=== PATIENT | female | born 1955 | race Caucasian/White ===

== ENCOUNTER → 2025-02-13 | Outpatient (CLI) | payer MEDICARE, SELFPAY ==
--- NOTE | 2025-02-13 11:00 | RAD_ITS ---
PROCEDURE: ABDOMEN SINGLE VIEW 02/13/2025 REASON FOR EXAM: SITZ MARKER DAY 3 TECHNIQUE: Single view abdomen. COMPARISON: None. FINDINGS: There is a nonobstructive bowel gas pattern. There is a Sitz marker in the left mid abdomen, which could be in the transverse colon. There is a Sitz marker in the right lower quadrant, which could be in the cecum. No other Sitz markers are identified. There is multilevel degenerative disc disease of the lumbar spine with dextroscoliosis. RAD/Abdomen Single View IMPRESSION: No evidence of bowel obstruction. Sitz markers locations as described. Reading Location: [place] [id number]
== END | disposition home or self-care (01) ==
LOC: RAD 10:56
PROVIDERS: PCP Family Medicine
DX: R14.0 Abdominal distension (gaseous) (principal); K59.00 Constipation, unspecified
CPT/HCPCS: 74018

== ENCOUNTER → 2025-02-15 | Outpatient (CLI) | payer MEDICARE, SELFPAY ==
--- OUTSIDE RECORDS SUMMARY | 2025-02-15 11:50 | XMS RPT_ITS | CCD ---
Author Organization [facility] ion Partnership [facility] Clini[employer] Care Team Providers Care Cable Television Program Director Name Role Phone Parag Wong Unavailable Unavailable Alena Lo Unavailable Unavailable Franklin, Salvador A Unavailable Unavailable Alena Lo Unavailable Unavailable Glenn, Salvador Unavailable Unavailable El-Nashar, Eddie Unavailable Unavailable El-Nashar, Eddie A Unavailable Unavailable Alena Lo MD Unavailable Unavailable Alena Lo Unavailable Unavailable Glenn, Salvador A Unavailable Unavailable El-Nashar, Eddie A Unavailable Unavailable Alena Lo Unavailable Unavailable Unavailable MD ALENA LO Primary Care UnavailCelestina Adame Attending Unavailable Celestina Chiang Referring Unavailable MD ALENA LO Primary [facility] UnavailCelestina Adame Attending Unavailable MD ALENA LO Primary [facility] UnavailMD ALENA Jones Attending UnavailMD ALENA Jones Referring UnavailMD ALENA Jones Primary [facility] UnavailMD ALENA Jones Attending UnavailMD ALENA Jones Referring UnavailMD ALENA Jones Primary Care UnavailMD ALENA Jones Attending UnavailMD ALENA Jones Referring UnavailMD ALENA Jones Referring UnavailMD ALENA Jones Primary Care UnavailMD ALENA Jones Attending UnavailAlena Jones MD Primary Care Provider Alena Lo MD Unavailable [phone] Alena Lo Primary Care Unavailab sharmila Lo, Dr. Alena Sinha Attending Unavailab sharmila Lo, Dr. Alena Sinha Primary Care Unavailab sharmila Lo, Dr. Alena Sinha Attending Unavailab sharmila Lo, Dr. Alena Sinha Primary Care Unavailab sharmila Lo, Dr. Alena Sinha Attending Unavailab le Garfield, Nitin Loreta Boylen Attending Unavailabl e Irvin, Dr. Alena Sinha Primary Care Unavailab le ALENA LO Primary Care Unavailable ALENA LO Primary Care Unavailable ALENA LO Primary Care Unavailable Stentz PA-C, Milind Primary Care Provider Alena Lo MD Unavailable Stentz PA-C, Milind Primary Care Provider STENTZ, MILIND Primary Care Unavailable ISACC KAM Attending Unavailable STENTZ, MILIND Referring Unavailable STENTZ, MILIND Primary Care Unavailable STENTMartín, MILIND Attending Unavailable ALENA LO Referring Unavailable STENTZ, MILIND Primary Care Unavailable STENTZ, MILIND Attending Unavailable STENTZ, MILIND Primary Care Unavailable Irvin MAR, Dr. Alena Heard Primary Care Provider Irvin MAR, Dr. Alena Heard Referring Provider Alisa Cordova Attending Provider Alena Lo Primary Care Unavailable Alena Lo Referring Unavailable Alisa Desouza Attending Unavailable Friend, Marin Attending Unavailable Alena Lo Primary Care Unavailable Allergies Allergy Classification Reported Allergen(s) Allergy Type Date of Onset Reaction(s) Facility (2 sources) apis mellifera venom Allergy to substance (finding) [facility] [address] Work Phone: (8 sources) Bee Venom Protein (Honey Bee); Translations: [BEE VENOM PROTEIN (HONEY BEE)] Allergy to substance 10-16-2023 [facility] (1 source) bee venom protein (honey bee) Drug allergy (disorder) 02-03-2025 [facility] Repository Medications Current Medications Medication Drug Class(es) Dates Sig (Normalized) Sig (Original) busPIRone hydrochloride 5 mg oral tablet (2 sources) Start: 01-07-2025 End: 03-08-2025 take 1 tablet by mouth twice daily as needed for anxiety busPIRone (Buspar) 5 mg tablet Indications: Anxiety Take 1 tablet (5 mg) by mouth 2 times a day as needed (anxiety). 60 tablet 1 01/07/2025 03/08/2025 Active FLUoxetine 20 mg oral capsule (20 sources) Serotonin Reuptake Inhibitor Start: 02-03-2025 take 1 capsule by mouth once daily Fluoxetine 20 mg capsule Active 20 mg PO daily February 03, 2025 12:00am Start: 09-14-2023 End: 09-14-2023 take 1-2 capsules by mouth once daily FLUoxetine (PROzac) 20 mg capsule Indications: Anxiety TAKE 1-2 CAPSULES BY MOUTH DAILY 180 capsule 3 09/14/2023 Active hydrOXYzine hydrochloride 10 mg oral tablet (3 sources) Antihistamine Start: 09-13-2024 End: 09-23-2024 take 1 tablet by mouth twice daily as needed for sleep hydrOXYzine HCL (Atarax) 10 mg tablet Indications: Primary insomnia Take 1 tablet (10 mg) by mouth 2 times a day as needed (sleep) for up to 10 days. 20 tablet 09/13/2024 Active traZODone hydrochloride 50 mg oral tablet (2 sources) Serotonin Reuptake Inhibitor Start: 01-07-2025 End: 03-08-2025 traZODone (Desyrel) 50 mg tablet Indications: Primary insomnia Take 1 tablet (50 mg) by mouth as needed at bedtime for sleep. 30 tablet 1 01/07/2025 03/08/2025 Active zolpidem tartrate 5 mg oral tablet (3 sources) gamma-Aminobutyric Acid-ergic Agonist Start: 12-07-2023 zolpidem (Ambien) 5 mg tablet Indications: Psychophysiological insomnia Take 1 tablet (5 mg) by mouth as needed at bedtime for sleep. 10 tablet 12/07/2023 Active Completed/Discontinued Medications Medication Drug Class(es) Dates Sig (Normalized) Sig (Original) ciprofloxacin 500 mg oral tablet (5 sources) Quinolone Antimicrobial Start: 07-16-2019 take 1 tablet by mouth twice daily Ciprofloxacin HCl - 500 MG Oral Tablet Take 1 tablet twice daily Quantity: 6 Refills: 0 Parag Wong Start : 16-Jul-2019 Active ergocalciferol, vitamin D2, (VITAMIN D2 ORAL) (1 source) End: 09-14-2023 take 1 tablet by mouth once daily ergocalciferol, vitamin D2, (VITAMIN D2 ORAL) Take 1 tablet by mouth once daily. 0 09/14/2023 Discontinued (Therapy completed) Lidocaine (1 source) Antiarrhythmic, Amide Local Anesthetic Start: 12-15-2024 End: 12-15-2024 10 mL, infiltration, Once, On 12/15/24 at 1340, For 1 dose mometasone furoate 0.001 mg/mg topical ointment (11 sources) Corticosteroid Mometasone Furoa te 0.1 % External Ointment APPLY SPARINGLY TO AFFECTED AREA(S) ONCE DAILY Refills: 0 Active Mometasone Furoa te 0.1 % External Ointment Refills: 0 DO Active Multi-Vitamins Oral Tablet (5 sources) Multi-Vitamins O ral Tablet Refills: 0 DO Active Multi-Vitamins O ral Tablet Refills: 0 Active mv-mn/folic acid/vit [id number] (ALIVE ONCE DAILY WOMEN 50 PLUS ORAL) (1 source) End: 09-14-2023 take 1 tablet by mouth once daily mv-mn/folic acid/vit [id number] (ALIVE ONCE DAILY WOMEN 50 PLUS ORAL) Take 1 tablet by mouth once daily. 0 09/14/2023 Discontinued (Therapy completed) nitrofurantoin, macrocrystals 25 mg / nitrofurantoin, monohydrate 75 mg oral capsule (2 sources) Nitrofuran Antibacterial Start: 09-24-2019 take 1 capsule by mouth twice daily Nitrofurantoin Monohyd Macro 100 MG Oral Capsule TAKE 1 CAPSULE TWICE DAILY UNTIL GONE. Quantity: 14 Refills: 0 Geovanna MAR, PhD, Eddie Start : 24-Sep-2019 Active polyethylene glycol 3350 73462 mg powder for oral solution (7 sources) Osmotic Laxative MiraLax Oral Po wder 17 grams oral PRN only Refills: 0 DO Active MiraLax Oral Pow jericho Refills: 0 DO Active promethazine hydrochloride 25 mg oral tablet (2 sources) Phenothiazine Start: 07-01-2022 take 1 tablet by mouth at bedtime Promethazine HCl - 25 MG Oral Tablet TAKE 1 TABLET Bedtime PRN queasiness Quantity: 10 Refills: 1 Ordered: 08-Jul-2022 Alena Lo MD Start : 01-Jul-2022 Active traMADol hydrochloride 50 mg oral tablet (1 source) Opioid Agonist Start: 12-15-2024 End: 12-15-2024 take 50 mg by mouth once as needed for pain, then take 300 mg by mouth once daily as needed for pain 50 mg, oral, Once, On 12/15/24 at 1340, For 1 dose, Max of 300 mg daily for patients > 75 years of age., If ordered PRN for pain, nurse is permitted to administer this medication for higher pain scores based on patient preference? Yes triamcinolone acetonide 1 mg/ml topical cream (9 sources) Corticosteroid Start: 08-11-2020 Triderm 0.1 % CREA APPLY CREAM EXTERNALLY TO AFFECTED AREA THREE TIMES DAILY Quantity: 30 Refills: 1 Ordered: 11-Aug-2020 Alena Lo MD Start : 11-Aug-2020 Active Problems Active Problems Problem Classification Problem Date Documented Da te Episodic/Chronic Anxiety disorders (20 sources) Anxiety; Translations: [Anxiety state, unspecified] Onset: 05-29-2023 05-29-2023 Chronic Cataract (20 sources) Cataract; Translations: [Unspecified cataract] Onset: 09-14-2023 09-14-2023 Chronic E Codes: Fall (4 sources) Fall; Translations: [Unspecified fall, initial encounter] Onset: 12-15-2024 12-15-2024 Episodic Immunizations and screening for infectious disease (5 sources) Immunization due; Translations: [Need for prophylactic vaccination and inoculation against unspecified single disease] Episodic Miscellaneous mental health disorders (4 sources) Primary insomnia; Translations: [Primary insomnia] Onset: 09-13-2024 09-13-2024 Chronic Open wounds of head; neck; and trunk (6 sources) Facial laceration ; Translations: [Laceration without foreign body of other part of head, initial encounter] Onset: 12-15-2024 12-15-2024 Episodic Osteoarthritis (20 sources) Osteoarthritis; Translations: [Osteoarthrosis, generalized, multiple sites] Onset: 05-29-2023 05-29-2023 Chronic Other endocrine disorders (10 sources) Menarche; Translations: [History of Menarche] Chronic Other eye disorders (20 sources) Vitreomacular traction syndrome; 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] Onset: 05-29-2023 05-29-2023 Chronic Other gastrointestinal disorders (19 sources) H/O: abdominal hernia; Translations: [Personal history of other diseases of digestive system] Episodic Other gastrointestinal disorders (3 sources) Abdominal bloating; Translations: [Abdominal distension (gaseous)] 05-29-2023 Episodic Other gastrointestinal disorders (4 sources) Abdominal distension (gaseous); Translations: [Abdominal distension (gaseous)] Onset: 05-29-2023 Episodic Other gastrointestinal disorders (1 source) Diarrhea of presumed infectious origin; Translations: [Diarrhea, unspecified] 12-01-2023 Episodic Other gastrointestinal disorders (2 sources) Constipation; Translations: [Constipation, unspecified] 02-03-2025 Episodic Other gastrointestinal disorders (1 source) Diarrhea; Translations: [Diarrhea, unspecified] 02-03-2025 Episodic Other gastrointestinal disorders (1 source) Constipation, unspecified; Translations: [Constipation, unspecified] Onset: 02-03-2025 Episodic Other injuries and conditions due to external causes (1 source) Injury of head; Translations: [Unspecified injury of head, initial encounter] 12-15-2024 Episodic Other injuries and conditions due to external causes (1 source) Injury of dental structures; Translations: [Unspecified injury of face, initial encounter] 12-15-2024 Episodic Other injuries and conditions due to external causes (2 sources) Unspecified injury of head, initial encounter; Translations: [Unspecified injury of head, initial encounter] Onset: 12-15-2024 Episodic Other injuries and conditions due to external causes (2 sources) Unspecified injury of face, initial encounter; Translations: [Unspecified injury of face, initial encounter] Onset: 12-15-2024 Episodic Other liver diseases (19 sources) Lesion of liver; Translations: [Other specified disorders of liver] Chronic Other lower respiratory disease (3 sources) Dyspnea; Translations: [Other respiratory abnormalities] Episodic Other nutritional; endocrine; and metabolic disorders (20 sources) High density lipoprotein deficiency ; Translations: [Lipoprotein deficiencies] Onset: 05-29-2023 05-29-2023 Chronic Other nutritional; endocrine; and metabolic disorders (7 sources) Body mass index 30+ - obesity; Translations: [Obesity, unspecified] Chronic Other nutritional; endocrine; and metabolic disorders (8 sources) Obesity; Translations: [Obesity, unspecified] Chronic Other nutritional; endocrine; and metabolic disorders (2 sources) Lipoprotein deficiency; Translations: [Lipoprotein deficiency] Onset: 05-29-2023 Chronic Other nutritional; endocrine; and metabolic disorders (1 source) Obesity caused by energy imbalance; Translations: [Class 1 obesity due to excess calories without serious comorbidity with body mass index (BMI) of 33.0 to 33.9 in adult] 09-13-2024 Chronic Other nutritional; endocrine; and metabolic disorders (2 sources) Other obesity due to excess calories; Translations: [Other obesity due to excess calories] Onset: 09-13-2024 Chronic Other nutritional; endocrine; and metabolic disorders (2 sources) Body mass index (BMI) 33.0-33.9, adult; Translations: [Body mass index (BMI) 33.0-33.9, adult] Onset: 09-13-2024 Chronic Other and delivery including normal (2 sources) Delivery normal; Translations: [Normal delivery] Episodic Comment on above: 10/30/1986_39weeks_F emale_6# 5oz11/30/1989_38weeks_Female_6# 3oz; Other upper respiratory disease (20 sources) Allergic rhinitis; Translations: [Allergic rhinitis, cause unspecified] Onset: 05-29-2023 Resolved: 09-14-2023 05-29-2023 Chronic Phlebitis; thrombophlebitis and thromboembolism (19 sources) History of thrombophlebitis; Translations: [Personal history of other diseases of circulatory system] Episodic Residual codes; unclassified (19 sources) Past history of procedure; Translations: [Other specified personal history presenting hazards to health] Episodic Comment on above: 04/23/2019-NEGATIVE; Residual codes; unclassified (5 sources) History of clinical finding in subject; Translations: [Asymptomatic postmenopausal status (age-related) (natural)] Episodic Comment on above: 2010; Residual codes; unclassified (7 sources) Menopause present; Translations: [Symptomatic menopausal or female climacteric states] 09-14-2023 Episodic Comment on above: 2010; Retinal detachments; defects; vascular occlusion; and retinopathy (20 sources) Macular hole; Translations: [Macular cyst, hole, or pseudohole] Onset: 05-29-2023 Resolved: 09-12-2022 05-29-2023 Chronic Spondylosis; intervertebral disc disorders; other back problems (18 sources) Cervical spondylosis without myelopathy; Translations: [Cervical spondylosis without myelopathy] Onset: 05-29-2023 05-29-2023 Chronic Superficial injury; contusion (3 sources) Contusion of right hand; Translations: [Contusion of right hand, initial encounter] Onset: 12-15-2024 12-15-2024 Episodic Unclassified (13 sources) Patient encounter status; Translations: [History of Vaginal Pap smear] 09-13-2024 Unclassified (1 source) Obesity, class 1; Translations: [Obesity, class 1] Onset: 09-13-2024 Urinary tract infections (3 sources) Sterile pyuria; Translations: [Pyuria, sterile] Episodic Past or Other Problems Problem Classification Problem Date Documented Da te Episodic/Chronic Abdominal pain (7 sources) Epigastric pain; Translations: [Epigastric pain] Onset: 05-29-2023 05-29-2023 Episodic Allergic reactions (20 sources) Atopic dermatitis; Translations: [Other atopic dermatitis and related conditions] Onset: 05-29-2023 Resolved: 09-14-2023 05-29-2023 Chronic Benign neoplasm of uterus (19 sources) Uterine leiomyoma; Translations: [Leiomyoma of uterus, unspecified] Onset: 05-29-2023 05-29-2023 Episodic Cardiac dysrhythmias (13 sources) Palpitations; Translations: [Palpitations] Onset: 07-19-2022 Resolved: 09-14-2023 05-29-2023 Episodic Genitourinary symptoms and ill-defined conditions (20 sources) Increased frequency of urination; Translations: [Dysuria] Resolved: 09-07-2020 Episodic Menopausal disorders (16 sources) Postmenopausal bleeding; Translations: [Postmenopausal bleeding] Onset: 05-29-2023 Resolved: 09-14-2023 05-29-2023 Chronic Nonspecific chest pain (6 sources) Chest discomfort; Translations: [Other chest pain] Onset: 10-19-2022 Episodic Other and unspecified benign neoplasm (17 sources) Lipoma of back; Translations: [Lipoma of other specified sites] Onset: 05-29-2023 05-29-2023 Episodic Other connective tissue disease (9 sources) Recurrent falls ; Translations: [Repeated falls] Onset: 09-14-2023 09-14-2023 Episodic Other gastrointestinal disorders (20 sources) Irritable bowel syndrome; Translations: [Irritable bowel syndrome] Onset: 05-29-2023 Resolved: 09-14-2023 05-29-2023 Chronic Other gastrointestinal disorders (20 sources) Chronic constipation; Translations: [Constipation, unspecified] Onset: 05-29-2023 05-29-2023 Episodic Other lower respiratory disease (2 sources) Dyspnea, unspecified; Translations: [Dyspnea, unspecified] Onset: 10-19-2022 Episodic Other screening for suspected conditions (not mental disorders or infectious disease) (20 sources) Patient encounter status; Translations: [Special screening for malignant neoplasms of vagina] Onset: 03-29-2023 Episodic Comment on above: 03/27/2017-NEG; Other skin disorders (4 sources) H/O: eczema; Translations: [Personal history of diseases of skin and subcutaneous tissue] Resolved: 09-12-2022 Episodic Other upper respiratory infections (20 sources) Viral upper respiratory tract infection; Translations: [Acute upper respiratory infections of unspecified site] Onset: 05-29-2023 Resolved: 09-14-2023 05-29-2023 Episodic Residual codes; unclassified (20 sources) H/O: urinary anomaly; Translations: [Personal history of unspecified urinary disorder] Resolved: 09-07-2020 Episodic Residual codes; unclassified (10 sources) Immunization due; Translations: [Immunization due] Unclassified (10 sources) History of clinical finding in subject; Translations: [History of menopause] Unclassified (2 sources) Finding of menstrual bleeding; Translations: [Menstruation] Comment on above: ONSET AGE 16; Unclassified (8 sources) Onset: 09-14-2023 Resolved: 01-07-2025 09-14-2023 Unclassified (1 source) Obesity, class 1; Translations: [Obesity, class 1] Onset: 09-13-2024 Viral infection (12 sources) Disease caused by 2019-nCoV; Translations: [Other specified viral infection] Onset: 05-29-2023 05-29-2023 Episodic NEGATED: Highlighted row has not occurred!Residual codes; unclassified (20 sources) Disease Episodic Results Test Name Value Interpretation Reference Range Facility Gastroenterology Visit Repor ton 02-03-2025 Gastroenterology Visit Report [facility] [address] [place] [address] OFFICE VISIT Date of Service: 02/03/25 MR#: [id number] Acct: [id number] Name: BERE BHTAT Rep #: [id number] : [id number] Provider: JAGJIT huggins Age/Sex: 70/F Location: [facility] [place] Status: Signed Intake Vital Signs 02/03/25 10:46 Height 5 ft 6 in Weight: 186 lb BMI 29.9 BP 134/83 H Position Sitting Pulse 74 Pulse Source Monitor Intake Visit Reasons: Diarrhea Accompanied by: Self Allergies bee venom protein (honey bee) (bee sting) Allergy (Intermediate, Verified 02/03/25 11:41) Swelling Medications ???Medication ???Instructions ???Recorded ???Confirmed ???Type fluoxetine 20 mg capsule 20 mg PO QDAY 02/03/25 02/03/25 Hi story Have you fallen in the past year?: Yes ([place] [place] [address] [place] ) PFSH Medical History Anxiety Surgical History H/O hernia repair Family History Mother Hypertension HLD (hyperlipidemia) Skin cancer Father HLD (hyperlipidemia) Hypertension Social History Smoking Status: Never smoker alcohol intake: never substance use type: does not use HPI HPI Details: BERE BHATT, is a 70 F who presents to the office today for establishment with [facility] regarding concerns of chronic constipation. She states that she's been dealing with constipation for over 30yrs. She reports intermittent episodes of diarrhea and associated indigestion. States that over the winter her family had the influenza virus with all of the GI symptoms:N/V/D. She notes that her indigestion is related to intake of greasy, fat, or fried foods. Reports her daily bowel regimen includes: FiberOne, bran flakes cereal, 2 caps of Colace, and 1tsp of Metamucil. She states her daily fiber goal is 25gm with 60oz water. She has a history of rather traumatic multiple hemorrhoid removal and difficult recovery. Her last colonoscopy was 10 years ago with no incidental findings and she has been having screening colonoscopies every 10yrs. Her last bowel prep was done with Gavilyte. She denies difficulty chewing and swallowing, cough, throat clearing, sinus drainage, heartburn, reflux, nausea, emesis, excess gas, hematochezia, and melena. Her daughter is a pelvic floor therapist and has told her she would benefit from specific exercises to strengthen her floor. ROS Const Constitutional: Positive for headache(s) and weight change; No chills, fatigue or fever(s) Eyes Eyes: No change in vision ENT ENT: Positive for headache(s); No abnormal hearing or difficulty swallowing Resp Respiratory: No cough Cardio Cardiology: Positive for leg pain with exertion; No chest pain at rest or chest pain with exertion Gastro GI: Positive for constipation and diarrhea; No abdominal pain, belching, bloating, change in bowel habits, change in stool character, coffee ground emesis, cramping, heartburn, difficulty swallowing, feeling full early, excessive flatus, incontinent of stools, Vomiting blood/hematemesis, Blood in stool, loose stools, Black,tarry stools, nausea/dyspepsia, pain with swallowing, vomiting or other Musc Musculoskeletal: Positive for leg pain with exertion; No joint pain Skin Skin: No yellowing of the eye or itchy eyes Neuro Neurology: Positive for headache(s); No abnormal hearing Psych Psychiatric: Positive for anxiety and No depression Endo Endocrine: Positive for weight change; No cold intolerance, fatigue or heat intolerance Aller/Imm Allergy/Immunologic: No food intolerance or itchy eyes Eriberto/Lymp Hematologic/Lymphatic: No easy bleeding or easy bruising Exam Const General: cooperative, healthy appearing, comfortable, no acute distress and well groomed Nutritional Appearance: average body habitus Orientation: alert and oriented x3 [facility]: normal to inspection Ears: hearing grossly normal bilaterally Eyes General: appearance normal, both eyes and all related structures Sclera: sclerae normal Neck Neck: normal visual inspection and full ROM Chest Chest palpation inspection: normal inspection of the chest Resp Effort Inspection: normal respiratory effort, able to speak in complete sentences and symmetric chest movement GI Inspection: normal to inspection Palpation: soft, no guarding and nontender Skin General: no rashes or lesions noted Lesions: no lesions Rashes: no rashes Neuro General: patient alert, patient oriented x3 and moves all extremities Cognition: normal cognition Speech: speech normal Gait: normal gait Extrem General: full ROM Psych Appearance: well kempt (more content not included)... Normal [facility] NURSING PROGon 01-21-2025 NURSING PROG HNO ID: [id number] Author: ANN MAGANA RN Service: ? Author Type: Registered Nurse Type: Nursing Progress Note Filed: 01/21/2025 15:27 Note Text: Attempted to reach the patient at the contact number that they provided [phone] (home) . Unable to speak with patient so without identifying the patient the following information was left on their voice mail: Date of procedure, location and report time Prep instructions A message was left informing the patient/patient outside sales representative insurance they must have a responsible adult accompany them to their procedure; and remain in the endoscopy area until they are discharged. Failure to have a responsible adult accompany the patient to their procedure appointment prevents the use of sedation or anesthesia for their procedure; and can result in cancellation of the procedure NPO instructions were reviewed. Clear liquids the day before the procedure, stop all liquids 4 hours before the procedure Instructions to contact their primary care provider regarding their medications and which medications to stop in preparation for their procedure Instructions to completely read and follow the written instructions that they recieved regarding their procedure. Number to call with questions or concerns [phone] Number to call to cancel their procedure [phone] Ann Magana RN [facility] BI MAMMO BILATERAL SCREENING TOMOSYNTHESISon 01-17-2025 BI MAMMO BILATERAL SCREENING TOMOSYNTHESIS Interpreted By: Ivan Tyler, STUDY: BI MAMMO BILATERAL SCREENING TOMOSYNTHESIS; 01/17/2025 9:48 am ACCESSION NUMBER(S): [id number] ORDERING CLINICIAN: MILIND PEARSON INDICATION: Screening. COMPARISON: Digital mammograms dated 06/12/2023 FINDINGS: CC and MLO 2D digital mammograms and digital breast tomosynthesis images were obtained of the bilateral breasts. 3-D volume images were reconstructed in 4 views at an independent workstation as 1 mm slices through the breasts in both the CC and MLO projections. Density: There are scattered areas of fibroglandular density. No discrete mass or focal asymmetry is identified. No suspicious microcalcifications or foci of architectural distortion are seen. There has been no significant change. This study was interpreted with CAD. IMPRESSION: No mammographic evidence of malignancy. BI-RADS CATEGORY: BI-RADS Category: 1 Negative. Recommendation: Annual Screening. Recommended Date: 1 Year. Laterality: Bilateral. MACRO: None Signed by: Ivan Tyler 01/20/2025 8:11 AM Dictation workstation: [id number] [facility] CBC (H/H, RBC, INDICES, WBC, PLT)on 01-17-2025 Erythrocyte distribution width (RBC) [Ratio] 13.0 % Normal 11.0-15.0 [facility] Comment on above: Performed By: #### 9 404, 1758, , 0 #### [facility] [place] [address] Nurse Receptionist: Dmitry Pham MD Hematocrit (Bld) [Volume fraction] 42.7 % Normal 35.0-45.0 [facility] Comment on above: Performed By: #### 9 375, 1758, , 7600 #### [facility] [place] [address] Nurse Receptionist: Dmitry Pham MD Hemoglobin (Bld) [Mass/Vol] 13.6 g/dL Normal 11.7-15.5 [facility] Comment on above: Performed By: #### 9 569, 1758, , 7600 #### [facility] [place] [address] Nurse Receptionist: Dmitry Pham MD MCH (RBC) [Entitic mass] 29.1 pg Normal 27.0-33.0 [facility] Comment on above: Performed By: #### 9 317, 1758, , 7600 #### [facility] [place] [address] Nurse Receptionist: [facility] [Mass/Vol] 31.9 g/dL Low 32.0-36.0 [facility] Comment on above: Result Comment: For adults, a slight decrease in the calculated MCHC value (in the range of 30 to 32 g/dL) is most likely not clinically significant; however, it should be interpreted with caution in correlation with other red cell parameters and the patient's clinical condition. Performed By: #### 9 2664, 1758, , 0 #### [facility] [place] [address] Nurse Receptionist: Dmitry Pham MD MCV (RBC) [Entitic vol] 91.2 fL Normal 80.0-100.0 [facility] Comment on above: Performed By: #### 9 2664, 1758, , 0 #### [facility] [place] [address] Nurse Receptionist: Dmitry Pham MD Platelet mean volume (Bld) [Entitic vol] 9.9 fL Normal 7.5-12.5 [facility] Comment on above: Performed By: #### 9 2664, 1758, , 0 #### [facility] [place] [address] Nurse Receptionist: Dmitry Pham MD Platelets (Bld) [#/Vol] 339 10*3/uL Normal 140-400 [facility] Comment on above: Performed By: #### 9 2664, 1758, , 0 #### [facility] of [place] [address] Nurse Receptionist: Dmitry Pham MD RBC (Bld) [#/Vol] 4.68 10*6/uL Normal 3.80-5.10 [facility] Comment on above: Performed By: #### 9 2664, 1758, , 7600 #### [facility] of [place] [address] Nurse Receptionist: Dmitry Pham MD WBC (Bld) [#/Vol] 5.4 10*3/uL Normal 3.8-10.8 [facility] Comment on above: Performed By: #### 9 2665, 1758, , 7600 #### [facility] of [place] [address] Nurse Receptionist: Dmitry Pham MD COMPREHENSIVE METABOLIC PANE L W/ANION GAPon 01-17-2025 Albumin [Mass/Vol] 4.4 g/dL Normal 3.6-5.1 [facility] Comment on above: Performed By: #### 9 2665, 1758, , 7600 #### [facility] of [address], [address] [place] [address] Nurse Receptionist: Dmitry Pham MD ALP [Catalytic activity/Vol] 95 U/L Normal 37-153 [facility] Comment on above: Performed By: #### 9 266, 1758, , 7600 #### [facility] of [address], [address] [place] [address] Nurse Receptionist: Dmitry Pham MD ALT [Catalytic activity/Vol] 35 U/L High 6-29 [facility] Comment on above: Performed By: #### 9 266, 1758, , 7600 #### [facility] [place] [address] Nurse Receptionist: Dmitry Pham MD AST [Catalytic activity/Vol] 25 U/L Normal 10-35 [facility] Comment on above: Performed By: #### 9 266, 1758, , 0120 #### [facility] [place] [address] Nurse Receptionist: Dmitry Pham MD Bilirubin [Mass/Vol] 0.7 mg/dL Normal 0.2-1.2 [facility] Comment on above: Performed By: #### 9 266, 175, , 7600 #### [facility] [place] [address] Nurse Receptionist: Dmitry Pham MD Calcium [Mass/Vol] 9.6 mg/dL Normal 8.6-10.4 [facility] Comment on above: Performed By: #### 9 7565, 1758, , 7600 #### [facility] of [place] [address] Nurse Receptionist: Dmitry Pham MD Chloride [Moles/Vol] 102 mmol/L Normal 98-110 [facility] Comment on above: Performed By: #### 9 177, 1758, , 7600 #### [facility] [place] [address] Nurse Receptionist: Dmitry Pham MD CO2 [Moles/Vol] 25 mmol/L Normal 20-32 [facility] Comment on above: Performed By: #### 9 703, 1758, , 7600 #### [facility] [place] [address] Nurse Receptionist: Dmitry Pham MD Creatinine [Mass/Vol] 0.78 mg/dL Normal 0.50-1.05 [facility] Comment on above: Performed By: #### 9 974, 1758, , 7600 #### [facility] [place] [address] Nurse Receptionist: Dmitry Pham MD ELECTROLYTE BALANCE 10 mmol/L (calc) Normal 7-17 [facility] Comment on above: Performed By: #### 9 087, 1758, , 7600 #### [facility] [place] [address] Nurse Receptionist: Dmitry Pham MD GFR/1.73 sq M.predicted among non-blacks MDRD (S/P/Bld) [Vol rate/Area] 83 mL/min/{1.73_m2} Normal > OR = 60 [facility] Comment on above: Performed By: #### 9 036, 175, , 7600 #### [facility] of [place] [address] Nurse Receptionist: Dmitry Pham MD Glucose [Mass/Vol] 87 mg/dL Normal 65-99 [facility] Comment on above: Result Comment: Fasting reference interval Performed By: #### 9 7365, 175, , 7600 #### [facility] [place] [address] Nurse Receptionist: Dmitry Pham MD Potassium [Moles/Vol] 4.0 mmol/L Normal 3.5-5.3 [facility] Comment on above: Performed By: #### 9 1425, 175, , 7600 #### [facility] [place] [address] Nurse Receptionist: Dmitry Pham MD Protein [Mass/Vol] 7.4 g/dL Normal 6.1-8.1 [facility] Comment on above: Performed By: #### 9 235, 175, , 7600 #### [facility] [place] [address] Nurse Receptionist: Dmitry Pham MD Sodium [Moles/Vol] 137 mmol/L Normal 135-146 [facility] Comment on above: Performed By: #### 9 0685, 175, , 7600 #### [facility] [place] [address] Nurse Receptionist: Dmitry Pham MD Urea nitrogen [Mass/Vol] 9 mg/dL Normal 7-25 [facility] Comment on above: Performed By: #### 9 6225, 175, , 7600 #### [facility] [place] [address] Nurse Receptionist: Dmitry Pham MD LIPID PANEL, [facility] 05- Cholesterol [Mass/Vol] 193 mg/dL Normal <200 [facility] Comment on above: Order Comment: FASTI NG:YES FASTING: YES Performed By: #### 9 144, 175, , 7600 #### [facility] [place] [address] Nurse Receptionist: Dmitry Pham MD Cholesterol in HDL [Mass/Vol] 49 mg/dL Low > OR = 50 [facility] Comment on above: Order Comment: FASTI NG:YES FASTING: YES Performed By: #### 9 9145, 175, 51210, 4035 #### [facility] [address], [address] [place] [address] Nurse Receptionist: Dmitry Pham MD Cholesterol in LDL [Mass/Vol] 127 mg/dL High [facility] Comment on above: Order Comment: FASTI NG:YES FASTING: YES Result Comment: Refe rence range: <100 Desirable range <100 mg/dL for primary prevention; <70 mg/dL for patients with CHD or diabetic patients with > or = 2 CHD risk factors. LDL-C is now calculated using the Jarett calculation, which is a validated novel method providing better accuracy than the Friedewald equation in the estimation of LDL-C. Gustavo LEDESMA et al. RENETTA. 2013;310(19): 4038-4558 (http://education.[employer]/faq/XVQ705) Performed By: #### 9 6065, 175, 12196, 2432 #### [facility] [address], [address] [place] [address] Nurse Receptionist: Dmitry Pham MD Cholesterol.total/C holesterol in HDL [Mass ratio] 3.9 {ratio} Normal <5.0 [facility] Comment on above: Order Comment: FASTI NG:YES FASTING: YES Performed By: #### 9 1871, 127, 51397, 5930 #### [facility] [address], [address] [place] [address] Nurse Receptionist: Dmitry Pham MD NON HDL CHOLESTEROL 144 mg/dL (calc) High <130 [facility] Comment on above: Order Comment: FASTI NG:YES FASTING: YES Result Comment: For patients with diabetes plus 1 major ASCVD risk factor, treating to a non-HDL-C goal of <100 mg/dL (LDL-C of <70 mg/dL) is considered a therapeutic option. Performed By: #### 9 1875, 106, 19522, 2010 #### [facility] [address], [address] [place] [address] Nurse Receptionist: Dmitry Pham MD Triglyceride [Mass/Vol] 78 mg/dL Normal <150 [facility] Comment on above: Order Comment: FASTI NG:YES FASTING: YES Performed By: #### 9 4375, 1759, 32836, 8840 #### [facility] [address], [address] [place] [address] Nurse Receptionist: Dmitry Pham MD TSH W/REFLEX TO FT4on 2024 TSH W/REFLEX TO FT4 2.14 mIU/L Normal 0.40-4.50 [facility] Comment on above: Performed By: #### 9 3855, 1756, 78132, 0678 #### [facility] [address], [address] [place] [address] Nurse Receptionist: Dmitry Pham MD CT CERVICAL SPINE WO IV CONT RASTon 12-15-2024 CT CERVICAL SPINE WO IV CONTRAST Interpreted By: Javy Mccarthy, STUDY: CT CERVICAL SPINE WO IV CONTRAST; 12/15/2024 1:57 pm INDICATION: Fall and injury COMPARISON: None. ACCESSION NUMBER(S): [id number] ORDERING CLINICIAN: ISACC KAM TECHNIQUE: Transaxial images with orthogonal reconstructions FINDINGS: VERTEBRAL ALIGNMENT: Within normal limits. CRANIOCERVICAL JUNCTION: Unremarkable BONY STRUCTURES: No fracture or dislocation are evident. THE CERVICAL LEVELS INCLUDING DISC SPACES, APOPHYSEAL AND UNCOVERTEBRAL JOINTS: Mild spondylosis, primarily with marked narrowing of the C6-7 disc interspace with mild endplate irregularity and sclerosis, and moderate marginal osteophyte formation. There is also moderate narrowing of the C5-6 disc interspace with a slight retrolisthesis. There is also a slight retrolisthesis at the C4-5 level. There is multilevel apophyseal hypertrophy, greatest and moderate at the C4-5 level.. ADDITIONAL FINDINGS: None. IMPRESSION: No acute findings. Signed by: Javy Mccarthy 12/15/2024 2:15 PM Dictation workstation: [id number] [facility] CT Cervical spine WO contras ton 12-15-2024 No acute findings. Signed by: Javy Mccarthy 12/15/2024 2:15 PM Dictation workstation: [id number] MMODAL Interpreted By: Javy Turpin, STUDY: CT CERVICAL SPINE WO IV CONTRAST; 12/15/2024 1:57 pm INDICATION: Fall and injury COMPARISON: None. ACCESSION NUMBER(S): [id number] ORDERING CLINICIAN: ISACC KAM TECHNIQUE: Transaxial images with orthogonal reconstructions FINDINGS: VERTEBRAL ALIGNMENT: Within normal limits. CRANIOCERVICAL JUNCTION: Unremarkable BONY STRUCTURES: No fracture or dislocation are evident. THE CERVICAL LEVELS INCLUDING DISC SPACES, APOPHYSEAL AND UNCOVERTEBRAL JOINTS: Mild spondylosis, primarily with marked narrowing of the C6-7 disc interspace with mild endplate irregularity and sclerosis, and moderate marginal osteophyte formation. There is also moderate narrowing of the C5-6 disc interspace with a slight retrolisthesis. There is also a slight retrolisthesis at the C4-5 level. There is multilevel apophyseal hypertrophy, greatest and moderate at the C4-5 level.. ADDITIONAL FINDINGS: None. MMODAL Javy Mccarthy MD - 12/15/2024 Interpreted By: Javy Mccarthy, STUDY: CT CERVICAL SPINE WO IV CONTRAST; 12/15/2024 1:57 pm INDICATION: Fall and injury COMPARISON: None. ACCESSION NUMBER(S): [id number] ORDERING CLINICIAN: ISACC KAM TECHNIQUE: Transaxial images with orthogonal reconstructions FINDINGS: VERTEBRAL ALIGNMENT: Within normal limits. CRANIOCERVICAL JUNCTION: Unremarkable BONY STRUCTURES: No fracture or dislocation are evident. THE CERVICAL LEVELS INCLUDING DISC SPACES, APOPHYSEAL AND UNCOVERTEBRAL JOINTS: Mild spondylosis, primarily with marked narrowing of the C6-7 disc interspace with mild endplate irregularity and sclerosis, and moderate marginal osteophyte formation. There is also moderate narrowing of the C5-6 disc interspace with a slight retrolisthesis. There is also a slight retrolisthesis at the C4-5 level. There is multilevel apophyseal hypertrophy, greatest and moderate at the C4-5 level.. ADDITIONAL FINDINGS: None. IMPRESSION: No acute findings. Signed by: Javy Mccarthy 12/15/2024 2:15 PM Dictation workstation: [id number] [facility] Work Phone: [facility] Work Phone: CT FACIAL BONES WO IV CONTRA STon 12-15-2024 CT FACIAL BONES WO IV CONTRAST Interpreted By: Javy Mccarthy, STUDY: CT FACIAL BONES WO IV CONTRAST 12/15/2024 2:03 pm INDICATION: Signs/Symptoms:fall COMPARISON: None. ACCESSION NUMBER(S): [id number] ORDERING CLINICIAN: ISACC KAM TECHNIQUE: Thin cut axial CT images through the facial bones were obtained with orthogonal reconstructions . 3D volumetric reconstructed images were also generated at an independent workstation and reviewed. FINDINGS: BONES: There is no CT evidence of acute facial bone fracture. SOFT TISSUES: There is 9 mm right medial supraorbital soft tissue fullness and subcutaneous increased attenuation consistent with contusion. No emphysema or radiodense foreign bodies.. The salivary glands appear unremarkable. LYMPH NODES: No significant adenopathy. INTRACRANIAL: No acute findings as visualized. SINUSES AND MASTOIDS: Mild mucosal thickening of the right maxillary air cell indicating mild sinusitis. VASCULATURE: Unremarkable. OTHER FINDINGS: None significant. IMPRESSION: Right supraorbital soft tissue contusion. Signed by: Javy Mccarthy 12/15/2024 2:18 PM Dictation workstation: [id number] [facility] CT HEAD WO IV CONTRASTon CT HEAD WO IV CONTRAST Interpreted By: Javy Mccarthy, STUDY: CT HEAD WO IV CONTRAST; 12/15/2024 1:57 pm INDICATION: Signs/Symptoms:fall. COMPARISON: None. ACCESSION NUMBER(S): [id number] ORDERING CLINICIAN: ISACC KAM TECHNIQUE: Sequential trans axial images were obtained . FINDINGS: INTRACRANIAL: CORTICAL SULCI AND EXTRA-AXIAL SPACES: Unremarkable. VENTRICULAR SYSTEM: Unremarkable without significant dilatation. CEREBRAL PARENCHYMA: Unremarkable without significant degenerative change.There is no evidence of definite subacute infarction, intracranial hemorrhage or mass. EXTRACRANIAL: Visualized paranasal sinuses and mastoids are clear. The calvarium is intact. IMPRESSION: Unremarkable exam. Signed by: Javy Mccarthy 12/15/2024 2:13 PM Dictation workstation: [id number] [facility] CT Head WO contraston 2024 Unremarkable exam. Signed by: Javy Mccarthy 12/15/2024 2:13 PM Dictation workstation: [id number] MMODAL Interpreted By: Javy Turpin, STUDY: CT HEAD WO IV CONTRAST; 12/15/2024 1:57 pm INDICATION: Signs/Symptoms:fall. COMPARISON: None. ACCESSION NUMBER(S): [id number] ORDERING CLINICIAN: ISACC KAM TECHNIQUE: Sequential trans axial images were obtained . FINDINGS: INTRACRANIAL: CORTICAL SULCI AND EXTRA-AXIAL SPACES: Unremarkable. VENTRICULAR SYSTEM: Unremarkable without significant dilatation. CEREBRAL PARENCHYMA: Unremarkable without significant degenerative change.There is no evidence of definite subacute infarction, intracranial hemorrhage or mass. EXTRACRANIAL: Visualized paranasal sinuses and mastoids are clear. The calvarium is intact. [facility] MMODAL Javy Mccarthy MD - 12/15/2024 Interpreted By: Javy Mccarthy, STUDY: CT HEAD WO IV CONTRAST; 12/15/2024 1:57 pm INDICATION: Signs/Symptoms:fall. COMPARISON: None. ACCESSION NUMBER(S): [id number] ORDERING CLINICIAN: ISACC KAM TECHNIQUE: Sequential trans axial images were obtained . FINDINGS: INTRACRANIAL: CORTICAL SULCI AND EXTRA-AXIAL SPACES: Unremarkable. VENTRICULAR SYSTEM: Unremarkable without significant dilatation. CEREBRAL PARENCHYMA: Unremarkable without significant degenerative change.There is no evidence of definite subacute infarction, intracranial hemorrhage or mass. EXTRACRANIAL: Visualized paranasal sinuses and mastoids are clear. The calvarium is intact. IMPRESSION: Unremarkable exam. Signed by: Javy Mccarthy 12/15/2024 2:13 PM Dictation workstation: [id number] [facility] Work Phone: CT Head WO contrastOrdered B y: Javy Mccarthy on 12-15-2024 [facility] Work Phone: CT Maxillofacial region WO c ontraston 12-15-2024 Right supraorbital s oft tissue contusion. Signed by: Javy Mccarthy 12/15/2024 2:18 PM Dictation workstation: [id number] [facility] Interpreted By: Javy Turpin, STUDY: CT FACIAL BONES WO IV CONTRAST 12/15/2024 2:03 pm INDICATION: Signs/Symptoms:fall COMPARISON: None. ACCESSION NUMBER(S): [id number] ORDERING CLINICIAN: ISACC KAM TECHNIQUE: Thin cut axial CT images through the facial bones were obtained with orthogonal reconstructions . 3D volumetric reconstructed images were also generated at an independent workstation and reviewed. FINDINGS: BONES: There is no CT evidence of acute facial bone fracture. SOFT TISSUES: There is 9 mm right medial supraorbital soft tissue fullness and subcutaneous increased attenuation consistent with contusion. No emphysema or radiodense foreign bodies.. The salivary glands appear unremarkable. LYMPH NODES: No significant adenopathy. INTRACRANIAL: No acute findings as visualized. SINUSES AND MASTOIDS: Mild mucosal thickening of the right maxillary air cell indicating mild sinusitis. VASCULATURE: Unremarkable. OTHER FINDINGS: None significant. [facility] MMODAL Javy Mccarthy MD - 12/15/2024 Interpreted By: Javy Mccarthy, STUDY: CT FACIAL BONES WO IV CONTRAST 12/15/2024 2:03 pm INDICATION: Signs/Symptoms:fall COMPARISON: None. ACCESSION NUMBER(S): [id number] ORDERING CLINICIAN: ISACC KAM TECHNIQUE: Thin cut axial CT images through the facial bones were obtained with orthogonal reconstructions . 3D volumetric reconstructed images were also generated at an independent workstation and reviewed. FINDINGS: BONES: There is no CT evidence of acute facial bone fracture. SOFT TISSUES: There is 9 mm right medial supraorbital soft tissue fullness and subcutaneous increased attenuation consistent with contusion. No emphysema or radiodense foreign bodies.. The salivary glands appear unremarkable. LYMPH NODES: No significant adenopathy. INTRACRANIAL: No acute findings as visualized. SINUSES AND MASTOIDS: Mild mucosal thickening of the right maxillary air cell indicating mild sinusitis. VASCULATURE: Unremarkable. OTHER FINDINGS: None significant. IMPRESSION: Right supraorbital soft tissue contusion. Signed by: Javy Mccarthy 12/15/2024 2:18 PM Dictation workstation: [id number] [facility] Work Phone: [facility] Work Phone: Radiology Study observation (narrative) [facility] Work Phone: Laceration Repairon 12-16-19 Clarissa Tomas PA-C 12/15/2024 2:52 PM Laceration Repair Performed by: Clarissa Tomas PA-C Authorized by: Isacc Kam DO Consent: Consent obtained: Verbal Consent given by: Patient Risks, benefits, and alternatives were discussed: yes Conway protocol: Patient identity confirmed: Verbally with patient Anesthesia: Anesthesia method: Local infiltration Local anesthetic: Lidocaine 1% w/o epi Laceration details: Location: Lip Lip location: Upper interior lip Length (cm): 1 Pre-procedure details: Preparation: Patient was prepped and draped in usual sterile fashion Treatment: Area cleansed with: Chlorhexidine Amount of cleaning: Standard Irrigation solution: Sterile saline Skin repair: Repair method: Joe and sutures Suture size: 4-0 Suture material: Chromic gut Number of sutures: 3 Approximation: Approximation: Close Vermilion border well-aligned: yes Repair type: Repair type: Simple Post-procedure details: Procedure completion: Tolerated well, no immediate complications [facility] Work Phone: Clarissa Tmoas PA-C 12/15/2024 2:52 PM Laceration Repair Performed by: Clarissa Tomas PA-C Authorized by: Isacc Kam DO Consent: Consent obtained: Verbal Consent given by: Patient Risks, benefits, and alternatives were discussed: yes Conway protocol: Patient identity confirmed: Verbally with patient Anesthesia: Anesthesia method: None Laceration details: Location: Face Face location: R upper eyelid Extent: Superficial Length (cm): 3 Exploration: Imaging outcome: foreign body not noted Treatment: Area cleansed with: Chlorhexidine Amount of cleaning: Standard Irrigation solution: Sterile saline Skin repair: Repair method: Tissue adhesive Approximation: Approximation: Close Repair type: Repair type: Intermediate Post-procedure details: Procedure completion: Tolerated well, no immediate complications [facility] Work Phone: No Panel Informationon 12-15 [facility] Work Phone: No acute findings. MACRO: None Signed by: Javy Mccarthy 12/15/2024 2:19 PM Dictation workstation: [id number] [facility] Interpreted By: Javy Turpin, STUDY: XR HAND RIGHT 3+ VIEWS; XR WRIST RIGHT 3+ VIEWS; 12/15/2024 2:11 pm INDICATION: Signs/Symptoms:fall. COMPARISON: None. ACCESSION NUMBER(S): [id number]; [id number] ORDERING CLINICIAN: ISACC KAM FINDINGS: Bony structures: Intact Joint spaces: Maintained Soft tissues: Unremarkable without significant edema or radiodense foreign body Other: None significant MMODAL Javy Mccarthy MD - 12/15/2024 Interpreted By: Javy Mccarthy, STUDY: XR HAND RIGHT 3+ VIEWS; XR WRIST RIGHT 3+ VIEWS; 12/15/2024 2:11 pm INDICATION: Signs/Symptoms:fall. COMPARISON: None. ACCESSION NUMBER(S): [id number]; [id number] ORDERING CLINICIAN: ISACC KAM FINDINGS: Bony structures: Intact Joint spaces: Maintained Soft tissues: Unremarkable without significant edema or radiodense foreign body Other: None significant IMPRESSION: No acute findings. MACRO: None Signed by: Javy Mccarthy 12/15/2024 2:19 PM Dictation workstation: [id number] ([facility] Work Phone: [facility] Work Phone: Radiology Study observation (narrative) [facility] Work Phone: Radiology Study observation (narrative) [facility] Work Phone: XR HAND RIGHT 3+ VIEWSon XR HAND RIGHT 3+ VIEWS Interpreted By: Javy Mccarthy, STUDY: XR HAND RIGHT 3+ VIEWS; XR WRIST RIGHT 3+ VIEWS; 12/15/2024 2:11 pm INDICATION: Signs/Symptoms:fall. COMPARISON: None. ACCESSION NUMBER(S): [id number]; [id number] ORDERING CLINICIAN: ISACC KAM FINDINGS: Bony structures: Intact Joint spaces: Maintained Soft tissues: Unremarkable without significant edema or radiodense foreign body Other: None significant IMPRESSION: No acute findings. MACRO: None Signed by: Javy Mccarthy 12/15/2024 2:19 PM Dictation workstation: [id number] [facility] XR WRIST RIGHT 3+ VIEWSon XR WRIST RIGHT 3+ VIEWS Interpreted By: Javy Mccarthy, STUDY: XR HAND RIGHT 3+ VIEWS; XR WRIST RIGHT 3+ VIEWS; 12/15/2024 2:11 pm INDICATION: Signs/Symptoms:fall. COMPARISON: None. ACCESSION NUMBER(S): [id number]; [id number] ORDERING CLINICIAN: ISACC KAM FINDINGS: Bony structures: Intact Joint spaces: Maintained Soft tissues: Unremarkable without significant edema or radiodense foreign body Other: None significant IMPRESSION: No acute findings. MACRO: None Signed by: Javy Mccarthy 12/15/2024 2:19 PM Dictation workstation: [id number] Normal [facility] CBC panel Auto (Bld)on 12-04 Erythrocyte distribution width (RBC) [Ratio] 13.3 % Normal 11.5-14.5 [facility] Comment on above: Performed By: #### 5 8410-2 #### KOMAL SHIPMAN ([id number]) [facility] ([facility]) [address] [place] [id number] Hematocrit (Bld) [Volume fraction] 40.8 % Normal 36.0-46.0 [facility] Comment on above: Performed By: #### 5 8410-2 #### KOMAL SHIPMAN ([id number]) [facility] ([facility]) [address] [place] [id number] Hemoglobin (Bld) [Mass/Vol] 13.2 g/dL Normal 12.0-16.0 [facility] Comment on above: Performed By: #### 5 8410-2 #### KOMAL SHIPMAN ([id number]) [facility] ([facility]) [address] [place] [address] 99135 MCH (RBC) [Entitic mass] 28.6 pg Normal 26.0-34.0 [facility] Comment on above: Performed By: #### 5 8410-2 #### KOMAL SHIPMAN ([id number]) [facility] ([facility]) [address] [place] [address] 32506 MCHC (RBC) [Mass/Vol] 32.4 g/dL Normal 32.0-36.0 [facility] Comment on above: Performed By: #### 5 8410-2 #### KOMAL SHIPMAN ([id number]) [facility] ([facility]) [address] [place] [address] 79159 MCV (RBC) [Entitic vol] 89 fL Normal 80-100 [facility] Comment on above: Performed By: #### 5 8410-2 #### KOMAL SHIPMAN ([id number]) [facility] ([facility]) [address] [place] [address] 05776 Nucleated RBC/100 WBC (Bld) [Ratio] 0.0 /100 WBCs Normal 0.0-0.0 [facility] Comment on above: Performed By: #### 5 8410-2 #### KOMAL SHIPMAN ([id number]) [facility] ([facility]) [address] [place] [address] 98813 Platelets (Bld) [#/Vol] 301 x10*3/uL Normal 150-450 [facility] Comment on above: Performed By: #### 5 8410-2 #### KOMAL SHIPMAN ([id number]) [facility] ([facility]) [address] [place] [address] 69505 RBC (Bld) [#/Vol] 4.61 x10*6/uL Normal 4.00-5.20 [facility] Comment on above: Performed By: #### 5 8410-2 #### KOMAL SHIPMAN ([id number]) [facility] ([facility]) [address] [place] [address] 77606 WBC (Bld) [#/Vol] 6.5 x10*3/uL Normal 4.4-11.3 [facility] Comment on above: Performed By: #### 5 8410-2 #### KOMAL SHIPMAN ([id number]) [facility] ([facility]) [address] [place] [address] 29525 Comprehensive metabolic 2000 panelon 12-05-2023 Albumin BCP dye [Mass/Vol] 4.2 g/dL Normal 3.4-5.0 [facility] Comment on above: Performed By: #### 2 4323-8 #### KOMAL SHIPMAN ([id number]) [facility] ([facility]) [address] [place] [address] 38084 ALP [Catalytic activity/Vol] 82 U/L Normal 33-136 [facility] Comment on above: Performed By: #### 2 4323-8 #### KOMAL SHIPMAN ([id number]) [facility] ([facility]) [address] [place] [address] 65777 ALT With P-5'-P [Catalytic activity/Vol] 28 U/L Normal 7-45 [facility] Comment on above: Result Comment: Marilyn ents treated with Sulfasalazine may generate falsely decreased results for ALT. Performed By: #### 2 4323-8 #### KOMAL SHIPMAN ([id number]) [facility] ([facility]) [address] [place] [address] Anion gap [Moles/Vol] 11 mmol/L Normal 10-20 [facility] Comment on above: Performed By: #### 2 432-8 #### KOMAL SHIPMAN ([id number]) [facility] ([facility]) [address] [place] [address] 01717 AST With P-5'-P [Catalytic activity/Vol] 17 U/L Normal 9-39 [facility] Comment on above: Performed By: #### 2 4322-8 #### KOMAL SHIPMAN ([id number]) [facility] ([facility]) [address] [place] [address] 87519 Bilirubin [Mass/Vol] 0.5 mg/dL Normal 0.0-1.2 [facility] Comment on above: Performed By: #### 2 4323-8 #### KOMAL SHIPMAN ([id number]) [facility] ([facility]) [address] [place] [address] 87099 Calcium [Mass/Vol] 9.2 mg/dL Normal 8.6-10.3 [facility] Comment on above: Performed By: #### 2 4323-8 #### KOMAL SHIPMAN ([id number]) [facility] ([facility]) [address] [place] [address] 41189 Chloride [Moles/Vol] 102 mmol/L Normal 98-107 [facility] Comment on above: Performed By: #### 2 4323-8 #### KOMAL SHIPMAN ([id number]) [facility] ([facility]) [address] [place] [address] CO2 [Moles/Vol] 28 mmol/L Normal 21-32 [facility] Comment on above: Performed By: #### 2 4323-8 #### KOMAL SHIPMAN ([id number]) [facility] ([facility]) [address] [place] [address] 48533 Creatinine [Mass/Vol] 0.86 mg/dL Normal 0.50-1.05 [facility] Comment on above: Performed By: #### 2 432-8 #### KOMAL SHIPMAN ([id number]) [facility] ([facility]) [address] [place] [address] 90127 Glomerular filtration rate/1.73 sq M.predicted 74 mL/min/1.73m*2 Normal >60 [facility] Comment on above: Result Comment: Calc ulations of estimated GFR are performed using the 2020 CKD-EPI Study Refit equation without the race variable for the IDMS-Traceable creatinine methods. https://jasn.asnjournals.org/content/early//ASN.15415691 88 Performed By: #### 2 4323-8 #### KOMAL SHIPMAN ([id number]) [facility] ([facility]) [address] [place] [address] 53682 Glucose [Mass/Vol] 94 mg/dL Normal 74-99 [facility] Comment on above: Performed By: #### 2 4323-8 #### KOMAL SHIPMAN ([id number]) [facility] ([facility]) [address] [place] [address] 86128 Potassium [Moles/Vol] 4.3 mmol/L Normal 3.5-5.3 [facility] Comment on above: Performed By: #### 2 4323-8 #### KOMAL SHIPMAN ([id number]) [facility] ([facility]) [address] [place] [address] 46236 Protein [Mass/Vol] 6.9 g/dL Normal 6.4-8.2 [facility] Comment on above: Performed By: #### 2 4323-8 #### KOMAL SHIPMAN ([id number]) [facility] ([facility]) [facility] [place] [address] Sodium [Moles/Vol] 137 mmol/L Normal 136-145 [facility] Comment on above: Performed By: #### 2 4323-8 #### KOMAL SHIPMAN ([id number]) [facility] ([facility]) [facility] [place] [address] Urea nitrogen [Mass/Vol] 14 mg/dL Normal 6-23 [facility] Comment on above: Performed By: #### 2 4323-8 #### KOMAL SHIPMAN ([id number]) [facility] ([facility]) [address] [place] [address] 16153 Lipid 1996 panelon 4 Cholesterol [Mass/Vol] 234 mg/dL High 0-199 [facility] Comment on above: Result Comment: Age Desirable Borderline High High 0-19 Y 0 - 169 170 - 199 >/= 200 20-24 Y 0 - 189 190 - 224 >/= 225 >24 Y 0 - 199 200 - 239 >/= 240 All ranges are based on fasting samples. Specific therapeutic targets will vary based on patient-specific cardiac risk. Pediatric guidelines reference:Pediatrics 2011, 128(S5).Adult guidelines reference: NCEP ATPIII Guidelines,RENETTA 2001, 258:2486-97 Venipuncture immediately after or during the administration of Metamizole may lead to falsely low results. Testing should be performed immediately prior to Metamizole dosing. Performed By: #### 2 4331-1 #### KOMAL SHIPMAN ([id number]) [facility] ([facility]) [address] [place] [address] 98867 Cholesterol in HDL [Mass/Vol] 43.0 mg/dL Normal [facility] Comment on above: Result Comment: Age Very Low Low Normal High 0-19 Y < 35 < 40 40-45 ---- 20-24 Y ---- < 40 >45 ---- >24 Y ---- < 40 40-60 >60 Performed By: #### 2 4331-1 #### KOMAL SHIPMAN ([id number]) [facility] ([facility]) [address] [place] [address] 86998 Cholesterol in LDL [Mass/Vol] 168 mg/dL High <=99 [facility] Comment on above: Result Comment: Near Borderline AGE Desirable Optimal High High Very High 0-19 Y 0 - 109 --- 110-129 >/= 130 ---- 20-24 Y 0 - 119 --- 120-159 >/= 160 ---- >24 Y 0 - 99 100-129 130-159 160-189 >/=190 Performed By: #### 2 4331-1 #### KOMAL SHIPMAN ([id number]) [facility] ([facility]) [address] [place] [address] 29884 Cholesterol in VLDL [Mass/Vol] 23 mg/dL Normal 0-40 [facility] Comment on above: Performed By: #### 2 4331-1 #### KOMAL SHIPMAN ([id number]) [facility] ([facility]) [address] [place] [address] 40865 CHOLESTEROL/HDL RATIO 5.4 Normal [facility] Comment on above: Result Comment: Ref Values Desirable < 3.4 High Risk > 5.0 Performed By: #### 2 4331-1 #### KOMAL SHIPMAN ([id number]) [facility] ([facility]) [address] [place] [address] 05477 NON HDL CHOLESTEROL 191 mg/dL High 0-149 [facility] Comment on above: Result Comment: Age Desirable Borderline High High Very High 0-19 Y 0 - 119 120 - 144 >/= 145 >/= 160 20-24 Y 0 - 149 150 - 189 >/= 190 ---- >24 Y 30 mg/dL above LDL Cholesterol goal Performed By: #### 2 4331-1 #### KOMAL SHIPMAN ([id number]) [facility] ([facility]) [address] [place] [address] 38087 Triglyceride [Mass/Vol] 115 mg/dL Normal 0-149 [facility] Comment on above: Result Comment: Age Desirable Borderline High High Very High 0 D-90 D 19 - 174 ---- ---- ---- 91 D- 9 Y 0 - 74 75 - 99 >/= 100 ---- 10-19 Y 0 - 89 90 - 129 >/= 130 ---- 20-24 Y 0 - 114 115 - 149 >/= 150 ---- >24 Y 0 - 149 150 - 199 200- 499 >/= 500 Venipuncture immediately after or during the administration of Metamizole may lead to falsely low results. Testing should be performed immediately prior to Metamizole dosing. Performed By: #### 2 4331-1 #### KOMAL SHIPMAN ([id number]) [facility] ([facility]) [address] [place], [place] [id number] TSH WITH REFLEX TO FREE T4 I F ABNORMALon 12-05-2023 TSH Qn 2.35 m[IU]/L Normal 0.44-3.98 [facility] Comment on above: Order Comment: TSH t esting is performed using different testing methodology at [facility] than at other [facility]. Direct result comparisons should only be made within the same method. Performed By: #### T [facility] #### KOMAL SHIPMAN ([id number]) [facility] ([facility]) [address] [place] [address] DXA Skeletal system Views fo r bone densityon 09-26-2023 DEXA: According to World Health Organization criteria, classification is normal. Followup recommended in 2 years or sooner as clinically warranted. VFA: NO VERTEBRAL FRACTURES WERE SEEN. All images and detailed analysis are available on the Radiology PACS. MACRO: None Signed by: Ivan Tyler 09/26/2023 10:45 AM Dictation workstation: [id number] MMODAL Interpreted By: Ivan Tyler, STUDY: DEXA BONE DENSITY09/25/2023 11:22 am INDICATION: Signs/Symptoms:screenin g. The patient is a 68 y/o year old F. COMPARISON: None. ACCESSION NUMBER(S): [id number] ORDERING CLINICIAN: ALENA LO TECHNIQUE: DEXA BONE DENSITY FINDINGS: SPINE L1-L4 Bone Mineral Density: 1.560 T-Score 3.0 Z-Score 4.6 Bone Mineral Density change vs baseline: Not reported Bone Mineral Density change vs previous: Not reported LEFT FEMUR -TOTAL Bone Mineral Density: 1.259 T-Score 2.0 Z-Score 3.3 Bone Mineral Density change vs baseline: Not reported Bone Mineral Density change vs previous: Not reported LEFT FEMUR -NECK Bone Mineral Density: 1.123 T-Score 0.6 Z-Score 2.2 RIGHT FEMUR -TOTAL Bone Mineral Density: 1.193 T-Score 1.5 Z-Score 2.8 Bone Mineral Density change vs baseline: Not reported Bone Mineral Density change vs previous: Not reported RIGHT FEMUR -NECK Bone Mineral Density: 1.035 T-Score 0.0 Z-Score 1.6 World Health Organization (WHO) criteria for post-menopausal, Women: Normal: T-score at or above -1 SD Osteopenia: T-score between -1 and -2.5 SD Osteoporosis: T-score at or below -2.5 SD 10-year Fracture Risk: Major Osteoporotic Fracture 6.5 Hip Fracture 0.3 Note: If no FRAX score is reported, it is because: Some T-score for Spine Total or Hip Total or Femoral Neck at or below -2.5 Vertebral Deformity Assessment: Exam Date - 09/25/2023 11:22 am Vertebral Level Impression T4 None T5 None T6 None T7 None T8 None T9 None T10 None T11 None T12 None L1 None L2 None L3 None L4 None A spine fracture indicates 5X risk for subsequent spine fracture and 2X risk for subsequent hip fracture. This exam was performed at [facility] on a Linq3 Advanced Dexa Unit. MMODAL Ivan Tyler MD - 09/26/2023 Interpreted By: Ivan Tyler, STUDY: DEXA BONE DENSITY09/25/2023 11:22 am INDICATION: Signs/Symptoms:alessioin g. The patient is a 68 y/o year old F. COMPARISON: None. ACCESSION NUMBER(S): [id number] ORDERING CLINICIAN: ALENA LO TECHNIQUE: DEXA BONE DENSITY FINDINGS: SPINE L1-L4 Bone Mineral Density: 1.560 T-Score 3.0 Z-Score 4.6 Bone Mineral Density change vs baseline: Not reported Bone Mineral Density change vs previous: Not reported LEFT FEMUR -TOTAL Bone Mineral Density: 1.259 T-Score 2.0 Z-Score 3.3 Bone Mineral Density change vs baseline: Not reported Bone Mineral Density change vs previous: Not reported LEFT FEMUR -NECK Bone Mineral Density: 1.123 T-Score 0.6 Z-Score 2.2 RIGHT FEMUR -TOTAL Bone Mineral Density: 1.193 T-Score 1.5 Z-Score 2.8 Bone Mineral Density change vs baseline: Not reported Bone Mineral Density change vs previous: Not reported RIGHT FEMUR -NECK Bone Mineral Density: 1.035 T-Score 0.0 Z-Score 1.6 World Health Organization (WHO) criteria for post-menopausal, Women: Normal: T-score at or above -1 SD Osteopenia: T-score between -1 and -2.5 SD Osteoporosis: T-score at or below -2.5 SD 10-year Fracture Risk: Major Osteoporotic Fracture 6.5 Hip Fracture 0.3 Note: If no FRAX score is reported, it is because: Some T-score for Spine Total or Hip Total or Femoral Neck at or below -2.5 Vertebral Deformity Assessment: Exam Date - 09/25/2023 11:22 am Vertebral Level Impression T4 None T5 None T6 None T7 None T8 None T9 None T10 None T11 None T12 None L1 None L2 None L3 None L4 None A spine fracture indicates 5X risk for subsequent spine fracture and 2X risk for subsequent hip fracture. This exam was performed at [facility] on a Linq3 Advanced Dexa Unit. IMPRESSION: DEXA: According to World Health Organization criteria, classification is normal. Followup recommended in 2 years or sooner as clinically warranted. VFA: NO VERTEBRAL FRACTURES WERE SEEN. All images and detailed analysis are available on the Radiology PACS. MACRO: None Signed by: Ivan Tyler 09/26/2023 10:45 AM Dictation workstation: [id number] [facility] Work Phone: DXA Skeletal system Views fo r bone densityOrdered By: Ivan Tyler on 09-26-2023 [facility] Work Phone: DXA Skeletal system Views fo r bone densityon 09-25-2023 Radiology Study observation (narrative) [facility] Work Phone: ABDOMEN AP VIEWon 05-29-2023 ABDOMEN AP VIEW Patient Name: BERE BHATT STUDY: ABDOMEN AP VIEW; 05/29/2023 3:03 pm INDICATION: abd epigastric pain. COMPARISON: 07/10/2013 ACCESSION NUMBER(S): [id number] ORDERING CLINICIAN: LORETA BERMUDEZ FINDINGS: The bowel gas pattern is unremarkable. No evidence of bowel obstruction or perforation is seen. No abnormal calcification is noted in the kidneys or ureters. Visualized lungs are clear. Dextroscoliosis of the lumbar spine is present with marked degenerative changes. IMPRESSION: No acute disease. No change from 07/10/2013. MACRO: None Electronically signed by: JAY BENTON MD Normal [facility] AMYLASEon 05-29-2023 Amylase [Catalytic activity/Vol] 40 U/L Normal 29 - 103 [facility] Comment on above: Performed By: #### A MY #### [place] [address] Lab Specimen Source Normal [facility] Comment on above: Performed By: #### A MY #### [place] [address] Performed By: #### L IPAS #### [place] [address] Performed By: #### C BC #### [place] [address] CBCon 05-29-2023 Erythrocyte distribution width (RBC) [Ratio] 13.2 % Normal 11.5 - 14.5 [facility] Comment on above: Performed By: #### C BC #### [place] [address] Hematocrit (Bld) [Volume fraction] 43.7 % Normal 36.0 - 46.0 [facility] Comment on above: Performed By: #### C BC #### [place] [address] Hemoglobin (Bld) [Mass/Vol] 14.1 g/dL Normal 12.0 - 16.0 [facility] Comment on above: Performed By: #### C BC #### [place] [address] MCHC (RBC) [Mass/Vol] 32.3 g/dL Normal 32.0 - 36.0 [facility] Comment on above: Performed By: #### C BC #### [place] [address] MCV (RBC) [Entitic vol] 88 fL Normal 80 - 100 [facility] Comment on above: Performed By: #### C BC #### [place] [id number] Platelets (Bld) [#/Vol] 324 10*3/uL Normal 150 - 450 [facility] Comment on above: Performed By: #### C BC #### [address] [address] RBC 4.96 x10E12/L Normal 4.00 - 5.20 [facility] Comment on above: Performed By: #### C BC #### [address] [address] WBC (Bld) [#/Vol] 13.8 10*3/uL High 4.4 - 11.3 [facility] Comment on above: Performed By: #### C BC #### [address] [address] LIPASEon 05-29-2023 Lipase [Catalytic activity/Vol] 8 U/L Low 9 - 82 [facility] Comment on above: Result Comment: [place] puncture immediately after or during the administration of Metamizole may lead to falsely low results. Testing should be performed immediately prior to Metamizole dosing. Performed By: #### L IPAS #### [address] [address] Laboratory - Cytologyon 03-05 Cytology report Cyto stain.thin prep Doc (Cvx/Vag) [employer] [facility] [employer] Work Phone: Tobacco Screening.on 023 Adult depression screening assessment No [employer] Work Phone: Adult depression screening assessment Yes [employer] [facility] [employer] Work Phone: Fall risk assessment b) One or more falls in the last year [employer] [facility] [employer] Work Phone: Last menstrual period start date Menopause [employer] [facility] [employer] Work Phone: Tobacco use status CPHS b) No 27 [employer] Work Phone: Cardiac Stress Teston 2022 Cardiac Stress Test [address] [address] [phone], Exercise Stress Test Patient Name: BERE BHATT Ordering Physician: Lo Study Date: 10/19/2022 Reading Physician: [id number] Darci Rush MD MRN/PID: [id number] Supervising [id number] Darci Rush Physician: Accession/Order#: [id number] Referring Physician: [id number] Lo MD Date of : 1955 PCP: [id number] Lo MD Gender: F Fellow: Admit Date: 10/19/2022 Fellow: Admission Status: Outpatient Plant Operations Manager: Keren Nicole RRT Height: 168.00 cm Nurse: N/A Weight: 93.00 kg Websphere Developer: N/A BSA: 2.02 m2 Technologist: BMI: 32.95 kg/m2 Additional Staff: Age: 67 years cc report to: Patient Location: [facility] Stress Lab cc report to: Lo Study Type: Cardiac Stress Test Diagnosis/ICD: R07.89-Other chest pain Indication: Chest Pain Procedure/CPT: Stress Test Interpretation-43036; Stress Test Supervision-[id number] Falls Risk: Low: Patient has low risk for sustaining a fall; environmental safety interventions in place. Study Details: Correct procedure and correct patient verified verbally and with ID Band checked. Patient History: Chest pain. Allergies: None. Smoker: Never. Diabetes: No. BMI: Obese >30. Medications: FLUOXETINE, TRIDERM. The patient did not take medications as prescribed. Patient Performance: The patient exercised to stage III on a Ulises protocol for 7 minutes and 45 seconds, achieving 8.9 METS. The peak heart rate achieved was 155 bpm, which was 101 % of the age predicted target heart rate of 153 bpm. The resting blood pressure was 141/91 mmHg with a heart rate of 91 bpm. The standing blood pressure was 132/93 mmHg with a heart rate of 88 bpm. The patient developed shortness of breath and atypical chest pain during the stress exam. The symptoms resolved with rest 4 minutes into recovery. The blood pressure response was hypertensive. The test was terminated due to: dyspnea and chest pain - non-cardiac. Baseline ECG: Resting ECG showed normal sinus rhythm with normal tracing. Stress Stage Data: + +---+ ------+-------+ HR Sys BP Lua BP + +---+ ------+-------+ Baseline Resting 91 141 91 + +---+ ------+-------+ Baseline Standing 88 132 93 + +---+ ------+-------+ Stage I 122 152 68 + +---+ ------+-------+ Stage II 142 + +---+ ------+-------+ Stage III 155 172 65 + +---+ ------+-------+ Recovery ECG: Recovery ECG showed normal sinus rhythm. The heart rate recovery was normal. + +---+----- -+-------+ HR Sys BP Lua BP + +---+----- -+-------+ Recovery I 131 + +---+----- -+-------+ Recovery II 111 138 76 + +---+----- -+-------+ Recovery III 108 + +---+----- -+-------+ Recovery IV 100 126 78 + +---+----- -+-------+ Summary: 1. Baseline EKG shows normal sinus rhythm with nonspecific ST-T segment changes. 2. Patient exercised for 7 minutes 45 seconds, achieving 8.9 METS. 3. Exercise capacity is average for age. 4. Heart rate response to exercise is normal. Blood pressure response to exercise is normal. 5. With exercise no ST-T segment changes suggestive of ischemia or sustained ventricular arrhythmias are seen. 6. No electrocardiographic changes consistent with ischemia; nonlimiting chest discomfort reported during the test. 7. Charles treadmill score is 4 (low risk). 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) Chronic allergic rhinitis (477.9) (J30.9) IBS (irritable bowel syndrome) (564.1) (K58.9) Class 1 obesity with body mass index (BMI) of 33.0 to 33.9 in adult (278.00,V85.33) (E66.9,Z68.33) Chronic constipation (564.00) (K59.09) History of atopic dermatitis (V13.3) (Z87.2) Cervical spondylosis without myelopathy (721.0) (M47.812) Primary generalized (osteo)arthritis (715.09) (M15.0) Uterine fibroid (218.9) (D25.9) History of Macular hole (362.54) (H35.349) Cataract (366.9) (H26.9) Pseudophakia of left eye (V43.1) (Z96.1) Lipoma of back (214.8) (D17.1) Orders Anxiety TSH WITH REFLEX TO FREE T4 IF ABNORMAL; Status:Active; Requested for:12Sep2022; Vitamin B12, Serum; Status:Active; Requested for:12Sep2022; Chronic allergic rhinitis Complete Blood Count; Status:Active; Requested for:12Sep2022; HDL deficiency Lipid Panel; Status:Active; Requested for:12Sep2022; IBS (irritable bowel syndrome) Comprehensive Metabolic Panel; Status:Active; Requested for:12Sep2022; Menopause present Xray Bone Density, Dexa 1 or More Sites; Status:Hold For - Scheduling; Requested for:12Sep2022; Radiologist to Determine Optimal Study : Y What are the patient's signs and symptoms? : screenin g PMH: History of palpitations Holter Monitor 24-48 Hours; Status:Canceled; APPT SCHEDULED FOR 07/19/22 @ 9:30, [facility] Screening mammogram, encounter for Mamm - Screening Mammogram w/ Tomosynthesis; Status:Hold For - Scheduling; Requested for:12Sep2022; Radiologist to Determine Optimal Study : Y What are the patient's signs and symptoms ? : Annual Screening Mammogram Chief Complaint An interactive audio and video telecommunication system which permits real time communications between the patient (at the originating site) and provider (at the distant site) was utilized to provide this telehealth service. Verbal consent was requested and obtained from BERE BHATT on this date, 09/12/2022 04:30 PM , for a telehealth visit. frankck History of Present IllnessNeck pain comes and goes. Sees Dr Faulkner every 3 weeks.. Headaches to top of the head. Gets a lot of relief when she has an adjustment. Keeps manageable No focal numbness or weakness. But legs feel heavy. Anxiety - Was sleepless during COVID-19. Feels less out of control finally. She was sleepless and doing better. But will try magnesium Oxide to help relax. 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 Would like to be more social. Food choices not great. Has gained weight and not using exercise bike. So recommended YOGA for both. Also eat more fruits and vegetables. Did well on plant based diet in past and lost weight. Meds work well without side effects. Covid 19 - dyspnea and palpitations and sleep better finally IBS and Constipation is under control. No blood. Miralax as needed. Stool softener. Did well when on plant based diet. Obesity - Feels she has noted COVID-19 BMI 33. Allergic rhinitis - . Rarely needs meds. Recurrent UTI - none since October 2019 Dr Nicole felt it was due to vaginal drainage. Found to have uterine fibroids giving her a tugging feeling. No more bleeding. Eczema - resolved for now but has cream to use as needed. Seems related to chocolate and peanut butter. OA in left hip. Helped by chiropractor. Macular hole and had surgery. And had cataract on left removed. Still on right Lipoma noted at massage on back.. No pain Scope 05/18/15 Mammogram and DEXA ordered but needs to see Neuroscience Director Na, Dr Garcia. 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 Normal [employer] Tobacco Screening.on 023 Fall risk assessment a) No falls within the last year -[facility] Work Phone: Tobacco use status CPHS b) No -[facility] Work Phone: CBCon 07-18-2022 Erythrocyte distribution width (RBC) [Ratio] 13.7 % Normal 11.5 - 14.5 [facility] Comment on above: Performed By: #### C BC #### [address] [address] Hematocrit (Bld) [Volume fraction] 41.5 % Normal 36.0 - 46.0 [facility] Comment on above: Performed By: #### C BC #### [address] [address] Hemoglobin (Bld) [Mass/Vol] 13.2 g/dL Normal 12.0 - 16.0 [facility] Comment on above: Performed By: #### C BC #### [address] [address] MCHC (RBC) [Mass/Vol] 31.8 g/dL Low 32.0 - 36.0 [facility] Comment on above: Performed By: #### C BC #### [address] [address] MCV (RBC) [Entitic vol] 90 fL Normal 80 - 100 [facility] Comment on above: Performed By: #### C BC #### [address] [address] Platelets (Bld) [#/Vol] 332 10*3/uL Normal 150 - 450 [facility] Comment on above: Performed By: #### C BC #### [address] [address] RBC 4.62 x10E12/L Normal 4.00 - 5.20 [facility] Comment on above: Performed By: #### C BC #### [address] [address] WBC (Bld) [#/Vol] 6.7 10*3/uL Normal 4.4 - 11.3 [facility] Comment on above: Performed By: #### C BC #### [address] [address] COMPREHENSIVE PANELon 2021 Albumin [Mass/Vol] 4.3 g/dL Normal 3.4 - 5.0 [facility] Comment on above: Performed By: #### C MP #### [address] [address] ALP [Catalytic activity/Vol] 85 U/L Normal 33 - 136 [facility] Comment on above: Performed By: #### C MP #### [address] [address] ALT [Catalytic activity/Vol] 35 U/L Normal 7 - 45 [facility] Comment on above: Result Comment: Marilyn ents treated with Sulfasalazine may generate falsely decreased results for ALT. Performed By: #### C MP #### [address] [address] Anion gap [Moles/Vol] 11 mmol/L Normal 10 - 20 [facility] Comment on above: Performed By: #### C MP #### [address] [address] AST [Catalytic activity/Vol] 25 U/L Normal 9 - 39 [facility] Comment on above: Performed By: #### C MP #### [address] [address] Bilirubin [Mass/Vol] 0.4 mg/dL Normal 0.0 - 1.2 [facility] Comment on above: Performed By: #### C MP #### [address] [address] Calcium [Mass/Vol] 9.9 mg/dL Normal 8.6 - 10.3 [facility] Comment on above: Performed By: #### C MP #### [address] [address] Chloride [Moles/Vol] 101 mmol/L Normal 98 - 107 [facility] Comment on above: Performed By: #### C MP #### [address] [address] Creatinine [Mass/Vol] 0.76 mg/dL Normal 0.50 - 1.05 [facility] Comment on above: Performed By: #### C MP #### [address] [address] GFR/1.73 sq M.predicted among non-blacks MDRD (S/P/Bld) [Vol rate/Area] 86 mL/min/{1.73_m2} Normal >90 [facility] Comment on above: Result Comment: CALC ULATIONS OF ESTIMATED GFR ARE PERFORMED USING THE 2020 CKD-EPI STUDY REFIT EQUATION WITHOUT THE RACE VARIABLE FOR THE IDMS-TRACEABLE CREATININE METHODS. https://jasn.asnjournals.org/content/early//ASN.25172886 88 Performed By: #### C MP #### [address] [address] Glucose [Mass/Vol] 80 mg/dL Normal 74 - 99 [facility] Comment on above: Performed By: #### C MP #### [address] [address] HCO3 (Bld) [Moles/Vol] 29 mmol/L Normal 21 - 32 [facility] Comment on above: Performed By: #### C MP #### [address] [address] Potassium [Moles/Vol] 4.5 mmol/L Normal 3.5 - 5.3 [facility] Comment on above: Performed By: #### C MP #### [address] [address] Protein [Mass/Vol] 8.0 g/dL Normal 6.4 - 8.2 [facility] Comment on above: Performed By: #### C MP #### [address] [place] [address] Sodium [Moles/Vol] 136 mmol/L Normal 136 - 145 [facility] Comment on above: Performed By: #### C MP #### [address] [place] [address] Urea nitrogen [Mass/Vol] 16 mg/dL Normal 6 - 23 [facility] Comment on above: Performed By: #### C MP #### [address] [place] [address] Laboratory - Chemistry and C hemistry - challengeon 07-18-2022 Albumin BCP dye [Mass/Vol] 4.3 g/dL 3.4 - 5.0 [facility] Work Phone: ALP [Catalytic activity/Vol] 85 U/L 33 - 136 [facility] Work Phone: ALT With P-5'-P [Catalytic activity/Vol] 35 U/L 7 - 45 [facility] Work Phone: Comment on above: Patients treated wit h Sulfasalazine may generate falsely decreased results for ALT. Anion gap [Moles/Vol] 11 mmol/L 10 - 20 [facility] Work Phone: AST With P-5'-P [Catalytic activity/Vol] 25 U/L 9 - 39 [facility] Work Phone: Bilirubin [Mass/Vol] 0.4 mg/dL 0.0 - 1.2 [facility] Work Phone: Calcium [Mass/Vol] 9.9 mg/dL 8.6 - 10.3 [facility] Work Phone: Chloride [Moles/Vol] 101 mmol/L 98 - 107 [facility] Work Phone: CO2 [Moles/Vol] 29 mmol/L 21 - 32 [facility] Work Phone: Creatinine [Mass/Vol] 0.76 mg/dL See Below [facility] Work Phone: Comment on above: Reference Range: 0.5 0 - 1.05 Glucose [Mass/Vol] 80 mg/dL 74 - 99 [facility] Work Phone: Potassium [Moles/Vol] 4.5 mmol/L 3.5 - 5.3 [facility] Work Phone: Protein [Mass/Vol] 8.0 g/dL 6.4 - 8.2 [facility] Work Phone: Sodium [Moles/Vol] 136 mmol/L 136 - 145 [facility] Work Phone: TSH Qn 2.06 m[IU]/L See Below [facility] Work Phone: Comment on above: Reference Range: 0.4 4 - 3.98 TSH testing is performed using different testing methodology at [facility] than at other [facility]. Direct result comparisons should only be made within the same method. Urea nitrogen [Mass/Vol] 16 mg/dL 6 - 23 [facility] Work Phone: Laboratory - Hematology and Cell countson 07-18-2022 Erythrocyte distribution width (RBC) [Ratio] 13.7 % See Below [facility] Work Phone: Comment on above: Reference Range: 11. 5 - 14.5 Hematocrit (Bld) [Volume fraction] 41.5 % See Below [facility] Work Phone: Comment on above: Reference Range: 36. 0 - 46.0 Hemoglobin (Bld) [Mass/Vol] 13.2 g/dL See Below [facility] Work Phone: Comment on above: Reference Range: 12. 0 - 16.0 MCHC (RBC) [Mass/Vol] 31.8 g/dL below low threshold See Below [facility] Work Phone: Comment on above: Reference Range: 32. 0 - 36.0 MCV (RBC) [Entitic vol] 90 fL 80 - 100 [facility] Work Phone: Platelets (Bld) [#/Vol] 332 10*3/uL 150 - 450 [facility] Work Phone: RBC (Bld) [#/Vol] 4.62 {x10E12/L} See Below [facility] Work Phone: Comment on above: Reference Range: 4.0 0 - 5.20 WBC (Bld) [#/Vol] 6.7 10*3/uL 4.4 - 11.3 [facility] Work Phone: MAGNESIUMon 07-18-2022 Magnesium [Mass/Vol] 2.11 mg/dL Normal 1.60 - 2.40 [facility] Comment on above: Performed By: #### M G #### [address] [place] [address] Magnesium, Serumon Magnesium [Mass/Vol] 2.11 mg/dL See Below [facility] Work Phone: Comment on above: Reference Range: 1.6 0 - 2.40 No Panel Informationon 07-18 86 {mL/min/1.73m2} >90 [facility] Work Phone: Comment on above: CALCULATIONS OF JONATHAN MATED GFR ARE PERFORMED USING THE 2020 CKD-EPI STUDY REFIT EQUATION WITHOUT THE RACE VARIABLE FOR THE IDMS-TRACEABLE CREATININE METHODS.https://jasn.asnjournals.org/content/early/ASN. 5570148281 Office Visiton 07-18-2022 Follow-up visit Diagnoses/Problems Heart palpitations (785.1) (R00.2) COVID-19 virus infection (079.89) (U07.1) Orders Heart palpitations Complete Blood Count; Status:Active; Requested for:18Jul2022; Comprehensive Metabolic Panel; Status:Active; Requested for:18Jul2022; Holter Monitor 24-48 Hours; Status:Hold For - Scheduling; Requested for:18Jul2022; Magnesium, Serum; Status:Active; Requested for:18Jul2022; TSH WITH REFLEX TO FREE T4 IF ABNORMAL; Status:Active; Requested for:18Jul2022; Chief Complaint Post covid History of Present IllnessSince COVID-19 she has had more episodes of racing heart suddenly and pounding. Will go up to 98 with usual in low 70s. Up to 80s with activity prior to this. Says some prior to COVID-19 on June 26. Anxiety is wore now. Will feel short of breath but sat is 95%. Has had PFT in the past and was told she breaths too shallow. Will try incentive spirometry when she is feeling short of breath. No problem with that. Seems to reduce the sensation. This is almost every say. Worse when on the decongestant. Still has mild cough and congestion. No chest pain but tightness in left shoulder better with chiropractor. She is not sleeping well since. COVID-19. The first 4 days when she was sick she not able to sleep. Promethazine did help increase from 1 to 5 hours per night. She is not drinking enough water and she is having issues with constipation and concerned with the anal issues she has had. So she is more anxious. 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) IBS (irritable bowel syndrome) (564.1) (K58.9) Immunization due (V05.9) (Z23) Lipoma of back (214.8) (D17.1) Macular hole (362.54) (H35.349) Medication management (V58.69) (Z79.899) Postmenopausal bleeding (627.1) (N95.0) Primary generalized (osteo)arthritis (715.09) (M15.0) Uterine fibroid (218.9) (D25.9) Viral URI (465.9) (J06.9) 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) Past Medical History H/O mammogram (V15.89) (Z92.89) 04/23/2019-NEGATIVE History of dysuria (V13.00) (Z87.898) Resolved Date: 07 Sep 2020 History of menopause (V49.81) (Z78.0) 2010 History of superficial phlebitis (V12.59) (Z86.79) History of umbilical hernia (V12.79) (Z87.19) History of urinary frequency (V13.09) (Z87.898) Resolved Date: 07 Sep 2020 History of urinary frequency (V13.09) (Z87.898) Resolved Date: 07 Sep 2020 History of Liver lesion (573.8) (K76.9) History of Menarche (V21.8) ONSET AGE 16 History of Pyuria, sterile (791.9) (R82.81) Resolved Date: 07 Sep 2020 History of Vaginal Pap smear (V76.47) (Z12.72) 03/27/2017-NEG Surgical History History of Anal sphincterotomy History of Cataract surgery left eye History of Colonoscopy History of Debridement History of Eye surgery macular hole repair History of Hemorrhoidectomy History of Hernia repair 2010 History of Surgery 05/21/2019-optical surgery (left eye) macular hole. History of Tonsillectomy History of Ventral hernia repair 07/10/2013 Social History Denies alcohol consumption (V49.89) (Z78.9) Never a smoker No illicit drug use Allergies No Known Drug Allergies Recorded By: Kandis Castañeda; 07/14/2019 9:14:44 AM Current Meds Medication NameInstruction FLUoxetine HCl - 20 MG Oral Capsule1-2 caps daily Promethazine HCl - 25 MG Oral TabletTAKE 1 TABLET Bedtime PRN queasiness Triderm 0.1 % External CreamAPPLY CREAM EXTERNALLY TO AFFECTED AREA THREE TIMES DAILY Vitals Vital Signs Recorded: 18Jul2022 10:11AM Heart Rate72 Vaemdatj220, LUE Dlugjcjin67, LUE Height5 ft 6 in Rditgp377 lb BMI Rrekuevhkb24.09 kg/m2 BSA Calculated2.02 Tobacco Useb) No Falls Screening (Age 18+)a) No falls within the last year Physical Exam Physical Examination General: Alert and oriented, No acute distress. Eye: Pupils are equal, round and reactive to light, Extraocular movements are intact, Normal conjunctiva. HENT: Tympanic membranes are clear, Normal hearing, Oral mucosa is moist. Nose: Both nostrils, Within normal limits. Sinus: Bilateral, Frontal sinus, Maxillary sinus, No tenderness. Throat: Pharynx (Not erythematous, No exudate ). Neck: Supple, Non-tender, No carotid bruit, No jugular venous distention, No lymphadenopathy, No thyromegaly. Carotid pulse: Bilaterally, Strong. Respiratory: Lungs are clear to auscultation, Respirations are non-labored, Breath sounds are equal, Symmetrical chest wall expansion. Cardiovascular: Normal rate, Regular rhythm, No murmur, No gallop, Good pulses equal in all extremities (more content not included)... Normal [employer] TSH WITH REFLEX TO FREE T4 I F ABNORMALon 07-18-2022 TSH Qn 2.06 m[IU]/L Normal 0.44 - 3.98 [facility] Comment on above: Result Comment: TSH testing is performed using different testing methodology at [facility] than at other [facility]. Direct result comparisons should only be made within the same method. Performed By: #### T [facility] #### [id number] [place] [address] Tobacco Screening.on 022 Fall risk assessment a) No falls within the last year -[facility] Work Phone: Tobacco use status CP b) No [facility] Work Phone: Office Visiton 07-01-2022 Follow-up visit Diagnoses/Problems COVID-19 virus infection (079.89) (U07.1) Orders COVID-19 virus infection Start: Promethazine HCl - 25 MG Oral Tablet; TAKE 1 TABLET Bedtime PRN queasiness Patient Discussion/Summary Will treat symptoms Phenergan to help sleep and queasiness Mucinex DM Tylenol or Advil plain for achiness. Chief Complaint A telephone visit (audio only) between the patient (at the originating site) and the provider (at the distant site) was utilized to provide this telehealth service. Verbal consent was requested and obtained from BERE MARTINEZVIRAJ on this date, 07/01/2022 03:00 PM , for a telehealth visit. COVID-19 History of Present IllnessHusband with COVID-19 and now she has been sick for 5 days. 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 Did have some dyspnea with oxygen sat 91% initially. Now good 94-97%. Some racing heart with exertion Temp to 101 4 days ago only. Took Tylenol cold and flu Insomnia so tired. Sleeping only an hour or so Was feeling pounding heart Advil and Mucinex with DM seems to be better but has phenylephrine that may be affecting sleep Taking Fluoxetine and Chamomile and Unisom helped some but still only 3 hours mostly light per [employer] So she is feeling better except for the exhaustion and mild head congestion and headache Appetite is off. 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) IBS (irritable bowel syndrome) (564.1) (K58.9) Immunization due (V05.9) (Z23) Lipoma of back (214.8) (D17.1) Macular hole (362.54) (H35.349) Medication management (V58.69) (Z79.899) Postmenopausal bleeding (627.1) (N95.0) Primary generalized (osteo)arthritis (715.09) (M15.0) Uterine fibroid (218.9) (D25.9) Viral URI (465.9) (J06.9) 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) Past Medical History H/O mammogram (V15.89) (Z92.89) 04/23/2019-NEGATIVE History of dysuria (V13.00) (Z87.898) Resolved Date: 07 Sep 2020 History of menopause (V49.81) (Z78.0) 2010 History of superficial phlebitis (V12.59) (Z86.79) History of umbilical hernia (V12.79) (Z87.19) History of urinary frequency (V13.09) (Z87.898) Resolved Date: 07 Sep 2020 History of urinary frequency (V13.09) (Z87.898) Resolved Date: 07 Sep 2020 History of Liver lesion (573.8) (K76.9) History of Menarche (V21.8) ONSET AGE 16 History of Pyuria, sterile (791.9) (R82.81) Resolved Date: 07 Sep 2020 History of Vaginal Pap smear (V76.47) (Z12.72) 03/27/2017-NEG Surgical History History of Anal sphincterotomy History of Cataract surgery left eye History of Colonoscopy History of Debridement History of Eye surgery macular hole repair History of Hemorrhoidectomy History of Hernia repair 2010 History of Surgery 05/21/2019-optical surgery (left eye) macular hole. History of Tonsillectomy History of Ventral hernia repair 07/10/2013 Social History Denies alcohol consumption (V49.89) (Z78.9) Never a smoker No illicit drug use Allergies No Known Drug Allergies Recorded By: Kandis Castañeda; 07/14/2019 9:14:44 AM Current Meds Medication NameInstruction FLUoxetine HCl - 20 MG Oral Capsule1-2 caps daily Triderm 0.1 % External CreamAPPLY CREAM EXTERNALLY TO AFFECTED AREA THREE TIMES DAILY Physical Exam Telephonic AOX3. NAD Speaking in full sentences and clear Good mood and judgment Time Total time on date of patient encounter: 12 minutes. Signatures Electronically signed by : Alena Lo MD; Jul 01 2022 11:51AM EST (Author) Normal [employer] Office Visiton 04-19-2022 Follow-up visit Diagnoses/Problems Anxiety (300.00) (F41.9) Viral URI (465.9) (J06.9) Lipoma of back (214.8) (D17.1) Orders Anxiety Renew: FLUoxetine HCl - 20 MG Oral Capsule; 1-2 caps daily Patient Discussion/Summary The chest pressure and racing heart seem to be just due to the anxiety. So I would recommend to get back on the fluoxetine between 20 and 40 mg a day that I think you be doing better in a week or so. You do seem to have a viral URI. It could be COVID. 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 If it is negative that may not completely eliminate the possibility of COVID but at least you are not highly contagious. The lipoma on your back is benign and no further evaluation is needed. Chief Complaint Anxiety Adult Risk Screening Depression/Suicide Screening: During the past 2 weeks, the patient felt down, depressed or hopeless. During the past 2 weeks, the patient has not felt little interest or pleasure in doing things. PHQ-9 Depression Scale: 1. Little interest or pleasure in doing things - not at all 2. Feeling down, depressed or hopeless - several days 3. Trouble falling asleep or sleeping too much - nearly every day 4. Feeling tired or having little energy - several days 5. Poor appetite or overeating - more than half the days 6. Feeling bad about self or failure or letting others down - several days 7. Trouble concentrating on things - not at all 8. Moving / speaking slowly or fidgety / restless - not at all 9. Thought would be better off or hurting self - not at all Total Score: 8/27 Severity of depression is mild. How difficult have these problems made it for you to do your work, take care of things at home, or get along with people? Not at all. History of Present Illness She stopped Prozac in the spring. Noted that she was not sleeping. She did not make a decision but just stopped being compelled to take it. About 2 weeks ago started having the racing heart, pressure in the chest. She had back pain that was somewhat different than she usually gets treated by massage and ambulatory care nurse. She had a good PFT. She was told she does not take deep breaths. Sats have been above 95. Pulse has run in 60s-80s. Finds as she relaxes her BP and pulse do drop again. No swelling in ankles. She has been now on Prozac 40 mg for about 10 days. PHQ-9 score is 8. So seems more anxiety. She is staying active at home as is gone for the summer. He is under stress as their children are having marital issues and he is staying with them to care for a grandchild. So he is not home to walk with in the evenings and she is not out also due to the heat. Should be home in a few weeks. She is still wearing a mask and now anxious as she did not wear a mask at an event. She has the home test for COVID-19. She has been having a bit of drainage Massage therapist felt nodule on spine. 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) IBS (irritable bowel syndrome) (564.1) (K58.9) Immunization due (V05.9) (Z23) Macular hole (362.54) (H35.349) Medication management (V58.69) (Z79.899) Postmenopausal bleeding (627.1) (N95.0) Primary generalized (osteo)arthritis (715.09) (M15.0) Uterine fibroid (218.9) (D25.9) 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) Past Medical History H/O mammogram (V15.89) (Z92.89) 04/23/2019-NEGATIVE History of dysuria (V13.00) (Z87.898) Resolved Date: 07 Sep 2020 History of menopause (V49.81) (Z78.0) 2010 History of superficial phlebitis (V12.59) (Z86.79) History of umbilical hernia (V12.79) (Z87.19) History of urinary frequency (V13.09) (Z87.898) Resolved Date: 07 Sep 2020 History of urinary frequency (V13.09) (Z87.898) Resolved Date: 07 Sep 2020 History of Liver lesion (573.8) (K76.9) History of Menarche (V21.8) ONSET AGE 16 History of Pyuria, sterile (791.9) (R82.81) Resolved Date: 07 Sep 2020 History of Vaginal Pap smear (V76.47) (Z12.72) 03/27/2017-NEG Surgical History History of Anal sphincterotomy History of Cataract surgery left eye History of Colonoscopy History of Debridement History of Eye surgery macular hole repair History of Hemorrhoidectomy History of Hernia repair 2010 History of Surgery 05/21/2019-optical surgery (left eye) macular hole. History of Tonsillectomy History of Ventral hernia repair 07/10/2013 Social History Denies alcohol consumption (V49.89) (Z78.9) Never a smoker No illicit drug use Allergies No Known Drug Allergies Recorded By: Kandis Castañeda; 07/14/2019 9:14:44 AM Current Meds Medication NameInstruction FLUoxetine HCl - 20 M (more content not included)... Normal [employer] Tobacco Screening.on 022 Adult depression screening assessment Yes [facility] Work Phone: Adult depression screening assessment No [facility] Work Phone: Fall risk assessment b) One or more falls in the last year [employer] [employer] Work Phone: Tobacco use status CPHS b) No payever Phone: Tobacco Screening.on 022 Fall risk assessment b) One or more falls in the last year [employer] Work Phone: Tobacco use status CPHS b) No [employer] Phone: Cult, Urineon 10-30-2019 Bacteria identified Cx Nom (U) PATIENT: BERE BHATT LOCATION: [facility]#: [id number] : 57 AGE: SEX: F ORDERED BY: CARLY NICOLE: URINE COLLECTED: 10/30/19 15:15ANTIBIOTICS AT ANGELIQUE.: RECEIVED : 10/30/19 23:32SITE: Clean Catch/Voided R E S U L T S URINE CULTURE,BACTERIAL FINAL 10/31/19 23:42 NO SIGNIFICANT GROWTH. [facility] [facility] Work Phone: Urinalysison 09-02-2019 Appearance (U) CLEAR CLEAR [facility] Work Phone: Color (U) Yellow See Below [facility] Work Phone: Comment on above: Reference Range: STR AW,YELLOW Glucose Ql (U) Negative NEGATIVE [facility] Work Phone: Ketones Ql (U) Negative NEGATIVE [facility] Work Phone: Leukocyte esterase Test strip Ql (U) LARGE(3+) Abnormal NEGATIVE [facility] Work Phone: pH (U) 7.0 [pH] 5.0 - 8.0 [facility] Work Phone: Protein (U) [Mass/Vol] Negative NEGATIVE [facility] Work Phone: RBC (U) [#/Vol] Negative NEGATIVE [facility] Work Phone: Specific gravity (U) [Rel density] 1.006 See Below [facility] Work Phone: Comment on above: Reference Range: 1.0 05 - 1.035 Urinalysis <2.0 0.0 - 1.9 [facility] Work Phone: Urinalysis Negative NEGATIVE [facility] Work Phone: Urinalysis, Microscopicon Bacteria LM.HPF (Urine sed) [#/Area] 1+ Abnormal [facility] Work Phone: RBC (Bld) [#/Vol] <1 Abnormal 0-5 [facility] Work Phone: Urinalysis, Microscopic 5 {/HPF} Abnormal 0-5 [facility] Work Phone: Urinalysis, Microscopic <1 [facility] Work Phone: Cult, Urineon 07-26-2019 Bacteria identified Cx Nom (U) PATIENT: BERE BHATT LOCATION: [facility] BILL#: [id number] : 57 AGE: SEX: F ORDERED BY: NERISSA MIRELES: URINE COLLECTED: 07/26/19 11:20ANTIBIOTICS AT ANGELIQUE.: RECEIVED : 07/27/19 00:12SITE: Clean Catch/Voided R E S U L T S URINE CULTURE,BACTERIAL FINAL 07/28/19 08:20 NO SIGNIFICANT GROWTH. [employer] Work Phone: IO UA (automated w/o microsc opy)on 07-26-2019 Protein (U) [Mass/Vol] Negative Negative [facility] [employer] Work Phone: IO UA (automated w/o microscopy) Normal (0.2-1.0 mg/dl) Normal [facility] [employer] Work Phone: IO UA (automated w/o microscopy) (+)small - 15 Negative [employer] [employer] Work Phone: IO UA (automated w/o microscopy) 5.5 5.0-8.0 [employer] [facility] [employer] Work Phone: IO UA (automated w/o microscopy) Clear Clear [employer] [employer] Work Phone: IO UA (automated w/o microscopy) Negative Normal [employer] [facility] [employer] Work Phone: IO UA (automated w/o microscopy) 1.015 1.000-1.030 [facility] [address] Work Phone: IO UA (automated w/o microscopy) Trace Negative [facility] [address] Work Phone: IO UA (automated w/o microscopy) Yellow Colorless-Ye llow [facility] [address] Work Phone: Cult, Urineon 07-16-2019 Bacteria identified Cx Nom (U) MICRSLT [facility] Work Phone: Comment on above: PATIENT: NARENDRA BHATT LOCATION: [facility] BILL#: [id number] : 57 AGE: SEX: F ORDERED BY: ERIC WONG: URINE COLLECTED: 07/16/19 15:58ANTIBIOTICS AT ANGELIQUE.: RECEIVED : 07/16/19 23:44SITE: Clean Catch/Voided R E S U L T S URINE CULTURE,BACTERIAL FINAL 07/18/19 08:15 NO SIGNIFICANT GROWTH. IO UA (automated w/o microsc opy)on 07-16-2019 Protein (U) [Mass/Vol] Negative Negative [facility] Work Phone: IO UA (automated w/o microscopy) Clear Clear [facility] Work Phone: IO UA (automated w/o microscopy) Negative Negative [facility] Work Phone: IO UA (automated w/o microscopy) 1.010 1.000-1.030 [facility] Work Phone: IO UA (automated w/o microscopy) Yellow Colorless-Ye llow [facility] Work Phone: IO UA (automated w/o microscopy) 5.5 5.0-8.0 [facility] Work Phone: IO UA (automated w/o microscopy) Normal (0.2-1.0 mg/dl) Normal [facility] Work Phone: IO UA (automated w/o microscopy) (++)moderate - 40 Negative -[facility] Work Phone: MA Mamm Screen w/CAD if perf and 3D Bilon 04-24-2019 Bilirubin.direct [Mass/Vol] Exam Date/Time: 04/23/2019 10:50 EDT Reason for Exam: SCREENING 3D/RADAMES;Screening Report STUDY: Digital mammography screening with radames; 04/23/2019 10:50 am ACCESSION NUMBER(S): [id number] ORDERING CLINICIAN: Salvador Mireles INDICATION: Screening. COMPARISON: Comparison is made to prior digital mammograms dated04/03/2018 and 03/27/2017 FINDINGS: CC and MLO 2D digital mammograms and digital breast tomosynthesis images were obtained of the bilateral breasts. 3-D volume images were reconstructed in 4 views at an independent workstation as 1 mm slices through the breasts in both the CC and MLO projections. There are areas of scattered fibroglandular tissue. No discrete mass or focal asymmetry is identified. No suspicious microcalcifications or foci of architectural distortion are seen. There has been no significant change. This study was interpreted with CAD. IMPRESSION: No mammographic evidence of malignancy. BI-RADS CATEGORY: Category: 1 - Negative. Recommendation: Normal Interval Follow-up, Over Age 40. Recall Interval: 12 Months. Breast Density: Scattered Fibroglandular Density. FINAL REPORT Dictated: 04/24/2019 8:22 am Ivan Tyler MD Signed (Electronic Signature): 04/24/2019 8:22 am Signed by: Ivan Tyler MD Technologist: LEANDRO Assessment: BI-RADS Category 1-Negative Recommendation: Normal interval follow-up Normal [facility] US Breast Unilateral Rt Kelvini zechariah 12-17-2018 US Breast Unilateral Rt Limited Exam Date/Time: 12/17/2018 08:37 EDT Reason for Exam: RIGHT BREAST ABN MAMMO 3D/RADAMES 6 MONTH FOLLOW UP WITH RIGHT BREAST ULTRASOUND;Other (please specify) Report STUDY: US Breast Unilateral Rt Limited; 12/17/2018 8:37 am ACCESSION NUMBER(S): [id number] ORDERING CLINICIAN: Salvador Mireles INDICATION: Other (please specify). COMPARISON: 04/12/2018 FINDINGS: The right breast was examined in the 2 o'clock position. Comparison is made to the last examination of 04/12/2018. A nodule is seen, at the 2 o'clock position 5 cm from the nipple, with low-grade echoes within it. This measures 3 x 2 x 5 mm in size and is unchanged from the previous examination in size. The margins are slightly lobulated. It is longer transversely than in height. The sonographic features favor a benign process such as a fibroadenoma. The patient is due for screening mammograms on 04/03/2019. Follow-up of this nodule can be made at that time. IMPRESSION: Nodule at 2 o'clock position unchanged from the previous examination, consistent with a benign process such as a fibroadenoma. Follow-up at the regular screening mammogram recommended. BI-RADS CATEGORY: Category: 2 - Benign Finding. Recommendation: Normal Interval Follow-up, Over Age 40. Recall Interval: 12 Months. Breast Density: Scattered Fibroglandular Density. Exam Date/Time: 12/17/2018 08:37 EDT Report For any future breast imaging appointments, please call [phone] ([phone]). FINAL REPORT Dictated: 12/17/2018 9:06 am Jay Benton MD Signed (Electronic Signature): 12/17/2018 9:06 am Signed by: Jay Benton MD Technologist: ISRAEL Assessment: BI-RADS Category 2-Benign finding Recommendation: Normal interval follow-up Normal [facility] Vital Signs Date Time Vital Sign Value Performing Clinician Facility 02-03-2025 10:46-0400 Body height 167.[address] Alena Lo MD Work Phone: [facility] 02-03-2025 10:46-0400 Body mass index (BMI) [Ratio] 29.9 kg/m2 Dr. Alena Lo MD Work Phone: [facility] 02-03-2025 10:46-0400 Body weight 84.[address] Alena Lo MD Work Phone: [facility] 02-03-2025 10:46-0400 Diastolic blood pressure 83 mm[Hg] Dr. Alena Lo MD Work Phone: [facility] 02-03-2025 10:46-0400 Heart rate 74 /min Dr. Alena Lo MD Work Phone: [facility] 02-03-2025 10:46-0400 Systolic blood pressure 134 mm[Hg] Dr. Alena Lo MD Work Phone: [facility] 01-17-2025 09:49-0400 Body height 170.2 cm [facility] 01-17-2025 09:49-0400 Body mass index (BMI) [Ratio] 30.69 kg/m2 [facility] 01-17-2025 09:49-0400 Body weight 88.9 kg [facility] 01-07-2025 10:54-0400 Body height 170.2 cm Milind Stentz PA-C Work Phone: [facility] 01-07-2025 10:54-0400 Body mass index (BMI) [Ratio] 30.7 kg/m2 Milind Stentz PA-C Work Phone: [facility] 01-07-2025 10:54-0400 Body weight 88.91 kg Milind Stentz PA-C Work Phone: [facility] 01-07-2025 10:54-0400 Diastolic blood pressure 84 mm[Hg] Milind Stentz PA-C Work Phone: [facility] 01-07-2025 10:54-0400 Heart rate 86 /min Milidn Stentz PA-C Work Phone: [facility] 01-07-2025 10:54-0400 SaO2% (BldA) [Mass fraction] 95 % Milind Stentz PA-C Work Phone: [facility] 01-07-2025 10:54-0400 Systolic blood pressure 130 mm[Hg] Milind Stentz PA-C Work Phone: [facility] 12-15-2024 14:30-0400 Diastolic blood pressure 65 mm[Hg] Isacc Kam DO Work Phone: [facility] 12-15-2024 14:30-0400 Heart rate 89 /min Isacc Kam DO Work Phone: [facility] 12-15-2024 14:30-0400 Respiratory rate 18 /min Isacc Kam DO Work Phone: [facility] 12-15-2024 14:30-0400 SaO2% (BldA) [Mass fraction] 97 % Isacc Kam DO Work Phone: [facility] 12-15-2024 14:30-0400 Systolic blood pressure 127 mm[Hg] Isacc Kam DO Work Phone: [facility] 12-15-2024 13:25-0400 Body height 167.6 cm Isacc Kam DO Work Phone: [facility] 12-15-2024 13:25-0400 Body mass index (BMI) [Ratio] 30.67 kg/m2 Isacc Kam DO Work Phone: [facility] 12-15-2024 13:25-0400 Body temperature 97.5 [degF] Isacc Kam DO Work Phone: [facility] 12-15-2024 13:25-0400 Body weight 86.18 kg Isacc Kam DO Work Phone: [facility] 09-13-2024 14:07-0500 Body mass index (BMI) [Ratio] 33.48 kg/m2 Milind Stentz PA-C Work Phone: [facility] 09-13-2024 14:07-0500 Body weight 91.26 kg Milind Stentz PA-C Work Phone: [facility] 09-13-2024 14:07-0500 Diastolic blood pressure 82 mm[Hg] Milind Stentz PA-C Work Phone: [facility] 09-13-2024 14:07-0500 Heart rate 78 /min Milind Stentz PA-C Work Phone: [facility] 09-13-2024 14:07-0500 SaO2% (BldA) [Mass fraction] 98 % Milind Stentz PA-C Work Phone: [facility] 09-13-2024 14:07-0500 Systolic blood pressure 126 mm[Hg] Milind Stentz PA-C Work Phone: [facility] 12-01-2023 13:32-0400 Body height 165.1 cm Alena Lo MD Work Phone: [facility] 12-01-2023 13:32-0400 Body mass index (BMI) [Ratio] 35.66 kg/m2 Alena Lo MD Work Phone: [facility] 12-01-2023 13:32-0400 Body weight 97.21 kg Alena Lo MD Work Phone: [facility] 12-01-2023 13:32-0400 Diastolic blood pressure 76 mm[Hg] Alena Lo MD Work Phone: [facility] 12-01-2023 13:32-0400 Heart rate 78 /min Alena Lo MD Work Phone: [facility] 12-01-2023 13:32-0400 SaO2% (BldA) [Mass fraction] 97 % Alena Lo MD Work Phone: [facility] 12-01-2023 13:32-0400 Systolic blood pressure 124 mm[Hg] Alena Lo MD Work Phone: [facility] 09-14-2023 16:34-0500 Body height 165.1 cm Alena Lo MD Work Phone: [facility] 09-14-2023 16:34-0500 Body mass index (BMI) [Ratio] 34.45 kg/m2 Alena Lo MD Work Phone: [facility] 09-14-2023 16:34-0500 Body weight 93.89 kg Alena Lo MD Work Phone: [facility] 09-14-2023 16:34-0500 Diastolic blood pressure 76 mm[Hg] Alena Lo MD Work Phone: [facility] 09-14-2023 16:34-0500 Heart rate 84 /min Alena Lo MD Work Phone: [facility] 09-14-2023 16:34-0500 SaO2% (BldA) [Mass fraction] 96 % Alena Lo MD Work Phone: [facility] 09-14-2023 16:34-0500 Systolic blood pressure 124 mm[Hg] Alena Lo MD Work Phone: [facility] 05-29-2023 14:28-0400 Body height 167.6 cm Loreta Alexd SOFTWARE TEST MANAGER-MUSIC TEACHER Work Phone: [facility] 05-29-2023 14:28-0400 Body mass index (BMI) [Ratio] 34.85 kg/m2 Loreta Berkeley SOFTWARE TEST MANAGER-MUSIC TEACHER Work Phone: [facility] 05-29-2023 14:28-0400 Body weight 97.93 kg Loreta Bermudez SOFTWARE TEST MANAGER-MUSIC TEACHER Work Phone: [facility] 05-29-2023 14:28-0400 Diastolic blood pressure 80 mm[Hg] Loreta Bermudez SOFTWARE TEST MANAGER-MUSIC TEACHER Work Phone: [facility] 05-29-2023 14:28-0400 Heart rate 98 /min Loreta Bermudez SOFTWARE TEST MANAGER-MUSIC TEACHER Work Phone: [facility] 05-29-2023 14:28-0400 Systolic blood pressure 132 mm[Hg] Loreta Bermudez SOFTWARE TEST MANAGER-MUSIC TEACHER Work Phone: [facility] 03-29-2023 11:44-0400 Body height 167.64 cm Alena O Lo Work Phone: [place] [address] Work Phone: 03-29-2023 11:44-0400 Body mass index (BMI) [Ratio] 35.26 kg/m2 Alena O Lo Work Phone: [address] Work Phone: 03-29-2023 11:44-0400 Body surface area Derived from formula 2.08 m2 Alena O Lo Work Phone: [address] Work Phone: 03-29-2023 11:44-0400 Body weight 99.1 kg Alena O Lo Work Phone: [address] Work Phone: 03-29-2023 11:44-0400 Diastolic blood pressure 76 mm[Hg] Alena O Lo Work Phone: [address] Work Phone: 03-29-2023 11:44-0400 Systolic blood pressure 124 mm[Hg] Alena O Lo Work Phone: [address] Work Phone: 07-18-2022 10:11-0500 Body height 167.64 cm Alena O Lo Work Phone: [facility] Work Phone: 07-18-2022 10:11-0500 Body mass index (BMI) [Ratio] 33.09 kg/m2 Alena O Lo Work Phone: [facility] Work Phone: 07-18-2022 10:11-0500 Body surface area Derived from formula 2.02 m2 Alena O Lo Work Phone: [facility] Work Phone: 07-18-2022 10:11-0500 Body weight 92.99 kg Alena O Lo Work Phone: [facility] Work Phone: 07-18-2022 10:11-0500 Diastolic blood pressure 80 mm[Hg] Alena O Lo Work Phone: [facility] Work Phone: 07-18-2022 10:11-0500 Heart rate 72 /min Alena O Lo Work Phone: [facility] Work Phone: 07-18-2022 10:11-0500 Systolic blood pressure 128 mm[Hg] Alena O Lo Work Phone: [facility] Work Phone: 04-19-2022 09:37-0400 Body height 167.64 cm Alena O Lo Work Phone: [facility] Work Phone: 04-19-2022 09:37-0400 Body mass index (BMI) [Ratio] 32.28 kg/m2 Alena O Lo Work Phone: [facility] Work Phone: 04-19-2022 09:37-0400 Body surface area Derived from formula 2 m2 Alena O Lo Work Phone: [facility] Work Phone: 04-19-2022 09:37-0400 Body weight 90.72 kg Alena O Lo Work Phone: [facility] Work Phone: 04-19-2022 09:37-0400 Diastolic blood pressure 68 mm[Hg] Alena O Lo Work Phone: [facility] Work Phone: 04-19-2022 09:37-0400 Heart rate 76 /min Alena Perlaer Work Phone: [facility] Work Phone: 04-19-2022 09:37-0400 Systolic blood pressure 124 mm[Hg] Alena Perlaer Work Phone: [facility] Work Phone: 09-08-2021 12:46-0500 Body mass index (BMI) [Ratio] 33.09 kg/m2 Alena Perlaer Work Phone: [facility] Work Phone: 09-08-2021 12:46-0500 Body surface area Derived from formula 2.02 m2 Alena Lo Work Phone: [facility] Work Phone: 09-08-2021 12:46-0500 Body weight 92.99 kg Alena Lo Work Phone: [facility] Work Phone: 10-30-2019 16:26-0500 BMI (Body Mass Index) 30.53 kg/m2 Eddie Nicole XR-CNCOI-[facility] Work Phone: 10-30-2019 16:26-0500 Body weight 85.79 kg Eddie Rodasar ZJ-PZPTL-Attllv est Work Phone: 10-30-2019 16:26-0500 BP Diastolic 86 mm[Hg] Eddie Godinez-Cristoar GQ-TPOFI-Tulbdg est Work Phone: Comment on above: Location: [place]; Position: Sitting 10-30-2019 16:26-0500 BP Systolic 126 mm[Hg] Eddie Godinez-Cristoar RE-KWKAP-Kroejp est Work Phone: Comment on above: Location: [place]; Position: Sitting 10-30-2019 16:26-0500 BSA (Body Surface Area) 1.95 m2 Eddie WILSON[facility] Work Phone: 10-30-2019 16:26-0500 Height 167.64 cm Eddie JUDGEGYN[facility] Work Phone: 10-30-2019 16:26-0500 Pulse (Heart Rate) 74 /min Eddie LOPEZ[facility] Work Phone: 10-30-2019 16:26-0500 Pulse Oximetry 96 % Eddie [facility] Work Phone: 10-30-2019 16:26-0500 Respiratory Rate 16 /min Eddie ETIENNEOBGYN-[facility] Work Phone: 09-05-2019 17:41-0500 BMI (Body Mass Index) 29.54 kg/m2 Alena Lo [facility] Work Phone: 09-05-2019 17:41-0500 Body Temperature 98.3 [degF] Alena [facility] Work Phone: Comment on above: Method: Oral 09-05-2019 17:41-0500 Body weight 83.01 kg Alena Lo [facility] Work Phone: 09-05-2019 17:41-0500 BP Diastolic 76 mm[Hg] Alena Lo [facility] Work Phone: Comment on above: Location: [place]; 09-05-2019 17:41-0500 BP Systolic 122 mm[Hg] Alena Lo [facility] Work Phone: Comment on above: Location: [place]; 09-05-2019 17:41-0500 BSA (Body Surface Area) 1.93 m2 Alena Lo [facility] Work Phone: 09-05-2019 17:41-0500 Height 167.64 cm Alena Lo [facility] Work Phone: 09-05-2019 17:41-0500 Pulse (Heart Rate) 64 /min Alena [facility] Work Phone: 08-12-2019 13:08-0500 BMI (Body Mass Index) 30.34 kg/m2 Alena [facility] Work Phone: 08-12-2019 13:08-0500 Body weight 85.28 kg Alena Judd [facility] Work Phone: 08-12-2019 13:08-0500 BP Diastolic 66 mm[Hg] [facility]ena [facility] Work Phone: Comment on above: Location: [place]; 08-12-2019 13:08-0500 BP Systolic 110 mm[Hg] Alena [facility] Work Phone: Comment on above: Location: [place]; 08-12-2019 13:08-0500 BSA (Body Surface Area) 1.95 m2 Alena [facility] Work Phone: 08-12-2019 13:08-0500 Height 167.64 cm Alena [facility] Work Phone: 08-12-2019 13:08-0500 Pulse (Heart Rate) 72 /min Alena [facility] Work Phone: 07-26-2019 12:46-0500 BMI (Body Mass Index) 31.26 kg/m2 Parag Mack[facility] [address] Work Phone: 07-26-2019 12:46-0500 Body weight 87.8 kg Parag Wong [facility] [address] Work Phone: 07-26-2019 12:46-0500 BP Diastolic 78 mm[Hg] Parag Wong [facility] [address] Work Phone: Comment on above: Location: [place]; Position: Sitting 07-26-2019 12:46-0500 BP Systolic 122 mm[Hg] Parag Patel [address] Work Phone: Comment on above: Location: [place]; Position: Sitting 07-26-2019 12:46-0500 BSA (Body Surface Area) 1.97 m2 Parag [place] [address] Work Phone: 07-26-2019 12:46-0500 Height 167.6 cm Parag Mack-Marce [facility] [address] Work Phone: 07-16-2019 15:30-0500 BMI (Body Mass Index) 31.69 kg/m2 Parag Wong [facility] Work Phone: 07-16-2019 15:30-0500 Body weight 89.05 kg Parag Wong [facility] Work Phone: 07-16-2019 15:30-0500 BP Diastolic 84 mm[Hg] Parag Header [facility] Work Phone: 07-16-2019 15:30-0500 BP Systolic 110 mm[Hg] Parag Header [facility] Work Phone: 07-16-2019 15:30-0500 BSA (Body Surface Area) 1.98 m2 Parag Wong [facility] Work Phone: 07-16-2019 15:30-0500 Height 167.64 cm Parag Wong [facility] Work Phone: 07-16-2019 15:30-0500 Pulse (Heart Rate) 72 /min Parag Wong [facility] Work Phone: 05-02-2019 14:00-0400 BMI (Body Mass Index) 32.31 kg/m2 Parag Header [facility] Work Phone: 05-02-2019 14:00-0400 Body weight 91.2 kg Parag Wong [facility] Work Phone: 05-02-2019 14:00-0400 BP Diastolic 90 mm[Hg] Parag Wong [facility] Work Phone: 05-02-2019 14:00-0400 BP Systolic 132 mm[Hg] Parag Wong [facility] Work Phone: 05-02-2019 14:00-0400 BSA (Body Surface Area) 2.01 m2 Parag Wong [facility] Work Phone: 05-02-2019 14:00-0400 Height 168 cm Parag Wong [facility] Work Phone: Encounters Encounter Date Encounter Type Care Provider Facility Start: 04-02-2025 ambulatory [facility] Facility :[facility] Start: 02-03-2025 End: 02-03-2025 Patient encounter procedure Alisa DANIELSON -[facility] Work Phone: Start: 02-03-2025 End: 02-03-[address] Alena Lo MD Work Phone: [facility] Work Phone: Start: 01-17-2025 End: 01-17-2025 ambulatory [facility] Start: 01-17-2025 End: 01-17-2025 Subsequent hospital visit by physician Manuel [id number] Mammo [facility] Comment on above: Screening mammogram for breast cancer Start: 01-07-2025 End: 01-07-2025 Office outpatient visit 25 minutes Milind Boubacar CRUM Work Phone: [facility] Comment on above: Anxiety (Primary Dx) ; Primary insomnia; Accident due to mechanical fall without injury, subsequent encounter Start: 01-07-2025 End: 01-07-2025 ambulatory [facility] Start: 12-15-2024 End: 12-15-2024 Emergency department patient visit Isacc Kam DO Work Phone: [facility] Comment on above: Fall, initial encoun ter (Primary Dx); Injury of head, initial encounter; Dental injury, initial encounter; Contusion of right hand, initial encounter; Facial laceration, initial encounter; Lip laceration, initial encounter Start: 09-13-2024 End: 09-13-2024 Assay of hemosiderin, quant Milindgene Pearson PA-C Work Phone: [facility] Work Phone: Start: 09-13-2024 End: 09-13-2024 Patient encounter procedure Milind Pearson PA-C Work Phone: [facility] Comment on above: Routine general medi keaton examination at health care facility (Primary Dx); Class 1 obesity due to excess calories without serious comorbidity with body mass index (BMI) of 33.0 to 33.9 in adult; Screening cholesterol level; Screening for thyroid disorder; Screening mammogram for breast cancer; Colon cancer screening; Primary insomnia Start: 09-13-2024 End: 09-13-2024 ambulatory [facility] Start: 09-13-2024 End: 09-13-2024 Encounter for general adult medical examination without abnormal findings [facility] Start: 12-05-2023 End: 12-06-2023 ambulatory ALENA O [facility] Start: 12-04-2023 End: 12-05-2023 ambulatory [facility] Start: 12-01-2023 End: 12-01-2023 Office outpatient visit 15 minutes Alena Lo MD Work Phone: [facility] Comment on above: Diarrhea of presumed infectious origin (Primary Dx) Start: 09-25-2023 End: 09-25-2023 Subsequent hospital visit by physician Manuel Bello [facility] Comment on above: Menopause Start: 09-14-2023 End: 09-14-2023 Assay of hemosiderin, quant Alena Lo MD Work Phone: [facility] Work Phone: Start: 09-14-2023 End: 09-14-2023 Patient encounter procedure Alena Lo MD Work Phone: [facility] Comment on above: Routine general medi keaton examination at health care facility (Primary Dx); Anxiety; Menopause; Frequent falls; Cervical spondylosis without myelopathy; Chronic constipation; COVID-19 virus infection; HDL deficiency; Macular hole of left eye; Pseudophakia of left eye; Cataract of right eye, unspecified cataract type; Lipoma of back; Uterine leiomyoma, unspecified location; Primary generalized (osteo)arthritis; Acute non-recurrent pansinusitis Start: 05-29-2023 End: 05-30-[address] Loreta Bermudez Facility:[id number] Start: 05-29-2023 End: 05-29-2023 Office outpatient visit 15 minutes Loreta Bermudez SOFTWARE TEST MANAGER-[facility] Work Phone: [facility] Comment on above: Epigastric abdominal pain (Primary Dx); Abdominal bloating Start: 04-07-2023 Chart Update Alena Lo Work Phone: [place] [address] [employer] Work Phone: Start: 03-31-2023 Encounter for gynecological examination (general) (routine) without abnormal findings Celestina Chiang [facility] Start: 03-29-2023 Encounter for gynecological examination (general) (routine) without abnormal findings MD ALENA LO Facility:[facility] Start: 03-29-2023 Patient encounter procedure Alena Lo Work Phone: [place] [address] [employer] Work Phone: Start: 03-29-2023 ambulatory MD ALENA LO Facility:[facility] Start: 10-19-[address] Alena Lo Facility:[id number] Start: 10-08-2022 AUDIT Alena Lo Work Phone: [facility] Work Phone: Start: 09-12-2022 Office outpatient vi sit 25 minutes Alena Lo Work Phone: [facility] Work Phone: Start: 09-12-2022 ambulatory MD ALENA LO Facility:[id number] Start: 08-05-[address] Alena Lo Facility:[id number] Start: 07-19-2022 HOLTER 48, Provider: HU DIAGNOSTIC THERAPIST[facility], Status: Pen, Time: 9:45 AM Alena Lo Work Phone: [facility] Work Phone: Start: 07-19-[address] Alena Lo Facility:[id number] Start: 07-18-2022 Office outpatient vi sit 25 minutes Alena Lo Work Phone: [facility] Work Phone: Start: 07-18-2022 ambulatory MD ALENA LO Facility:[id number] Start: 07-08-2022 AUDIT Alena Lo Work Phone: [facility] Work Phone: Start: 07-01-2022 ambulatory MD ALENA LO Facility:[id number] Start: 04-19-2022 Office outpatient vi sit 25 minutes Alena Lo Work Phone: [facility] Work Phone: Start: 04-19-2022 ambulatory MD ALENA LO Facility:[id number] Start: 09-08-2021 Office outpatient vi sit 25 minutes Alena Lo Work Phone: [facility] Work Phone: Start: 09-07-2020 Patient encounter procedure Alena Lo MD [id number] Work Phone: Start: 08-11-2020 Patient encounter procedure Alena oL MD [id number] Work Phone: Start: 10-30-2019 Patient encounter procedure Eddie Nicole VE-ITYYE-Csqbfuxce Work Phone: Start: 09-24-2019 Patient encounter procedure Eddie Nicole VE-[id number]-Zfuiitosb Work Phone: Start: 09-05-2019 Patient encounter procedure Alena Lo [facility] Work Phone: Start: 08-12-2019 Patient encounter procedure Alena Lo [facility] Work Phone: Start: 07-26-2019 Patient encounter procedure Parag Wong [place] [address] [employer] Work Phone: Start: 07-16-2019 Patient encounter procedure Parag Wong [place] [address] [address] Work Phone: Encounter for gynecological examination (general) (routine) without abnormal findings Alena Lo Work Phone: [place] [address] [employer] Work Phone: Comment on above: 03/27/2017-NEG; Menarche Alena Lo MD [id number]-[id number] lcrest Work Phone: Comment on above: ONSET AGE 16; Procedures Date Procedure Procedure Detail Performing Clinician Start: 01-16-2025 Lipid 1996 panel - S sonia or Plasma Manuel Mammo Start: 12-15-2024 Simple repair f/e/e/ n/l/m 2.5cm/< Clarissa Tomas PA-C Work Phone: Start: 12-15-2024 Radex wrist complete minimum 3 views Isacc Kam DO Work Phone: Start: 12-15-2024 Ct cervical spine w/ o contrast material Isacc Kam DO Work Phone: Start: 12-15-2024 End: 12-15-2024 Ct head/brain w/o contrast material Iascc Kam DO Work Phone: Start: 12-05-2023 CBC panel - Blood by Automated count ALENA LO Start: 12-05-2023 Comprehensive metabo lic 2000 panel - Serum or Plasma ALENA LO Start: 12-05-2023 Lipid panel ALENA CORRAL Start: 12-05-2023 TSH WITH REFLEX TO F REE T4 IF ABNORMAL ALENA LO Start: 12-05-2023 Lipid 1996 panel - S sonia or Plasma Milind Pearson PA-C Work Phone: Start: 09-25-2023 Dxa bone density rubi dy 1/> sites axial skel Alena Lo MD Work Phone: Start: 06-12-2023 Mammography Alena corral MD Work Phone: Start: 05-29-2023 AMYLASE ALENA CORRAL Start: 05-29-2023 CBC panel - Blood by Automated count ALENA LO Start: 05-29-2023 Lipase [Enzymatic activity/volume] in Serum or Plasma ALENA LO Start: 01-31-2020 Cataract surgery Alena Lo Work Phone: Comment on above: left eye; Start: 10-30-2019 Culture bacterial quanttative colony count urine Eddie El-Nashar Start: 09-24-2019 Ultrasound Pelvis Transabdominal With Transvaginal Eddie El-Nashar Start: 07-26-2019 Culture bacterial quanttative colony count urine Parag Marvin Start: 07-16-2019 Culture bacterial quanttative colony count urine Parag Marvin Start: 05-18-2019 Surgical procedure o n eye proper Alena Lo Work Phone: Comment on above: macular hole repair; Start: 10-10-2018 Anal sphincterotomy Juan F Lo Work Phone: Start: 10-10-2018 Debridement Alena tovar Work Phone: Start: 05-18-2015 End: 05-18-2015 Colonoscopy Parag Marvin Start: 05-18-2015 Colonoscopy Alena tovar Work Phone: Start: 07-10-2013 Repair of ventral hernia Alena Lo Work Phone: Comment on above: 07/10/2013; End: 10-10-2018 Anal sphincterotomy Parag Marvin End: 01-31-2020 Cataract surgery Alena Lo MD End: 10-10-2018 Debridement Parag Marvin Hemorrhoidectomy Parag Rab er Hernia repair Parag Wong Comment on above: 2010; End: 07-10-2013 Repair of ventral hernia Parag Wong Surgical procedure Parag Sanchez shayna Comment on above: 05/21/2019-optical s urgery (left eye) macular hole.; End: 05-18-2019 Surgical procedure on eye proper Alena Lo MD Tonsillectomy Parag Wong Plan of Treatment Date Care Activity Detail Author Start: 12-15-2034 DTaP/Tdap/Td Vaccine s (3 - Td or Tdap) DTaP/Tdap/Td Vaccines (3 - Td or Tdap) [facility] Start: 01-24-2031 RSV High Risk: (Elde rly (60+) or Population) (1 - 1-dose 75+ series) RSV High Risk: (Elderly (60+) or Population) (1 - 1-dose 75+ series) [facility] Start: 01-16-2030 Lipid panel Lipid Panel [facility] Start: 12-04-2028 Lipid panel Lipid Panel [facility] Start: 04-28-2027 DTaP/Tdap/Td Vaccine s (2 - Td or Tdap) DTaP/Tdap/Td Vaccines (2 - Td or Tdap) [facility] Start: 09-14-2025 Medicare Annual Wellness Visit Medicare Annual Wellness Visit (AWV) [facility] Start: 09-12-2025 End: 09-12-2025 Patient encounter procedure 09/12/2025 10:00 AM EST Office Visit [facility] [address] [facility] [address] [place] [id number] Milind Pearson PA-C [address] [facility] [address] [place] [address] [facility] Start: 05-18-2025 Screening for malign ant neoplasm of colon [facility] Start: 03-13-2025 End: 03-13-2025 Patient encounter procedure 03/13/2025 10:20 AM EDT Office Visit [facility] [address] [place] [address] Milind Pearson PA-C [address] [facility] [address] [place] [address] [facility] Start: 09-15-2024 Medicare Annual Wellness Visit Medicare Annual Wellness Visit (AWV) [facility] Start: 09-14-2024 Pneumococcal Vaccine : 65+ Years (1 - PCV) Pneumococcal Vaccine: 65+ Years (1 - PCV) [facility] Comment on above: Postponed from 01/24 (Patient Refused) Start: 09-13-2024 End: 09-13-2025 CBC panel - Blood by Automated count CBC Lab Routine Class 1 obesity due to excess calories without serious comorbidity with body mass index (BMI) of 33.0 to 33.9 in adult Expected: 09/13/2024 (Approximate), Expires: 09/13/2025 [facility] Service Area Work Phone: Comment on above: Expected: 09/13/2024 (Approximate), Expires: 09/13/2025 Start: 09-13-2024 End: 09-13-2025 Colonoscopy study Colonoscopy Screening; Average Risk Patient Endoscopy Routine Colon cancer screening Expected: 09/13/2024, Expires: 09/13/2025 [facility] Work Phone: Comment on above: Expected: 09/13/2024 , Expires: 09/13/2025 Start: 09-13-2024 End: 09-13-2025 Comprehensive metabolic 2000 panel - Serum or Plasma Comprehensive Metabolic Panel Lab Routine Class 1 obesity due to excess calories without serious comorbidity with body mass index (BMI) of 33.0 to 33.9 in adult Expected: 09/13/2024 (Approximate), Expires: 09/13/2025 [facility] Work Phone: Comment on above: Expected: 09/13/2024 (Approximate), Expires: 09/13/2025 Start: 09-13-2024 End: 03-10-2026 DBT Breast - bilateral BI mammo bilateral screening tomosynthesis Imaging Routine Screening mammogram for breast cancer Expected: 09/13/2024, Expires: 11/11/2025 [facility] Work Phone: Comment on above: Expected: 09/13/2024 , Expires: 11/11/2025 Start: 09-13-2024 End: 09-13-2025 Lipid 1996 panel - Serum or Plasma Lipid Panel Lab Routine Screening cholesterol level Expected: 09/13/2024 (Approximate), Expires: 09/13/2025 [facility] Work Phone: Comment on above: Expected: 09/13/2024 (Approximate), Expires: 09/13/2025 Start: 09-13-2024 End: 09-13-2025 TSH with reflex to Free T4 if abnormal TSH with reflex to Free T4 if abnormal Lab Routine Screening for thyroid disorder Expected: 09/13/2024 (Approximate), Expires: 09/13/2025 [facility] Work Phone: Comment on above: Expected: 09/13/2024 (Approximate), Expires: 09/13/2025 Start: 09-13-2024 End: 09-13-2024 Patient encounter procedure 09/13/2024 9:00 AM EST Office Visit [facility] [address] [place] [phone] Giovanny Shook MD MPH [address] [facility] [address] [place] [address] [facility] Start: 06-12-2024 Screening for malign ant neoplasm of breast Mammogram [facility] Start: 05-05-2024 COVID-19 Vaccine ( season) COVID-19 Vaccine ( season) [facility] Start: 09-14-2023 KENTRELL, Provider : Alena Lo, Status: Pen, Time: 4:30 PM KENTRELL, Provider: Alena Lo, Status: Pen, Time: 4:30 PM [facility] Work Phone: Start: 09-14-2023 End: 09-14-2023 Telemedicine consultation with patient 09/14/2023 4:30 PM EST Telemedicine [facility] [address] [place] [phone] Alena Lo MD [address] [facility] [address] [place] [address] [facility] Start: 09-14-2023 End: 09-14-2024 CBC panel - Blood by Automated count CBC Lab Routine Anxiety Acute non-recurrent pansinusitis Expected: 09/14/2023 (Approximate), Expires: 09/14/2024 [facility] Work Phone: Comment on above: Expected: 09/14/2023 (Approximate), Expires: 09/14/2024 Start: 09-14-2023 End: 09-14-2024 Comprehensive metabolic 2000 panel - Serum or Plasma Comprehensive Metabolic Panel Lab Routine HDL deficiency Expected: 09/14/2023 (Approximate), Expires: 09/14/2024 [facility] Work Phone: Comment on above: Expected: 09/14/2023 (Approximate), Expires: 09/14/2024 Start: 09-14-2023 End: 09-14-2024 DXA Skeletal system Views for bone density XR DEXA bone density Imaging Routine Menopause Expected: 09/14/2023, Expires: 09/14/2024 [facility] Service Area Work Phone: Comment on above: Expected: 09/14/2023 , Expires: 09/14/2024 Start: 09-14-2023 End: 09-14-2024 Lipid 1996 panel - Serum or Plasma Lipid Panel Lab Routine HDL deficiency Expected: 09/14/2023 (Approximate), Expires: 09/14/2024 [facility] Work Phone: Comment on above: Expected: 09/14/2023 (Approximate), Expires: 09/14/2024 Start: 09-14-2023 End: 09-14-2024 TSH with reflex to Free T4 if abnormal TSH with reflex to Free T4 if abnormal Lab Routine Anxiety Expected: 09/14/2023 (Approximate), Expires: 09/14/2024 [facility] Work Phone: Comment on above: Expected: 09/14/2023 (Approximate), Expires: 09/14/2024 Start: 06-12-2023 End: 06-12-2023 Professional / ancillary services management 06/12/2023 8:50 AM EDT Ancillary Procedure [facility] [address] [place] [address] [facility] Start: 05-29-2023 End: 05-29-2023 ambulatory 05/29/2023 3:00 PM EDT Lab [facility] [address] [place] [address] Epigastric abdominal pain; Abdominal bloating [facility] [address] Comment on above: Epigastric abdominal pain; Abdominal bloating Start: 05-29-2023 End: 05-29-2024 Amylase [Enzymatic activity/volume] in Serum or Plasma [facility] Service Area Work Phone: Comment on above: Expected: 05/29/2023 (Approximate), Expires: 05/29/2024 Start: 05-29-2023 End: 05-29-2024 CBC panel - Blood by Automated count [facility] Work Phone: Comment on above: Expected: 05/29/2023 (Approximate), Expires: 05/29/2024 Start: 05-29-2023 End: 05-29-2024 Lipase [Enzymatic activity/volume] in Serum or Plasma [facility] Work Phone: Comment on above: Expected: 05/29/2023 (Approximate), Expires: 05/29/2024 Start: 05-29-2023 End: 05-29-2024 XR Abdomen 3 Views XR abdomen 3+ views Imaging Routine Epigastric abdominal pain Abdominal bloating Expected: 05/29/2023, Expires: 05/29/2024 [facility] Work Phone: Comment on above: Expected: 05/29/2023 , Expires: 05/29/2024 Start: 05-05-2023 COVID-19 Vaccine ( season) COVID-19 Vaccine ( season) [facility] Start: 05-05-2023 Influenza vaccination Influenza Vacc ine (#1) [facility] Start: 01-24-2023 COVID-19 Vaccine (4 - Moderna series) COVID-19 Vaccine (4 - Moderna series) [facility] Start: 09-12-2022 KENTRELL, Provider : Alena Lo, Status: Pen, Time: 4:30 PM KENTRELL, Provider: Alena Lo, Status: Pen, Time: 4:30 PM [facility] Work Phone: Start: 01-24-2021 Pneumococcal Vaccine : 65+ Years (1 - PCV) Pneumococcal Vaccine: 65+ Years (1 - PCV) [facility] Start: 10-30-2019 Culture bacterial quanttative colony count urine Cult, Urine [id number]-Sofbjyrg 2420 DO Work Phone: Start: 10-08-2019 Ultrasound Pel vis Transabdominal With Transvaginal [id number]-Lribgmoz 2420 DO Work Phone: Start: 2016 Hepatitis B Vaccines (1 of 3 - Risk 3-dose series) Hepatitis B Vaccines (1 of 3 - Risk 3-dose series) [facility] Start: 01-24-2006 Zoster Vaccines (1 o f 2) Zoster Vaccines (1 of 2) [facility] Start: 1996 Screening for malign ant neoplasm of breast Mammogram [facility] Start: 01-24-1975 Hepatitis A Vaccines (1 of 2 - Risk 2-dose series) Hepatitis A Vaccines (1 of 2 - Risk 2-dose series) [facility] Start: 01-24-1974 Diabetes mellitus screening Diabetes Screening [facility] Start: 01-24-1974 Hepatitis C screening Hepatitis C Sc stormy [facility] Start: 1956 Lipid panel Lipid Panel [facility] Start: 1956 Medicare Annual Wellness Visit Medicare Annual Wellness Visit (AWV) [facility] Start: 1956 Screening for malign ant neoplasm of colon [facility] Start: 1956 Screening for osteoporosis Bone Density Scan [facility] Clostridioides difficile toxin A+B tcdA+tcdB genes [Presence] in Stool by RADHA with probe detection C. difficile, PCR Microbiology Routine Diarrhea of presumed infectious origin Ordered: 12/01/2023 [facility] Service Area Work Phone: Comment on above: Ordered: 12/01/2023 End: 01-17-2025 DBT Breast - bilateral [facility] Service Area Work Phone: Comment on above: Once for 1 Occurrenc es starting 01/17/2025 until 01/17/2025 End: 09-25-2023 DXA Skeletal system Views for bone density [facility] Service Area Work Phone: Comment on above: Once for 1 Occurrenc es starting 09/25/2023 until 09/25/2023 Stool Pathogen Panel , PCR Stool Pathogen Panel, PCR Microbiology Routine Diarrhea of presumed infectious origin Ordered: 12/01/2023 [facility] Work Phone: Comment on above: Ordered: 12/01/2023 [id number]-[id number] ke 2420 DO Work Phone: [facility] NEGATED: Highlighted row has been ruled out! Planned Goals not documented [id number] 2420 DO Work Phone: Immunizations Immunization Date Immunization Notes Care Provider Regina kaur 12-15-2024 tetanus toxoid, redu kiki diphtheria toxoid, and acellular pertussis vaccine, adsorbed Isacc Kam DO Work Phone: [facility] 06-24-2024 influenza virus vaccine, unspecified formulation Milind Pearson PA-C Work Phone: [facility] 09-14-2023 Pneumococcal conjuga te vaccine, 20-valent (PREVNAR 20) [facility] Work Phone: 08-13-2023 Influenza, Seasonal, Quadrivalent, Adjuvanted Alena Lo MD Work Phone: [facility] 11-29-2022 Moderna COVID-19 vaccine, bivalent, blue cap/fritz label *Check age/dose* Loreta Bermudez SOFTWARE TEST MANAGER-MUSIC TEACHER Work Phone: [facility] Work Phone: 08-18-2022 Fluzone High-Dose Quadrivalent 0.7 ML Intramuscular Suspension Prefilled Syringe Alena Lo Work Phone: [facility] Work Phone: Comment on above: Series: 08-18-2022 influenza virus vaccine, unspecified formulation Loreta Bermudez SOFTWARE TEST MANAGER-MUSIC TEACHER Work Phone: [facility] Work Phone: 07-21-2021 Moderna COVID-19 Vaccine 100 MCG/0.5ML Intramuscular Suspension Alena Lo Work Phone: [facility] Work Phone: 12-04-2020 Moderna COVID-19 Vaccine 100 MCG/0.5ML Intramuscular Suspension Alena Lo Work Phone: [facility] Work Phone: 11-05-2020 Moderna COVID-19 Vaccine 100 MCG/0.5ML Intramuscular Suspension Alena Lo Work Phone: [facility] Work Phone: 07-03-2020 influenza, injectabl e, quadrivalent, preservative free Loreta Bermudez SOFTWARE TEST MANAGER-MUSIC TEACHER Work Phone: [facility] Work Phone: 07-03-2020 influenza, seasonal, injectable Alena Lo MD [id number]-[id number] Work Phone: Comment on above: Series: 07-03-2020 influenza, seasonal, injectable Alena Lo MD [id number]-[id number] Work Phone: 07-16-2019 influenza, injectabl e, quadrivalent, preservative free; Translations: [Flulaval Quadrivalent 0.5 ML Intramuscular Suspension Prefilled Syringe] Parag Wong [facility] Work Phone: Comment on above: Series: 07-16-2019 influenza, seasonal, injectable Loreta Bermudez SOFTWARE TEST MANAGER-MUSIC TEACHER Work Phone: [facility] Work Phone: 08-19-2018 Influenza, injectabl e, Madin Charo Canine Kidney, preservative free, quadrivalent Alena Lo Work Phone: [facility] Work Phone: 10-08-2017 influenza, injectabl e, quadrivalent, preservative free Alena Lo Work Phone: [facility] Work Phone: 04-28-2017 tetanus toxoid, redu kiki diphtheria toxoid, and acellular pertussis vaccine, adsorbed Alena Lo Work Phone: [facility] Work Phone: 08-19-2016 influenza, injectabl e, quadrivalent, preservative free Alena Lo Work Phone: [facility] Work Phone: 08-24-2015 influenza, injectabl e, quadrivalent, preservative free Alena Lo Work Phone: [facility] Work Phone: 09-20-2013 influenza, seasonal, injectable, preservative free Alena Lo Work Phone: [facility] Work Phone: 08-11-2008 influenza virus vaccine, whole virus Alena Lo Work Phone: [facility] Work Phone: 07-20-2007 influenza virus vaccine, whole virus Alena Perlaer Work Phone: [facility] Work Phone: 03-01-2004 TD(adult) unspecifie d formulation Alena Perlaer Work Phone: [facility] Work Phone: Payers Date Payer Category Payer Medicare [id number] 2025 Self-pay 2021 Medicare [employer] MEDICARE A ETFADI GARSIA MEDICARE [id number] 2021-Present Liz[address] [place] [address] [id number] 2021 Medicare (Managed Care) [employer] [facility] MEDICARE [id number] 2021 Private Health Insurance [id number] 1956 Unknown [id number] [id number]. 356 1956 Unknown [id number] 2..840.1.772762.3.579.2. 356 1956 Unknown [id number] 2.16.840.1.464144.3.579.2. 356 1956 Unknown [id number] 2.16.840.1.575133.3.579.2. 356 1956 Unknown [id number] 2.16.840.1.085024.3.579.2. 356 1956 Unknown [id number] 2.16.840.1.893628.3.579.2. 356 1956 Unknown [id number] 2.16.840.1.562864.3.579.2. 1068 1956 Unknown [id number] 2.16840.1.512340.3.579.2. 1068 1956 Unknown [id number] 2.840.1.286551.3.579.2. 1068 1956 Unknown [id number] 2.840.1.110781.3.579.2. 1068 1956 Unknown [id number] 2.16840.1.017723.3.579.2. 1244 1956 Unknown [id number] 2.840.1.476966.3.579.2. 1244 1956 Unknown [id number] 2.840.1.245142.3.579.2. 1244 1956 Unknown [id number] 2.840.1.914576.3.579.2. 1242 1956 Unknown [id number] 2.16.840.1.877087.3.579.2. 1242 1956 Unknown [id number] 2.16840.1.417202.3.579.2. 1243 1956 Unknown [id number] 2.16840.1.349932.3.579.2. 1244 Unknown Unknown [id number] [id number]. 462 Unknown [id number] [id number]. 462 Social History Date Type Detail Facility Start: 09-14-2023 End: 01-07-2025 Never a smoker Never a smoker [facility] Work Phone: Start: 05-29-2023 Tobacco smoking status NHIS Never smoked tobacco [facility] Work Phone: Start: 05-29-2023 Tobacco use and exposure Smokeless tobacco non-user [facility] Work Phone: Start: 05-29-2023 End: 01-17-2025 Alcohol intake Lifetime non-drinker (finding) [facility] Work Phone: Start: 1955 Sex Assigned At Not on file [facility] Work Phone: Start: 09-14-2023 End: 01-07-2025 Gender identity Not on file [facility] Work Phone: Start: 09-04-2023 End: 01-17-2025 Exposure to SARS-CoV-2 (event) Not sure [facility] Tobacco smoking status NHIS Unknown if ever smoked [facility] Work Phone: Start: 1955 Sex Assigned At Female [facility] NEGATED: Highlighted row - - [facility] Work Phone: Functional Status Date Assessment Result Facility 01-07-2025 Patient Health Questionnaire 2 item (PHQ-2) [Reported] [facility] Work Phone: NEGATED: Highlighted row Functional performance Functional status health issues are not documented Disease [facility] Work Phone: Mental Status Date Assessment Result Facility NEGATED: Highlighted row Cognitive function [Interpretation] Cognitive status health issues are not documented Disease [facility] Work Phone: Clinical Notes 09-08-2021 to 01-07-2025 Milind Pearson PA-C - 01/07/2025 10:40 AM EDTED Procedure Note - Clarissa Tomas PA-C - 12/15/2024 2:49 PM EDTED Procedure Note - Clarissa SKYLA Tomas - 12/15/2024 2:49 PM EDT Note Date & Type Note Facility 01-07-2025 History of Present illness Narrative Subjective Patient ID: Bere Bhatt is a 69 y.o. female who presents for pt here for ER f/u (Pt fell 3 weeks ago, still has right hand swelling and pain, possible concussion , pt had episode while on treadmill, MILLER, chest pressure, SOB, bp elevated 169/132). HPI ER 3 weeks ago Mechanical fall Lac to R eyebrow and r upper lip Imaging all negative Anxiety very high since fall Not sleeping well Review of Systems Constitutional: Negative. Respiratory: Negative. Cardiovascular: Negative. Gastrointestinal: Negative. Objective BP 130/84 Pulse 86 Ht 1.702 m (5' 7) Wt 88.9 kg (196 lb) SpO2 95% BMI 30.70 kg/m Physical Exam Constitutional: General: She is not in acute distress. Appearance: Normal appearance. She is not ill-appearing. HENT: Head: Normocephalic and atraumatic. Eyes: Extraocular Movements: Extraocular movements intact. Conjunctiva/sclera: Conjunctivae normal. Cardiovascular: Rate and Rhythm: Normal rate. Pulmonary: Effort: Pulmonary effort is normal. Abdominal: General: There is no distension. Musculoskeletal: General: Normal range of motion. Cervical back: Normal range of motion. Skin: General: Skin is warm and dry. Neurological: General: No focal deficit present. Mental Status: She is alert and oriented to person, place, and time. Psychiatric: Mood and Affect: Mood normal. Behavior: Behavior normal. Thought Content: Thought content normal. Judgment: Judgment normal. Assessment/Plan Add Buspar Add trazodone prn sleep Follow up 2 months or sooner prn documented in this encounter [facility] Work Phone: 12-15-2024 Procedure note Associated Ord er(s): Laceration Repair; Laceration Repair Procedure Laceration Repair Performed by: Clarissa Tomas PA-C Authorized by: Isacc Kam DO Consent: Consent obtained: Verbal Consent given by: Patient Risks, benefits, and alternatives were discussed: yes Conway protocol: Patient identity confirmed: Verbally with patient Anesthesia: Anesthesia method: Local infiltration Local anesthetic: Lidocaine 1% w/o epi Laceration details: Location: Lip Lip location: Upper interior lip Length (cm): 1 Pre-procedure details: Preparation: Patient was prepped and draped in usual sterile fashion Treatment: Area cleansed with: Chlorhexidine Amount of cleaning: Standard Irrigation solution: Sterile saline Skin repair: Repair method: Zillah and sutures Suture size: 4-0 Suture material: Chromic gut Number of sutures: 3 Approximation: Approximation: Close Vermilion border well-aligned: yes Repair type: Repair type: Simple Post-procedure details: Procedure completion: Tolerated well, no immediate complications Laceration Repair Performed by: Clarissa Tomas PA-C Authorized by: Isacc Kam DO Consent: Consent obtained: Verbal Consent given by: Patient Risks, benefits, and alternatives were discussed: yes Conway protocol: Patient identity confirmed: Verbally with patient Anesthesia: Anesthesia method: None Laceration details: Location: Face Face location: R upper eyelid Extent: Superficial Length (cm): 3 Exploration: Imaging outcome: foreign body not noted Treatment: Area cleansed with: Chlorhexidine Amount of cleaning: Standard Irrigation solution: Sterile saline Skin repair: Repair method: Tissue adhesive Approximation: Approximation: Close Repair type: Repair type: Intermediate Post-procedure details: Procedure completion: Tolerated well, no immediate complications Clarissa Tomas PA-C 12/15/24 1455 [facility] Work Phone: 12-15-2024 Miscellaneous Notes Associated Order(s): Laceration Repair; Laceration Repair Procedure Laceration Repair Performed by: Clarissa Tomas PA-C Authorized by: Isacc Kam DO Consent: Consent obtained: Verbal Consent given by: Patient Risks, benefits, and alternatives were discussed: yes Conway protocol: Patient identity confirmed: Verbally with patient Anesthesia: Anesthesia method: Local infiltration Local anesthetic: Lidocaine 1% w/o epi Laceration details: Location: Lip Lip location: Upper interior lip Length (cm): 1 Pre-procedure details: Preparation: Patient was prepped and draped in usual sterile fashion Treatment: Area cleansed with: Chlorhexidine Amount of cleaning: Standard Irrigation solution: Sterile saline Skin repair: Repair method: Joe and sutures Suture size: 4-0 Suture material: Chromic gut Number of sutures: 3 Approximation: Approximation: Close Vermilion border well-aligned: yes Repair type: Repair type: Simple Post-procedure details: Procedure completion: Tolerated well, no immediate complications Laceration Repair Performed by: Clarissa Tomas PA-C Authorized by: Isacc Kam DO Consent: Consent obtained: Verbal Consent given by: Patient Risks, benefits, and alternatives were discussed: yes Conway protocol: Patient identity confirmed: Verbally with patient Anesthesia: Anesthesia method: None Laceration details: Location: Face Face location: R upper eyelid Extent: Superficial Length (cm): 3 Exploration: Imaging outcome: foreign body not noted Treatment: Area cleansed with: Chlorhexidine Amount of cleaning: Standard Irrigation solution: Sterile saline Skin repair: Repair method: Tissue adhesive Approximation: Approximation: Close Repair type: Repair type: Intermediate Post-procedure details: Procedure completion: Tolerated well, no immediate complications Clarissa Tomas PA-C 12/15/24 1452 documented in this encounter [facility] Work Phone: 12-15-2024 Physician Emergency department Note HPI Chief Complaint Patient presents with 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 Lac noted to her right eye and lip area. Also c/o right wrist pain. Denies LOC or blood thinners Patient presents to the emergency department secondary to injuries stemming from a mechanical fall which occurred just prior to arrival. The patient states that she caught her foot when stepping up on a curb going into the library. She struck her right hand and face. Did not lose consciousness. Recalls the entire incident. Reports no other injuries. Unsure of her last tetanus booster. History provided by: Patient director integrated used: No Patient History Past Medical History: Diagnosis Date Asymptomatic menopausal state History of menopause Encounter for screening for malignant neoplasm of vagina Vaginal Pap smear Liver disease, unspecified Liver lesion Other conditions influencing health status Menarche Personal history of other diseases of the circulatory system History of superficial phlebitis Personal history of other diseases of the digestive system History of umbilical hernia Personal history of other medical treatment H/O mammogram Personal history of other specified conditions 10/30/2019 History of dysuria Personal history of other specified conditions 07/16/2019 History of urinary frequency Personal history of other specified conditions 08/12/2019 History of urinary frequency Pyuria 09/05/2019 Pyuria, sterile Past Surgical History: Procedure Laterality Date OTHER SURGICAL HISTORY 05/18/2015 Colonoscopy OTHER SURGICAL HISTORY 07/14/2019 Ventral hernia repair OTHER SURGICAL HISTORY 07/14/2019 Hernia repair OTHER SURGICAL HISTORY 07/14/2019 Anal sphincterotomy OTHER SURGICAL HISTORY 07/14/2019 Tonsillectomy OTHER SURGICAL HISTORY 07/14/2019 Hemorrhoidectomy OTHER SURGICAL HISTORY 07/14/2019 Debridement OTHER SURGICAL HISTORY 09/07/2020 Eye surgery OTHER SURGICAL HISTORY 09/07/2020 Cataract surgery OTHER SURGICAL HISTORY 07/26/2019 Surgery Family History Problem Relation Name Age of Onset Hypertension Mother Diabetes Mother Dementia Mother Hypertension Father Diabetes Father Social History Tobacco Use Smoking status: Never Smokeless tobacco: Never Vaping Use Vaping status: Never Used Substance Use Topics Alcohol use: Never Drug use: Never Physical Exam ED Triage Vitals [12/15/24 1325] Temperature Heart Rate Respirations BP 36.4 C (97.5 F) 80 18 (!) 165/97 Pulse Ox Temp Source Heart Rate Source Patient Position 95 % Temporal Monitor -- BP Location FiO2 (%) -- -- Physical Exam Vitals and nursing note reviewed. Constitutional: General: She is not in acute distress. Appearance: Normal appearance. She is normal weight. She is not ill-appearing, toxic-appearing or diaphoretic. HENT: Head: Normocephalic. Comments: Patient is lacerations superior to the right eye as well as to the underside of the upper lip. These are better described on the mouth and dermatologic exams. Negative Browning sign. No raccoon eyes. Right Ear: Tympanic membrane, ear canal and external ear normal. There is no impacted cerumen. Left Ear: Tympanic membrane, ear canal and external ear normal. There is no impacted cerumen. Ears: Comments: No hemotympanum Nose: Nose normal. No rhinorrhea. Mouth/Throat: Mouth: Mucous membranes are moist. Pharynx: Oropharynx is clear. No oropharyngeal exudate or posterior oropharyngeal erythema. Comments: Patient is a small avulsion to the distal aspect of tooth #8. Dentition is not loose. Additionally, she has a small laceration over the central aspect of the underside of the inner upper lip. There is no active bleeding but the wound does gape open slightly. Approximately 3 mm in size. Eyes: Extraocular Movements: Extraocular movements intact. Pupils: Pupils are equal, round, and reactive to light. Neck: Comments: Trachea is midline Cardiovascular: Rate and Rhythm: Normal rate and regular rhythm. Heart sounds: No murmur heard. Pulmonary: Effort: Pulmonary effort is normal. Breath sounds: Normal breath sounds. No wheezing. Abdominal: General: Abdomen is flat. Bowel sounds are normal. There is no distension. Palpations: Abdomen is soft. Tenderness: There is no abdominal tenderness. Musculoskeletal: General: Swelling, tenderness and signs of injury present. No deformity. Normal range of motion. Cervical back: Normal range of motion. Comments: Soft tissue edema noted over the dorsal aspect of the central right hand. Patient does have full range of motion of the hand and can credit compliance officer equally. No point tenderness over the anatomical snuffbox Skin: General: Skin is warm and dry. Findings: No rash. Comments: Laceration to the underside of the upper lip as described under the mouth portion of the exam. Additionally, she has a linear 2 cm laceration inferior to the right eyebrow but superior to the right upper eyelid. No active bleeding. Wound edges do separate and this will require closure. Neurological: General: No focal deficit present. Mental Status: She is alert and oriented to person, place, and time. Mental status is at baseline. Cranial Nerves: No cranial nerve deficit. Sensory: No sensory deficit. Psychiatric: Mood and Affect: Mood normal. Behavior: Behavior normal. Thought Content: Thought content normal. Judgment: Judgment normal. ED Course & MDM Diagnoses as of 12/15/24 1442 Fall, initial encounter Injury of head, initial encounter Dental injury, initial encounter Contusion of right hand, initial encounter Facial laceration, initial encounter Lip laceration, initial encounter No data recorded [place] Coma Scale Score: 15 (12/15/24 1326 : Melvina Nelson RN) Medical Decision Making Patient's lacerations were repaired by the midlevel provider under my direct supervision. This was tolerated well by the patient without any apparent complications. Please see the midlevel provider notes for details regarding the procedures. Discharge home. Conservative treatment with ice and Tylenol. Limit activity as tolerated and follow-up with her private physician and her established dentist. 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 Lac noted to her right eye and lip area. Also c/o right wrist pain. Denies LOC or blood thinners Patient presents to the emergency department secondary to injuries stemming from a mechanical fall which occurred just prior to arrival. The patient states that she caught her foot when stepping up on a curb going into the library. She struck her right hand and face. Did not lose consciousness. Recalls the entire incident. Reports no other injuries. Unsure of her last tetanus booster. History provided by: Patient director integrated used: No Patient History Past Medical History: Diagnosis Date Asymptomatic menopausal state History of menopause Encounter for screening for malignant neoplasm of vagina Vaginal Pap smear Liver disease, unspecified Liver lesion Other conditions influencing health status Menarche Personal history of other diseases of the circulatory system History of superficial phlebitis Personal history of other diseases of the digestive system History of umbilical hernia Personal history of other medical treatment H/O mammogram Personal history of other specified conditions 10/30/2019 History of dysuria Personal history of other specified conditions 07/16/2019 History of urinary frequency Personal history of other specified conditions 08/12/2019 History of urinary frequency Pyuria 09/05/2019 Pyuria, sterile Past Surgical History: Procedure Laterality Date OTHER SURGICAL HISTORY 05/18/2015 Colonoscopy OTHER SURGICAL HISTORY 07/14/2019 Ventral hernia repair OTHER SURGICAL HISTORY 07/14/2019 Hernia repair OTHER SURGICAL HISTORY 07/14/2019 Anal sphincterotomy OTHER SURGICAL HISTORY 07/14/2019 Tonsillectomy OTHER SURGICAL HISTORY 07/14/2019 Hemorrhoidectomy OTHER SURGICAL HISTORY 07/14/2019 Debridement OTHER SURGICAL HISTORY 09/07/2020 Eye surgery OTHER SURGICAL HISTORY 09/07/2020 Cataract surgery OTHER SURGICAL HISTORY 07/26/2019 Surgery Family History Problem Relation Name Age of Onset Hypertension Mother Diabetes Mother Dementia Mother Hypertension Father Diabetes Father Social History Tobacco Use Smoking status: Never Smokeless tobacco: Never Vaping Use Vaping status: Never Used Substance Use Topics Alcohol use: Never Drug use: Never Physical Exam ED Triage Vitals [12/15/24 1325] Temperature Heart Rate Respirations BP 36.4 C (97.5 F) 80 18 (!) 165/97 Pulse Ox Temp Source Heart Rate Source Patient Position 95 % Temporal Monitor -- BP Location FiO2 (%) -- -- Physical Exam Vitals and nursing note reviewed. Constitutional: General: She is not in acute distress. Appearance: Normal appearance. She is normal weight. She is not ill-appearing, toxic-appearing or diaphoretic. HENT: Head: Normocephalic. Comments: Patient is lacerations superior to the right eye as well as to the underside of the upper lip. These are better described on the mouth and dermatologic exams. Negative Browning sign. No raccoon eyes. Right Ear: Tympanic membrane, ear canal and external ear normal. There is no impacted cerumen. Left Ear: Tympanic membrane, ear canal and external ear normal. There is no impacted cerumen. Ears: Comments: No hemotympanum Nose: Nose normal. No rhinorrhea. Mouth/Throat: Mouth: Mucous membranes are moist. Pharynx: Oropharynx is clear. No oropharyngeal exudate or posterior oropharyngeal erythema. Comments: Patient is a small avulsion to the distal aspect of tooth #8. Dentition is not loose. Additionally, she has a small laceration over the central aspect of the underside of the inner upper lip. There is no active bleeding but the wound does gape open slightly. Approximately 3 mm in size. Eyes: Extraocular Movements: Extraocular movements intact. Pupils: Pupils are equal, round, and reactive to light. Neck: Comments: Trachea is midline Cardiovascular: Rate and Rhythm: Normal rate and regular rhythm. Heart sounds: No murmur heard. Pulmonary: Effort: Pulmonary effort is normal. Breath sounds: Normal breath sounds. No wheezing. Abdominal: General: Abdomen is flat. Bowel sounds are normal. There is no distension. Palpations: Abdomen is soft. Tenderness: There is no abdominal tenderness. Musculoskeletal: General: Swelling, tenderness and signs of injury present. No deformity. Normal range of motion. Cervical back: Normal range of motion. Comments: Soft tissue edema noted over the dorsal aspect of the central right hand. Patient does have full range of motion of the hand and can credit compliance officer equally. No point tenderness over the anatomical snuffbox Skin: General: Skin is warm and dry. Findings: No rash. Comments: Laceration to the underside of the upper lip as described under the mouth portion of the exam. Additionally, she has a linear 2 cm laceration inferior to the right eyebrow but superior to the right upper eyelid. No active bleeding. Wound edges do separate and this will require closure. Neurological: General: No focal deficit present. Mental Status: She is alert and oriented to person, place, and time. Mental status is at baseline. Cranial Nerves: No cranial nerve deficit. Sensory: No sensory deficit. Psychiatric: Mood and Affect: Mood normal. Behavior: Behavior normal. Thought Content: Thought content normal. Judgment: Judgment normal. ED Course & MDM Diagnoses as of 12/15/24 1442 Fall, initial encounter Injury of head, initial encounter Dental injury, initial encounter Contusion of right hand, initial encounter Facial laceration, initial encounter Lip laceration, initial encounter No data recorded [place] Coma Scale Score: 15 (12/15/24 1326 : Melvina Nelson RN) Medical Decision Making Patient's lacerations were repaired by the midlevel provider under my direct supervision. This was tolerated well by the patient without any apparent complications. Please see the midlevel provider notes for details regarding the procedures. Discharge home. Conservative treatment with ice and Tylenol. Limit activity as tolerated and follow-up with her private physician and her established dentist. Return if worse Procedure Procedures Isacc Kam DO 12/15/24 1445 documented in this encounter [facility] Work Phone: 09-13-2024 History of Present illness Narrative Subjective Reason for Visit: Bere Bhatt is an 69 y.o. female here for a Medicare Wellness visit. Past Medical, Surgical, and Family History reviewed and updated in chart. Reviewed all medications by prescribing practitioner or clinical pharmacist (such as prescriptions, OTCs, herbal therapies and supplements) and documented in the medical record. HPI INSOMNIA: Chronic, got an Rx for Ambien 10 pills last year, still has not used all of it. ANXIETY: Prozac effective, no SE. PRINCE 3/PHQ 3 today. Hx colorectal surgery for hemorrhoids early , needs colonoscopy. Mammo good 2022, due now. DEXA normal 2023. Patient Care Team: Alena Lo MD as PCP - General Alena Lo MD as PCP - [employer]age PCP Review of Systems Constitutional: Negative. Respiratory: Negative. Cardiovascular: Negative. Gastrointestinal: Negative. Objective Vitals: BP 126/82 (BP Location: Right arm, Patient Position: Sitting) Pulse 78 Wt 91.3 kg (201 lb 3.2 oz) SpO2 98% BMI 33.48 kg/m Physical Exam Constitutional: General: She is not in acute distress. Appearance: Normal appearance. She is not ill-appearing. HENT: Head: Normocephalic and atraumatic. Eyes: Extraocular Movements: Extraocular movements intact. Conjunctiva/sclera: Conjunctivae normal. Cardiovascular: Rate and Rhythm: Normal rate. Pulmonary: Effort: Pulmonary effort is normal. Abdominal: General: There is no distension. Musculoskeletal: General: Normal range of motion. Cervical back: Normal range of motion. Skin: General: Skin is warm and dry. Neurological: General: No focal deficit present. Mental Status: She is alert and oriented to person, place, and time. Psychiatric: Mood and Affect: Mood normal. Behavior: Behavior normal. Thought Content: Thought content normal. Judgment: Judgment normal. Assessment & Plan Routine general medical examination at health care facility Orders: 1 Year Follow Up In Primary Care - Wellness Exam Class 1 obesity due to excess calories without serious comorbidity with body mass index (BMI) of 33.0 to 33.9 in adult Orders: CBC; Future Comprehensive Metabolic Panel; Future Screening cholesterol level Orders: Lipid Panel; Future Screening for thyroid disorder Orders: TSH with reflex to Free T4 if abnormal; Future Screening mammogram for breast cancer Orders: BI mammo bilateral screening tomosynthesis; Future Colon cancer screening Orders: Colonoscopy Screening; Average Risk Patient; Future Primary insomnia Orders: hydrOXYzine HCL (Atarax) 10 mg tablet; Take 1 tablet (10 mg) by mouth 2 times a day as needed (sleep) for up to 10 days. Fasting labs soon. Rx hydroxyzine prn sleep. Colonoscopy ordered. Mammo ordered. Follow up 1 year or sooner prn. documented in this encounter [facility] Work Phone: 12-01-2023 History of Present illness Narrative Subjective Patient ID: Bere Bhatt is a 68 y.o. female who presents for Diarrhea (X 5-7 days). Diarrhea Diarrhea for 5-7 days Last night she eliminated a coffee last PM and some better She tends to get this even before the diarrhea Not able to sleep and wonders if the coffee is keeping her awake Was sugar free and made change in September before the insomnia The diarrhea is about 3 in AM and once n afternoon, No large watery Does have clumps Pain in low abdomen after eating She did have some mushrooms just before this started No cramping just an ache No blood or melena. Malodorous No one else but did not eat mushrooms Before this had a feeling of not being able to go to the bathroom Did take stool softeners and Miralax and did seem like she responded to that but then kept going. Review of Systems Gastrointestinal: Positive for diarrhea. Objective BP 124/76 (Patient Position: Sitting) Pulse 78 Ht 1.651 m (5' 5) Wt 97.2 kg (214 lb 4.8 oz) SpO2 97% BMI 35.66 kg/m Physical Exam Constitutional: Appearance: Normal appearance. HENT: Right Ear: Tympanic membrane, ear canal and external ear normal. Left Ear: Tympanic membrane, ear canal and external ear normal. Mouth/Throat: Mouth: Mucous membranes are moist. Pharynx: Oropharynx is clear. Cardiovascular: Rate and Rhythm: Normal rate and regular rhythm. Heart sounds: No murmur heard. Pulmonary: Effort: No respiratory distress. Breath sounds: Normal breath sounds. Abdominal: General: Abdomen is flat. There is no distension. Palpations: Abdomen is soft. There is no mass. Tenderness: There is no abdominal tenderness. There is no guarding. Skin: General: Skin is warm and dry. Neurological: General: No focal deficit present. Mental Status: She is alert and oriented to person, place, and time. Psychiatric: Mood and Affect: Mood normal. Behavior: Behavior normal. Thought Content: Thought content normal. Judgment: Judgment normal. Assessment/Plan Diagnoses and all orders for this visit: Diarrhea of presumed infectious origin - C. difficile, PCR - Stool Pathogen Panel, PCR documented in this encounter [facility] Work Phone: 09-14-2023 History of Present illness Narrative Subjective Reason for Visit: Bere Bhatt is an 68 y.o. female here for a Medicare Wellness visit. Past Medical, Surgical, and Family History reviewed and updated in chart. Reviewed all medications by prescribing practitioner or clinical pharmacist (such as prescriptions, OTCs, herbal therapies and supplements) and documented in the medical record. HPI Neck pain comes and goes. Sees Dr Faulkner every 3 weeks.. Headaches to top of the head. Gets a lot of relief when she has an adjustment. Keeps manageable No focal numbness or weakness. But legs feel heavy. Anxiety - Was sleepless during COVID-19. Feels less out of control finally. She was sleepless and doing better. But can try magnesium Oxide to help relax. 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 Would like to be more social. Food choices not great. Has gained weight and not using exercise bike. So recommended YOGA for both. Also eat more fruits and vegetables. Did well on plant based diet in past and lost weight. Meds work well without side effects. Covid 19 - in August with mild URI but now feels like she has sinus infection. Green mucus and crusting blood. Chest congestion. Went to [facility]. Constipation is under control. No blood. Miralax as needed. Stool softener. Did seem to resolve when on plant based diet. Obesity - Feels she has noted COVID-19 weight gain. BMI 34. She is down 11 since March. She started PT due to frequent falls. Recurrent UTI - none since October 2019 Dr Nicole felt it was white blood cells due to vaginal drainage and not UTI. Found to have uterine fibroids giving her a tugging feeling. No more bleeding. OA in left hip. Helped by chiropractor. HDL low no recent labs Macular hole on left and had surgery. And had cataract on left removed. Still on right Lipoma noted at massage on back.. No pain Scope 05/18/15 Mammogram June 122022 but did not get DEXA.. Will reorder. DPA - yes - and daughters Pneumovax - encouraged. Patient Care Team: Alena Lo MD as PCP - General Alena Lo MD as PCP - [employer]age PCP Review of Systems Objective Vitals: BP 124/76 (BP Location: Left arm, Patient Position: Sitting) Pulse 84 Ht 1.651 m (5' 5) Wt 93.9 kg (207 lb) SpO2 96% BMI 34.45 kg/m Physical Exam Vitals reviewed. Constitutional: General: She is not in acute distress. Appearance: Normal appearance. HENT: Head: Normocephalic. Right Ear: Tympanic membrane, ear canal and external ear normal. Left Ear: Tympanic membrane, ear canal and external ear normal. Nose: Nose normal. Mouth/Throat: Pharynx: Oropharynx is clear. Eyes: Extraocular Movements: Extraocular movements intact. Conjunctiva/sclera: Conjunctivae normal. Pupils: Pupils are equal, round, and reactive to light. Neck: Vascular: No carotid bruit. Cardiovascular: Rate and Rhythm: Normal rate and regular rhythm. Pulses: Normal pulses. Heart sounds: Normal heart sounds. No murmur heard. Pulmonary: Effort: Pulmonary effort is normal. No respiratory distress. Breath sounds: Normal breath sounds. Abdominal: General: Abdomen is flat. Bowel sounds are normal. There is no distension. Palpations: Abdomen is soft. There is no mass. Tenderness: There is no abdominal tenderness. Musculoskeletal: Cervical back: Normal range of motion and neck supple. No tenderness. Lymphadenopathy: Cervical: No cervical adenopathy. Skin: General: Skin is warm and dry. Findings: No rash. Neurological: General: No focal deficit present. Mental Status: She is alert and oriented to person, place, and time. Psychiatric: Mood and Affect: Mood normal. Thought Content: Thought content normal. Judgment: Judgment normal. Assessment/Plan Problem List Items Addressed This Visit Anxiety Relevant Medications FLUoxetine (PROzac) 20 mg capsule Other Relevant Orders CBC TSH with reflex to Free T4 if abnormal Cataract, right eye Cervical spondylosis without myelopathy Chronic constipation COVID-19 virus infection Frequent falls HDL deficiency Relevant Orders Comprehensive Metabolic Panel Lipid Panel Lipoma of back Macular hole Primary generalized (osteo)arthritis Pseudophakia of left eye Uterine fibroid Other Visit Diagnoses Routine general medical examination at health care facility - Primary Relevant Orders 1 Year Follow Up In Primary Care - Wellness Exam Menopause Relevant Orders XR DEXA bone density Acute non-recurrent pansinusitis Relevant Orders CBC She has resolving sinusitis. Will call if persists. Patient was identified as a fall risk. Risk prevention instructions provided. She stumbled over a step and then had bruising on knee and breast last summer. Another time is seemed due to weakness in hip documented in this encounter [facility] Work Phone: 09-14-2023 Instructions Alena Lo MD - 09/14/2023 4:30 PM EST An try Magnesium Oxide 400 mg to relax at night. Ways to Help Prevent Falls at Home Quick Tips ? Ask for help if you need it. Most people want to help! ? Get up slowly after sitting or laying down ? Wear a medical alert device or keep cell phone in your pocket ? Use night lights, especially areas near a bathroom ? Keep the items you use often within reach on a small stool or end table ? Use an assistive device such as walker or cane, as directed by provider/physical therapy ? Use a non-slip mat and grab bars in your bathroom. Look for home health sections for best options Other Areas to Focus On ? Exercise and nutrition: Regular exercise or taking a falls prevention class are great ways improve strength and balance. Don t forget to stay hydrated and bring a snack! ? Medicine side effects: Some medicines can make you sleepy or dizzy, which could cause a fall. Ask your healthcare provider about the side effects your medicines could cause. Be sure to let them know if you take any vitamins or supplements as well. ? Tripping hazards: Remove items you could trip on, such as loose mats, rugs, cords, and clutter. Wear closed toe shoes with rubber soles. ? Health and wellness: Get regular checkups with your healthcare provider, plus routine vision and hearing screenings. Talk with your healthcare provider about: o Your medicines and the possible side effects - bring them in a bag if that is easier! o Problems with balance or feeling dizzy o Ways to promote bone health, such as Vitamin D and calcium supplements o Questions or concerns about falling *Ask your healthcare team if you have questions [facility] 2021 documented in this encounter [facility] Work Phone: 05-29-2023 History of Present illness Narrative Subjective Patient ID: Bere Bhatt is a 68 y.o. female who presents for stomach issues (Started yesterday - Has had this before). Stomach issues Yesterday evening had a stomach ache, within an hour stomach ache was significant Bloating, piercing pain in upper, mid abd through to the back Tried TUMS, that did not help Then drank pepsi, then I vomited, then dry had dry heaves. Prior to feeling sick had eaten [employer] (chicken nuggets) Had this issue in past after eating [employer] as well Pain lasted throughout the evening and today pain has improved rates pain as 7-8/10 however describes pain a discomfort Sitting relaxed throughout visit, pleasant talkative and smiling with relaxed posture Review of Systems Constitutional: Negative for activity change, appetite change, chills and fever. HENT: Negative. Cardiovascular: Negative for chest pain. Gastrointestinal: Positive for abdominal distention, abdominal pain, nausea and vomiting. Genitourinary: Negative for difficulty urinating and pelvic pain. Neurological: Negative for dizziness, light-headedness and headaches. Objective BP 132/80 (Patient Position: Sitting) Pulse 98 Ht 1.676 m (5' 6) Wt 97.9 kg (215 lb 14.4 oz) BMI 34.85 kg/m Physical Exam Vitals reviewed. Constitutional: General: She is not in acute distress. Appearance: Normal appearance. She is obese. Cardiovascular: Rate and Rhythm: Normal rate and regular rhythm. Pulmonary: Effort: Pulmonary effort is normal. Abdominal: General: Bowel sounds are normal. There is no distension. Palpations: Abdomen is soft. There is no mass. Tenderness: There is no abdominal tenderness. There is no guarding. Skin: General: Skin is warm and dry. Neurological: Mental Status: She is alert and oriented to person, place, and time. Assessment/Plan Diagnoses and all orders for this visit: Epigastric abdominal pain - Amylase; Future - Lipase; Future - CBC; Future - XR abdomen 3+ views; Future Abdominal bloating - Amylase; Future - Lipase; Future - CBC; Future - XR abdomen 3+ views; Future Advised to follow bland diet, avoid fast foods and fried foods. Increase walking and water intake. Recommend OTC fiber supplement. Return if symptoms persist or worsen, seek emergency care if uncontrolled vomiting occurs documented in this encounter [facility] Work Phone: 03-29-2023 Note 90 Date of Procedure: 03/29/2023 Pathologist: [facility], Cytology Date Reported: 04/07/2023 Date Received: 03/30/2023 Submitting Physician: CELESTINA CHIANG MD FINAL CYTOLOGICAL INTERPRETATION A. THINPREP PAP CERVICAL: Specimen Adequacy: SATISFACTORY FOR EVALUATION. Quality Indicator: Absence of endocervical/transformation zone component. General Categorization: NEGATIVE FOR INTRAEPITHELIAL LESION OR MALIGNANCY. HIGH RISK HPV TEST RESULT: HPV GENOTYPE 16 NEGATIVE HPV GENOTYPE 18 NEGATIVE HPV GENOTYPE OTHER NEGATIVE Reference Range: Negative Slide(s) initially screened by a Transportation Mechanic at [facility], [address] [place] [address] Testing for high-risk (HR) type of human papilloma virus (HPV) is performed by the Shemar morgan HPV Test. The morgan HPV Test is a qualitative polymerase chain reaction that amplifies DNA of HPV16, HPV18 and 12 other high-risk HPV types (31, 33, 35, 39, 45, 51, 52, 56, 58, 59, 66, and 68) associated with cervical cancer and its precursor lesions. A positive result indicates the presence of HPV DNA due to one or more of the 14 genotypes: 16, 18, 31, 33, 35, 39, 45, 51, 52, 56, 58, 59, 66, and 68. Negative results indicate HPV DNA concentrations are undetectable or below the pre-set threshold for detection. False negative results may be associated with unoptimized sampling. A negative HR HPV result does not exclude the possibility of future cytologic HSIL or underlying CIN2-3 or cancer. This test is approved for cervical specimens by the US Food and Drug Administration. Results of this test should be interpreted in conjunction with the patient?s Pap test results. Please refer to ASCCP current guidelines for the use of HPV DNA testing, result interpretation, and patient management. The performance of this test was verified by the [facility] Laboratory at [facility]. The lab is certified under the Clinical Laboratory Amendments of 1988 (CLIA 88) as qualified to perform high complexity clinical laboratory testing. This specimen has been analyzed by the [employer] Imaging System ([employer], [employer] an automated imaging and review system, which assists the laboratory in evaluating cells on ThinPrep Pap tests. Following automated imaging, selected de los santos from every slide were reviewed by a certified orthotist practice manager and/or pathologist. Electronically Signed Out By [facility], Cytology//JMD By the signature on this report, the individual or group listed as making the Final Interpretation/Diagnosis certifies that they have reviewed this case. Diagnostic interpretation performed at [facility] [address] [place] [address] Educational Note: Cervical cytology is a screening procedure primarily for squamous cancers and precursors and has associated false-negative and false-positive results as evidenced by published data. Your patient?s test should be interpreted in this context, together with patient?s history and clinical findings. Regular sampling and follow-up of unexplained clinical signs and symptoms are recommended to minimize false negative results. Clinical History Date of Last Menstrual Period: Menopause Other Clinical Conditions: COTEST HPV(Genotype) except for ASC-H, HSIL, Carcinoma - Include HPV Genotype testing Clinical Diagnosis History: Encounter for Papanicolaou smear of cervix - (Z12.4); Pap test, as part of routine gynecological examination - (Z01.419) Source of Specimen A: THINPREP PAP CERVICAL [facility] Department of Pathology [id number] Comment on above: Performed By: #### C #### [facility] Cytology [id number] [place] [id number] 03-04-2023 History of Present illness Narrative Presents for annual exam. She voices no complaints and is doing well. Denies any bowel or bladder problems. Denies any breast problems. Denies any postmenopausal bleeding. Patient had fallen in early March and in the process hit her right breast. Denies any bruising of the breast. Denies any breast lumps. [address] Work Phone: 09-12-2022 Chief complaint Narrative - Reported An interactive audio and video telecommunication system which permits real time communications between the patient (at the originating site) and provider (at the distant site) was utilized to provide this telehealth service.Verbal consent was requested and obtained from BERE BHATT on this date, 09/12/2022 04:30 PM , for a telehealth visit.david [facility] Work Phone: 06-26-2022 History of Present illness Narrative Since COVID- she has had more episodes of racing heart suddenly and pounding. Will go up to 98 with usual in low 70s. Up to 80s with activity prior to this. Says some prior to COVID-19 on June 26. Anxiety is wore now. Will feel short of breath but sat is 95%. Has had PFT in the past and was told she breaths too shallow.Will try incentive spirometry when she is feeling short of breath. No problem with that. Seems to reduce the sensation. This is almost every say. Worse when on the decongestant.Still has mild cough and congestion. No chest pain but tightness in left shoulder better with chiropractor.She is not sleeping well since. COVID-19. The first 4 days when she was sick she not able to sleep. Promethazine did help increase from 1 to 5 hours per night. She is not drinking enough water and she is having issues with constipation and concerned with the anal issues she has had. So she is more anxious.Has been really vigilant with the COVID-19 prevention [facility] Work Phone: 04-05-2022 History of Present illness Narrative She stopped Prozac in the spring. Noted that she was not sleeping. She did not make a decision but just stopped being compelled to take it. About 2 weeks ago started having the racing heart, pressure in the chest. She had back pain that was somewhat different than she usually gets treated by massage and ambulatory care nurse. She had a good PFT. She was told she does not take deep breaths. Sats have been above 95. Pulse has run in 60s-80s. Finds as she relaxes her BP and pulse do drop again. No swelling in ankles. She has been now on Prozac 40 mg for about 10 days.PHQ-9 score is 8. So seems more anxiety. She is staying active at home as is gone for the summer. He is under stress as their children are having marital issues and he is staying with them to care for a grandchild. So he is not home to walk with in the evenings and she is not out also due to the heat. Should be home in a few weeks.She is still wearing a mask and now anxious as she did not wear a mask at an event. She has the home test for COVID-19. She has been having a bit of drainageMassage therapist felt nodule on spine. -[facility] Work Phone: 09-08-2021 Chief complaint Narrative - Reported An interactive audio and video telecommunication system which permits real time communications between the patient (at the originating site) and provider (at the distant site) was utilized to provide this telehealth service.Verbal consent was requested and obtained from BERE BHATT on this date, 09/08/2021 11:00 AM , for a telehealth visit.david -[facility] Work Phone: Evaluation note Diagnosis Epigastric abdominal pain- Primary Abdominal pain, epigastric Abdominal bloating Flatulence, eructation, and gas pain Epigastric abdominal pain Abdominal pain, epigastric Abdominal bloating Flatulence, eructation, and gas pain documented in this encounter [facility] Work Phone: Evaluation note* Diagnosis Routine general medical examination at health care facility- Primary Routine general medical examination at a health care facility Anxiety Anxiety state, unspecified Menopause Symptomatic menopausal or female climacteric states Frequent falls Cervical spondylosis without myelopathy Chronic constipation Unspecified constipation COVID-19 virus infection HDL deficiency Macular hole of left eye Macular cyst, hole, or pseudohole of retina Pseudophakia of left eye Lens replaced by other means Cataract of right eye, unspecified cataract type Lipoma of back Uterine leiomyoma, unspecified location Primary generalized (osteo)arthritis Acute non-recurrent pansinusitis documented in this encounter [facility] Work Phone: Evaluation note* Diagnosis Menopause Symptomatic menopausal or female climacteric states documented in this encounter [facility] Work Phone: [phone] note* Diagnosis Menopause Symptomatic menopausal or female climacteric states documented in this encounter [facility] Work Phone: Evaluation note* Diagnosis Diarrhea of presumed infectious origin- Primary documented in this encounter [facility] Work Phone: Evaluation note* Diagnosis Routine general medical examination at health care facility- Primary Routine general medical examination at a health care facility Class 1 obesity due to excess calories without serious comorbidity with body mass index (BMI) of 33.0 to 33.9 in adult Screening cholesterol level Screening for lipoid disorders Screening for thyroid disorder Screening mammogram for breast cancer Colon cancer screening Special screening for malignant neoplasms, colon Primary insomnia Persistent disorder of initiating or maintaining sleep documented in this encounter [facility] Work Phone: Evaluation note* Diagnosis Fall, initial encounter- Primary Injury of head, initial encounter Dental injury, initial encounter Contusion of right hand, initial encounter Facial laceration, initial encounter Lip laceration, initial encounter documented in this encounter [facility] Work Phone: Evaluation note* Diagnosis Anxiety- Primary Anxiety state, unspecified Primary insomnia Persistent disorder of initiating or maintaining sleep Accident due to mechanical fall without injury, subsequent encounter documented in this encounter [facility] Work Phone: [phone] note* Diagnosis Screening mammogram for breast cancer documented in this encounter [facility] Work Phone: Evaluation note* Diagnosis Onset Date Resolution Status Admit Date Abdominal bloating acute February 032024 10:30am Constipation acute February 03 10:30am Diarrhea noneactive February 03, 2025 10:30am [facility] Work Phone: History of Present illness Narrative* Neck pain comes and goes. Sees Dr Faulkner every 3 weeks.. Headaches to top of the head. Gets a lot of relief when she has an adjustment. Feels she is getting better but taking time. No focal numbness or weakness. But legs feel heavy. * Anxiety - Feels COVID-19 has heightened anxiety. Feels out of control. 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 Would like to be more social. Food choices not great. Has gained weight and not using exercise bike. So recommended YOGA for both. Also eat more fruits and vegetables. Did well on p lant based diet in past and lost weight. Meds work well without side effects. * IBS and Constipation is under control. No blood. Miralax as needed. Stool softener. Did well when on plant based diet. * Obesity - Feels she has noted COVID-19 BMI 33. * Allergic rhinitis - notes at times but only enough get her spooked about COVID-19. Rarely needs meds. * Recurrent UTI - none since October 2019 Dr Nicole felt it was due to vaginal drainage. Found tohave uterine fibroids giving her a tugging feeling. No more bleeding. * Eczema - resolved for now but has cream to use as needed. Seems related to chocolate and peanut butter. * Scope 05/18/15 * Mammogram needs to see Neuroscience Director Na, Dr Garcia. -[facility] Work Phone: History of Present illness Narrative* Neck pain comes and goes. Sees Dr Faulkner every 3 weeks.. Headaches to top of the head. Gets a lot of relief when she has an adjustment. Keeps manageable No focal numbness or weakness. But legs feel heavy. * Anxiety - Was sleepless during COVID-19. Feels less out of control finally. She was sleepless and doing better. But will try magnesium Oxide to help relax. 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 Would like to be more social. Food choices not great. Has gained weight and not using exercise bike. So recommended YOGA for both. Also eat more fruits and vegetables. Did well on plant based diet in past and lost weight. Meds work well without side effects. * Covid 19 - dyspnea and palpitations and sleep better finally * IBS and Constipation is under control. No blood. Miralax as needed. Stool softener. Did well when on plant based diet. * Obesity - Feels she has noted COVID-19 BMI 33. * Allergic rhinitis - . Rarely needs meds. * Recurrent UTI - none since October 2019 Dr Nicole felt it was due to vaginal drainage. Found tohave uterine fibroids giving her a tugging feeling. No more bleeding. * Eczema - resolved for now but has cream to use as needed. Seems related to chocolate and peanut butter. * OA in left hip. Helped by chiropractor. * Macular hole and had surgery. And had cataract on left removed. Still on right * Lipoma noted at massage on back.. No pain * Scope 05/18/15 * Mammogram and DEXA ordered but needs to see Neuroscience Director Na, Dr Garcia. [facility] Work Phone: Hospital Discharge instructions* Attachments The following attachments cannot be sent through Care Everywhere. * Mouth and dental injuries in adults (Israeli) * Minor Contusion ED (Israeli) * Taking care of bruises (Israeli) * Minor Head Injury, Adult ED (Israeli) * Laceration Repair With Glue Discharge Instructions (Israeli) * Laceration Repair With Stitches Discharge Instructions (Israeli) [facility] Inst[facility]* Name Dates Details Instructions not documented [id number] Work Phone: Reason for referral (narrative)* Consultation (Routine) - Authorized Specialty Diagnoses / Procedures Referred By Cait t Referred To Contact Primary Care Diagnoses Routine general medical examination at health care facility Procedures 1 Year Follow Up In Primary Care - Wellness Exam Alena Lo MD [address] [facility], [facility] [address] [place] [address] Referral ID Status Reason Start Date Expiration Date V isits Requested Visits Authorized [id number] Authorized 09/14/2023 09/13/2024 1 1 * Imaging (Routine) - Pending Review Specialty Diagnoses / Procedures Referred By Contac t Referred To Contact Radiology Diagnoses Menopause Procedures XR DEXA bone density Alena Lo MD [address] [facility], [place] [address] Referral ID Status Reason Start Date Expiration Date Visits Requested Visits Authorized [id number] Pending Review Perform Procedure 09/14/2023 09/13/2024 1 1 [facility] Work Phone: Reibme for referral (narrative)* Consultation (Routine) - Authorized Specialty Diagnoses / Procedures Referred By Contac t Referred To Contact Primary Care Procedures Follow Up In Primary Care - Established Milind Pearson PA-C [address] [facility], [place] [address] Phone: tel: fax: Referral ID Status Reason Start Date Expiration Date V isits Requested Visits Authorized [id number] Authorized 01/07/2025 01/07/2026 1 1 [facility] Work Phone: Reqgpa for referral (narrative)No reason for referral information [facility] Work Phone: Reason for visit Narrative* Imaging (Routine) - Authorized Specialty Diagnoses / Procedures Referred By Contac t Referred To Contact Radiology Diagnoses Screening mammogram for breast cancer Procedures BI mammo bilateral screening tomosynthesis Milind Pearson PA-C [address] [facility], [place] [id number] Phone: tel: fax: Referral ID Status Reason Start Date Expiration Date Visits Requested Visits Authorized [id number] Authorized Perform Procedure 09/13/2024 09/13/2025 1 1 [facility] Work Phone: Summary Purpose Family History No Family History Records Found Mother Name Dates Details Family history of hypertensi on(V17.49, Z82.49) Status:Active Father Name Dates Details No pertinent family history( V49.89, Z78.9) Status:Active Mother Name Dates Details Family history of hypertensi on(V17.49, Z82.49) Status:Active Father Name Dates Details No pertinent family history( V49.89, Z78.9) Status:Active Mother Name Dates Details Family history of hypertensi on(V17.49, Z82.49) Status:Active Father Name Dates Details No pertinent family history( V49.89, Z78.9) Status:Active Mother Name Dates Details Family history of hypertensi on(V17.49, Z82.49) Status:Active Father Name Dates Details No pertinent family history( V49.89, Z78.9) Status:Active Mother Name Dates Details Family history of hypertensi on(V17.49, Z82.49) Status:Active Father Name Dates Details No pertinent family history( V49.89, Z78.9) Status:Active Mother Name Dates Details Family history of hypertensi on(V17.49, Z82.49) Status:Active Father Name Dates Details No pertinent family history( V49.89, Z78.9) Status:Active Mother Name Dates Details Family history of hypertensi on(V17.49, Z82.49) Status:Active Father Name Dates Details No pertinent family history( V49.89, Z78.9) Status:Active Mother Name Dates Details Family history of hypertensi on(V17.49, Z82.49) Status:Active Father Name Dates Details No pertinent family history( V49.89, Z78.9) Status:Active Mother Name Dates Details Family history of hypertensi on(V17.49, Z82.49) Status:Active Father Name Dates Details No pertinent family history( V49.89, Z78.9) Status:Active Mother Name Dates Details Family history of hypertensi on(V17.49, Z82.49) Status:Active Father Name Dates Details No pertinent family history( V49.89, Z78.9) Status:Active Mother Name Dates Details Family history of hypertensi on(V17.49, Z82.49) Status:Active Father Name Dates Details No pertinent family history( V49.89, Z78.9) Status:Active Unknown Family Member Name Dates Details No pertinent family history: Father(V49.89, Z78.9) Status:Active Family history of hypertensi on: Mother(V17.49, Z82.49) Status:Active Unknown Family Member Name Dates Details No pertinent family history: Father(V49.89, Z78.9) Status:Active Family history of hypertensi on: Mother(V17.49, Z82.49) Status:Active Unknown Family Member Name Dates Details No pertinent family history: Father(V49.89, Z78.9) Status:Active Family history of hypertensi on: Mother(V17.49, Z82.49) Status:Active Unknown Family Member Name Dates Details No pertinent family history: Father(V49.89, Z78.9) Status:Active Family history of hypertensi on: Mother(V17.49, Z82.49) Status:Active Unknown Family Member Name Dates Details No pertinent family history: Father(V49.89, Z78.9) Status:Active Family history of hypertensi on: Mother(V17.49, Z82.49) Status:Active Unknown Family Member Name Dates Details No pertinent family history: Father(V49.89, Z78.9) Status:Active Family history of hypertensi on: Mother(V17.49, Z82.49) Status:Active Unknown Family Member Name Dates Details Family history of hypertensi on: Mother, Father(V17.49, Z82.49) Status:Active Family history of diabetes m ellitus: Mother, Father(V18.0, Z83.3) Status:Active Unknown Family Member Name Dates Details Family history of hypertensi on: Mother, Father(V17.49, Z82.49) Status:Active Family history of diabetes m ellitus: Mother, Father(V18.0, Z83.3) Status:Active Advance Directives No Advanced Directives Records FoundNo Advanced Directives Records FoundNo Advanced Directives Records FoundNo Advanced Directives Records FoundNo Advanced Directives Records FoundNo Advanced Directives Records FoundNo Advanced Directives Records FoundNo Advanced Directives Records FoundNo Advanced Directives Records FoundNo Advanced Directives Records Found Chief Complaint AnxietyPost Alex Patient is here for her yearly exam and pap test. LMP: Menopause. Patient does not do regular self breast exams and has no concerns at this time. Reason for Referral Specialty Diagnoses / Procedures Referred By Cait headley Referred To Contact Radiology Diagnoses Menopause Procedures XR DEXA bone density Alena Lo MD [address] [facility] [address] [facility], [place] [address] Referral ID Status Reason Start Date Expiration Date Visits Requested Visits Authorized Pending Review Perform Procedure 09/14/2023 09/13/2024 1 1 Chief Complaint and Reason for Visit Chief Complaint Admit Date Diarrhea February 03, 2025 10:30 am Reason for Visit Admit Date Abdominal bloating February 03, 2025 10:30 am Constipation February 03, 2025 10:30 am Diarrhea February 03, 2025 10:30 am Additional Source Comments INFORMATION SOURCE (unrecogn ized section and content) DATE CREATED AUTHOR 05/03/2019 [facility] DATE CREATED AUTHOR AUTHOR'S ORGANIZ ATION 09/13/2022 [employer] DATE CREATED AUTHOR AUTHOR'S ORGANIZ ATION 04/08/2023 [facility] DATE CREATED AUTHOR AUTHOR'S ORGANIZ ATION 06/06/2023 [facility] DATE CREATED AUTHOR AUTHOR'S ORGANIZ ATION 12/09/2023 [facility] DATE CREATED AUTHOR AUTHOR'S ORGANIZ ATION 01/18/2025 [facility] DATE CREATED AUTHOR AUTHOR'S ORGANIZ ATION 01/20/2025 [facility] DATE CREATED AUTHOR AUTHOR'S ORGANIZ ATION 01/23/2025 [facility] DATE CREATED AUTHOR AUTHOR'S ORGANIZ ATION 02/01/2025 [facility] DATE CREATED AUTHOR AUTHOR'S ORGANIZ ATION 02/05/2025 [facility] Reason for Visit (unrecogniz ed section and content) Reason Comments stomach issues Started yesterday - Has had this before Reason Comments Medicare Annual Wellness Visit Initial Specialty Diagnoses / Procedures Referred By Cait headley Referred To Contact Radiology Diagnoses Menopause Procedures XR DEXA bone density Lo, Alena O, MD [address] [facility], [address] [place] [address] Referral ID Status Reason Start Date Expiration Date Visits Requested Visits Authorized Pending Review Perform Procedure 09/14/2023 09/13/2024 1 1 Reason Comments Diarrhea X 5-7 days Reason Comments Medicare Annual Wellness Visit Subsequen t Due for Trinity and colonoscopy Specialty Diagnoses / Procedures Referred By Conttc t Referred To Contact Primary Care Diagnoses Routine general medical examination at health care facility Procedures 1 Year Follow Up In Primary Care - Wellness Exam Alena Lo MD [address] [facility], [address] [place] [address] Phone: tel: fax: Referral ID Status Reason Start Date Expiration Date V isits Requested Visits Authorized [id number] Authorized 09/14/2023 09/13/2024 1 1 Reason Comments 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 Lac noted to her right eye and lip area. Also c/o right wrist pain. Denies LOC or blood thinners Reason Comments pt here for ER f/u Pt fell 3 weeks ago, still has right hand swelling and pain, possible concussion , pt had episode while on treadmill, MILLER, chest pressure, SOB, bp elevated 169/132 Care Teams (unrecognized sec tion and content) [employer] Program Director Relationship Specialty Start Date End Date Alena Lo MD [address] [facility], [address] [place] [phone] PCP - General 06/04/19 Alena Lo MD [address] [facility], [address] [place] [phone] PCP - [employer] Medicare Advantage PCP 01/02/22 [employer] Program Director Relationship Specialty Start Date End Date Alena Lo MD [address] [facility], [address] [place] [address] PCP - General 06/04/19 Alena Lo MD [address] [facility], [address] [place] [address] PCP - [employer] Medicare Advantage PCP 01/02/22 [employer] Program Director Relationship Specialty Start Date End Date Alena Lo MD [address] [facility], [address] [place] [address] PCP - General 06/04/19 Alena Lo MD [address] [facility], [address] [place] [address] PCP - [employer] Medicare Advantage PCP 01/02/22 [employer] Program Director Relationship Specialty Start Date End Date Alena Lo MD [address] [facility], [address] [place] [address] PCP - General 06/04/19 Alena Lo MD [address] [facility], [address] [place] [address] PCP - [employer] Medicare Advantage PCP 01/02/22 [employer] Program Director Relationship Specialty Start Date End Date Alena Lo MD [address] [facility], [address] [place] [address] PCP - General 06/04/19 Alena Lo MD [address] [facility], [address] [place] [address] PCP - [employer] Medicare Advantage PCP 01/02/22 [employer] Program Director Relationship Specialty Start Date End Date Alena Lo MD [address] [facility], [address] [place] [address] PCP - [employer] Medicare Advantage PCP 01/02/22 Milind Pearson PA-C [address] [facility], [address] [place] [address] PCP - General Family Medicine 09/13/24 [employer] Program Director Relationship Specialty Start Date End Date Alena Lo MD [address] [facility], [address] [place] [address] PCP - [employer] Medicare Advantage PCP 01/02/22 Milind Pearson PA-C [address] [facility], [address] [place] [address] PCP - General Family Medicine 09/13/24 [employer] Program Director Relationship Specialty Start Date End Date Alena Lo MD [address] [facility], [address] [place] [address] PCP - [employer] Medicare Advantage PCP 01/02/22 Milind Pearson PA-C [address] [facility], [address] [place] [address] PCP - General Family Medicine 09/13/24 [employer] Program Director Relationship Specialty Start Date End Date Alena Lo MD [address] [facility], [address] [place] [address] PCP - [employer] Medicare Advantage PCP 01/02/22 Milind Pearson PA-C [address] [facility], [address] [place] [address] PCP - General Family Medicine 09/13/24 Team Status: Active Member Role Status Dates Dr. Alena Lo MD Primary Care Provider Active Team Status: Inactive Member Role Status Dates Dr. Alena Lo MD Primary Care Provider Active Start: February 03, 2025 End: February 03, 2025 Dr. Alena Lo MD Referring Provider Active Start: February 03, 2025 End: February 03, 2025 JAGJIT Chapman Attending Provider Active S tart: February 03, 2025 End: February 03, 2025 Scheduled Active and Recently Administ ered Medications (unrecognized section and content) Medication Order 12/13/2024 12/14/2024 12/15/2024 lidocaine (Xylocaine) 10 mg/mL (1 %) injection 10 mL (COMPLETED) 10 mL, infiltration, Once, On 12/15/24 at 1340, For 1 dose 1421 (Given - Provid er: Fely Farley RN - Comment: given to Dr Kam) traMADol (Ultram) tablet 50 mg (COMPLETED) 50 mg, oral, Once, On 12/15/24 at 1340, For 1 dose, Max of 300 mg daily for patients > 75 years of age., If ordered PRN for pain, nurse is permitted to administer this medication for higher pain scores based on patient preference? Yes 1418 (Given - Provid er: Fely Farley RN) Goals (unrecognized section and content) Goals may be documented in a n alternate section FOR RECORDS PERTAINING TO PATIENTS WHO ARE OR HAVE BEEN ENROLLED IN A CHEMICAL DEPENDENCY/SUBSTANCEABUSE PROGRAM, SOME INFORMATION MAY BE OMITTED. This clinical summary was aggregated from multiple sources. Caution should be exercised in using it in the provision of clinical care. This summary normalizes information from multiple sources, and as a consequence, information in this document may materially change the coding, format and clinical context of patient data. In addition, data may be omitted in some cases. CLINICAL DECISIONS SHOULD BE BASED ON THE PRIMARY CLINICAL RECORDS. [facility] [employer] [facility]. provides no warranty or guarantee of the accuracy or completeness of information in this document.
--- NOTE | 2025-02-15 12:08 | RAD_ITS ---
PROCEDURE: ABDOMEN SINGLE VIEW 02/15/2025 REASON FOR EXAM: Constipation. Assess Sitz marker TECHNIQUE: ABDOMEN SINGLE VIEW COMPARISON: None. FINDINGS: Bowel gas: Marker is seen left of midline, likely transverse colon. Other cyst i seen in the descending colon. Calcifications: Bones: Other: RAD/Abdomen Single View IMPRESSION: No acute process. 2 Sitz markers remain in the colon. [facility]
== END | disposition home or self-care (01) ==
LOC: RAD 11:47
PROVIDERS: PCP Physician Assistant
DX: K59.00 Constipation, unspecified (principal); R14.0 Abdominal distension (gaseous)
CPT/HCPCS: 74018

== ENCOUNTER 2025-04-02 10:14 | Day surgery (SDC) | payer MEDICARE, SELFPAY ==
--- NOTE | 2025-04-01 08:58 | PAT.ANESEVAL ---
Pre-Assessment Diagnosis/Proposed Procedure Planned Operative Procedure(s): CSCOPE Anesthesia History Anesthesia History - analyst microbiology lab: Anesthesia History - analyst microbiology lab Hx Hospitalization No 03/28/25 15:06 Any Problems With Anesthesia No 03/28/25 15:06 Cholinesterase deficiency No 03/28/25 15:06 You/Your Family Experience No 03/28/25 15:06 fever (hyperthermia) with Relationship Recent Exposure to Contagious Disease Does patient have nerve No 03/28/25 15:06 stimulator Patient instructed to have device shut off --Does patient have Pacemaker or ICD? When Was Last Pacemaker Check QUESTION #4 FULL TEXT: You/Your Family Experience fever (hyperthermia) with Anesthesia Last Oral Intake Last Oral intake: Last Oral Intake NPO since Meds taken in AM with sips of water? 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 - analyst microbiology lab: PONV - analyst microbiology lab Female Yes 03/28/25 15:06 HX of Motion Sickness Yes 03/28/25 15:06 HX of N/V After Surgery No 03/28/25 15:06 Non-Smoker Yes 03/28/25 15:06 Duration of Surgery greater No 03/28/25 15:06 than 60 minutes Number of Risk Factors 3 03/28/25 15:06 PONV Score Moderate Risk 03/28/25 15:06 Height & Weight Height & Weight: Anesthesia: Height & Weight Height 5 ft 6 in 02/03/25 10:46 Respiratory Assessment Respiratory Assessment - analyst microbiology lab: Respiratory Tract Infection Hx - analyst microbiology lab Hx Respiratory Tract Infection No 03/28/25 15:06 STOP Sleep Apnea STOP Sleep Apnea - analyst microbiology lab: STOP Sleep Apnea - analyst microbiology lab Hx Hypertension No 03/28/25 15:06 Hx Sleep Apnea No 03/28/25 15:06 CPAP BIPAP Do you snore loudly (louder No 03/28/25 15:06 than talking or can be heard Do you often feel tired/ No 03/28/25 15:06 fatigued/ sleepy during daytime? Has anyone observed you stop No 03/28/25 15:06 breathing during sleep? STOP Results Negative 03/28/25 15:06 QUESTION #5 FULL TEXT : Do you snore loudly (louder than talking or can be heard through closed doors)? 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 Specify any problems Hx of Preganancy in last 3 No 03/28/25 15:06 Months Nurse Filling Out Transfusion DSCHRIBER 03/28/25 15:06 & Questions: Date: 03/28/25 03/28/25 15:06 Time: 15:07 03/28/25 15:06 Patient unable to answer at this time (ie. confused, unrespo /Reproduction History /Reproductive History - analyst microbiology lab: /Reproductive Hx- analyst microbiology lab Hx Now No 03/28/25 15:06 Gestational Age (in weeks): EDC: Hx Hx Para Hx Section SAB No 03/28/25 15:06 PFS Medical History (Updated 03/28/25 @ 15:18 by Antonietta Mariee) Wears glasses Post-menopausal Rash DVT (deep venous thrombosis) Back pain Injury of head and neck Heartburn Non-smoker Shortness of breath on exertion Leg cramps History of stress test History of anal fissures Anxiety Home Medications ?Medication ?Instructions ?Recorded ?Last Taken ?Type fluoxetine 20 mg capsule 20 mg PO QDAY 02/03/25 Unknown History docusate sodium 100 mg capsule 100 mg PO DAILY PRN constipation 03/28/25 Unknown History (Colace) ibuprofen-diphenhydramine citrate 2 cap PO QHS 03/28/25 Unknown History 200 mg-38 mg tablet (Advil PM) polyethylene glycol 3350 17 17 g PO QHS 03/28/25 Unknown History gram/dose oral powder (Miralax) psyllium husk 3.4 gram/5.4 gram 1 tbsp PO DAILY 03/28/25 Unknown History oral powder (Metamucil) Allergy/AdvReac Type Severity Reaction Status Date / Time bee venom protein (honey Allergy Intermediate Swelling Verified 03/28/25 15:03 bee) (bee sting) Family History Mother Hypertension HLD (hyperlipidemia) Skin cancer Father HLD (hyperlipidemia) Hypertension Surgical History (Updated 03/28/25 @ 15:18 by Antonietta Mariee) Hx of oral surgery Hx of colonoscopy Hx of tonsillectomy Hx of hemorrhoidectomy H/O hernia repair Social History Smoking Status: Never smoker alcohol intake: never substance use type: does not use Audit: Pertinent Findings Pertinent Findings EKG Perinent findings: October 19, 2022. Normal sinus rhythm. Stress test pertinent findings: October 19, 2022. Patient achieved total 8.9 METS. No EKG evidence of ischemia. Recommendation Anesthesia Recommendation Anesthesia recommendation: OPTIMIZED for anesthesia
[2025-04-02] VITALS (7 sets, daily range): BP systolic 97–136; BP diastolic 71–85; PULSE 63–82; RESP 16; TEMP 36.5–36.8; O2SAT 96–97; BMI 29.2
--- NOTE | 2025-04-02 10:37 | PCM.PRE.AN2 ---
ASA Classification* ASA Classification ASA Classification: 2 Assessment & Plan Anesthesia* Anesthesia Assessment Anesthesia Assessment: Discussed sedation and/or anesthesia options, risks, benefits, and alternatives with patient/parents/legal guardian/POA. Questions invited. The patient/parents/legal guardian/POA seems to understand and agrees to proceed with anesthesia plan. Reviewed the physical assessment, medical history, allergy history and patient home medications list prior to surgery/procedure/anesthetic and documented any changes. Performed airway and anesthesia risk assessments. Anesthesia Type Anesthesia Type: MAC History Source History Obtained from:: Patient and Chart Anesthesia Focused Assessment* Oxygen Delivery Method: Room Air Airway Assessment Mouth opens: >3 cm Mallampati Score: I Teeth Condition: Intact Neck Range of motion (ROM): Full ROM Labs Anesthesia Preop lab: CBC CHEMISTRY COAG Pre-Assessment Diagnosis/Proposed Procedure Planned Operative Procedure(s): CSCOPE Anesthesia History Anesthesia History - blueprint duplicator: Anesthesia History - blueprint duplicator Hx Hospitalization No 03/28/25 15:06 Any Problems With Anesthesia No 03/28/25 15:06 Cholinesterase deficiency No 03/28/25 15:06 You/Your Family Experience No 03/28/25 15:06 fever (hyperthermia) with Relationship Recent Exposure to Contagious Disease Does patient have nerve No 03/28/25 15:06 stimulator Patient instructed to have device shut off --Does patient have Pacemaker or ICD? When Was Last Pacemaker Check QUESTION #4 FULL TEXT: You/Your Family Experience fever (hyperthermia) with Anesthesia Last Oral Intake Last Oral intake: Last Oral Intake NPO since Meds taken in AM with sips of water? 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 - blueprint duplicator: PONV - blueprint duplicator Female Yes 03/28/25 15:06 HX of Motion Sickness Yes 03/28/25 15:06 HX of N/V After Surgery No 03/28/25 15:06 Non-Smoker Yes 03/28/25 15:06 Duration of Surgery greater No 03/28/25 15:06 than 60 minutes Number of Risk Factors 3 03/28/25 15:06 PONV Score Moderate Risk 03/28/25 15:06 Height & Weight Height & Weight: Anesthesia: Height & Weight Height 5 ft 6 in 02/03/25 10:46 Respiratory Assessment Respiratory Assessment - blueprint duplicator: Respiratory Tract Infection Hx - blueprint duplicator Hx Respiratory Tract Infection No 03/28/25 15:06 STOP Sleep Apnea STOP Sleep Apnea - blueprint duplicator: STOP Sleep Apnea - blueprint duplicator Hx Hypertension No 03/28/25 15:06 Hx Sleep Apnea No 03/28/25 15:06 CPAP BIPAP Do you snore loudly (louder No 03/28/25 15:06 than talking or can be heard Do you often feel tired/ No 03/28/25 15:06 fatigued/ sleepy during daytime? Has anyone observed you stop No 03/28/25 15:06 breathing during sleep? STOP Results Negative 03/28/25 15:06 QUESTION #5 FULL TEXT : Do you snore loudly (louder than talking or can be heard through closed doors)? 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 Specify any problems Hx of Preganancy in last 3 No 03/28/25 15:06 Months Nurse Filling Out Transfusion DSCHRIBER 03/28/25 15:06 & Questions: Date: 03/28/25 03/28/25 15:06 Time: 15:07 03/28/25 15:06 Patient unable to answer at this time (ie. confused, unrespo /Reproduction History /Reproductive History - blueprint duplicator: /Reproductive Hx- blueprint duplicator Hx Now No 03/28/25 15:06 Gestational Age (in weeks): EDC: Hx Hx Para Hx Section SAB No 03/28/25 15:06 Active Medications Active Medications: Current Medications Generic Name Dose Route Start Last Admin Trade Name Freq PRN Reason Stop Dose Admin Lactated Ringer's 1,000 mls @ 15 mls/hr 04/02/25 10:30 IV .Q48H MABEL PFSH Medical History (Updated 03/28/25 @ 15:18 by Antonietta Mariee) Wears glasses Post-menopausal Rash DVT (deep venous thrombosis) Back pain Injury of head and neck Heartburn Non-smoker Shortness of breath on exertion Leg cramps History of stress test History of anal fissures Anxiety Home Medications ?Medication ?Instructions ?Recorded ?Last Taken ?Type fluoxetine 20 mg capsule 20 mg PO QDAY 02/03/25 Unknown History docusate sodium 100 mg capsule 100 mg PO DAILY PRN constipation 03/28/25 Unknown History (Colace) ibuprofen-diphenhydramine citrate 2 cap PO QHS 03/28/25 04/01/25 History 200 mg-38 mg tablet (Advil PM) polyethylene glycol 3350 17 17 g PO QHS 03/28/25 Unknown History gram/dose oral powder (Miralax) psyllium husk 3.4 gram/5.4 gram 1 tbsp PO DAILY 03/28/25 Unknown History oral powder (Metamucil) Allergy/AdvReac Type Severity Reaction Status Date / Time bee venom protein (honey Allergy Intermediate Swelling Verified 04/02/25 10:34 bee) (bee sting) Family History Mother Hypertension HLD (hyperlipidemia) Skin cancer Father HLD (hyperlipidemia) Hypertension Surgical History (Updated 03/28/25 @ 15:18 by Antonietta Mariee) Hx of oral surgery Hx of colonoscopy Hx of tonsillectomy Hx of hemorrhoidectomy H/O hernia repair Social History Smoking Status: Never smoker alcohol intake: never substance use type: does not use Review of Systems (Anesthesia) ROS Narrative System reviewed and no additional complaints, except as documented.
[2025-04-02] MEDS: Lactated Ringers 1,000 ML 15 ML IV (10:44)
--- NOTE | 2025-04-02 10:50 | PCM.HP.STD ---
[facility] - General General Date of Admission: 04/02/25 Date of Service: 04/02/25 Chief Complaint: Screening colonoscopy HPI Narrative BERE PRESSLEY, is a 70 F who presents today for screening colonoscopy. She states that she's been dealing with constipation for over 30yrs. She reports intermittent episodes of diarrhea and associated indigestion. States that over the winter her family had the influenza virus with all of the GI symptoms:N/V/D. She notes that her indigestion is related to intake of greasy, fat, or fried foods. Reports her daily bowel regimen includes: FiberOne, bran flakes cereal, 2 caps of Colace, and 1tsp of Metamucil. She states her daily fiber goal is 25gm with 60oz water. She has a history of rather traumatic multiple hemorrhoid removal and difficult recovery. Her last colonoscopy was 10 years ago with no incidental findings and she has been having screening colonoscopies every 10yrs. Her last bowel prep was done with Gavilyte. She denies difficulty chewing and swallowing, cough, throat clearing, sinus drainage, heartburn, reflux, nausea, emesis, excess gas, hematochezia, and melena. Her daughter is a pelvic floor therapist and has told her she would benefit from specific exercises to strengthen her floor. [facility] Medical History Wears glasses Post-menopausal Rash DVT (deep venous thrombosis) Back pain Injury of head and neck Heartburn Non-smoker Shortness of breath on exertion Leg cramps History of stress test History of anal fissures Anxiety Home Medications ?Medication ?Instructions ?Recorded ?Last Taken ?Type fluoxetine 20 mg capsule 20 mg PO QDAY 02/03/25 Unknown History docusate sodium 100 mg capsule 100 mg PO DAILY PRN constipation 03/28/25 Unknown History (Colace) ibuprofen-diphenhydramine citrate 2 cap PO QHS 03/28/25 04/01/25 History 200 mg-38 mg tablet (Advil PM) polyethylene glycol 3350 17 17 g PO QHS 03/28/25 Unknown History gram/dose oral powder (Miralax) psyllium husk 3.4 gram/5.4 gram 1 tbsp PO DAILY 03/28/25 Unknown History oral powder (Metamucil) Allergy/AdvReac Type Severity Reaction Status Date / Time bee venom protein (honey Allergy Intermediate Swelling Verified 04/02/25 10:34 bee) (bee sting) Family History Mother Hypertension HLD (hyperlipidemia) Skin cancer Father HLD (hyperlipidemia) Hypertension Surgical History Hx of oral surgery Hx of colonoscopy Hx of tonsillectomy Hx of hemorrhoidectomy H/O hernia repair Social History Smoking Status: Never smoker alcohol intake: never substance use type: does not use ROS Constitutional Constitutional: Denies fatigue, fever(s), poor appetite, weight gain or weight loss Gastrointestinal Gastrointestinal: Denies belching, bloating, change in bowel habits, change in stool character, chewing difficulty, coffee ground emesis, constipation, cramping, diarrhea, dyspepsia, dysphagia, early satiety, excessive flatus, fecal incontinence, heartburn, hematemesis, hematochezia, hemorrhoids, loose stools, melena, nausea, odynophagia, rectal bleeding, tenesmus, vomiting or weight changes Vital Signs Vital Signs Vital Signs: 04/02/25 10:35 04/02/25 10:35 04/02/25 10:38 Temperature 97.7 F L Temperature Source Temporal Pulse Rate 82 Respiratory Rate 16 Respiratory Pattern Normal Blood Pressure 136/85 H Blood Pressure Mean 102 Blood Pressure Source Monitor Blood Pressure Position Semi-Fowlers Blood Pressure Location Left Arm Pulse Ox 97 Oxygen Delivery Method Room Air Room Air Weight Weight: 181 lb Body Mass Index (BMI) 29.2 Physical Exam Const alert, oriented x3, no apparent distress and healthy appearing General Appearance: cooperative GI normal to inspection, nondistended, normoactive bowel sounds, soft to palpation, non-tender and non-distended Percussion: normal to percussion Rectal Exam: deferred Assessment & Plan Assessment/Plan (1) Constipation: QUALIFIERS: Constipation type: unspecified constipation type Qualified Code(s): K59.00 - Constipation, unspecified (2) Abdominal bloating: (3) Screening for colon cancer: PLAN: Assessment and Plan Assessment and Plan (1) Diarrhea: Qualifiers: Diarrhea type: unspecified type Qualified Code(s): R19.7 - Diarrhea, unspecified Plan: High suspicion for overflow diarrhea. (2) Abdominal bloating: Status: Acute (3) Constipation: Status: Acute Qualifiers: Constipation type: unspecified constipation type Qualified Code(s): K59.00 - Constipation, unspecified Orders: Orders Sitzmarkers Today K59.00 - Constipation, unspecified, R14.0 - Abdominal distension (gaseous) Abdomen Single View 02/06/25 K59.00 - Constipation, unspecified, R14.0 - Abdominal distension (gaseous) Abdomen Single View 02/08/25 K59.00 - Constipation, unspecified, R14.0 - Abdominal distension (gaseous) Plan BERE HUAN, is a 70 F who presents to the office today for establishment with [facility] regarding concerns of chronic constipation. She states that she's been dealing with constipation for over 30yrs. She reports intermittent episodes of diarrhea and associated indigestion. sitz markers today, KUB 6.5.25 and 6.7.25 schedule screening colonoscopy office FU 1wk after colonoscopy
--- NOTE | 2025-04-02 11:47 | PCM.POST.ANE ---
Anesthesia: Postop Eval I Current Vital Signs Temperature: 98.3 F Pulse Rate: 70 Blood Pressure: 110/74 Respiratory Rate: 16 Pulse Ox: 97 Oxygen Delivery Method: Room Air Assessment Airway patent: Yes Spontaneous unlabored respirations: Yes Mental status: Awake and Calm nausea: No Vomiting: No Anesthesia Complication: No Fluid Hydration Crystalloid volume administer (ml): 400 Total IV fluid infused: 400 Progress Note Anesthesia document: Postop Eval 1 completed: Yes
--- NOTE | 2025-04-02 12:33 | OP.PROVAT_ITS ---
04/02/2025 Josh Marin Re : Colonoscopy procedure for Yessy Bhatt Dear Boubacar This procedure was performed on Wednesday, April 02, 2025. My impressions and recommendations are as follows: Impressions : - The entire examined colon is normal on direct and retroflexion views. - Diverticulosis in the sigmoid colon. - No specimens collected. Recommendations : - Discharge patient to home. - Resume previous diet. - Continue present medications. - Repeat colonoscopy in 10 years for screening purposes. My findings are described in the full procedure note, which is enclosed. If I can be of further assistance, please feel free to contact me at . Sincerely, Marin Thomas, 04/02/2025 12:33:24 PM This report has been signed electronically.
--- NOTE | 2025-04-02 12:33 | OP.COLON_ITS ---
Patient Name: Yessy Bhatt Procedure Date: 04/02/2025 10:55 AM Date of : 1955 Age: 70 Procedure: Colonoscopy Indications: Screening for colorectal malignant neoplasm Providers: Marin Thomas DO Medicines: Monitored Anesthesia Care Patient Profile: Last Colonoscopy: more than 10 years ago. Complications: No immediate complications. Procedure: Pre-Anesthesia Assessment: - Prior to the procedure, a History and Physical was performed, and patient medications and allergies were reviewed. The patient is competent. The risks and benefits of the procedure and the sedation options and risks were discussed with the patient. All questions were answered and informed consent was obtained. Patient identification and proposed procedure were verified by the physician in the pre-procedure area. Mental Status Examination: alert and oriented. Airway Examination: normal oropharyngeal airway and neck mobility. Respiratory Examination: clear to auscultation. CV Examination: normal. Prophylactic Antibiotics: The patient does not require prophylactic antibiotics. Prior Anticoagulants: The patient has taken no anticoagulant or antiplatelet agents except for NSAID medication. ASA Grade Assessment: II - A patient with mild systemic disease. After reviewing the risks and benefits, the patient was deemed in satisfactory condition to undergo the procedure. The anesthesia plan was to use monitored anesthesia care (MAC). Immediately prior to administration of medications, the patient was re-assessed for adequacy to receive sedatives. The heart rate, respiratory rate, oxygen saturations, blood pressure, adequacy of pulmonary ventilation, and response to care were monitored throughout the procedure. The physical status of the patient was re-assessed after the procedure. After I obtained informed consent, the scope was passed under direct vision. Throughout the procedure, the patient's blood pressure, pulse, and oxygen saturations were monitored continuously. The adult colonoscope was introduced through the anus and advanced to the cecum, identified by appendiceal orifice and ileocecal valve. Scope In: 11:16:02 AM Scope Withdrawal Time 0 hours 10 minutes 36 seconds Scope Out: 11:38:26 AM Total Procedure Duration Time 0 hours 22 minutes 24 seconds Findings: The perianal and digital rectal examinations were normal. The entire examined colon appeared normal on direct and retroflexion views. Multiple small-mouthed diverticula were found in the sigmoid colon. Impression: - The entire examined colon is normal on direct and retroflexion views. - Diverticulosis in the sigmoid colon. - No specimens collected. Recommendation: - Discharge patient to home. - Resume previous diet. - Continue present medications. - Repeat colonoscopy in 10 years for screening purposes. Procedure Code(s): --- Professional --- G0121, Colorectal cancer screening; colonoscopy on individual not meeting criteria for high risk CPT copyright 2021 [employer]. All rights reserved. The codes documented in this report are preliminary and upon part time flexible clerk review may be revised to meet current compliance requirements. Marin Thomas DO 04/02/2025 12:33:24 PM This report has been signed electronically. Number of Addenda: 0 Note Initiated On: 04/02/2025 10:55 AM
--- OUTSIDE RECORDS SUMMARY | 2025-04-02 19:03 | XMS RPT_ITS | CCD ---
Author Organization [facility] ion Partnership [facility] Care Team Providers Care Structured Cabling Technician Name Role Phone Parag Wong Unavailable Unavailable Alena Lo Unavailable Unavailable Hunt, Salvador A Unavailable Unavailable Alena Lo Unavailable Unavailable Hunt, Salvador Unavailable Unavailable El-Nashar, Eddie Unavailable Unavailable El-Nashar, Eddie A Unavailable Unavailable Alena Lo MD Unavailable Unavailable Alena Lo Unavailable Unavailable Glenn, Salvador A Unavailable Unavailable El-Nashar, Eddie A Unavailable Unavailable Alena Lo Unavailable Unavailable Unavailable MD ALENA LO Primary Care UnavailCelestina Adame Attending Unavailable Celestina Chiang Referring Unavailable MD ALENA LO Primary [facility] UnavailCelestina Adame Attending Unavailable MD ALENA LO Primary [facility] UnavailMD ALENA Jones Attending UnavailMD ALENA Jones Referring UnavailMD ALENA Jones Primary [facility] UnavailMD ALENA Jones Attending UnavailMD ALENA Jones Referring UnavailMD ALENA Jones Primary Care UnavailMD ALENA Jones Attending UnavailMD ALENA Jones Referring UnavailMD ALENA Jones Referring UnavailMD ALENA Jones Primary Care UnavailMD ALENA Jones Attending UnavailAlena Jones MD Primary Care Provider Alena Lo MD Unavailable Dr. Alena Lo Primary Care Unavailab Dr. Alena Gutierrez Attending Unavailab le Irvin, Dr. Alena Sinha Primary Care Unavailab le Irvin, Dr. Alena Sinha Attending Unavailab le Irvin, Dr. Alena Sinha Primary Care Unavailab le Irvin, Dr. Alena Sinha Attending Unavailab le Garfield, Nitin Loreta Soto Attending Unavailabl e Irvin, Dr. Alena Sinha Primary Care Unavailab le ALENA LO Primary Care Unavailable LOALENA CORRAL Primary Care Unavailable LOALENA CORRAL Primary Care Unavailable Stentz PA-C, Milind Primary Care Provider Alena Lo MD Unavailable [phone] Stentz PA-C, Milind Primary Care Provider STENTZ, MILIND Primary Care Unavailable ISACC KAM Attending Unavailable STENTZ, MILIND Referring Unavailable STENTZ, MILIND Primary Care Unavailable Irvin MAR, Dr. Alena Heard Primary Care Provider Irvin MAR, Dr. Alena Heard Referring Provider Deo ABSORBER OPERATOR-C, Alisa Attending Provider Deo ABSORBER OPERATOR-C, Alisa Referring Provider Stentz PA, Milind Primary Care Provider STENTZ, MILIND Attending Unavailable ALENA LO Referring Unavailable STENTZ, MILIND Primary Care Unavailable STENTZ, MILIND Attending Unavailable STENTZ, MILIND Primary Care Unavailable STENTZ, MILIND Attending Unavailable STENTZ, MILIND Referring Unavailable STENTZ, MILIND Primary Care Unavailable Dr. Marin Thomas DO Attending Provider Stentz PA, Milind Referring Provider Friend Dr. Marin MORALES Other Provider Stentz, Milind Primary Care Unavailable Stentz, Milind Referring Unavailable Marin Thomas Attending Unavailable Deo, Alisa Attending Unavailable Desouza, Alisa Referring Unavailable Alena Lo Primary Care Unavailable Desouza, Alisa Attending Unavailable Desouza, Alisa Referring Unavailable Stentz, Milind Primary Care Unavailable Desouza, Alisa Attending Unavailable Alena Lo Primary Care Unavailable Alena Lo Referring Unavailable Stentz, Milind Referring Unavailable FriendMarin Consulting Unavailable Friend, Marin Attending Unavailable Milind Pearson Primary Care Unavailable Allergies Allergy Classification Reported Allergen(s) Allergy Type Date of Onset Reaction(s) Facility (2 sources) apis mellifera venom Allergy to substance (finding) [facility] [address] Work Phone: (12 sources) Bee Venom Protein (Honey Bee); Translations: [BEE VENOM PROTEIN (HONEY BEE)] Allergy to substance 10-16-2023 [facility] (1 source) bee venom protein (honey bee) Drug allergy (disorder) 04-02-2025 [facility] Repository Medications Current Medications Medication Drug Class(es) Dates Sig (Normalized) Sig (Original) busPIRone hydrochloride 5 mg oral tablet (4 sources) Start: 01-07-2025 End: 05-12-2025 take 1 tablet by mouth twice daily as needed for anxiety busPIRone (Buspar) 5 mg tablet Indications: Anxiety Take 1 tablet (5 mg) by mouth 2 times a day as needed (anxiety). 60 tablet 1 03/13/2025 05/12/2025 Active diphenhydrAMINE citrate 38 mg / ibuprofen 200 mg oral tablet (1 source) Histamine-1 Receptor Antagonist, Nonsteroidal Anti-inflammatory Drug Start: 03-28-2025 Ibuprofen-Diphenh ydramine Cit (Advil Pm) 200-38 mg tablet Active 2 NMA PO AT BEDTIME March 28, 2025 12:00am docusate sodium 100 mg oral capsule (1 source) Start: 03-28-2025 take 1 capsule by mouth once daily as needed for constipation Docusate Sodium (Colace) 100 mg capsule Active 100 mg PO DAILY as needed for constipation March 28, 2025 12:00am FLUoxetine 20 mg oral capsule (20 sources) Serotonin Reuptake Inhibitor Start: 03-13-2025 take 1-2 capsules by mouth once daily FLUoxetine (PROzac) 20 mg capsule Indications: Anxiety TAKE 1-2 CAPSULES BY MOUTH DAILY 180 capsule 3 03/13/2025 Active Start: 09-14-2023 End: 03-13-2025 take 1 capsule by mouth once daily Fluoxetine 20 mg capsule Active 20 mg PO daily February 03, 2025 12:00am hydrOXYzine hydrochloride 10 mg oral tablet (4 sources) Antihistamine Start: 09-13-2024 End: 09-23-2024 take 1 tablet by mouth twice daily as needed for sleep hydrOXYzine HCL (Atarax) 10 mg tablet Indications: Primary insomnia Take 1 tablet (10 mg) by mouth 2 times a day as needed (sleep) for up to 10 days. 20 tablet 09/13/2024 Active polyethylene glycol 3350 47972 mg powder for oral solution (8 sources) Osmotic Laxative Start: 03-28-2025 Polyethylene Glycol 3350 (Miralax) 17 gram/dose powder Active 17 g PO AT BEDTIME March 28, 2025 12:00am MiraLax Oral Pow jericho 17 grams oral PRN only Refills: 0 DO Active MiraLax Oral Pow jericho Refills: 0 DO Active psyllium 3400 mg powder for oral suspension (1 source) Start: 03-28-2025 Psyllium Husk (Metamucil) 3.4 gram/5.4 gram powder Active 1 tbsp PO DAILY March 28, 2025 12:00am mix into at least 8 oz of water or juice before administering traZODone hydrochloride 50 mg oral tablet (3 sources) Serotonin Reuptake Inhibitor Start: 01-07-2025 End: 03-13-2025 traZODone (Desyrel) 50 mg tablet Indications: Primary insomnia Take 1 tablet (50 mg) by mouth as needed at bedtime for sleep. 30 tablet 1 01/07/2025 03/13/2025 Discontinued (Med List Cleanup) zolpidem tartrate 5 mg oral tablet (4 sources) gamma-Aminobutyri c Acid-ergic Agonist Start: 12-07-2023 End: 03-13-2025 zolpidem (Ambien) 5 mg tablet Indications: Psychophysiological insomnia Take 1 tablet (5 mg) by mouth as needed at bedtime for sleep. 10 tablet 12/07/2023 03/13/2025 Discontinued (Med List Cleanup) Completed/Discontinued Medications Medication Drug Class(es) Dates Sig [...] ral Tablet Refills: 0 Active mv-mn/folic acid/vit [id number]/akte063 (ALIVE ONCE DAILY WOMEN 50 PLUS ORAL) (1 source) End: 09-14-2023 take 1 tablet by mouth once daily mv-mn/folic acid/vit K/[id number] (ALIVE ONCE DAILY WOMEN 50 PLUS ORAL) [...] MAR, PhD, Eddie Start : 24-Sep-2019 Active promethazine hydrochloride 25 mg oral tablet [...] multiple sites] Onset: 05-29-2023 05-29-2023 Chronic Other connective tissue disease (2 sources) Pain in right hand; Translations: [Pain in right hand] 03-13-2025 Episodic Other connective tissue disease (2 sources) Pain in right hand; Translations: [Pain in right hand] Onset: 03-13-2025 Episodic Other endocrine disorders (10 sources) Menarche; Translations: [History of Menarche] Chronic Other eye disorders (20 sources) Vitreomacular traction syndrome; 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] Onset: 05-29-2023 05-29-2023 Chronic Other gastrointestinal disorders (19 sources) H/O: abdominal hernia; Translations: [Personal history of other diseases of digestive system] Episodic Other gastrointestinal disorders (20 sources) Chronic constipation; Translations: [Constipation, unspecified] Onset: 05-29-2023 05-29-2023 Episodic Other gastrointestinal disorders (10 sources) Abdominal bloating; Translations: [Abdominal distension (gaseous)] 05-29-2023 Episodic Other gastrointestinal disorders (5 sources) Abdominal distension (gaseous); Translations: [Abdominal distension (gaseous)] Onset: 05-29-2023 Episodic Other gastrointestinal disorders (1 source) Diarrhea of presumed infectious origin; Translations: [Diarrhea, unspecified] 12-01-2023 Episodic Other gastrointestinal disorders (9 sources) Constipation; Translations: [Constipation, unspecified] 02-03-2025 Episodic Other gastrointestinal disorders (4 sources) Diarrhea; Translations: [Diarrhea, unspecified] 02-03-2025 Episodic Other gastrointestinal disorders (2 sources) Other constipation; Translations: [Other constipation] Onset: 05-29-2023 Episodic Other gastrointestinal disorders (2 sources) Constipation, unspecified; Translations: [Constipation, unspecified] Onset: 04-02-2025 Episodic Other gastrointestinal disorders (1 source) Diarrhea, unspecified; Translations: [Diarrhea, unspecified] Onset: 02-17-2025 Episodic Other injuries and conditions due to [...] delivery] Episodic Comment on above: 10/30/1986_39weeks_F emale_6# 5oz03_38weeks_Female_6# 3oz; Other screening for suspected conditions (not mental disorders or infectious disease) (20 sources) Patient encounter status; Translations: [Special screening for malignant neoplasms of vagina] Onset: 03-29-2023 Episodic Comment on above: 03/27/2017-NEG; Other upper respiratory disease (20 sources) Allergic [...] Spondylosis; intervertebral disc disorders; other back problems (19 sources) Cervical spondylosis without myelopathy; Translations: [Cervical [...] 09-14-2023 05-29-2023 Chronic Benign neoplasm of uterus (20 sources) Uterine leiomyoma; Translations: [Leiomyoma of uterus, unspecified] Onset: 05-29-2023 05-29-2023 Episodic Cardiac dysrhythmias (14 sources) Palpitations; Translations: [Palpitations] Onset: 07-19-2022 Resolved: 09-14-2023 05-29-2023 Episodic Genitourinary symptoms and ill-defined conditions (20 sources) Increased frequency of urination; Translations: [Dysuria] Resolved: 09-07-2020 Episodic Menopausal disorders (17 sources) Postmenopausal bleeding; Translations: [Postmenopausal bleeding] Onset: 05-29-2023 Resolved: 09-14-2023 05-29-2023 Chronic Nonspecific chest pain (6 sources) Chest discomfort; Translations: [Other chest pain] Onset: 10-19-2022 Episodic Other and unspecified benign neoplasm (18 sources) Lipoma of back; Translations: [Lipoma of other specified sites] Onset: 05-29-2023 05-29-2023 Episodic Other connective tissue disease (10 sources) Recurrent falls ; Translations: [Repeated falls] Onset: 09-14-2023 09-14-2023 Episodic Other gastrointestinal disorders (20 sources) Irritable bowel syndrome; Translations: [Irritable bowel syndrome] Onset: 05-29-2023 Resolved: 09-14-2023 05-29-2023 Chronic Other lower respiratory disease (2 sources) Dyspnea, unspecified; Translations: [Dyspnea, unspecified] Onset: 10-19-2022 Episodic Other skin disorders (4 sources) H/O: eczema; [...] Comment on above: ONSET AGE 16; Unclassified (9 sources) Onset: 09-14-2023 Resolved: 01-07-2025 09-14-2023 Unclassified (1 source) Obesity, class 1; Translations: [Obesity, class 1] Onset: 09-13-2024 Viral infection (13 sources) Disease caused by 2019-nCoV; Translations: [Other specified viral infection] Onset: 05-29-2023 05-29-2023 Episodic NEGATED: Highlighted row has not occurred!Residual codes; unclassified (20 sources) Disease Episodic Results Test Name Value Interpretation Reference Range Facility Colonoscopy Reporton 025 Colonoscopy Report [facility] Medical Records Department [address] [place] [address] Colonoscopy Report MR#: [id number] Acct: [id number] Name: BERE BHATT Rep #: [id number] : 1955 70 From: Marin Thomas DO PCP: CHELSEA Marin Status:REG SDC Patient Name: Bere Bhatt Procedure Date: 04/02/2025 10:55 AM Date of : 1955 Age: 70 Procedure: Colonoscopy Indications: Screening for colorectal malignant neoplasm Providers: Marin Thomas DO Medicines: Monitored Anesthesia Care Patient Profile: Last Colonoscopy: more than 10 years ago. Complications: No immediate complications. Procedure: Pre-Anesthesia Assessment: - Prior to the procedure, a History and Physical was performed, and patient medications and allergies were reviewed. The patient is competent. The risks and benefits of the procedure and the sedation options and risks were discussed with the patient. All questions were answered and informed consent was obtained. Patient identification and proposed procedure were verified by the physician in the pre-procedure area. Mental Status Examination: alert and oriented. Airway Examination: normal oropharyngeal airway and neck mobility. Respiratory Examination: clear to auscultation. CV Examination: normal. Prophylactic Antibiotics: The patient does not require prophylactic antibiotics. Prior Anticoagulants: The patient has taken no anticoagulant or antiplatelet agents except for NSAID medication. ASA Grade Assessment: II - A patient with mild systemic disease. After reviewing the risks and benefits, the patient was deemed in satisfactory condition to undergo the procedure. The anesthesia plan was to use monitored anesthesia care (MAC). Immediately prior to administration of medications, the patient was re-assessed for adequacy to receive sedatives. The heart rate, respiratory rate, oxygen saturations, blood pressure, adequacy of pulmonary ventilation, and response to care were monitored throughout the procedure. The physical status of the patient was re-assessed after the procedure. After I obtained informed consent, the scope was passed under direct vision. Throughout the procedure, the patient's blood pressure, pulse, and oxygen saturations were monitored continuously. The adult colonoscope was introduced through the anus and advanced to the cecum, identified by appendiceal orifice and ileocecal valve. Scope In: 11:16:02 AM Scope Withdrawal Time 0 hours 10 minutes 36 seconds Scope Out: 11:38:26 AM Total Procedure Duration Time 0 hours 22 minutes 24 seconds Findings: The perianal and digital rectal examinations were normal. The entire examined colon appeared normal on direct and retroflexion views. Multiple small-mouthed diverticula were found in the sigmoid colon. Impression: - The entire examined colon is normal on direct and retroflexion views. - Diverticulosis in the sigmoid colon. - No specimens collected. Recommendation: - Discharge patient to home. - Resume previous diet. - Continue present medications. - Repeat colonoscopy in 10 years for screening purposes. Procedure Code(s): --- Professional --- G0121, Colorectal cancer screening; colonoscopy on individual not meeting criteria for high risk CPT copyright 2021 [employer]. All rights reserved. The codes documented in this report are preliminary and upon microsoft access developer review may be revised to meet current compliance requirements. Marin Thomas DO 04/02/2025 12:33:24 PM This report has been signed electronically. Number of Addenda: 0 Note Initiated On: 04/02/2025 10:55 AM 04/02/25 1233 Date Marin Thomas DO Cosigner Signature: Date (if indicated) CC: CHELSEA Marin; Marin Thomas DO Date Dictated: 04/02/25 1055 Date Transcribed: Special Deputy Sheriff: BRENDAN Signed Normal [facility] MR/OP.[place]ambo 04-02-2025 MR/OP.[facility] Medical Records Department [address] [place] [address] Provation Physician Letter MR#: [id number] Acct: [id number] Name: BERE BHATT Rep #: [id number] : 1955 70 From: Marin Thomas DO PCP: CHELSEA Marin Status:REG [facility] [place] 04/02/2025 Chelsea Marin Re : Colonoscopy procedure for Bere Bhatt Dear Boubacar This procedure was performed on Wednesday, April 02, 2025. My impressions and recommendations are as follows: Impressions : - The entire examined colon is normal on direct and retroflexion views. - Diverticulosis in the sigmoid colon. - No specimens collected. Recommendations : - Discharge patient to home. - Resume previous diet. - Continue present medications. - Repeat colonoscopy in 10 years for screening purposes. My findings are described in the full procedure note, which is enclosed. If I can be of further assistance, please feel free to contact me at . Sincerely, Marin Thomas DO 04/02/2025 12:33:24 PM This report has been signed electronically. 04/02/25 1233 Date Marin Mcclureigntory Signature: Date (if indicated) CC: CHELSEA Marin; Marin Thomas DO Date Dictated: 04/02/25 1055 Date Transcribed: Special Deputy Sheriff: BRENDAN Signed [facility] MR/POSTOP.JAMAL 04-02-2025 MR/POSTOP.[facility] Medical Records Department [address] [place] [address] Anesthesia Postop Eval I 04/02/25 1147 MR#: [id number] Acct: [id number] Name: BERE BHATT Rep #: [id number] : 1955 70 From: Toney Parker PCP: CHELSEA Marin Status:REG SD Y Race: C Location: [place] [address] Anesthesia: Postop Eval I Current Vital Signs Temperature: 98.3 F Pulse Rate: 70 Blood Pressure: 110/74 Respiratory Rate: 16 Pulse Ox: 97 Oxygen Delivery Method: Room Air Assessment Airway patent: Yes Spontaneous unlabored respirations: Yes Mental status: Awake and Calm nausea: No Vomiting: No Anesthesia Complication: No Fluid Hydration Crystalloid volume administer (ml): 400 Total IV fluid infused: 400 Progress Note Anesthesia document: Postop Eval 1 completed: Yes 04/02/25 1148 Date Toney Sanz Signature: Date CC: Signed [facility] Medical Records Department [address] [place] [address] PAT - Anesthesia 04/01/25 0858 MR#: [id number] Acct: [id number] Name: BERE BHATT Rep #: [id number] : 1955 70 From: Isma Fernandes MD PCP: CHELSEA Marin Status:PRE [facility] [place] Y Race: C Location: Pre-Assessment Diagnosis/Proposed Procedure Planned Operative Procedure(s): CSCOPE Anesthesia History 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 When Was Last Pacemaker Check QUESTION #4 FULL TEXT: You/Your Family Experience fever (hyperthermia) with Anesthesia Last Oral Intake Last Oral intake: Last Oral Intake NPO since Meds taken in AM with sips of water? 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 Female Yes 03/28/25 15:06 HX of Motion Sickness Yes 03/28/25 15:06 HX of N/V After Surgery No 03/28/25 15:06 Non-Smoker Yes 03/28/25 15:06 Duration of Surgery greater No 03/28/25 15:06 than 60 minutes Number of Risk Factors 3 03/28/25 15:06 PONV Score Moderate Risk 03/28/25 15:06 Height Weight Height Weight: Anesthesia: Height Weight Height 5 ft 6 in 02/03/25 10:46 Respiratory Assessment Respiratory Assessment - poultry processing supervisor: Respiratory Tract Infection Hx - poultry processing supervisor Hx Respiratory Tract Infection No 03/28/25 15:06 STOP Sleep Apnea STOP Sleep Apnea - poultry processing supervisor: STOP Sleep Apnea - poultry processing supervisor Hx Hypertension No 03/28/25 15:06 Hx Sleep Apnea No 03/28/25 15:06 CPAP BIPAP Do you snore loudly (louder No 03/28/25 15:06 than talking or can be heard Do you often feel tired/ No 03/28/25 15:06 fatigued/ sleepy during daytime? Has anyone observed you stop No 03/28/25 15:06 breathing during sleep? STOP Results Negative 03/28/25 15:06 QUESTION #5 FULL TEXT : Do you snore loudly (louder than talking or can be heard through closed doors)? 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 Specify any problems Hx of Preganancy in last 3 No 03/28/25 15:06 Months Nurse Filling Out Transfusion DSCHRIBER 03/28/25 15:06 Questions: Date: 03/28/25 03/28/25 15:06 Time: 15:07 03/28/25 15:06 Patient unable to answer at this time (ie. confused, unrespo /Reproduction History /Reproductive History - poultry processing supervisor: /Reproductive Hx- poultry processing supervisor Hx Now No 03/28/25 15:06 Gestational Age (in weeks): EDC: Hx Hx Para Hx Section SAB No 03/28/25 15:06 [facility] Medical History (Updated 03/28/25 @ 15:18 by Antonietta Mariee) Wears glasses Post-menopausal Rash DVT (deep venous thrombosis) Back pain Injury of head and neck Heartburn Non-smoker Shortness of breath on exertion Leg cramps History of stress test History of anal fissures Anxiety Home Medications ???Medication ???Instructions ???Recorded ???Last Taken ???Type fluoxetine 20 mg capsule 20 mg PO QDAY 02/03/25 Unknown His tory docusate sodium 100 mg capsule 100 mg PO DAILY PRN constipation 0 03/28/25 Unknown History (Colace) ibuprofen-diphenhydrami ne citrate 2 cap PO QHS 03/28/25 Unknown His tory 200 mg-38 mg tablet (Advil PM) polyethylene glycol 3350 17 17 g PO QHS 03/28/25 Unknown Histo ry gram/dose oral powder (Miralax) psyllium husk 3.4 gram/5.4 gram 1 tbsp PO DAILY 03/28/25 Unknown H istory oral powder (Metamucil) Allergy/AdvReac Type Severity Reaction Status Date / Time bee venom protein (honey Allergy Intermediate Swelli (more content not included)... Normal [facility] Abdomen Single Viewon 2024 Abdomen Single View [facility] Imaging Services [address] [place] [address] Abdomen Single View MR#: [id number] Acct: [id number] Name: BERE BHATT Rep #: [id number] : 1955 F 70 From: Mayito Hess DO PCP: CHELSEA Marin Status: REG CLI Study: Abdomen Single View Date of Exam: 02/15/25 Exam# [id number] Ordering Dr: Alisa Desouza PROCEDURE: ABDOMEN SINGLE VIEW 02/15/2025 REASON FOR EXAM: Constipation. Assess Sitz marker TECHNIQUE: ABDOMEN SINGLE VIEW COMPARISON: None. FINDINGS: Bowel gas: Marker is seen left of midline, likely transverse colon. Other cyst i seen in the descending colon. Calcifications: Bones: Other: RAD/Abdomen Single View IMPRESSION: No acute process. 2 Sitz markers remain in the colon. Reading Location: [facility] CC: JAGJIT Desouza; CHELSEA Marin Special Deputy Sheriff: Signed [facility] Abdomen Single Viewon 2024 Abdomen Single View [facility] Imaging Services [address] [place] [address] Abdomen Single View MR#: [id number] Acct: [id number] Name: BERE BHATT Rep #: [id number] : 1955 F 70 From: Navin Singh MD PCP: Dr. Alena Lo MD Status: REG CLI Study: Abdomen Single View Date of Exam: 02/13/25 Exam# [id number] Ordering Dr: Alisa Desouza PROCEDURE: ABDOMEN SINGLE VIEW 02/13/2025 REASON FOR EXAM: SITZ MARKER DAY 3 TECHNIQUE: Single view abdomen. COMPARISON: None. FINDINGS: There is a nonobstructive bowel gas pattern. There is a Sitz marker in the left mid abdomen, which could be in the transverse colon. There is a Sitz marker in the right lower quadrant, which could be in the cecum. No other Sitz markers are identified. There is multilevel degenerative disc disease of the lumbar spine with dextroscoliosis. RAD/Abdomen Single View IMPRESSION: No evidence of bowel obstruction. Sitz markers locations as described. Reading Location: [place] [address] CC: JAGJIT Desouza; Dr. Alena Lo MD Special Deputy Sheriff: Signed Normal [facility] Gastroenterology Visit Repor ton 02-03-2025 Gastroenterology Visit Report [facility] Gastroenterology [address] [place] [address] OFFICE VISIT Date of Service: 02/03/25 MR#: [id number] Acct: [id number] Name: BERE BHATT Rep #: [id number] : [id number] Provider: JAGJIT huggins Age/Sex: 70/F Location: [facility] Status: Signed Intake Vital Signs 02/03/25 10:46 [...] to the office today for establishment with [facility] regarding concerns of chronic constipation. She states [...] body habitus Orientation: alert and oriented x3 HENMT Head: normal to inspection Ears: hearing grossly [...] well kempt (more content not included)... Normal [facility] NURSING PROGon 01-21-2025 NURSING PROG HNO ID: [id number] Author: ANN MAGANA RN Service: ? Author Type: Registered Nurse Type: Nursing Progress Note Filed: 01/21/2025 15:27 Note Text: Attempted to reach the patient at the contact number that they provided [phone] (home) . Unable to speak with patient so without identifying the patient the following information was left on their voice mail: Date of procedure, location and report time Prep instructions A message was left informing the patient/patient quality assurance representative they must have a responsible adult accompany [...] Number to call with questions or concerns [phone] Number to call to cancel their procedure [phone] Ann Magana RN [facility] BI MAMMO BILATERAL SCREENING TOMOSYNTHESISon 01-17-2025 BI MAMMO BILATERAL SCREENING TOMOSYNTHESIS Interpreted By: Ivan Tyler, STUDY: BI MAMMO BILATERAL SCREENING TOMOSYNTHESIS; 01/17/2025 9:48 am ACCESSION NUMBER(S): [id number] ORDERING CLINICIAN: MILIND PEARSON INDICATION: Screening. COMPARISON: [...] Ivan Tyler 01/20/2025 8:11 AM Dictation workstation: [id number] [facility] CBC (H/H, RBC, INDICES, WBC, PLT)on 01-17-2025 Erythrocyte distribution width (RBC) [Ratio] 13.0 % Normal 11.0-15.0 [facility] Comment on above: Performed By: #### 9 063, 175, , 7600 #### [facility] [place] [address] [employer] Roofer Helper: Dmitry Pham MD Hematocrit (Bld) [Volume fraction] 42.7 % Normal 35.0-45.0 [facility] Comment on above: Performed By: #### 9 173, 1758, , 7600 #### [facility] [place] [address] [employer] Ro[employer] Helper: Dmitry Pham MD Hemoglobin (Bld) [Mass/Vol] 13.6 g/dL Normal 11.7-15.5 [facility] Comment on above: Performed By: #### 9 861, 175, , 7600 #### [facility] [place] [address] [employer] Roof[employer] Helper: Dmitry Pham MD MCH (RBC) [Entitic mass] 29.1 pg Normal 27.0-33.0 [facility] Comment on above: Performed By: #### 9 798, 175, , 7600 #### [facility] [place] [address] [employer] Ro[employer] Helper: Dmitry Pham MD MCHC (RBC) [Mass/Vol] 31.9 g/dL Low 32.0-36.0 [facility] [...] 1758, , 0 #### [facility] of [place] [address] [employer] Helper: Dmitry Pham MD MCV (RBC) [Entitic vol] 91.2 fL Normal 80.0-100.0 [facility] Comment on above: Performed By: #### 9 2664, 1758, , 7599 #### [facility] of [place] [address] [employer] Helper: Dmitry Pham MD Platelet mean volume (Bld) [Entitic vol] 9.9 fL Normal 7.5-12.5 [facility] Comment on above: Performed By: #### 9 2664, 1758, , 0 #### [facility] of [place] [address] [employer] Helper: Dmitry Pham MD Platelets (Bld) [#/Vol] 339 10*3/uL Normal 140-400 [facility] Comment on above: Performed By: #### 9 2664, 1758, , 0 #### [facility] of [place] [address] [employer] Helper: Dmitry Pham MD RBC (Bld) [#/Vol] 4.68 10*6/uL Normal 3.80-5.10 [facility] Comment on above: Performed By: #### 9 2664, 1758, , 0 #### [facility] of [place] [address] [employer] Ro[employer] Helper: Dmitry Pham MD WBC (Bld) [#/Vol] 5.4 10*3/uL Normal 3.8-10.8 [facility] Comment on above: Performed By: #### 9 620, 1758, , 7600 #### [facility] of [address], [address] [place] [address] Slate Roofer Helper: Dmitry Pham MD COMPREHENSIVE METABOLIC PANE L W/ANION GAPon 01-17-2025 Albumin [Mass/Vol] 4.4 g/dL Normal 3.6-5.1 [facility] Comment on above: Performed By: #### 9 2664, 1758, , 7600 #### [facility] of [place] [address] [employer] Roof[employer] Helper: Dmitry Pham MD ALP [Catalytic activity/Vol] 95 U/L Normal 37-153 [facility] Comment on above: Performed By: #### 9 266, 1758, , 8000 #### [facility] of [address], [address] [place] [address] Slate Roofer Helper: Dmitry Pham MD ALT [Catalytic activity/Vol] 35 U/L High 6-29 [facility] Comment on above: Performed By: #### 9 266, 1758, , 7600 #### [facility] of [place] [address] [employer] Roofer Helper: Dmitry Pham MD AST [Catalytic activity/Vol] 25 U/L Normal 10-35 [facility] Comment on above: Performed By: #### 9 266, 1758, , 7600 #### [facility] of [place] [address] [employer] Ro[employer] Helper: Dmitry Pham MD Bilirubin [Mass/Vol] 0.7 mg/dL Normal 0.2-1.2 [facility] Comment on above: Performed By: #### 9 266, 1758, , 7600 #### [facility] of [place] [address] [employer] Roof[employer] Helper: Dmitry Pham MD Calcium [Mass/Vol] 9.6 mg/dL Normal 8.6-10.4 [facility] Comment on above: Performed By: #### 9 2664, 1758, , 7600 #### [facility] of [place] [address] Sl[employer] Roofer Helper: Dmitry Pham MD Chloride [Moles/Vol] 102 mmol/L Normal 98-110 [facility] Comment on above: Performed By: #### 9 2664, 1758, , 7600 #### [facility] of [place] [address] Sl[employer] Roofer Helper: Dmitry Pham MD CO2 [Moles/Vol] 25 mmol/L Normal 20-32 [facility] Comment on above: Performed By: #### 9 2664, 1758, , 7600 #### [facility] of [place] [address] [employer] Roofer Helper: Dmitry Pham MD Creatinine [Mass/Vol] 0.78 mg/dL Normal 0.50-1.05 [facility] Comment on above: Performed By: #### 9 2664, 1758, , 7600 #### [facility] [place] [address] Sl[employer] Roofer Helper: Dmitry Pham MD ELECTROLYTE BALANCE 10 mmol/L (calc) Normal 7-17 [facility] Comment on above: Performed By: #### 9 2664, 1758, , 7600 #### [facility] of [place] [address] [employer] Roof[employer] Helper: Dmitry Pham MD GFR/1.73 sq M.predicted among non-blacks MDRD (S/P/Bld) [Vol rate/Area] 83 mL/min/{1.73_m2} Normal > OR = 60 [facility] Comment on above: Performed By: #### 9 2664, 1758, , 7600 #### [facility] of [place] [address] [employer] Roof[employer] Helper: Dmitry Pham MD Glucose [Mass/Vol] 87 mg/dL Normal 65-99 [facility] Comment on above: Result Comment: Fasting reference interval Performed By: #### 9 8625, 175, , 7600 #### [facility] of [address], [address] [place] [address] Slate Roofer Helper: Dmitry Pham MD Potassium [Moles/Vol] 4.0 mmol/L Normal 3.5-5.3 [facility] Comment on above: Performed By: #### 9 0775, 1758, , 7600 #### [facility] of [place] [address] [employer] Roof[employer] Helper: Dmitry Pham MD Protein [Mass/Vol] 7.4 g/dL Normal 6.1-8.1 [facility] Comment on above: Performed By: #### 9 710, 1758, , 7600 #### [facility] of [address], [address] [place] [address] Slate Roofer Helper: Dmitry Pham MD Sodium [Moles/Vol] 137 mmol/L Normal 135-146 [facility] Comment on above: Performed By: #### 9 317, 1758, , 7600 #### [facility] of [place] [address] Sl[employer] Roofer Helper: Dmitry Pham MD Urea nitrogen [Mass/Vol] 9 mg/dL Normal 7-25 [facility] Comment on above: Performed By: #### 9 006, 175, , 7600 #### [facility] of [place] [address] Sl[employer] Roofer Helper: Dmitry Pham MD LIPID PANEL, [facility] 01-02 Cholesterol [Mass/Vol] 193 mg/dL Normal <200 [facility] Comment on above: Order Comment: FASTI NG:YES FASTING: YES Performed By: #### 9 265, 175, , 7600 #### [facility] of [address], [address] [place] [address] Slate Roofer Helper: Dmitry Pham MD Cholesterol in HDL [Mass/Vol] 49 mg/dL Low > OR = 50 [facility] Comment on above: Order Comment: FASTI NG:YES FASTING: YES Performed By: #### 9 3585, 175, 82643, 7600 #### [facility] [address], [address] [place] [address] Slate Roofer Helper: Dmitry Pham MD Cholesterol in LDL [Mass/Vol] [...] equation in the estimation of LDL-C. Gustavo SS et al. RENETTA. 2013;310(19): 2242-7112 (http://education.Kihon/faq/RUF424) Performed By: #### 9 5811, 175, 22563, 3630 #### [facility] [address], [address] [place] [address] Slate Roofer Helper: Dmitry Pham MD Cholesterol.total/C holesterol in HDL [Mass ratio] 3.9 {ratio} Normal <5.0 [facility] Comment on above: Order Comment: FASTI NG:YES FASTING: YES Performed By: #### 9 6800, 175, 58401, 7600 #### [facility] [address], [address] [place] [address] Slate Roofer Helper: Dmitry Pham MD NON HDL CHOLESTEROL 144 mg/dL (calc) High <130 [facility] Comment on above: Order Comment: FASTI NG:YES FASTING: YES Result Comment: For patients with diabetes plus 1 major ASCVD risk factor, treating to a non-HDL-C goal of <100 mg/dL (LDL-C of <70 mg/dL) is considered a therapeutic option. Performed By: #### 9 2665, 1759, 10104, 7600 #### [facility] of [address], [address] [place] [address] Slate Roofer Helper: Dmitry Pham MD Triglyceride [Mass/Vol] 78 mg/dL Normal <150 [facility] Comment on above: Order Comment: FASTI NG:YES FASTING: YES Performed By: #### 9 7435, 1759, 76930, 7600 #### [facility] of [address], [address] [place] [address] Slate Roofer Helper: Dmitry Pham MD TSH W/REFLEX TO FT4on 2024 TSH W/REFLEX TO FT4 2.14 mIU/L Normal 0.40-4.50 [facility] Comment on above: Performed By: #### 9 2245, 1759, 19542, 7600 #### [facility] of [address], [address] [place] [address] Slate Roofer Helper: Dmitry Pham MD CT CERVICAL SPINE WO IV CONT RASTon 12-15-2024 CT CERVICAL SPINE WO IV CONTRAST Interpreted By: Javy Mccarthy, STUDY: CT CERVICAL SPINE WO IV CONTRAST; 12/15/2024 1:57 pm INDICATION: Fall and injury COMPARISON: None. ACCESSION NUMBER(S): [id number] ORDERING CLINICIAN: ISACC KAM TECHNIQUE: Transaxial images [...] Javy Mccarthy 12/15/2024 2:15 PM Dictation workstation: [id number] [facility] CT Cervical spine WO contras ton 12-15-2024 No acute findings. Signed by: Javy Mccarthy 12/15/2024 2:15 PM Dictation workstation: [id number] [facility] Interpreted By: Javy Turpin, STUDY: CT CERVICAL SPINE WO IV CONTRAST; 12/15/2024 1:57 pm INDICATION: Fall and injury COMPARISON: None. ACCESSION NUMBER(S): [id number] ORDERING CLINICIAN: ISACC KAM TECHNIQUE: Transaxial images [...] Fall and injury COMPARISON: None. ACCESSION NUMBER(S): [id number] ORDERING CLINICIAN: ISACC KAM TECHNIQUE: Transaxial images [...] Javy Mccarthy 12/15/2024 2:15 PM Dictation workstation: [id number] [facility] Work Phone: [facility] Work Phone: CT FACIAL BONES WO IV CONTRA STon 12-15-2024 CT FACIAL BONES WO IV CONTRAST Interpreted By: Javy Mccarthy, STUDY: CT FACIAL BONES WO IV CONTRAST 12/15/2024 2:03 pm INDICATION: Signs/Symptoms:fall COMPARISON: None. ACCESSION NUMBER(S): [id number] ORDERING CLINICIAN: ISACC KAM TECHNIQUE: Thin cut [...] Javy Mccarthy 12/15/2024 2:18 PM Dictation workstation: [id number] [facility] CT HEAD WO IV CONTRASTon CT HEAD WO IV CONTRAST Interpreted By: Javy Mccarthy, STUDY: CT HEAD WO IV CONTRAST; 12/15/2024 1:57 pm INDICATION: Signs/Symptoms:fall. COMPARISON: None. ACCESSION NUMBER(S): [id number] ORDERING CLINICIAN: ISACC KAM TECHNIQUE: Sequential trans [...] Javy Mccarthy 12/15/2024 2:13 PM Dictation workstation: [id number] [facility] CT Head WO contraston 2024 Unremarkable exam. Signed by: Javy Mccarthy 12/15/2024 2:13 PM Dictation workstation: [id number] [facility] Interpreted By: Javy Turpin, STUDY: CT HEAD WO IV CONTRAST; 12/15/2024 1:57 pm INDICATION: Signs/Symptoms:fall. COMPARISON: None. ACCESSION NUMBER(S): [id number] ORDERING CLINICIAN: ISACC KAM TECHNIQUE: Sequential trans [...] pm INDICATION: Signs/Symptoms:fall. COMPARISON: None. ACCESSION NUMBER(S): [id number] ORDERING CLINICIAN: ISACC KMA TECHNIQUE: Sequential trans axial images were obtained [...] Javy Mccarthy 12/15/2024 2:13 PM Dictation workstation: [id number] [facility] Work Phone: CT Head WO contrastOrdered B y: Javy Mccarthy on 12-15-2024 [facility] Work Phone: CT Maxillofacial region WO c ontraston 12-15-2024 Right supraorbital s oft tissue contusion. Signed by: Javy Mccarthy 12/15/2024 2:18 PM Dictation workstation: [id number] [facility] Interpreted By: Javy Turpin, STUDY: CT FACIAL BONES WO IV CONTRAST 12/15/2024 2:03 pm INDICATION: Signs/Symptoms:fall COMPARISON: None. ACCESSION NUMBER(S): [id number] ORDERING CLINICIAN: ISACC KAM TECHNIQUE: Thin cut [...] pm INDICATION: Signs/Symptoms:fall COMPARISON: None. ACCESSION NUMBER(S): [id number] ORDERING CLINICIAN: ISACC KAM TECHNIQUE: Thin cut [...] Javy Mccarthy 12/15/2024 2:18 PM Dictation workstation: [id number] [facility] Work Phone: [facility] Work Phone: Radiology Study observation (narrative) [facility] Work Phone: Laceration Repairon 12-16-19 Clarissa Tomas PA-C 12/15/2024 2:52 PM [employer] Performed by: Clarissa Tomas PA-C Authorized by: Isacc Kam DO Consent: Consent obtained: Verbal Consent given by: Patient Risks, benefits, and alternatives were discussed: yes [place] protocol: Patient identity confirmed: Verbally with patient [...] Procedure completion: Tolerated well, no immediate complications [facility] Work Phone: Clarissa Tomas PA-C 12/15/2024 2:52 PM [employer] Performed by: Clarissa Tomas PA-C Authorized by: Isacc Kam DO Consent: Consent obtained: Verbal Consent given by: Patient Risks, benefits, and alternatives were discussed: yes [place] protocol: Patient identity confirmed: Verbally with patient [...] Procedure completion: Tolerated well, no immediate complications [facility] Work Phone: No Panel Informationon 12-15 [facility] Work Phone: No acute findings. MACRO: None Signed by: Javy Mccarthy 12/15/2024 2:19 PM Dictation workstation: [id number] [facility] Interpreted By: Javy Tuprin, STUDY: XR HAND RIGHT 3+ VIEWS; XR WRIST RIGHT 3+ VIEWS; 12/15/2024 2:11 pm INDICATION: Signs/Symptoms:fall. COMPARISON: None. ACCESSION NUMBER(S): [id number]; [id number] ORDERING CLINICIAN: ISACC KAM FINDINGS: Bony structures: Intact Joint spaces: Maintained Soft tissues: Unremarkable without significant edema or radiodense foreign body Other: None significant [facility] Javy Mccarthy MD - 12/15/2024 Interpreted By: Javy Mccarthy, STUDY: XR HAND RIGHT 3+ VIEWS; XR WRIST RIGHT 3+ VIEWS; 12/15/2024 2:11 pm INDICATION: Signs/Symptoms:fall. COMPARISON: None. ACCESSION NUMBER(S): [id number]; [id number] ORDERING CLINICIAN: ISACC KAM FINDINGS: Bony structures: Intact Joint spaces: Maintained Soft tissues: Unremarkable without significant edema or radiodense foreign body Other: None significant IMPRESSION: No acute findings. MACRO: None Signed by: Javy Mccarthy 12/15/2024 2:19 PM Dictation workstation: [employer] [facility] Work Phone: [facility] Work Phone: Radiology Study observation (narrative) [facility] Work Phone: Radiology Study observation (narrative) [facility] Work Phone: XR HAND RIGHT 3+ VIEWSon XR HAND RIGHT 3+ VIEWS Interpreted By: Javy Mccarthy, STUDY: XR HAND RIGHT 3+ VIEWS; XR WRIST RIGHT 3+ VIEWS; 12/15/2024 2:11 pm INDICATION: Signs/Symptoms:fall. COMPARISON: None. ACCESSION NUMBER(S): [id number]; [id number] ORDERING CLINICIAN: ISACC KAM FINDINGS: Bony structures: Intact Joint spaces: Maintained Soft tissues: Unremarkable without significant edema or radiodense foreign body Other: None significant IMPRESSION: No acute findings. MACRO: None Signed by: Javy Mccarthy 12/15/2024 2:19 PM Dictation workstation: [id number] [facility] XR WRIST RIGHT 3+ VIEWSon XR WRIST RIGHT 3+ VIEWS Interpreted By: Javy Mccarthy, STUDY: XR HAND RIGHT 3+ VIEWS; XR WRIST RIGHT 3+ VIEWS; 12/15/2024 2:11 pm INDICATION: Signs/Symptoms:fall. COMPARISON: None. ACCESSION NUMBER(S): [id number]; [id number] ORDERING CLINICIAN: ISACC KAM FINDINGS: Bony structures: Intact Joint spaces: Maintained Soft tissues: Unremarkable without significant edema or radiodense foreign body Other: None significant IMPRESSION: No acute findings. MACRO: None Signed by: Javy Mccarthy 12/15/2024 2:19 PM Dictation workstation: [id number] Normal [facility] CBC panel Auto (Bld)on 12-04 Erythrocyte distribution width (RBC) [Ratio] 13.3 % Normal 11.5-14.5 [facility] Comment on above: Performed By: #### 5 8410-2 #### KOMAL SHIPMAN ([id number]) [facility] ([facility]) [address] [place] [address] Hematocrit (Bld) [Volume fraction] 40.8 % Normal 36.0-46.0 [facility] Comment on above: Performed By: #### 5 8410-2 #### KOMAL SHIPMAN ([id number]) [facility] ([facility]) [address] [place] [address] 68336 Hemoglobin (Bld) [Mass/Vol] 13.2 g/dL Normal 12.0-16.0 [facility] Comment on above: Performed By: #### 5 8410-2 #### KOMAL SHIPMAN ([id number]) [facility] ([facility]) [address] [place] [address] 38770 MCH (RBC) [Entitic mass] 28.6 pg Normal 26.0-34.0 [facility] Comment on above: Performed By: #### 5 8410-2 #### KOMAL SHIPMAN ([id number]) [facility] ([facility]) [address] [place] [address] 71453 MCHC (RBC) [Mass/Vol] 32.4 g/dL Normal 32.0-36.0 [facility] Comment on above: Performed By: #### 5 8410-2 #### KOMAL SHIPMAN ([id number]) [facility] ([facility]) [address] [place] [address] 53355 MCV (RBC) [Entitic vol] 89 fL Normal 80-100 [facility] Comment on above: Performed By: #### 5 8410-2 #### KOMAL SHIPMAN ([id number]) [facility] ([facility]) [address] [place] [address] 68735 Nucleated RBC/100 WBC (Bld) [Ratio] 0.0 /100 WBCs Normal 0.0-0.0 [facility] Comment on above: Performed By: #### 5 8410-2 #### KOMAL SHIPMAN ([id number]) [facility] ([facility]) [address] [place] [address] 48593 Platelets (Bld) [#/Vol] 301 x10*3/uL Normal 150-450 [facility] Comment on above: Performed By: #### 5 8410-2 #### KOMAL SHIPMAN ([id number]) [facility] ([facility]) [address] [place] [address] 74982 RBC (Bld) [#/Vol] 4.61 x10*6/uL Normal 4.00-5.20 [facility] Comment on above: Performed By: #### 5 8410-2 #### KOMAL SHIPMAN ([id number]) [facility] ([facility]) [address] [place] [address] 74745 WBC (Bld) [#/Vol] 6.5 x10*3/uL Normal 4.4-11.3 [facility] Comment on above: Performed By: #### 5 8410-2 #### KOMAL SHIPMAN ([id number]) [facility] ([facility]) [address] [place] [address] 67168 Comprehensive metabolic 2000 panelon 12-05-2023 Albumin BCP dye [Mass/Vol] 4.2 g/dL Normal 3.4-5.0 [facility] Comment on above: Performed By: #### 2 4323-8 #### KOMAL SHIPMAN ([id number]) [facility] ([facility]) [address] [place] [address] 37290 ALP [Catalytic activity/Vol] 82 U/L Normal 33-136 [facility] Comment on above: Performed By: #### 2 432-8 #### KOMAL SHIPMAN ([id number]) [facility] ([facility]) [address] [place] [address] 39944 ALT With P-5'-P [Catalytic activity/Vol] 28 U/L Normal 7-45 [facility] Comment on above: Result Comment: Marilyn ents treated with Sulfasalazine may generate falsely decreased results for ALT. Performed By: #### 2 432-8 #### KOMAL SHIPMAN ([id number]) [facility] ([facility]) [address] [place] [address] 82457 Anion gap [Moles/Vol] 11 mmol/L Normal 10-20 [facility] Comment on above: Performed By: #### 2 4322-8 #### KOMAL SHIPMAN ([id number]) [facility] ([facility]) [address] [place] [address] 91154 AST With P-5'-P [Catalytic activity/Vol] 17 U/L Normal 9-39 [facility] Comment on above: Performed By: #### 2 432-8 #### KOMAL SHIPMAN ([id number]) [facility] ([facility]) [address] [place] [address] 00667 Bilirubin [Mass/Vol] 0.5 mg/dL Normal 0.0-1.2 [facility] Comment on above: Performed By: #### 2 4322-8 #### KOMAL SHIPMAN ([id number]) [facility] ([facility]) [address] [place] [address] 57648 Calcium [Mass/Vol] 9.2 mg/dL Normal 8.6-10.3 [facility] Comment on above: Performed By: #### 2 432-8 #### KOMAL SHIPMAN ([id number]) [facility] ([facility]) [address] [place] [address] 87950 Chloride [Moles/Vol] 102 mmol/L Normal 98-107 [facility] Comment on above: Performed By: #### 2 4323-8 #### KOMAL SHIPMAN ([id number]) [facility] ([facility]) [address] [place] [address] 29122 CO2 [Moles/Vol] 28 mmol/L Normal 21-32 [facility] Comment on above: Performed By: #### 2 4323-8 #### KOMAL SHIPMAN ([id number]) [facility] ([facility]) [address] [place] [address] 39571 Creatinine [Mass/Vol] 0.86 mg/dL Normal 0.50-1.05 [facility] Comment on above: Performed By: #### 2 4323-8 #### KOMAL SHIPMAN ([id number]) [facility] ([facility]) [address] [place] [address] 40019 Glomerular filtration rate/1.73 sq M.predicted 74 mL/min/1.73m*2 Normal >60 [facility] Comment on above: Result Comment: Calc ulations of estimated GFR are performed using the 2020 CKD-EPI Study Refit equation without the race variable for the IDMS-Traceable creatinine methods. https://jasn.asnjournals.org/content//ASN.94104775 88 Performed By: #### 2 4323-8 #### KOMAL SHIPMAN ([id number]) [facility] ([facility]) [address] [place] [address] 93655 Glucose [Mass/Vol] 94 mg/dL Normal 74-99 [facility] Comment on above: Performed By: #### 2 4323-8 #### KOMAL SHIPMAN ([id number]) [facility] ([facility]) [address] [place] [address] 52705 Potassium [Moles/Vol] 4.3 mmol/L Normal 3.5-5.3 [facility] Comment on above: Performed By: #### 2 4323-8 #### KOMAL SHIPMAN ([id number]) [facility] ([facility]) [address] [place] [address] 59485 Protein [Mass/Vol] 6.9 g/dL Normal 6.4-8.2 [facility] Comment on above: Performed By: #### 2 4323-8 #### KOMAL SHIPMAN ([id number]) [facility] ([facility]) [address] [place] [address] 38764 Sodium [Moles/Vol] 137 mmol/L Normal 136-145 [facility] Comment on above: Performed By: #### 2 4323-8 #### KOMAL SHIPMAN ([id number]) [facility] ([facility]) [address] [place] [address] 57385 Urea nitrogen [Mass/Vol] 14 mg/dL Normal 6-23 [facility] Comment on above: Performed By: #### 2 4323-8 #### KOMAL SHIPMAN ([id number]) [facility] [facility] ([facility]) [address] [place] [address]45[address] Lipid 1996 panelon 4 Cholesterol [Mass/Vol] 234 mg/dL High 0-199 [facility] Comment on above: Result Comment: Age Desirable [...] By: #### 2 4331-1 #### KOMAL SHIPMAN ([id number]) [facility] ([facility]) [address] [place] [address] 17676 Cholesterol in HDL [Mass/Vol] 43.0 mg/dL Normal [facility] Comment on above: Result Comment: Age Very Low Low Normal High 0-19 Y < 35 < 40 40-45 ---- 20-24 Y ---- < 40 >45 ---- >24 Y ---- < 40 40-60 >60 Performed By: #### 2 4331-1 #### KOMAL SHIPMAN ([id number]) [facility] ([facility]) [facility] [place] [address] Cholesterol in LDL [Mass/Vol] 168 mg/dL High <=99 [facility] Comment on above: Result Comment: Near Borderline AGE Desirable Optimal High High Very High 0-19 Y 0 - 109 --- 110-129 >/= 130 ---- 20-24 Y 0 - 119 --- 120-159 >/= 160 ---- >24 Y 0 - 99 100-129 130-159 160-189 >/=190 Performed By: #### 2 4331-1 #### KOMAL SHIPMAN ([id number]) [facility] ([facility]) [address] [place] [address]508 Cholesterol in VLDL [Mass/Vol] 23 mg/dL Normal 0-40 [facility] Comment on above: Performed By: #### 2 4331-1 #### KOMAL SHIPMAN ([id number]) [facility] ([facility]) [address] [place] [address] 39457 CHOLESTEROL/HDL RATIO 5.4 Normal [facility] Comment on above: Result Comment: Ref Values Desirable < 3.4 High Risk > 5.0 Performed By: #### 2 4331-1 #### KOMAL SHIPMAN ([id number]) [facility] ([facility]) [address] [place] [address] 14575 NON HDL CHOLESTEROL 191 mg/dL High 0-149 [facility] Comment on above: Result Comment: Age Desirable Borderline High High Very High 0-19 Y 0 - 119 120 - 144 >/= 145 >/= 160 20-24 Y 0 - 149 150 - 189 >/= 190 ---- >24 Y 30 mg/dL above LDL Cholesterol goal Performed By: #### 2 4331-1 #### KOMAL SHIPMAN ([id number]) [facility] ([facility]) [address] [place] [address] 42633 Triglyceride [Mass/Vol] 115 mg/dL Normal 0-149 [facility] Comment on above: Result Comment: Age Desirable [...] dosing. Performed By: #### 2 4331-1 #### SAUCEDA RAMONITA ([id number]) [facility] ([facility]) [address] [place] [address] TSH WITH REFLEX TO FREE T4 I F ABNORMALon 12-05-2023 TSH Qn 2.35 m[IU]/L Normal 0.44-3.98 [facility] Comment on above: Order Comment: TSH t esting is performed using different testing methodology at [facility] than at other [facility]. Direct result comparisons should only be made within the same method. Performed By: #### T HYDS #### SAUCEDA RAMONITA ([id number]) [facility] ([facility]) [address] [place] [address] DXA Skeletal system Views fo r bone densityon 09-26-2023 DEXA: According to World Health Organization criteria, classification is normal. Followup recommended in 2 years or sooner as clinically warranted. VFA: NO VERTEBRAL FRACTURES WERE SEEN. All images and detailed analysis are available on the Radiology PACS. MACRO: None Signed by: Ivan Tyler 09/26/2023 10:45 AM Dictation workstation: [id number] MMODAL Interpreted By: Ivan Tyler, STUDY: DEXA BONE DENSITY09/25/2023 11:22 am INDICATION: Signs/Symptoms:screenin g. The patient is a 68 y/o year old F. COMPARISON: None. ACCESSION NUMBER(S): [id number] ORDERING CLINICIAN: ALENA LO TECHNIQUE: DEXA BONE [...] hip fracture. This exam was performed at [facility] on a [employer] Advanced Dexa Unit. MMODAL Ivan Tyler MD - 09/26/2023 Interpreted By: Ivan Tyler, STUDY: DEXA BONE DENSITY09/25/2023 11:22 am INDICATION: Signs/Symptoms:screenin g. The patient is a 68 y/o year old F. COMPARISON: None. ACCESSION NUMBER(S): [id number] ORDERING CLINICIAN: ALENA LO TECHNIQUE: DEXA BONE [...] hip fracture. This exam was performed at [facility] on a [employer] Advanced Dexa Unit. IMPRESSION: DEXA: According to World Health Organization criteria, classification is normal. Followup recommended in 2 years or sooner as clinically warranted. VFA: NO VERTEBRAL FRACTURES WERE SEEN. All images and detailed analysis are available on the Radiology PACS. MACRO: None Signed by: Ivan Tyler 09/26/2023 10:45 AM Dictation workstation: [id number] [facility] Work Phone: DXA Skeletal system Views fo r bone densityOrdered By: Ivan Tyler on 09-26-2023 [facility] Work Phone: DXA Skeletal system Views fo r bone densityon 09-25-2023 Radiology Study observation (narrative) [facility] Work Phone: ABDOMEN AP VIEWon 05-29-2023 ABDOMEN AP VIEW Patient Name: BERE BHATT STUDY: ABDOMEN AP VIEW; 05/29/2023 3:03 pm INDICATION: abd epigastric pain. COMPARISON: 07/10/2013 ACCESSION NUMBER(S): [id number] ORDERING CLINICIAN: LORETA BERMUDEZ FINDINGS: The bowel [...] above: Performed By: #### A MY #### [place] [address] Lab Specimen Source Normal [facility] Comment on above: Performed By: #### A MY #### [place] [address] Performed By: #### L IPAS #### [place] [address] Performed By: #### C BC #### [place] [address] CBCon 05-29-2023 Erythrocyte distribution width (RBC) [Ratio] 13.2 % Normal 11.5 - 14.5 [facility] Comment on above: Performed By: #### C BC #### [place] [address] Hematocrit (Bld) [Volume fraction] 43.7 % Normal 36.0 - 46.0 [facility] Comment on above: Performed By: #### C BC #### [place] [address] Hemoglobin (Bld) [Mass/Vol] 14.1 g/dL Normal 12.0 - 16.0 [facility] Comment on above: Performed By: #### C BC #### [place] [address] MCHC (RBC) [Mass/Vol] 32.3 g/dL Normal 32.0 - 36.0 [facility] Comment on above: Performed By: #### C BC #### [place] [address] MCV (RBC) [Entitic vol] 88 fL Normal 80 - 100 [facility] Comment on above: Performed By: #### C BC #### [place] [address] Platelets (Bld) [#/Vol] 324 10*3/uL Normal 150 - 450 [facility] Comment on above: Performed By: #### C BC #### [address] [address] RBC 4.96 x10E12/L Normal 4.00 - 5.20 [facility] Comment on above: Performed By: #### C BC #### [address] [address] WBC (Bld) [#/Vol] 13.8 10*3/uL High 4.4 - 11.3 [facility] Comment on above: Performed By: #### C BC #### [address] [address] LIPASEon 05-29-2023 Lipase [Catalytic activity/Vol] 8 U/L Low 9 - 82 [facility] Comment on above: Result Comment: [place] puncture immediately after or during the administration of Metamizole may lead to falsely low results. Testing should be performed immediately prior to Metamizole dosing. Performed By: #### L IPAS #### [address] [address] Laboratory - Cytologyon 03-05 Cytology report Cyto stain.thin prep Doc (Cvx/Vag) [employer] Work Phone: Tobacco Screening.on 023 Adult depression screening assessment No [employer] Work Phone: Adult depression screening assessment Yes [employer] [facility] [employer] Work Phone: Fall risk assessment b) One or more falls in the last year [employer] Work Phone: Last menstrual period start date Menopause [employer] [facility] [employer] Work Phone: Tobacco use status CPHS b) No [employer] [facility] [employer] Work Phone: Cardiac Stress Teston 2022 Cardiac Stress Test [address] [address] [phone], Exercise Stress Test Patient Name: BERE BHATT Ordering Physician: Irvin Callahan Date: 10/19/2022 Reading Physician: [id number] Rush MD MRN/PID: [id number] Supervising [id number] Darci Rush Physician: Accession/Order#: [id number] Referring Physician: Cristina Lo MD Date of : 1955 PCP: Cristina Lo MD Gender: F Fellow: Admit Date: 10/19/2022 Fellow: Admission Status: Outpatient Movie Theater Manager: Keren Nicole RRT Height: 168.00 cm Nurse: N/A Weight: 93.00 kg Animal Keeper Head: N/A BSA: 2.02 m2 Technologist: BMI: 32.95 kg/m2 Additional Staff: Age: 67 years cc report to: Patient Location: [facility] Stress Lab cc report to: Irvin Study Type: Cardiac Stress Test Diagnosis/ICD: R07.89-Other chest pain Indication: Chest Pain Procedure/CPT: Stress Test Interpretation-09578; Stress Test Supervision-[id number] Falls Risk: Low: Patient has low risk [...] Charles treadmill score is 4 (low risk). [id number] Darci Rush MD Electronically signed on 10/19/2022 at 12:13:31 PM Final Normal [facility] Office Visiton 09-12-2022 Follow-up visit Diagnoses/Problems Screening mammogram, encounter for (V76.12) (Z12.31) History of COVID-19 virus infection (079.89) [...] Status:Canceled; APPT SCHEDULED FOR 07/19/22 @ 9:30, [facility] Screening mammogram, encounter for Mamm - Screening [...] 04:30 PM , for a telehealth visit. medck History of Present IllnessNeck pain comes and [...] and DEXA ordered but needs to see Retort Condenser Attendant, Dr Garcia. Active Problems Anxiety (300.00) (F41.9) [...] (H35.349) Resolved (more content not included)... Normal [employer] Tobacco Screening.on 023 Fall risk assessment a) No falls within the last year -[employer] Work Phone: Tobacco use status CPHS b) No -[facility] [employer] Work Phone: CBCon 07-18-2022 Erythrocyte distribution width (RBC) [Ratio] 13.7 % Normal 11.5 - 14.5 [facility] Comment on above: Performed By: #### C BC #### [address] [address] Hematocrit (Bld) [Volume fraction] 41.5 % Normal 36.0 - 46.0 [facility] Comment on above: Performed By: #### C BC #### [address] [address] Hemoglobin (Bld) [Mass/Vol] 13.2 g/dL Normal 12.0 - 16.0 [facility] Comment on above: Performed By: #### C BC #### [address] [address] MCHC (RBC) [Mass/Vol] 31.8 g/dL Low 32.0 - 36.0 [facility] Comment on above: Performed By: #### C BC #### [address] [address] MCV (RBC) [Entitic vol] 90 fL Normal 80 - 100 [facility] Comment on above: Performed By: #### C BC #### [address] [address] Platelets (Bld) [#/Vol] 332 10*3/uL Normal 150 - 450 [facility] Comment on above: Performed By: #### C BC #### [address] [address] RBC 4.62 x10E12/L Normal 4.00 - 5.20 [facility] Comment on above: Performed By: #### C BC #### [address] [address] WBC (Bld) [#/Vol] 6.7 10*3/uL Normal 4.4 - 11.3 [facility] Comment on above: Performed By: #### C BC #### [address] [address] COMPREHENSIVE PANELon 2021 Albumin [Mass/Vol] 4.3 g/dL Normal 3.4 - 5.0 [facility] Comment on above: Performed By: #### C MP #### [address] [address] ALP [Catalytic activity/Vol] 85 U/L Normal 33 - 136 [facility] Comment on above: Performed By: #### C MP #### [address] [address] ALT [Catalytic activity/Vol] 35 U/L Normal 7 - 45 [facility] Comment on above: Result Comment: Marilyn ents treated with Sulfasalazine may generate falsely decreased results for ALT. Performed By: #### C MP #### [address] [address] Anion gap [Moles/Vol] 11 mmol/L Normal 10 - 20 [facility] Comment on above: Performed By: #### C MP #### [address] [address] AST [Catalytic activity/Vol] 25 U/L Normal 9 - 39 [facility] Comment on above: Performed By: #### C MP #### [address] [address] Bilirubin [Mass/Vol] 0.4 mg/dL Normal 0.0 - 1.2 [facility] Comment on above: Performed By: #### C MP #### [address] [address] Calcium [Mass/Vol] 9.9 mg/dL Normal 8.6 - 10.3 [facility] Comment on above: Performed By: #### C MP #### [address] [address] Chloride [Moles/Vol] 101 mmol/L Normal 98 - 107 [facility] Comment on above: Performed By: #### C MP #### [address] [address] Creatinine [Mass/Vol] 0.76 mg/dL Normal 0.50 - 1.05 [facility] Comment on above: Performed By: #### C MP #### [address] [address] GFR/1.73 sq M.predicted among non-blacks MDRD (S/P/Bld) [Vol rate/Area] 86 mL/min/{1.73_m2} Normal >90 [facility] Comment on above: Result Comment: CALC ULATIONS OF ESTIMATED GFR ARE PERFORMED USING THE 2020 CKD-EPI STUDY REFIT EQUATION WITHOUT THE RACE VARIABLE FOR THE IDMS-TRACEABLE CREATININE METHODS. https://jasn.asnjournals.org/content//ASN.68367492 88 Performed By: #### C MP #### [address] [address] Glucose [Mass/Vol] 80 mg/dL Normal 74 - 99 [facility] Comment on above: Performed By: #### C MP #### [address] [address] HCO3 (Bld) [Moles/Vol] 29 mmol/L Normal 21 - 32 [facility] Comment on above: Performed By: #### C MP #### [address] [address] Potassium [Moles/Vol] 4.5 mmol/L Normal 3.5 - 5.3 [facility] Comment on above: Performed By: #### C MP #### [address] [address] Protein [Mass/Vol] 8.0 g/dL Normal 6.4 - 8.2 [facility] Comment on above: Performed By: #### C MP #### [address] [address] Sodium [Moles/Vol] 136 mmol/L Normal 136 - 145 [facility] Comment on above: Performed By: #### C MP #### [address] [address] Urea nitrogen [Mass/Vol] 16 mg/dL Normal 6 - 23 [facility] Comment on above: Performed By: #### C MP #### [address] [address] Laboratory - Chemistry and C hemistry - challengeon 07-18-2022 Albumin BCP dye [Mass/Vol] 4.3 g/dL 3.4 - 5.0 [facility] Work Phone: ALP [Catalytic activity/Vol] 85 U/L 33 - 136 [facility] Work Phone: ALT With P-5'-P [Catalytic activity/Vol] 35 U/L 7 - 45 [facility] Work Phone: Comment on above: Patients treated wit h Sulfasalazine may generate falsely decreased results for ALT. Anion gap [Moles/Vol] 11 mmol/L 10 - 20 [facility] Work Phone: AST With P-5'-P [Catalytic activity/Vol] 25 U/L 9 - 39 [facility] Work Phone: Bilirubin [Mass/Vol] 0.4 mg/dL 0.0 - 1.2 [facility] Work Phone: Calcium [Mass/Vol] 9.9 mg/dL 8.6 - 10.3 [facility] Work Phone: Chloride [Moles/Vol] 101 mmol/L 98 - 107 [facility] Work Phone: CO2 [Moles/Vol] 29 mmol/L 21 - 32 [facility] Work Phone: Creatinine [Mass/Vol] 0.76 mg/dL See Below [facility] Work Phone: Comment on above: Reference Range: 0.5 0 - 1.05 Glucose [Mass/Vol] 80 mg/dL 74 - 99 [facility] Work Phone: Potassium [Moles/Vol] 4.5 mmol/L 3.5 - 5.3 [facility] Work Phone: Protein [Mass/Vol] 8.0 g/dL 6.4 - 8.2 [facility] Work Phone: Sodium [Moles/Vol] 136 mmol/L 136 - 145 [facility] Work Phone: TSH Qn 2.06 m[IU]/L See Below [facility] Work Phone: Comment on above: Reference Range: 0.4 4 - 3.98 TSH testing is performed using different testing methodology at [facility] than at other [facility]. Direct result comparisons should only be made within the same method. Urea nitrogen [Mass/Vol] 16 mg/dL 6 - 23 [facility] Work Phone: Laboratory - Hematology and Cell countson 07-18-2022 Erythrocyte distribution width (RBC) [Ratio] 13.7 % See Below [facility] Work Phone: Comment on above: Reference Range: 11. 5 - 14.5 Hematocrit (Bld) [Volume fraction] 41.5 % See Below [facility] Work Phone: Comment on above: Reference Range: 36. 0 - 46.0 Hemoglobin (Bld) [Mass/Vol] 13.2 g/dL See Below [facility] Work Phone: Comment on above: Reference Range: 12. 0 - 16.0 MCHC (RBC) [Mass/Vol] 31.8 g/dL below low threshold See Below [facility] Work Phone: Comment on above: Reference Range: 32. 0 - 36.0 MCV (RBC) [Entitic vol] 90 fL 80 - 100 [facility] Work Phone: Platelets (Bld) [#/Vol] 332 10*3/uL 150 - 450 [facility] Work Phone: RBC (Bld) [#/Vol] 4.62 {x10E12/L} See Below [facility] Work Phone: Comment on above: Reference Range: 4.0 0 - 5.20 WBC (Bld) [#/Vol] 6.7 10*3/uL 4.4 - 11.3 [facility] Work Phone: MAGNESIUMon 07-18-2022 Magnesium [Mass/Vol] 2.11 mg/dL Normal 1.60 - 2.40 [facility] Comment on above: Performed By: #### M G #### [facility] [address] [place] [address] Magnesium, Serumon Magnesium [Mass/Vol] 2.11 mg/dL See Below [facility] Work Phone: Comment on above: Reference Range: 1.6 0 - 2.40 No Panel Informationon 07-18 86 {mL/min/1.73m2} >90 [facility] Work Phone: Comment on above: CALCULATIONS OF JONATHAN MATED GFR ARE PERFORMED USING THE 2020 CKD-EPI STUDY REFIT EQUATION WITHOUT THE RACE VARIABLE FOR THE IDMS-TRACEABLE CREATININE METHODS.https://jasn.asnjournals.org/content/early//ASN. 7990562596 Office Visiton 07-18-2022 Follow-up visit Diagnoses/Problems Heart [...] Vital Signs Recorded: 18Jul2022 10:11AM Heart Rate72 Fylixsvi396, LUE Unsclulwx67, LUE Height5 ft 6 in Fgzvby041 lb BMI Rknxxjnldk20.09 kg/m2 BSA Calculated2.02 Tobacco Useb) No Falls [...] Qn 2.06 m[IU]/L Normal 0.44 - 3.98 [facility] Comment on above: Result Comment: TSH testing is performed using different testing methodology at [facility] than at other [facility]. Direct result comparisons should only be made within the same method. Performed By: #### T [facility] #### [facility] [address] [place] [address] Tobacco Screening.on 022 Fall risk assessment a) No falls within the last year [facility] Work Phone: Tobacco use status CPHS b) No [facility] Work Phone: Office Visiton 07-01-2022 Follow-up visit [...] consent was requested and obtained from BERE MARTINEZFREDJoseline on this date, 07/01/2022 03:00 PM , [...] Allergies No Known Drug Allergies Recorded By: Kandsi Castañeda; 07/14/2019 9:14:44 AM Current Meds Medication [...] tomorrow before you go volunteer [facility]. If it is negative that may not [...] she usually gets treated by massage and day care worker. She had a good PFT. She was [...] 20 M (more content not included)... Normal [facility] Screening.on 022 Adult depression screening assessment Yes [employer] Work Phone: Adult depression screening assessment No [employer] Work Phone: Fall risk assessment b) One or more falls in the last year [employer] Work Phone: Tobacco use status CPHS b) No [employer] Work Phone: Tobacco Screening.on 022 Fall risk assessment b) One or more falls in the last year [employer] Work Phone: Tobacco use status CPHS b) No [employer] Work Phone: Cult, Urineon 10-30-2019 Bacteria identified Cx Nom (U) PATIENT: BERE BHATT LOCATION: [facility]#: [id number] : 57 AGE: SEX: F ORDERED BY: CARLY NICOLE: URINE COLLECTED: 10/30/19 15:15ANTIBIOTICS AT ANGELIQUE.: RECEIVED : 10/30/19 23:32SITE: Clean Catch/Voided R E S U L T S URINE CULTURE,BACTERIAL FINAL 10/31/19 23:42 NO SIGNIFICANT GROWTH. [facility] Work Phone: Urinalysison 09-02-2019 Appearance (U) CLEAR CLEAR [facility] Work Phone: Color (U) Yellow See Below [facility] Work Phone: Comment on above: Reference Range: STR AW,YELLOW Glucose Ql (U) Negative NEGATIVE [facility] Work Phone: Ketones Ql (U) Negative NEGATIVE [facility] Work Phone: Leukocyte esterase Test strip Ql (U) LARGE(3+) Abnormal NEGATIVE [facility] Work Phone: pH (U) 7.0 [pH] 5.0 - 8.0 [facility] Work Phone: Protein (U) [Mass/Vol] Negative NEGATIVE [facility] Work Phone: RBC (U) [#/Vol] Negative NEGATIVE [facility] Work Phone: Specific gravity (U) [Rel density] 1.006 See Below [facility] Work Phone: Comment on above: Reference Range: 1.0 05 - 1.035 Urinalysis <2.0 0.0 - 1.9 [facility] Work Phone: Urinalysis Negative NEGATIVE [facility] Work Phone: Urinalysis, Microscopicon Bacteria LM.HPF (Urine sed) [#/Area] 1+ Abnormal [facility] Work Phone: RBC (Bld) [#/Vol] <1 Abnormal 0-5 -[facility] Work Phone: Urinalysis, Microscopic 5 {/HPF} Abnormal 0-5 -[facility] Work Phone: Urinalysis, Microscopic <1 [facility] Work Phone: Cult, Urineon 07-26-2019 Bacteria identified Cx Nom (U) PATIENT: BERE BHATT LOCATION: [facility] BILL#: [id number] : 57 AGE: SEX: F ORDERED BY: NERISSA MIRELES: URINE COLLECTED: 07/26/19 11:20ANTIBIOTICS AT ANGELIQUE.: RECEIVED : 07/27/19 00:12SITE: Clean Catch/Voided R E S U L T S URINE CULTURE,BACTERIAL FINAL 07/28/19 08:20 NO SIGNIFICANT GROWTH. [employer] Work Phone: IO UA (automated w/o microsc opy)on 07-26-2019 Protein (U) [Mass/Vol] Negative Negative [employer] Work Phone: IO UA (automated w/o microscopy) Normal (0.2-1.0 mg/dl) Normal [employer] Work Phone: IO UA (automated w/o microscopy) (+)small - 15 Negative [employer] Work Phone: IO UA (automated w/o microscopy) 5.5 5.0-8.0 [employer] Work Phone: IO UA (automated w/o microscopy) Clear Clear [employer] Work Phone: IO UA (automated w/o microscopy) Negative Normal [employer] Work Phone: IO UA (automated w/o microscopy) 1.015 1.000-1.030 [facility] [address] Work Phone: IO UA (automated w/o microscopy) Trace Negative [facility] [address] Work Phone: IO UA (automated w/o microscopy) Yellow Colorless-Ye llow [facility] [address] Work Phone: Cult, Urineon 07-16-2019 Bacteria identified Cx Nom (U) [employer] [facility] Work Phone: Comment on above: PATIENT: NARENDRA BHATT LOCATION: [facility]#: [id number] : 57 AGE: SEX: F ORDERED BY: ERIC WONG: URINE COLLECTED: 07/16/19 15:58ANTIBIOTICS AT ANGELIQUE.: RECEIVED : 07/16/19 23:44SITE: Clean Catch/Voided R E S U L T S URINE CULTURE,BACTERIAL FINAL 07/18/19 08:15 NO SIGNIFICANT GROWTH. IO UA (automated w/o microsc opy)on 07-16-2019 Protein (U) [Mass/Vol] Negative Negative [facility] Work Phone: IO UA (automated w/o microscopy) Clear Clear [facility] Work Phone: IO UA (automated w/o microscopy) Negative Negative [facility] Work Phone: IO UA (automated w/o microscopy) 1.010 1.000-1.030 [facility] Work Phone: IO UA (automated w/o microscopy) Yellow Colorless-Ye llow [facility] Work Phone: IO UA (automated w/o microscopy) 5.5 5.0-8.0 [facility] Work Phone: IO UA (automated w/o microscopy) Normal (0.2-1.0 mg/dl) Normal [facility] Work Phone: IO UA (automated w/o microscopy) (++)moderate - 40 Negative -[facility] Work Phone: MA Mamm Screen w/CAD if perf and 3D Bilon 04-24-2019 Bilirubin.direct [Mass/Vol] Exam Date/Time: 04/23/2019 10:50 EDT Reason for Exam: SCREENING 3D/RADAMES;Screening Report STUDY: Digital mammography screening with radames; 04/23/2019 10:50 am ACCESSION NUMBER(S): [id number] ORDERING CLINICIAN: Salvador Mireles INDICATION: Screening. COMPARISON: [...] Category 1-Negative Recommendation: Normal interval follow-up Normal [facility] US Breast Unilateral Rt Kelvini zechariah 12-17-2018 US Breast Unilateral Rt Limited Exam Date/Time: 12/17/2018 08:37 EDT Reason for Exam: RIGHT BREAST ABN MAMMO 3D/RADAMES 6 MONTH FOLLOW UP WITH RIGHT BREAST ULTRASOUND;Other (please specify) Report STUDY: US Breast Unilateral Rt Limited; 12/17/2018 8:37 am ACCESSION NUMBER(S): [id number] ORDERING CLINICIAN: Salvador Mireles INDICATION: Other (please [...] any future breast imaging appointments, please call [phone]). FINAL REPORT Dictated: 12/17/2018 9:06 am Jay Benton MD Signed (Electronic Signature): 12/17/2018 9:06 am Signed by: Jay Benton MD Technologist: [place] Assessment: BI-RADS Category 2-Benign finding Recommendation: Normal interval follow-up Normal [facility] Vital Signs Date Time Vital Sign Value Performing Clinician Facility 04-02-2025 12:12-0400 Body temperature 98.1 [degF] Dr. Alena Lo MD Work Phone: [facility] 04-02-2025 12:12-0400 Diastolic blood pressure 72 mm[Hg] Dr. Alena Lo MD Work Phone: [facility] 04-02-2025 12:12-0400 Heart rate 63 /min Dr. Alena Lo MD Work Phone: [facility] 04-02-2025 12:12-0400 Respiratory rate 16 /min Dr. Alena Lo MD Work Phone: [facility] 04-02-2025 12:12-0400 SaO2% (BldA) [Mass fraction] 96 % Dr. Alena Lo MD Work Phone: [facility] 04-02-2025 12:12-0400 Systolic blood pressure 104 mm[Hg] Dr. Alena Lo MD Work Phone: [facility] 04-02-2025 10:35-0400 Body height 167.[address] Alena Lo MD Work Phone: [facility] 04-02-2025 10:35-0400 Body mass index (BMI) [Ratio] 29.2 kg/m2 Dr. Alena Lo MD Work Phone: [facility] 04-02-2025 10:35-0400 Body weight 82.[address] Alena Lo MD Work Phone: [facility] 03-13-2025 10:28-0400 Body height 170.2 cm Milind Stentz PA-C Work Phone: [facility] 03-13-2025 10:28-0400 Body mass index (BMI) [Ratio] 28.82 kg/m2 Milind Stentz PA-C Work Phone: [facility] 03-13-2025 10:28-0400 Body weight 83.46 kg Milind Stentz PA-C Work Phone: [facility] 03-13-2025 10:28-0400 Diastolic blood pressure 78 mm[Hg] Milind Stentz PA-C Work Phone: [facility] 03-13-2025 10:28-0400 Heart rate 87 /min Milind Stentz PA-C Work Phone: [facility] 03-13-2025 10:28-0400 SaO2% (BldA) [Mass fraction] 97 % Milind Stentz PA-C Work Phone: [facility] 03-13-2025 10:28-0400 Systolic blood pressure 128 mm[Hg] Milind Stentz PA-C Work Phone: [facility] 02-03-2025 10:46-0400 Body height 167.[address] Alena Lo MD Work Phone: [facility] 02-03-2025 10:46-0400 Body mass index (BMI) [Ratio] 29.9 kg/m2 Dr. Alena Lo MD Work Phone: [facility] 02-03-2025 10:46-0400 Body weight 84.[address] Alena Lo MD Work Phone: [facility] 02-03-2025 10:46-0400 Diastolic blood pressure 83 mm[Hg] Dr. Alena Lo MD Work Phone: [facility] 02-03-2025 10:46-0400 Heart rate 74 /min Dr. Alena Lo MD Work Phone: [facility] 02-03-2025 10:46-0400 Systolic blood pressure 134 mm[Hg] Dr. Alena Lo MD Work Phone: [facility] 01-17-2025 09:49-0400 Body height 170.2 cm [facility] 01-17-2025 09:49-0400 Body mass index (BMI) [Ratio] 30.69 kg/m2 [facility] 01-17-2025 09:49-0400 Body weight 88.9 kg [facility] 01-07-2025 10:54-0400 Body height 170.2 cm Milind Stentz PA-C Work Phone: [facility] 01-07-2025 10:54-0400 Body mass index (BMI) [Ratio] 30.7 kg/m2 Milind Stentz PA-C Work Phone: [facility] 01-07-2025 10:54-0400 Body weight 88.91 kg Milind Stentz PA-C Work Phone: [facility] 01-07-2025 10:54-0400 Diastolic blood pressure 84 mm[Hg] Milind Stentz PA-C Work Phone: [facility] 01-07-2025 10:54-0400 Heart rate 86 /min Milind Stentz PA-C Work Phone: [facility] 01-07-2025 10:54-0400 SaO2% (BldA) [Mass fraction] 95 % Milind Stentz PA-C Work Phone: [facility] 01-07-2025 10:54-0400 Systolic blood pressure 130 mm[Hg] Milind Stentz PA-C Work Phone: [facility] 12-15-2024 14:30-0400 Diastolic blood pressure 65 mm[Hg] Isacc Kam DO Work Phone: [facility] 12-15-2024 14:30-0400 Heart rate 89 /min Isacc Kam DO Work Phone: [facility] 12-15-2024 14:30-0400 Respiratory rate 18 /min Isacc Kam DO Work Phone: [facility] 12-15-2024 14:30-0400 SaO2% (BldA) [Mass fraction] 97 % Isacc Kam DO Work Phone: [facility] 12-15-2024 14:30-0400 Systolic blood pressure 127 mm[Hg] Isacc Kam DO Work Phone: [facility] 12-15-2024 13:25-0400 Body height 167.6 cm Isacc Kam DO Work Phone: [facility] 12-15-2024 13:25-0400 Body mass index (BMI) [Ratio] 30.67 kg/m2 Isacc Kam DO Work Phone: [facility] 12-15-2024 13:25-0400 Body temperature 97.5 [degF] Isacc Kam DO Work Phone: [facility] 12-15-2024 13:25-0400 Body weight 86.18 kg Isacc Kam DO Work Phone: [facility] 09-13-2024 14:07-0500 Body mass index (BMI) [Ratio] 33.48 kg/m2 Milind Stentz PA-C Work Phone: [facility] 09-13-2024 14:07-0500 Body weight 91.26 kg Milind Stentz PA-C Work Phone: [facility] 09-13-2024 14:07-0500 Diastolic blood pressure 82 mm[Hg] Milind Stentz PA-C Work Phone: [facility] 09-13-2024 14:07-0500 Heart rate 78 /min Milind Stentz PA-C Work Phone: [facility] 09-13-2024 14:07-0500 SaO2% (BldA) [Mass fraction] 98 % Milind Stentz PA-C Work Phone: [facility] 09-13-2024 14:07-0500 Systolic blood pressure 126 mm[Hg] Milind Stentz PA-C Work Phone: [facility] 12-01-2023 13:32-0400 Body height 165.1 cm Alena Lo MD Work Phone: [facility] 12-01-2023 13:32-0400 Body mass index (BMI) [Ratio] 35.66 kg/m2 Alena Lo MD Work Phone: [facility] 12-01-2023 13:32-0400 Body weight 97.21 kg Alena Lo MD Work Phone: [facility] 12-01-2023 13:32-0400 Diastolic blood pressure 76 mm[Hg] Alena Lo MD Work Phone: [facility] 12-01-2023 13:32-0400 Heart rate 78 /min Alena Lo MD Work Phone: [facility] 12-01-2023 13:32-0400 SaO2% (BldA) [Mass fraction] 97 % Alena Lo MD Work Phone: [facility] 12-01-2023 13:32-0400 Systolic blood pressure 124 mm[Hg] Alena Lo MD Work Phone: [facility] 09-14-2023 16:34-0500 Body height 165.1 cm Alena Lo MD Work Phone: [facility] 09-14-2023 16:34-0500 Body mass index (BMI) [Ratio] 34.45 kg/m2 Alena Lo MD Work Phone: [facility] 09-14-2023 16:34-0500 Body weight 93.89 kg Alena Lo MD Work Phone: [facility] 09-14-2023 16:34-0500 Diastolic blood pressure 76 mm[Hg] Alena Lo MD Work Phone: [facility] 09-14-2023 16:34-0500 Heart rate 84 /min Alena Lo MD Work Phone: [facility] 09-14-2023 16:34-0500 SaO2% (BldA) [Mass fraction] 96 % Alena Lo MD Work Phone: [facility] 09-14-2023 16:34-0500 Systolic blood pressure 124 mm[Hg] Alena Lo MD Work Phone: [facility] 05-29-2023 14:28-0400 Body height 167.6 cm Loreta PETIT Work Phone: [facility] 05-29-2023 14:28-0400 Body mass index (BMI) [Ratio] 34.85 kg/m2 Loreta Bermudez 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 Work Phone: [facility] 05-29-2023 [id number]:28040 Body weight 97.93 kg Loreta Bermudez 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 Work Phone: [facility] 05-29-2023 14:28-0400 Diastolic blood pressure 80 mm[Hg] Loreta Bermudez 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 Work Phone: [facility] 05-29-2023 14:28-0400 Heart rate 98 /min Loreta Bermudez 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 Work Phone: [facility] 05-29-2023 14:28-0400 Systolic blood pressure 132 mm[Hg] Loreta 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 Work Phone: [facility] 03-29-2023 11:44-0400 Body height 167.64 cm Alena Félix Perlaer Work Phone: [employer] Work Phone: 03-29-2023 11:44-0400 Body mass index (BMI) [Ratio] 35.26 kg/m2 Alnea Heard Lo Work Phone: [employer] Work Phone: 03-29-2023 11:44-0400 Body surface area Derived from formula 2.08 m2 Alena Perlaer Work Phone: [employer] Work Phone: 03-29-2023 11:44-0400 Body weight 99.1 kg Alena Perlaer Work Phone: [facility] [employer] Work Phone: 03-29-2023 11:44-0400 Diastolic blood pressure 76 mm[Hg] Alena Perlaer Work Phone: [facility] [employer] Work Phone: 03-29-2023 11:44-0400 Systolic blood pressure 124 mm[Hg] Alena O Lo Work Phone: [address] Work Phone: 07-18-2022 10:11-0500 Body height 167.64 cm Alena O Lo Work Phone: [facility] Work Phone: 07-18-2022 10:11-0500 Body mass index (BMI) [Ratio] 33.09 kg/m2 Alena O Lo Work Phone: [facility] Work Phone: 07-18-2022 10:11-0500 Body surface area Derived from formula 2.02 m2 Alena O Lo Work Phone: [facility] Work Phone: 07-18-2022 10:11-0500 Body weight 92.99 kg Alena O Lo Work Phone: [facility] Work Phone: 07-18-2022 10:11-0500 Diastolic blood pressure 80 mm[Hg] Alena O Lo Work Phone: [facility] Work Phone: 07-18-2022 10:11-0500 Heart rate 72 /min Alena O Lo Work Phone: [facility] Work Phone: 07-18-2022 10:11-0500 Systolic blood pressure 128 mm[Hg] Alena O Lo Work Phone: [facility] Work Phone: 04-19-2022 09:37-0400 Body height 167.64 cm Alena O Lo Work Phone: [facility] Work Phone: 04-19-2022 09:37-0400 Body mass index (BMI) [Ratio] 32.28 kg/m2 Alena O Lo Work Phone: [facility] Work Phone: 04-19-2022 09:37-0400 Body surface area Derived from formula 2 m2 Alena O Lo Work Phone: [facility] Work Phone: 04-19-2022 09:37-0400 Body weight 90.72 kg Alena O Lo Work Phone: [facility] Work Phone: 04-19-2022 09:37-0400 Diastolic blood pressure 68 mm[Hg] Alena O Lo Work Phone: [facility] [employer] Work Phone: 04-19-2022 09:37-0400 Heart rate 76 /min Alena O Lo Work Phone: [facility] [employer] Work Phone: 04-19-2022 09:37-0400 Systolic blood pressure 124 mm[Hg] Alena O Lo Work Phone: [facility] [employer] Work Phone: 09-08-2021 12:46-0500 Body mass index (BMI) [Ratio] 33.09 kg/m2 Alena O Lo Work Phone: [facility] Work Phone: 09-08-2021 12:46-0500 Body surface area Derived from formula 2.02 m2 Alena O Lo Work Phone: [facility] Work Phone: 09-08-2021 12:46-0500 Body weight 92.99 kg Alena O Lo Work Phone: [facility] [employer] Work Phone: 10-30-2019 16:26-0500 BMI (Body Mass Index) 30.53 kg/m2 [facility] Work Phone: 10-30-2019 16:26-0500 Body weight 85.79 kg [facility] Work Phone: 10-30-2019 16:26-0500 BP Diastolic 86 mm[Hg] [facility] Work Phone: Comment on above: Location: LUE; Position: Sitting 10-30-2019 16:26-0500 BP Systolic 126 mm[Hg] [facility] Work Phone: Comment on above: Location: LUE; Position: Sitting 10-30-2019 16:26-0500 BSA (Body Surface Area) 1.95 m2 [facility] Work Phone: 10-30-2019 16:26-0500 Height 167.64 cm [facility] Work Phone: 10-30-2019 16:26-0500 Pulse (Heart Rate) 74 /min [facility] Work Phone: 10-30-2019 16:26-0500 Pulse Oximetry 96 % [facility] Work Phone: 10-30-2019 16:26-0500 Respiratory Rate 16 /min [facility] Work Phone: 09-05-2019 17:41-0500 BMI (Body Mass Index) 29.54 kg/m2 [facility] Work Phone: 09-05-2019 17:41-0500 Body Temperature 98.3 [degF] [facility] Work Phone: Comment on above: Method: Oral 09-05-2019 17:41-0500 Body weight 83.01 kg Alnea Lo [facility] Work Phone: 09-05-2019 17:41-0500 BP Diastolic 76 mm[Hg] Alena Lo [facility] Work Phone: Comment on above: Location: LUE; 09-05-2019 17:41-0500 BP Systolic 122 mm[Hg] Alena Lo [facility] Work Phone: Comment on above: Location: LUE; 09-05-2019 17:41-0500 BSA (Body Surface Area) 1.93 m2 Alena Lo [facility] Work Phone: 09-05-2019 17:41-0500 Height 167.64 cm Alena Lo [facility] Work Phone: 09-05-2019 17:41-0500 Pulse (Heart Rate) 64 /min Alena Lo [facility] Work Phone: 08-12-2019 13:08-0500 BMI (Body Mass Index) 30.34 kg/m2 Alena Lo [facility] Work Phone: 08-12-2019 13:08-0500 Body weight 85.28 kg Alena Lo [facility] Work Phone: 08-12-2019 13:08-0500 BP Diastolic 66 mm[Hg] Alena Lo [facility] Work Phone: Comment on above: Location: LUE; 08-12-2019 13:08-0500 BP Systolic 110 mm[Hg] Alena Lo [facility] Work Phone: Comment on above: Location: LUE; 08-12-2019 13:08-0500 BSA (Body Surface Area) 1.95 m2 Alena Lo [facility] Work Phone: 08-12-2019 13:08-0500 Height 167.64 cm Alena [facility] Work Phone: 08-12-2019 13:08-0500 Pulse (Heart Rate) 72 /min Alena Tap[facility] Work Phone: 07-26-2019 12:46-0500 BMI (Body Mass Index) 31.26 kg/m2 [place] [address] Work Phone: 07-26-2019 12:46-0500 Body weight 87.8 kg Parag Mack-[place] [address] Work Phone: 07-26-2019 12:46-0500 BP Diastolic 78 mm[Hg] Parag Mack[facility] [address] Work Phone: Comment on above: Location: LUE; Position: Sitting 07-26-2019 12:46-0500 BP Systolic 122 mm[Hg] Parag Patel [address] Work Phone: Comment on above: Location: LUE; Position: Sitting 07-26-2019 12:46-0500 BSA (Body Surface Area) 1.97 m2 [place] [address] Work Phone: 07-26-2019 12:46-0500 Height 167.6 cm Par[place] [address] Work Phone: 07-16-2019 15:30-0500 BMI (Body Mass Index) 31.69 kg/m2 [facility] Work Phone: 07-16-2019 15:30-0500 Body weight 89.05 kg [facility]ag [facility] Work Phone: 07-16-2019 15:30-0500 BP Diastolic 84 mm[Hg] [facility] Work Phone: 07-16-2019 15:30-0500 BP Systolic 110 mm[Hg] Parag [facility] Work Phone: 07-16-2019 15:30-0500 BSA (Body Surface Area) 1.98 m2 [facility] Work Phone: 07-16-2019 15:30-0500 Height 167.64 cm [facility]ag [facility] Work Phone: 07-16-2019 15:30-0500 Pulse (Heart Rate) 72 /min [facility]ag [facility] Work Phone: 05-02-2019 14:00-0400 BMI (Body Mass Index) 32.31 kg/m2 [facility] Work Phone: 05-02-2019 14:00-0400 Body weight 91.2 kg [facility] Work Phone: 05-02-2019 14:00-0400 BP Diastolic 90 mm[Hg] Parag Wong [facility] Work Phone: 05-02-2019 14:00-0400 BP Systolic 132 mm[Hg] Parag Wong [facility] Work Phone: 05-02-2019 14:00-0400 BSA (Body Surface Area) 2.01 m2 [facility] Work Phone: 05-02-2019 14:00-0400 Height 168 cm Parag Wong [facility] Work Phone: Encounters Encounter Date Encounter Type Care Provider Facility Start: 04-02-2025 Non-patient / Non-visit Marin Davalos nd, DO -[facility] Start: 04-02-2025 End: 04-02-2025 Admission to same day surgery center Marin Thomas DO -Endoscopy Work Phone: Start: 04-02-2025 End: 04-02-[address] Alena Lo MD Work Phone: -Endoscopy Start: 03-13-2025 End: 03-13-2025 Office outpatient visit 25 minutes [facility] PA-C Work Phone: [facility] Comment on above: Chronic constipation (Primary Dx); Anxiety; Pain of right hand Start: 03-13-2025 End: 03-13-2025 ambulatory [facility] Start: 02-15-2025 End: 02-15-[address] Alena Lo MD Work Phone: [facility] Work Phone: Start: 02-15-2025 End: 02-15-2025 Patient encounter procedure Alisa DANIELSON -Radiology [facility] Work Phone: Start: 02-15-2025 End: 02-15-2025 ambulatory Alisa Desouza Facility:[facility] Start: 02-13-2025 End: 02-13-[address] Alena Lo MD Work Phone: [facility] Work Phone: Start: 02-13-2025 End: 02-13-2025 Patient encounter procedure Alisa DANIELSON -Radiology [facility] Work Phone: Start: 02-13-2025 End: 02-13-2025 ambulatory Alisa Desouza Facility:[facility] Start: 02-03-2025 End: 02-03-2025 Patient encounter procedure Alisa DANIELSON -[facility] Work Phone: Start: 02-03-2025 End: 02-03-[address] Alena Lo MD Work Phone: [facility] Work Phone: Start: 01-17-2025 End: 01-17-2025 ambulatory [facility] Start: 01-17-2025 End: 01-17-2025 Subsequent hospital visit by physician Manuel [id number] Chencho [facility] Comment on above: Screening mammogram for breast cancer Start: 01-07-2025 End: 01-07-2025 Office outpatient visit 25 minutes Milind Boubacar PA-C Work Phone: [facility] Comment on above: Anxiety (Primary Dx) ; Primary insomnia; Accident due to mechanical fall without injury, subsequent encounter Start: 01-07-2025 End: 01-07-2025 ambulatory [facility] Start: 12-15-2024 End: 12-15-2024 Emergency department patient visit Isacc Vernon Bharat DO Work Phone: [facility] Comment on above: Fall, initial encoun ter (Primary Dx); Injury of head, initial encounter; Dental injury, initial encounter; Contusion of right hand, initial encounter; Facial laceration, initial encounter; Lip laceration, initial encounter Start: 09-13-2024 End: 09-13-2024 Assay of hemosiderin, quant Milind Sanchezbethany PA-C Work Phone: [facility] Work Phone: Start: 09-13-2024 End: 09-13-2024 Patient encounter procedure Milind Stentz PA-C Work Phone: [facility] Comment on above: Routine general medi keaton examination at health care facility (Primary Dx); Class 1 obesity due to excess calories without serious comorbidity with body mass index (BMI) of 33.0 to 33.9 in adult; Screening cholesterol level; Screening for thyroid disorder; Screening mammogram for breast cancer; Colon cancer screening; Primary insomnia Start: 09-13-2024 End: 09-13-2024 ambulatory [facility] Start: 09-13-2024 End: 09-13-2024 Encounter for general adult medical examination without abnormal findings [facility] Start: 12-05-2023 End: 12-06-2023 ambulatory ALENA Heard [facility] Start: 12-04-2023 End: 12-05-2023 ambulatory ALENA [facility] Start: 12-01-2023 End: 12-01-2023 Office outpatient visit 15 minutes Alena Lo MD Work Phone: [facility] Comment on above: Diarrhea of presumed infectious origin (Primary Dx) Start: 09-25-2023 End: 09-25-2023 Subsequent hospital visit by physician Manuel Bello [facility] Comment on above: Menopause Start: 09-14-2023 End: 09-14-2023 Assay of hemosiderin, quant Alena Lo MD Work Phone: [facility] Work Phone: Start: 09-14-2023 End: 09-14-2023 Patient encounter procedure Alena Lo MD Work Phone: 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 Comment on above: Epigastric abdominal pain (Primary Dx); Abdominal bloating Start: 04-07-2023 Chart Update Alena Lo Work Phone: [facility] [employer] Work Phone: Start: 03-31-2023 Encounter for gynecological examination (general) (routine) without abnormal findings Celestina Chiang [facility] Start: 03-29-2023 Encounter for gynecological examination (general) (routine) without abnormal findings MD ALENA LO Facility:[facility] Start: 03-29-2023 Patient encounter procedure Alena Lo Work Phone: [facility] [employer] Work Phone: Start: 03-29-2023 ambulatory MD ALENA LO Facility:[facility] Start: 10-19-[address] Alena Lo Facility:[id number] Start: 10-08-2022 AUDIT Alena Lo Work Phone: [facility] Work Phone: Start: 09-12-2022 Office outpatient vi sit 25 minutes Alena Lo Work Phone: [facility] Work Phone: Start: 09-12-2022 ambulatory MD ALENA LO Facility:[id number] Start: 08-05-[address] Alena Lo Facility:[id number] Start: 07-19-2022 [place] [id number], [facility], Status: Pen, Time: 9:45 AM Alena Lo Work Phone: [facility] Work Phone: Start: 07-19-[address] Alena Lo Facility:[id number] Start: 07-18-2022 Office outpatient vi sit 25 minutes Alena Lo Work Phone: [facility] Work Phone: Start: 07-18-2022 ambulatory MD ALENA LO Facility:[id number] Start: 07-08-2022 AUDIT Alena Lo Work Phone: [facility] Work Phone: Start: 07-01-2022 ambulatory MD ALENA LO Facility:[id number] Start: 04-19-2022 Office outpatient vi sit 25 minutes Alena Lo Work Phone: [facility] Work Phone: Start: 04-19-2022 ambulatory MD ALENA LO Facility:[id number] Start: 09-08-2021 Office outpatient vi sit 25 minutes Alena Lo Work Phone: [facility] Work Phone: Start: 09-07-2020 Patient encounter procedure Alena Lo MD AL-UACAT-Ebaetymcp Work Phone: Start: 08-11-2020 Patient encounter procedure Alena Lo MD RM-WSDFO-Kcrlhiela Work Phone: Start: 10-30-2019 Patient encounter procedure Eddie Nicole XC-LCXDF-Qzwncpdqi Work Phone: Start: 09-24-2019 Patient encounter procedure Eddie Nicole OB-WQKPC-Anuxhqfip Work Phone: Start: 09-05-2019 Patient encounter procedure Alena Lo [facility] Work Phone: Start: 08-12-2019 Patient encounter procedure Alena Lo [facility] Work Phone: Start: 07-26-2019 Patient encounter procedure Parag Wong [facility] [address] Work Phone: Start: 07-16-2019 Patient encounter procedure Parag Wong [facility] [address] Work Phone: Encounter for gynecological examination (general) (routine) without abnormal findings Alena Lo Work Phone: [facility] [address] Work Phone: Comment on above: 03/27/2017-NEG; Menarche Alena Lo MD [facility]DXS[facility] Work Phone: Comment on above: ONSET AGE 16; Procedures Date Procedure Procedure Detail Performing Clinician Start: 04-02-[address] Alena Lo MD Work Phone: Start: 02-15-2025 Plain X-ray abdomen Dr. Alena Lo MD Work Phone: Start: 02-13-2025 Plain X-ray abdomen Dr. Alena Lo MD Work Phone: Start: 01-17-2025 Mammography Milind Hood ntz PA-C Work Phone: Start: 01-16-2025 Lipid 1996 panel - S sonia or Plasma Manuel Mammo Start: 12-15-2024 Simple repair f/e/e/ n/l/m 2.5cm/< Clarissa Thom PA-C Work Phone: Start: 12-15-2024 Radex wrist complete minimum 3 views Isacc Vernon Kam DO Work Phone: Start: 12-15-2024 Ct cervical spine w/ o contrast material Isacc Kam DO Work Phone: Start: 12-15-2024 End: 12-15-2024 Ct head/brain w/o contrast material Isacc Kam DO Work Phone: Start: 12-05-2023 CBC panel - Blood by Automated count ALENA LO Start: 12-05-2023 Comprehensive metabo lic 2000 panel - Serum or Plasma ALENA LO Start: 12-05-2023 Lipid panel LAENA CORRAL Start: 12-05-2023 TSH WITH REFLEX TO F REE T4 IF ABNORMAL ALENA LO Start: 12-05-2023 Lipid 1996 panel - S sonia or Plasma Milind Sanchezz PA-C Work Phone: Start: 09-25-2023 Dxa bone [...] Culture bacterial quanttative colony count urine Eddie Nicole Start: 09-24-2019 Ultrasound Pelvis Transabdominal With Transvaginal Eddie Geovanna Start: 07-26-2019 Culture bacterial quanttative colony count urine Paraganne marie Wong Start: 07-16-2019 Culture bacterial quanttative colony count urine Parag Wong Start: 05-18-2019 Surgical procedure o n eye proper Alena Lo Work Phone: Comment on above: macular hole repair; Start: 10-10-2018 Anal sphincterotomy Juan F Perlaer Work Phone: Start: 10-10-2018 Debridement Alena Heard Sn tovar Work Phone: Start: 05-18-2015 End: 05-18-2015 Colonoscopy Parag Marvin Start: 05-18-2015 Colonoscopy Alena Heard Sn tovar Work Phone: Start: 07-10-2013 Repair of ventral hernia Alena Lo Work Phone: Comment on above: 07/10/2013; End: 10-10-2018 Anal sphincterotomy Parag Marvin End: 01-31-2020 Cataract surgery Alena Lo MD End: 10-10-2018 Debridement Parag Wong Hemorrhoidectomy Parag Rab er Hernia repair Parag Wong Comment on above: 2010; End: 07-10-2013 Repair of ventral hernia Parag Wong Surgical procedure Parag R aber Comment on above: 05/21/2019-optical s urgery (left eye) macular hole.; End: 05-18-2019 Surgical procedure on eye proper Alena Lo MD Tonsillectomy Parag Wong Plan of Treatment Date Care Activity Detail Author Start: 12-15-2034 DTaP/Tdap/Td Vaccine s (3 - Td or Tdap) DTaP/Tdap/Td Vaccines (3 - Td or Tdap) [facility] [place] Start: 01-24-2031 RSV High Risk: (Elde rly (60+) or Population) (1 - 1-dose 75+ series) RSV High Risk: (Elderly (60+) or Population) (1 - 1-dose 75+ series) [facility] [place] Start: 01-16-2030 Lipid panel Lipid Panel [facility] [place] Start: 12-04-2028 Lipid panel Lipid Panel [facility] [place] Start: 04-28-2027 DTaP/Tdap/Td Vaccine s (2 - Td or Tdap) DTaP/Tdap/Td Vaccines (2 - Td or Tdap) [facility] [place] Start: 01-17-2026 Screening for malign ant neoplasm of breast Mammogram [facility] [place] Start: 09-14-2025 Medicare Annual Wellness Visit Medicare Annual Wellness Visit (AWV) [facility] [place] Start: 09-12-2025 End: 09-12-2025 Patient encounter procedure 09/12/2025 10:00 AM EST Office Visit [facility] [address] [place] [id number] Milind Pearson PA-C [address] [facility] [place] [address] [place] [address] [facility] Start: 05-18-2025 Screening for malign ant neoplasm of colon [facility] [place] Start: 05-05-2025 Influenza vaccination Influenza Vacc ine (#1) [facility] [place] Start: 04-02-2025 Patient discharge [facility] Start: 03-13-2025 End: 03-13-2025 Patient encounter procedure 03/13/2025 10:20 AM EDT Office Visit [facility] [address] [place] [id number] Milind Pearson PA-C [address] [facility] [place] [address] [place], [place] [id number] [facility] Start: 12-04-2024 Diabetes mellitus screening Diabetes Screening [facility] [place] Start: 09-15-2024 Medicare Annual Wellness Visit Medicare Annual Wellness Visit (AWV) [facility] [place] Start: 09-14-2024 Pneumococcal Vaccine : 65+ Years (1 - PCV) Pneumococcal Vaccine: 65+ Years (1 - PCV) [facility] [place] Comment on above: Postponed from 01/24 (Patient Refused) Start: 09-13-2024 End: 09-13-2025 CBC panel - Blood by Automated count CBC Lab Routine Class 1 obesity due to excess calories without serious comorbidity with body mass index (BMI) of 33.0 to 33.9 in adult Expected: 09/13/2024 (Approximate), Expires: 09/13/2025 [facility] Service Area Work Phone: Comment on above: Expected: 09/13/2024 (Approximate), Expires: 09/13/2025 Start: 09-13-2024 End: 09-13-2025 Colonoscopy study Colonoscopy Screening; Average Risk Patient Endoscopy Routine Colon cancer screening Expected: 09/13/2024, Expires: 09/13/2025 [facility] [place] Work Phone: Comment on above: Expected: 09/13/2024 , Expires: 09/13/2025 Start: 09-13-2024 End: 09-13-2025 Comprehensive metabolic 2000 panel - Serum or Plasma Comprehensive Metabolic Panel Lab Routine Class 1 obesity due to excess calories without serious comorbidity with body mass index (BMI) of 33.0 to 33.9 in adult Expected: 09/13/2024 (Approximate), Expires: 09/13/2025 [facility] [place] Work Phone: Comment on above: Expected: 09/13/2024 (Approximate), Expires: 09/13/2025 Start: 09-13-2024 End: 11-11-2025 DBT Breast - bilateral BI mammo bilateral screening tomosynthesis Imaging Routine Screening mammogram for breast cancer Expected: 09/13/2024, Expires: 11/11/2025 [facility] [place] Work Phone: Comment on above: Expected: 09/13/2024 , Expires: 11/11/2025 Start: 09-13-2024 End: 09-13-2025 Lipid 1996 panel - Serum or Plasma Lipid Panel Lab Routine Screening cholesterol level Expected: 09/13/2024 (Approximate), Expires: 09/13/2025 [facility] [place] Work Phone: Comment on above: Expected: 09/13/2024 (Approximate), Expires: 09/13/2025 Start: 09-13-2024 End: 09-13-2025 TSH with reflex to Free T4 if abnormal TSH with reflex to Free T4 if abnormal Lab Routine Screening for thyroid disorder Expected: 09/13/2024 (Approximate), Expires: 09/13/2025 [facility] [place] Work Phone: Comment on above: Expected: 09/13/2024 (Approximate), Expires: 09/13/2025 Start: 09-13-2024 End: 09-13-2024 Patient encounter procedure 09/13/2024 9:00 AM EST Office Visit [facility] [address] [place] [address] Giovanny Shook MD MPH [address] [facility] [place] [address] [place] [address] [facility] Start: 06-12-2024 Screening for malign ant neoplasm of breast Mammogram [facility] [place] Start: 05-05-2024 COVID-19 Vaccine ( season) COVID-19 Vaccine ( season) [facility] [place] Start: 09-14-2023 KENTRELL, Provider : Alena Lo, Status: Pen, Time: 4:30 PM KENTRELL, Provider: Alena Lo, Status: Pen, Time: 4:30 PM [facility] Work Phone: Start: 09-14-2023 End: 09-14-2023 Telemedicine consultation with patient 09/14/2023 4:30 PM EST Telemedicine [facility] [address] [place] [address] Alena Lo MD [address] [facility] [place] [address] [place] [address] [facility] Start: 09-14-2023 End: 09-14-2024 CBC panel - Blood by Automated count CBC Lab Routine Anxiety Acute non-recurrent pansinusitis Expected: 09/14/2023 (Approximate), Expires: 09/14/2024 [facility] [place] Work Phone: Comment on above: Expected: 09/14/2023 (Approximate), Expires: 09/14/2024 Start: 09-14-2023 End: 09-14-2024 Comprehensive metabolic 2000 panel - Serum or Plasma Comprehensive Metabolic Panel Lab Routine HDL deficiency Expected: 09/14/2023 (Approximate), Expires: 09/14/2024 [facility] [place] Work Phone: Comment on above: Expected: 09/14/2023 (Approximate), Expires: 09/14/2024 Start: 09-14-2023 End: 09-14-2024 DXA Skeletal system Views for bone density XR DEXA bone density Imaging Routine Menopause Expected: 09/14/2023, Expires: 09/14/2024 [facility] Service Area Work Phone: Comment on above: Expected: 09/14/2023 , Expires: 09/14/2024 Start: 09-14-2023 End: 09-14-2024 Lipid 1996 panel - Serum or Plasma Lipid Panel Lab Routine HDL deficiency Expected: 09/14/2023 (Approximate), Expires: 09/14/2024 [facility] [place] Work Phone: Comment on above: Expected: 09/14/2023 (Approximate), Expires: 09/14/2024 Start: 09-14-2023 End: 09-14-2024 TSH with reflex to Free T4 if abnormal TSH with reflex to Free T4 if abnormal Lab Routine Anxiety Expected: 09/14/2023 (Approximate), Expires: 09/14/2024 [facility] [place] Work Phone: Comment on above: Expected: 09/14/2023 (Approximate), Expires: 09/14/2024 Start: 06-12-2023 End: 06-12-2023 Professional / ancillary services management 06/12/2023 8:50 AM EDT Ancillary Procedure [facility] [address] [facility] [address] [place] [address] [facility] Start: 05-29-2023 End: 05-29-2023 ambulatory 05/29/2023 3:00 PM EDT Lab [facility] [address] [place] [phone] Epigastric abdominal pain; Abdominal bloating [facility] [address] Comment on above: Epigastric abdominal pain; Abdominal bloating Start: 05-29-2023 End: 05-29-2024 Amylase [Enzymatic activity/volume] in Serum or Plasma [facility] Service Area Work Phone: Comment on above: Expected: 05/29/2023 (Approximate), Expires: 05/29/2024 Start: 05-29-2023 End: 05-29-2024 CBC panel - Blood by Automated count [facility] [place] Work Phone: Comment on above: Expected: 05/29/2023 (Approximate), Expires: 05/29/2024 Start: 05-29-2023 End: 05-29-2024 Lipase [Enzymatic activity/volume] in Serum or Plasma [facility] [place] Work Phone: Comment on above: Expected: 05/29/2023 (Approximate), Expires: 05/29/2024 Start: 05-29-2023 End: 05-29-2024 XR Abdomen 3 Views XR abdomen 3+ views Imaging Routine Epigastric abdominal pain Abdominal bloating Expected: 05/29/2023, Expires: 05/29/2024 [facility] [place] Work Phone: Comment on above: Expected: 05/29/2023 , Expires: 05/29/2024 Start: 05-05-2023 COVID-19 Vaccine ( season) COVID-19 Vaccine ( season) [facility] [place] Start: 05-05-2023 Influenza vaccination Influenza Vacc ine (#1) [facility] [place] Start: 01-24-2023 COVID-19 Vaccine (4 - Moderna series) COVID-19 Vaccine (4 - Moderna series) [facility] [place] Start: 09-12-2022 VIRFUVHOME, Provider : Alena Lo, Status: Pen, Time: 4:30 PM MARCLatrice, Provider: Alena Lo, Status: Pen, Time: 4:30 PM [facility] Work Phone: Start: 01-24-2021 Pneumococcal Vaccine : 65+ Years (1 - PCV) Pneumococcal Vaccine: 65+ Years (1 - PCV) [facility] [place] Start: 10-30-2019 Culture bacterial quanttative colony count urine Cult, Urine [id number] 2420 DO Work Phone: Start: 10-08-2019 Ultrasound Pel vis Transabdominal With Transvaginal [id number] 2420 DO Work Phone: Start: 2016 Hepatitis B Vaccines (1 of 3 - Risk 3-dose series) Hepatitis B Vaccines (1 of 3 - Risk 3-dose series) [facility] [place] Start: 01-24-2006 Zoster Vaccines (1 o f 2) Zoster Vaccines (1 of 2) [facility] [place] Start: 1996 Screening for malign ant neoplasm of breast Mammogram [facility] [place] Start: 01-24-1975 Hepatitis A Vaccines (1 of 2 - Risk 2-dose series) Hepatitis A Vaccines (1 of 2 - Risk 2-dose series) [facility] [place] Start: 01-24-1974 Diabetes mellitus screening Diabetes Screening [facility] [place] Start: 01-24-1974 Hepatitis C screening Hepatitis C Sc reening [facility] [place] Start: 1956 Lipid panel Lipid Panel [facility] [place] Start: 1956 Medicare Annual Wellness Visit Medicare Annual Wellness Visit (AWV) [facility] [place] Start: 1956 Screening for malign ant neoplasm of colon [facility] [place] Start: 1956 Screening for osteoporosis Bone Density Scan [facility] [place] Clostridioides difficile toxin A+B tcdA+tcdB genes [Presence] in Stool by RADHA with probe detection C. difficile, PCR Microbiology Routine Diarrhea of presumed infectious origin Ordered: 12/01/2023 [facility] Service Area Work Phone: Comment on above: Ordered: 12/01/2023 End: 01-17-2025 DBT Breast - bilateral [facility] Service Area Work Phone: Comment on above: Once for 1 Occurrenc es starting 01/17/2025 until 01/17/2025 End: 09-25-2023 DXA Skeletal system Views for bone density [facility] Area Work Phone: Comment on above: Once for 1 Occurrenc es starting 09/25/2023 until 09/25/2023 Stool Pathogen Panel , PCR Stool Pathogen Panel, PCR Microbiology Routine Diarrhea of presumed infectious origin Ordered: 12/01/2023 [facility] [place] Work Phone: Comment on above: Ordered: 12/01/2023 XR Abdomen Single view [facility] 2420 DO Work Phone: [facility] NEGATED: Highlighted row has been ruled out! Planned Goals not documented [facility] 2420 DO Work Phone: Immunizations Immunization Date Immunization Notes Care Provider Regina kaur 12-15-2024 tetanus toxoid, redu kiki diphtheria toxoid, and acellular pertussis vaccine, adsorbed Isacc Kam DO Work Phone: [facility] [place] 06-24-2024 influenza virus vaccine, unspecified formulation Milind Pearson PA-C Work Phone: [facility] [place] 09-14-2023 Pneumococcal conjuga te vaccine, 20-valent (PREVNAR 20) [facility] Work Phone: 08-13-2023 Influenza, Seasonal, Quadrivalent, Adjuvanted Alena Lo MD Work Phone: [facility] [place] 11-29-2022 Moderna COVID-19 vaccine, bivalent, blue cap/fritz label *Check age/dose* Loreta Bermudez 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 Work Phone: [facility] [place] Work Phone: 08-18-2022 Fluzone High-Dose Quadrivalent 0.7 ML Intramuscular Suspension Prefilled Syringe Alena Lo Work Phone: [facility] Work Phone: Comment on above: Series: 08-18-2022 influenza virus vaccine, unspecified formulation Lroeta Bermudez 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 Work Phone: [facility] [place] Work Phone: 07-21-2021 Moderna COVID-19 Vaccine 100 MCG/0.5ML Intramuscular Suspension Alena O Lo Work Phone: [facility] Work Phone: 12-04-2020 Moderna COVID-19 Vaccine 100 MCG/0.5ML Intramuscular Suspension [facility] Lo Work Phone: [facility] Work Phone: 11-05-2020 Moderna COVID-19 Vaccine 100 MCG/0.5ML Intramuscular Suspension [facility] Lo Work Phone: [facility] Work Phone: 07-03-2020 influenza, injectabl e, quadrivalent, preservative free Loreta Bermudez 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 Work Phone: [facility] [place] Work Phone: 07-03-2020 influenza, seasonal, injectable Alena Lo MD [id number] Work Phone: Comment on above: Series: 07-03-2020 influenza, seasonal, injectable Alena Lo MD [id number] Work Phone: 07-16-2019 influenza, injectabl e, quadrivalent, preservative free; Translations: [Flulaval Quadrivalent 0.5 ML Intramuscular Suspension Prefilled Syringe] Parag Wong [facility] Work Phone: Comment on above: Series: 07-16-2019 influenza, seasonal, injectable Loreta Bermudez 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 Work Phone: [facility] [place] Work Phone: 08-19-2018 Influenza, injectabl e, Madin Charo Canine Kidney, preservative free, quadrivalent Alena O Lo Work Phone: [facility] Work Phone: 10-08-2017 influenza, injectabl e, quadrivalent, preservative free Alena O Lo Work Phone: [facility] Work Phone: 04-28-2017 tetanus toxoid, redu kiki diphtheria toxoid, and acellular pertussis vaccine, adsorbed Alena O Lo Work Phone: [facility] Work Phone: 08-19-2016 influenza, injectabl e, quadrivalent, preservative free Alena O Ol Work Phone: [facility] Work Phone: 08-24-2015 influenza, injectabl e, quadrivalent, preservative free Alena O Lo Work Phone: [facility] Work Phone: 09-20-2013 influenza, seasonal, injectable, preservative free Alena O Lo Work Phone: [facility] Work Phone: 08-11-2008 influenza virus vaccine, whole virus Alena O Lo Work Phone: [facility] Work Phone: 07-20-2007 influenza virus vaccine, whole virus Alena O Lo Work Phone: [facility] Work Phone: 03-01-2004 TD(adult) unspecifie d formulation Alena O Lo Work Phone: [facility] Work Phone: Payers Date Payer Category Payer Self-pay 2021 Medicare [employer] MEDICARE A ETNA GOLDEN MEDICARE [id number] 2021-Present [address] [place] [address] [id number] 2021 Medicare (Managed Care) GUICHO REYES MEDICARE [id number] 2021 Private Health Insurance [facility] [id number] 1956 Unknown [id number] [id number]. 356 1956 Unknown [id number] 2.16.840.1.694372.3.579.2. 356 1956 Unknown [id number] 2.16.840.1.651760.3.579.2. 356 1956 Unknown [id number] 2.16.840.1.347883.3.579.2. 356 1956 Unknown [id number] 2.16.840.1.503590.3.579.2. 356 1956 Unknown [id number] 2.16.840.1.346345.3.579.2. 356 1956 Unknown [id number] 2.16.840.1.994232.3.579.2. 1068 1956 Unknown [id number] 2.16.840.1.758649.3.579.2. 9 1956 Unknown [id number] 2.16.840.1.345604.3.579.2. 1068 1956 Unknown [id number] 2.16.840.1.434587.3.579.2. 1069 1956 Unknown [id number] 2.16.840.1.828938.3.579.2. 1244 1956 Unknown [id number] 2.16.840.1.236242.3.579.2. 1244 1956 Unknown [id number] 2.16.840.1.042906.3.579.2. 1244 1956 Unknown [id number] 2.16.840.1.985068.3.579.2. 1242 1956 Unknown [id number] 2.16.840.1.734319.3.579.2. 1242 1956 Unknown [id number] 2..840.1.720578.3.579.2. 1243 1956 Unknown [id number] 2.16840.1.793994.3.579.2. 1243 1956 Unknown [id number] 2.16840.1.877837.3.579.2. 1244 Medicare MEDICARE PART A B [id number] Unknown Unknown [id number] 2.16840.1.201143.3.579.2. 462 Unknown [id number] 2.16840.1.100993.3.579.2. 462 Unknown [id number] 2.16840.1.311309.3.579.2. 462 Unknown [id number] 2.16840.1.688070.3.579.2. 462 Unknown [id number] 2.16840.1.005239.3.579.2. 462 Social History Date Type Detail Facility Start: 09-14-2023 End: 01-07-2025 Never a smoker Never a smoker [facility] Work Phone: Start: 05-29-2023 End: 03-28-2025 Tobacco smoking status NHIS Never smoked tobacco [facility] [place] Work Phone: Start: 05-29-2023 Tobacco use and exposure Smokeless tobacco non-user [facility] [place] Work Phone: Start: 05-29-2023 End: 03-13-2025 Alcohol intake Lifetime non-drinker (finding) [facility] [place] Work Phone: Start: 1955 Sex Assigned At Not on file [facility] [place] Work Phone: Start: 09-14-2023 End: 01-07-2025 Gender identity Not on file [facility] [place] Work Phone: Start: 09-04-2023 End: 01-17-2025 Exposure to SARS-CoV-2 (event) Not sure [facility] [place] Tobacco smoking status NHIS Unknown if ever smoked [facility] Work Phone: Start: 1955 Sex Assigned At Female [facility] NEGATED: Highlighted row - - [facility] Work Phone: Goals Date Patient Goal Desired Activity /State Functional Status Date Assessment Result Facility 01-07-2025 Patient Health Questionnaire 2 item (PHQ-2) [Reported] [facility] [place] Work Phone: NEGATED: Highlighted row Functional performance Functional status health issues are not documented Disease [facility] Work Phone: Mental Status Date Assessment Result Facility 04-02-2025 Cognitive function Voice/Name [facility] Work Phone: NEGATED: Highlighted row Cognitive function [Interpretation] Cognitive status health issues are not documented Disease [facility] Work Phone: Clinical Notes 09-08-2021 to 04-02-2025 Note Date & Type Note Facility 04-02-2025 Consult note Note Date/Time April 02, 2025 10:38am [facility] Medical Records Department [address] [place] [address] Pre-Anesthesia Evaluation 04/02/25 1037 MR#: [id number] Acct: [id number] Name: BERE BHATT Rep #:[id number] From: Lv Garcia PCP: CHELSEA Marin Status:REG SDC Y Race: C Location: [place] [address] ASA Classification* ASA Classification ASA Classification: 2 Assessment & Plan Anesthesia* Anesthesia Assessment Anesthesia Assessment: Discussed sedation and/or anesthesia options, risks, benefits, and alternatives with patient/parents/legal guardian/POA. Questions invited. The patient/parents/legal guardian/POA seems to understand and agrees to proceedwith anesthesia plan. Reviewed the physical assessment, medical history, allergy history and patient home medications list prior to surgery/procedure/anesthetic and documented any changes. Performed airway and anesthesia risk assessments. 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 When Was Last Pacemaker Check QUESTION #4 FULL TEXT: You/Your Family Experience fever (hyperthermia) with Anesthesia Last Oral Intake Last Oral intake: Last Oral Intake NPO since Meds taken in AM with sips of water? 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 Female Yes 03/28/25 15:06 HX of Motion Sickness Yes 03/28/25 15:06 HX of N/V After Surgery No 03/28/25 15:06 Non-Smoker Yes 03/28/25 15:06 Duration of Surgery greater No 03/28/25 15:06 than 60 minutes Number of Risk Factors 3 03/28/25 15:06 PONV Score Moderate Risk 03/28/25 15:06 Height & Weight Height & Weight: Anesthesia: Height & Weight Height 5 ft 6 in 02/03/25 10:46 Respiratory Assessment Respiratory Assessment - poultry processing supervisor: Respiratory Tract Infection Hx - poultry processing supervisor Hx Respiratory Tract Infection No 03/28/25 15:06 STOP Sleep Apnea STOP Sleep Apnea - poultry processing supervisor: STOP Sleep Apnea - poultry processing supervisor Hx Hypertension No 03/28/25 15:06 Hx Sleep Apnea No 03/28/25 15:06 CPAP BIPAP Do you snore loudly (louder No 03/28/25 15:06 than talking or can be heard Do you often feel tired/ No 03/28/25 15:06 fatigued/ sleepy during daytime? Has anyone observed you stop No 03/28/25 15:06 breathing during sleep? STOP Results Negative 03/28/25 15:06 QUESTION #5 FULL TEXT : Do you snore loudly (louder than talking or can be heard through closed doors)? 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 Specify any problems Hx of Preganancy in last 3 No 03/28/25 15:06 Months Nurse Filling Out Transfusion DSCHRIBER 03/28/25 15:06 & Questions: Date: 03/28/25 03/28/25 15:06 Time: 15:07 03/28/25 15:06 Patient unable to answer at this time (ie. confused, unrespo /Reproduction History /Reproductive History - poultry processing supervisor: /Reproductive Hx- poultry processing supervisor Hx Now No 03/28/25 15:06 Gestational Age (in weeks): EDC: Hx Hx Para Hx Section SAB No 03/28/25 15:06 Active Medications Active Medications: Current Medications Generic Name Dose Route Start Last Admin Trade Name Freq PRN Reason Stop Dose Admin Lactated Ringer's 1,000 mls @ 15 mls/hr 04/02/25 10:30 IV .Q48H MABEL PFSH Medical History (Updated 03/28/25 @ 15:18 by Antonietta Mariee) Wears glasses Post-menopausal Rash DVT (deep venous thrombosis) Back pain Injury of head and neck Heartburn Non-smoker Shortness of breath on exertion Leg cramps History of stress test History of anal fissures Anxiety Home Medications ?Medication ?Instructions ?Recorded ?Last Taken ?Type fluoxetine 20 mg capsule 20 mg PO QDAY 02/03/25 Unkno wn History docusate sodium 100 mg capsule 100 mg PO DAILY PRN con stipation 03/28/25 Unknown History (Colace) ibuprofen-diphenhydramine citrate 2 cap PO QHS 5 04/01/25 History 200 mg-38 mg tablet (Advil PM) polyethylene glycol 3350 17 17 g PO QHS 03/28/25 Unkno wn History gram/dose oral powder (Miralax) psyllium husk 3.4 gram/5.4 gram 1 tbsp PO DAILY Unknown History oral powder (Metamucil) Allergy/AdvReac Type Severity Reaction Status Date / Time bee venom protein (honey Allergy Intermediate Swelling Verified 04/02/25 10:34 bee) (bee sting) Family History Mother Hypertension HLD (hyperlipidemia) Skin cancer Father HLD (hyperlipidemia) Hypertension Surgical History (Updated 03/28/25 @ 15:18 by Antonietta Mariee) Hx of oral surgery Hx of colonoscopy Hx of tonsillectomy Hx of hemorrhoidectomy H/O hernia repair Social History Smoking Status: Never smoker alcohol intake: never substance use type: does not use Review of Systems (Anesthesia) ROS Narrative System reviewed and no additional complaints, except as documented. 04/02/25 1038 <Electronically signed by Lv Cheng MD> Date _ Lv Cheng MD Cosigner Signature: Date CC: ~ Signed [facility] Work Phone: [phone]) 948-819507-30-2025 Procedure note [facility] Medical Records Department [address] [place] [address] Colonoscopy Report MR#: [id number] Acct: [id number] Name: BERE BHATT Rep #:[id number] : 1955 70 From: Marin Thomas DO PCP: CHELSEA Marin Status[place] [facility] [place] [facility] [place] Patient Name: Bere Bhatt Procedure Date: 04/02/2025 10:55 AM Date of : 1955 Age: 70 Procedure: Colonoscopy Indications: Screening for colorectal malignant neoplasm Providers: Marin Thomas DO Medicines: Monitored Anesthesia Care Patient Profile: Last Colonoscopy: more than 10 years ago. Complications: No immediate complications. Procedure: Pre-Anesthesia Assessment: - Prior to the procedure, a History and Physical was performed, and patient medications and allergies were reviewed. The patient is competent. The risks and benefits of the procedure and the sedation options and risks were discussed with the patient. All questions were answered and informed consent was obtained. Patient identification and proposed procedure were verified by the physician in the pre-procedure area. Mental Status Examination: alert and oriented. Airway Examination: normal oropharyngeal airway and neck mobility. Respiratory Examination: clear to auscultation. CV Examination: normal. Prophylactic Antibiotics: The patient does not require prophylactic antibiotics. Prior Anticoagulants: The patient has taken no anticoagulant or antiplatelet agents except for NSAID medication. ASA Grade Assessment: II - A patient with mild systemic disease. After reviewing the risks and benefits, the patient was deemed in satisfactory condition to undergo the procedure. The anesthesia plan was to use monitored anesthesia care (MAC). Immediately prior to administration of medications, the patient was re-assessed for adequacy to receive sedatives. The heart rate, respiratory rate, oxygen saturations, blood pressure, adequacy of pulmonary ventilation, and response to care were monitored throughout the procedure. The physical status of the patient was re-assessed after the procedure. After I obtained informed consent, the scope was passed under direct vision. Throughout the procedure, the patient's blood pressure, pulse, and oxygen saturations were monitored continuously. The adult colonoscope was introduced through the anus and advanced to the cecum, identified by appendiceal orifice and ileocecal valve. Scope In: 11:16:02 AM Scope Withdrawal Time 0 hours 10 minutes 36 seconds Scope Out: 11:38:26 AM Total Procedure Duration Time 0 hours 22 minutes 24 seconds Findings: The perianal and digital rectal examinations were normal. The entire examined colon appeared normal on direct and retroflexion views. Multiple small-mouthed diverticula were found in the sigmoid colon. Impression: - The entire examined colon is normal on direct and retroflexion views. - Diverticulosis in the sigmoid colon. - No specimens collected. Recommendation: - Discharge patient to home. - Resume previous diet. - Continue present medications. - Repeat colonoscopy in 10 years for screening purposes. Procedure Code(s): --- Professional --- G0121, Colorectal cancer screening; colonoscopy on individual not meeting criteria for high risk CPT copyright 2021 [employer]. All rights reserved. The codes documented in this report are preliminary and upon microsoft access developer review may be revised to meet current compliance requirements. Marin Thomas DO 04/02/2025 12:33:24 PM This report has been signed electronically. Number of Addenda: 0 Note Initiated On: 04/02/2025 10:55 AM 04/02/25 1233 Date _ Marin Collins Signature: Date (if indicated) CC: CHELSEA Marin; Marin Thomas DO ~ Date Dictated: 04/02/251054 Date Transcribed: Special Deputy Sheriff: BRENDAN Signed [facility]07-30-2025 Procedure note [facility] Medical Records Department [address] [place] [address] Provation Physician Letter MR#: [id number] Acct: [id number] Name: BERE BHATT Rep #:[id number] : 1955 70 From: Marin Thomas DO PCP: CHELSEA Marin Status:[facility] [place] 04/02/2025 Chelsea Marin Re : Colonoscopy procedure for Bere Bhatt Dear Boubacar This procedure was performed on Monday, April 02, 2025. My impressions and recommendations are as follows: Impressions : - The entire examined colon is normal on direct and retroflexion views. - Diverticulosis in the sigmoid colon. - No specimens collected. Recommendations : - Discharge patient to home. - Resume previous diet. - Continue present medications. - Repeat colonoscopy in 10 years for screening purposes. My findings are described in the full procedure note, which is enclosed. If I can be of further assistance, please feel free to contact me at . Sincerely, Marin Thomas DO 04/02/2025 12:33:24 PM This report has been signed electronically. 04/02/25 1233 Date _ Marin Thomas DO Cosigner Signature: Date (if indicated) CC: CHELSEA Marin; Marin Thomas DO ~ Date Dictated: 04/02/25 105 Date Transcribed: Special Deputy Sheriff: BRENDAN Signed [facility]07-30-2025 Consult note [facility] Medical Records Department [address] [place] [address] Anesthesia Postop Eval I 04/02/25 1147 MR#: [id number] Acct: [id number] Name: BERE BHATT Rep #:[id number] : 1955 70 From: Toney Parker PCP: CHELSEA Marin Status:REG [facility] Y Race: C Location: [place] [address] Anesthesia: Postop Eval I Current Vital Signs Temperature: 98.3 F Pulse Rate: 70 Blood Pressure: 110/74 Respiratory Rate: 16 Pulse Ox: 97 Oxygen Delivery Method: Room Air Assessment Airway patent: Yes Spontaneous unlabored respirations: Yes Mental status: Awake and Calm nausea: No Vomiting: No Anesthesia Complication: No Fluid Hydration Crystalloid volume administer (ml): 400 Total IV fluid infused: 400 Progress Note Anesthesia document: Postop Eval 1 completed: Yes 04/02/25 1148 > Date _ Toney Sanz Signature: Date CC: ~ Signed [facility]07-30-2025 History and physical note [facility] Medical Records Department [address] [facility] [place] [address] History & Physical Exam 04/02/25 1050 MR#: [id number] Acct: [id number] Name: BERE BHATT Rep #:[id number] : 1955 70 From: Marin Thomas DO PCP: CHELSEA Marin Status:REG SDC Location: [place] [address] HPI - General General Date of Admission: 04/02/25 Date of Service: 04/02/25 Chief Complaint: Screening colonoscopy HPI Narrative BERE BHATT, is a 70 F who presents today for screening colonoscopy. She states that she's been dealing with constipation for over 30yrs. She reports intermittent episodes of diarrhea and associated indigestion. States that over the winter her family had the influenzavirus with all of the GI symptoms:N/V/D. She [...] and difficult recovery. Her last colonoscopy was 10years ago with no incidental findings and she has been having screening colonoscopies every 10yrs. Her last bowel prep was done with Gavilyte. She denies difficulty chewing and swallowing, cough, throat clearing, sinus drainage, heartburn, reflux, nausea, emesis, excess gas, hematochezia, and melena. 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 [facility] Medical History Wears glasses Post-menopausal Rash DVT (deep venous thrombosis) Back pain Injury of head and neck Heartburn Non-smoker Shortness of breath on exertion Leg cramps History of stress test History of anal fissures Anxiety Home Medications ?Medication ?Instructions ?Recorded ?Last Taken ?Type fluoxetine 20 mg capsule 20 mg PO QDAY 02/03/25 Unkno wn History docusate sodium 100 mg capsule 100 mg PO DAILY PRN con stipation 03/28/25 Unknown History (Colace) ibuprofen-diphenhydramine citrate 2 cap PO QHS 5 04/01/25 History 200 mg-38 mg tablet (Advil PM) polyethylene glycol 3350 17 17 g PO QHS 03/28/25 Unkno wn History gram/dose oral powder (Miralax) psyllium husk 3.4 gram/5.4 gram 1 tbsp PO DAILY Unknown History oral powder (Metamucil) Allergy/AdvReac Type Severity Reaction Status Date / Time bee venom protein (honey Allergy Intermediate Swelling Verified 04/02/25 10:34 bee) (bee sting) Family History Mother Hypertension HLD (hyperlipidemia) Skin cancer Father HLD (hyperlipidemia) Hypertension Surgical History Hx of oral surgery Hx of colonoscopy Hx of tonsillectomy Hx of hemorrhoidectomy H/O hernia repair Social History Smoking Status: Never smoker alcohol intake: never substance use type: does not use ROS Constitutional Constitutional: Denies fatigue, fever(s), poor appetite, weight gain or weight loss Gastrointestinal Gastrointestinal: Denies belching, bloating, change in bowel habits, change in stool character, chewing difficulty, coffee ground emesis, constipation, cramping, diarrhea, dyspepsia, dysphagia, earlysatiety, excessive flatus, fecalincontinence, heartburn, hematemesis, hematochezia, hemorrhoids, loose stools, melena, nausea, odynophagia, rectal bleeding, tenesmus, vomiting or weight changes Vital Signs Vital Signs Vital Signs: 04/02/25 10:35 04/02/25 10:35 04/02/25 10:38 Temperature 97.7 F L Temperature Source Temporal Pulse Rate 82 Respiratory Rate 16 Respiratory Pattern Normal Blood Pressure 136/85 H Blood Pressure Mean 102 Blood Pressure Source Monitor Blood Pressure Position Semi-Fowlers Blood Pressure Location Left Arm Pulse Ox 97 Oxygen Delivery Method Room Air Room Air Weight Weight: 181 lb Body Mass Index (BMI) 29.2 Physical Exam Const alert, oriented x3, no apparent distress and healthy appearing General Appearance: cooperative GI normal to inspection, nondistended, normoactive bowel sounds, soft to palpation,non-tender and non-distended Percussion: normal to percussion Rectal Exam: deferred Assessment & Plan Assessment/Plan (1) Constipation: QUALIFIERS: Constipation type: unspecified constipation type Qualified Code(s): K59.00 - Constipation, unspecified (2) Abdominal bloating: (3) Screening for colon cancer: PLAN: Assessment and Plan Assessment and Plan (1) Diarrhea: Qualifiers: Diarrhea type: unspecified type Qualified Code(s): R19.7 - Diarrhea, unspecified Plan: High suspicion for overflow diarrhea. (2) Abdominal bloating: Status: Acute (3) Constipation: Status: Acute Qualifiers: Constipation type: unspecified constipation type Qualified Code(s): K59.00 - Constipation, unspecified Orders: Orders Sitzmarkers Today K59.00 - Constipation, unspecified, R14.0 - Abdominal distension (gaseous) Abdomen Single View 02/06/25 K59.00 - Constipation, unspecified, R14.0 - Abdominal distension (gaseous) Abdomen Single View 02/08/25 K59.00 - Constipation, unspecified, R14.0 - Abdominal distension (gaseous) Plan BERE BHATT, is a 70 F who presents to the office today for establishment withI regarding concerns of chronic constipation. She states that she's been dealing with constipation for over 30yrs. She reports intermittent episodes of diarrhea and associated indigestion. * sitz markers today, KUB 6.5.25 and 6.7.25 * schedule screening colonoscopy * office FU 1wk after colonoscopy 04/02/25 1052 Cosigner Signature (if applicable): CC: CHELSEA Marin; Marin Thomas DO~ Signed [facility]07-30-2025 [facility] Medical Records Department [address] [place] [address] History Physical Exam 04/02/25 1050 MR#: [id number] Acct: [id number] Name: BERE BHATT Rep #: [id number] : 1955 70 From: Marin Thomas DO PCP: CHELSEA Marin Status:[facility] Location: [place] [address] HPI - General General Date of Admission: 04/02/25 Date of Service: 04/02/25 Chief Complaint: Screening colonoscopy HPI Narrative BERE BHATT, is a 70 F who presents today for screening colonoscopy. She states that she's been dealing with [...] from specific exercises to strengthen her floor. [facility] Medical History Wears glasses Post-menopausal Rash DVT (deep venous thrombosis) Back pain Injury of head and neck Heartburn Non-smoker Shortness of breath on exertion Leg cramps History of stress test History of anal fissures Anxiety Home Medications ???Medication ???Instructions ???Recorded ???Last Taken ???Type fluoxetine 20 mg capsule 20 mg PO QDAY 02/03/25 Unknown His tory docusate sodium 100 mg capsule 100 mg PO DAILY PRN constipation 0 03/28/25 Unknown History (Colace) ibuprofen-diphenhydramine citrate 2 cap PO QHS 03/28/25 04/01/25 Hi story 200 mg-38 mg tablet (Advil PM) polyethylene glycol 3350 17 17 g PO QHS 03/28/25 Unknown Histo ry gram/dose oral powder (Miralax) psyllium husk 3.4 gram/5.4 gram 1 tbsp PO DAILY 03/28/25 Unknown H istory oral powder (Metamucil) Allergy/AdvReac Type Severity Reaction Status Date / Time bee venom protein (honey Allergy Intermediate Swelling Verified 04/02/25 10:34 bee) (bee sting) Family History Mother Hypertension HLD (hyperlipidemia) Skin cancer Father HLD (hyperlipidemia) Hypertension Surgical History Hx of oral surgery Hx of colonoscopy Hx of tonsillectomy Hx of hemorrhoidectomy H/O hernia repair Social History Smoking Status: Never smoker alcohol intake: never substance use type: does not use ROS Constitutional Constitutional: Denies fatigue, fever(s), poor appetite, weight gain or weight loss Gastrointestinal Gastrointestinal: Denies belching, bloating, change in bowel habits, change in stool character, chewing difficulty, coffee ground emesis, constipation, cramping, diarrhea, dyspepsia, dysphagia, early satiety, excessive flatus, fecal incontinence, heartburn, hematemesis, hematochezia, hemorrhoids, loose stools, melena, nausea, odynophagia, rectal bleeding, tenesmus, vomiting or weight changes Vital Signs Vital Signs Vital Signs: 04/02/25 10:35 04/02/25 10:35 04/02/25 10:38 Temperature 97.7 F L Temperature Source Temporal Pulse Rate 82 Respiratory Rate 16 Respiratory Pattern Normal Blood Pressure 136/85 H Blood Pressure Mean 102 Blood Pressure Source Monitor Blood Pressure Position Semi-Fowlers Blood Pressure Location Left Arm Pulse Ox 97 Oxygen Delivery Method Room Air Room Air Weight Weight: 181 lb Body Mass Index (BMI) 29.2 Physical Exam Const alert, oriented x3, no apparent distress and healthy appearing General Appearance: cooperative GI normal to inspection, nondistended, normoactive bowel sounds, soft to palpation, non-tender and non- distended Percussion: normal to percussion Rectal Exam: deferred Assessment Plan Assessment/Plan (1) Constipation: QUALIFIERS: Constipation type: unspecified constipation type Qualified Code(s): K59.00 - Constipation, unspecified (2) Abdominal bloating: (3) Screening for colon cancer: PLAN: Assessment and Plan Assessment and Plan (1) Diarrhea: Qualifiers: Diarrhea type (more content not included)...[facility]07-30-2025 Consult note [facility] Medical Records Department [address] [place] [address] Pre-Anesthesia Evaluation 04/02/25 1037 MR#: [id number] Acct: [id number] Name: BERE BHATT Rep #:[id number] : 1955 70 From: Lv Garcia PCP: CHELSEA Marin Status:REG SDC Y Race: C Location: [place] [address] ASA Classification* ASA Classification ASA Classification: 2 Assessment & Plan Anesthesia* Anesthesia Assessment Anesthesia Assessment: Discussed sedation and/or anesthesia options, risks, benefits, and alternatives with patient/parents/legal guardian/POA. Questions invited. The patient/parents/legal guardian/POA seems to understand and agrees to proceedwith anesthesia plan. Reviewed the physical assessment, medical history, allergy history and patient home medications list prior to surgery/procedure/anesthetic and documented any changes. Performed airway and anesthesia risk assessments. 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 When Was Last Pacemaker Check QUESTION #4 FULL TEXT: You/Your Family Experience fever (hyperthermia) with Anesthesia Last Oral Intake Last Oral intake: Last Oral Intake NPO since Meds taken in AM with sips of water? 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 Female Yes 03/28/25 15:06 HX of Motion Sickness Yes 03/28/25 15:06 HX of N/V After Surgery No 03/28/25 15:06 Non-Smoker Yes 03/28/25 15:06 Duration of Surgery greater No 03/28/25 15:06 than 60 minutes Number of Risk Factors 3 03/28/25 15:06 PONV Score Moderate Risk 03/28/25 15:06 Height & Weight Height & Weight: Anesthesia: Height & Weight Height 5 ft 6 in 02/03/25 10:46 Respiratory Assessment Respiratory Assessment - poultry processing supervisor: Respiratory Tract Infection Hx - poultry processing supervisor Hx Respiratory Tract Infection No 03/28/25 15:06 STOP Sleep Apnea STOP Sleep Apnea - poultry processing supervisor: STOP Sleep Apnea - poultry processing supervisor Hx Hypertension No 03/28/25 15:06 Hx Sleep Apnea No 03/28/25 15:06 CPAP BIPAP Do you snore loudly (louder No 03/28/25 15:06 than talking or can be heard Do you often feel tired/ No 03/28/25 15:06 fatigued/ sleepy during daytime? Has anyone observed you stop No 03/28/25 15:06 breathing during sleep? STOP Results Negative 03/28/25 15:06 QUESTION #5 FULL TEXT : Do you snore loudly (louder than talking or can be heard through closeddoors)? 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 Specify any problems Hx of Preganancy in last 3 No 03/28/25 15:06 Months Nurse Filling Out Transfusion DSCHRIBER 03/28/25 15:06 & Questions: Date: 03/28/25 03/28/25 15:06 Time: 15:07 03/28/25 15:06 Patient unable to answer at this time (ie. confused, unrespo /Reproduction History /Reproductive History - poultry processing supervisor: /Reproductive Hx- poultry processing supervisor Hx Now No 03/28/25 15:06 Gestational Age (in weeks): EDC: Hx Hx Para Hx Section SAB No 03/28/25 15:06 Active Medications Active Medications: Current Medications Generic Name Dose Route Start Last Admin Trade Name Freq PRN Reason Stop Dose Admin Lactated Ringer's 1,000 mls @ 15 mls/hr 04/02/25 10:30 IV .Q48H MABEL PFSH Medical History (Updated 03/28/25 @ 15:18 by Antonietta Mariee) Wears glasses Post-menopausal Rash DVT (deep venous thrombosis) Back pain Injury of head and neck Heartburn Non-smoker Shortness of breath on exertion Leg cramps History of stress test History of anal fissures Anxiety Home Medications ?Medication ?Instructions ?Recorded ?Last Taken ?Type fluoxetine 20 mg capsule 20 mg PO QDAY 02/03/25 Unkno wn History docusate sodium 100 mg capsule 100 mg PO DAILY PRN con stipation 03/28/25 Unknown History (Colace) ibuprofen-diphenhydramine citrate 2 cap PO QHS 5 04/01/25 History 200 mg-38 mg tablet (Advil PM) polyethylene glycol 3350 17 17 g PO QHS 03/28/25 Unkno wn History gram/dose oral powder (Miralax) psyllium husk 3.4 gram/5.4 gram 1 tbsp PO DAILY Unknown History oral powder (Metamucil) Allergy/AdvReac Type Severity Reaction Status Date / Time bee venom protein (honey Allergy Intermediate Swelling Verified 04/02/25 10:34 bee) (bee sting) Family History Mother Hypertension HLD (hyperlipidemia) Skin cancer Father HLD (hyperlipidemia) Hypertension Surgical History (Updated 03/28/25 @ 15:18 by Antnoietta Mariee) Hx of oral surgery Hx of colonoscopy Hx of tonsillectomy Hx of hemorrhoidectomy H/O hernia repair Social History Smoking Status: Never smoker alcohol intake: never substance use type: does not use Review of Systems (Anesthesia) ROS Narrative System reviewed and no additional complaints, except as documented. 04/02/25 Ki MAR> Date _ Lv Sanz Signature: Date CC: ~ Signed [facility]07-10-2025 History of Present illness Narrative* Milind Pearson PA-C - 03/13/2025 10:20 AM EDT Subjective Patient ID: Bere Bhatt is a 70 y.o. female who presents for pt here for follow up apt (Pt still having sleep issues , would like referral for pelvic floor rehab , pt c/o right hand pain and swelling due to fall in December, area right eye close to nose has a scaly patch ). HPI Residual pain/swelling R hand from fall 3 months ago, Xray negative. Chronic constipation, hx significant hemorrhoid removal procedure years ago, working with GI currently, will have lower soon Review of Systems Gastrointestinal: Positive for constipation. Objective BP 128/78 Pulse 87 Ht 1.702 m (5' 7) Wt 83.5 kg (184 lb) SpO2 97% BMI 28.82 kg/m Physical Exam Constitutional: General: She is not in acute distress. Appearance: Normal appearance. She is not ill-appearing. HENT: Head: Normocephalic and atraumatic. Eyes: Extraocular Movements: Extraocular movements intact. Conjunctiva/sclera: Conjunctivae normal. Cardiovascular: Rate and Rhythm: Normal rate. Pulmonary: Effort: Pulmonary effort is normal. Abdominal: General: There is no distension. Musculoskeletal: General: Swelling and tenderness present. Cervical back: Normal range of motion. Skin: General: Skin is warm and dry. Neurological: General: No focal deficit present. Mental Status: She is alert and oriented to person, place, and time. Psychiatric: Mood and Affect: Mood normal. Behavior: Behavior normal. Thought Content: Thought content normal. Judgment: Judgment normal. Assessment/Plan Referral to pelvic floor and OT and thank you Refilled medications. Follow up at [facility] check documented in this [facility] Work Phone: 1(379) 135-461106-15-2025 Radiology Diagnostic study note [facility] Imaging Services [address] [place] [address] Abdomen Single View MR#: [id number] Acct: [id number] Name: BERE BHATT Rep #: [id number] : 1955 F 70 From: Romero Hess DO PCP: CHELSEA Marin Status: REG CLI Study:Abdomen Single View Date of Exam: 02/15/25 Exam# [id number] Ordering Dr: Patel Desouza ABSORBER OPERATOR-C PROCEDURE: ABDOMEN SINGLE VIEW 02/15/2025 REASON FOR EXAM: Constipation. Assess Sitz marker TECHNIQUE: ABDOMEN SINGLE VIEW COMPARISON: None. FINDINGS: Bowel gas: Marker is seen left of midline, likely transverse colon. Other cyst i seen in the descending colon. Calcifications: Bones: Other: RAD/Abdomen Single View IMPRESSION: No acute process. 2 Sitz markers remain in the colon. Reading Location: [facility] CC: ABSORBER OPERATOR-C Alisa Desouza; CHELSEA Marin ~ Special Deputy Sheriff: Signed [facility]06-12-2025 Radiology Diagnostic study note [facility] Imaging Services [address] [place] [address] Abdomen Single View MR#: [id number] Acct: [id number] Name: BERE BHATT Rep #: [id number] : 1955 F 70 From: Sky Singh MD PCP: Dr. Alena Lo MD Status: REG CLI Study:Abdomen Single View Date of Exam: 02/13/25 Exam# [id number] Ordering Dr: Patel Desouza ABSORBER OPERATOR-C PROCEDURE: ABDOMEN SINGLE VIEW 02/13/2025 REASON FOR EXAM: SITZ MARKER DAY 3 TECHNIQUE: Single view abdomen. COMPARISON: None. FINDINGS: There is a nonobstructive bowel gas pattern. There is a Sitz marker in the leftmid abdomen, which could be in the transverse colon. There is a Sitz marker in the right lower quadrant, which could be in the cecum. No other Sitz markers are identified. There is multilevel degenerative disc disease of the lumbar spine with dextroscoliosis. RAD/Abdomen Single View IMPRESSION: No evidence of bowel obstruction. Sitz markers locations as described. Reading Location: [place] [address] CC: JAGJIT Desouza; Dr. Alena Lo MD ~ Special Deputy Sheriff: Signed [facility] Work Phone: 1(857) 696-223406-02-2025 Evaluation note* Diagnosis Onset Date Resolution Status Admit Date Abdominal bloating acute February 032024 10:30am Constipation acute February 03 10:30am Diarrhea noneactive February 03, 2025 10:30am [facility] Work Phone: 1(155) 874-769206-02-2025 Evaluation note* Diagnosis Onset Date Resolution Status Admit Date Abdominal bloating acute February 032024 10:30am Constipation acute February 03 10:30am Diarrhea noneactive February 03, 2025 10:30am Abdominal bloating acute March 062024 10:14am Constipation acute April 02, 2 025 10:14am Screening for colon cancer acute April 02, 2025 10:14am [facility] Work Phone: 1([phone]) 616-527705-06-2025 History of Present illness Narrative* Milind Pearson PA-C - 01/07/2025 10:40 AM EDT Subjective Patient ID: Bere Bhatt is a [...] months or sooner prn documented in this [facility] Work Phone: 1([phone]) 356-181904-13-2025 Procedure note* ED Procedure Note - Clarissa Tomas PA-C - 12/15/2024 2:49 PM EDTAssociated Order(s): Laceration Repair; Laceration Repair Procedure Laceration Repair Performed by: Clarissa Tomas PA-C Authorized by: Isacc Kam DO Consent: Consent obtained: Verbal Consent given by: Patient Risks, benefits, and alternatives were discussed: yes [place] protocol: Patient identity confirmed: Verbally with patient [...] Risks, benefits, and alternatives were discussed: yes [place] protocol: Patient identity confirmed: Verbally with patient [...] immediate complications Clarissa Tomas PA-C 12/15/24 1452 [facility] Work Phone: 1([phone]) 987-589504-13-2025 Miscellaneous Notes* ED Procedure Note - Clarissa Tomas PA-C - 12/15/2024 2:49 PM EDTAssociated Order(s): Laceration Repair; Laceration Repair Procedure Laceration Repair Performed by: Clarissa Tomas PA-C Authorized by: Isacc Kam DO Consent: Consent obtained: Verbal Consent given by: Patient Risks, benefits, and alternatives were discussed: yes [place] protocol: Patient identity confirmed: Verbally with patient [...] Risks, benefits, and alternatives were discussed: yes [place] protocol: Patient identity confirmed: Verbally with patient [...] Tomas PA-C 12/15/24 1452 [facility] Work Phone: [phone]) [phone] Physician Emergency department Note* Isacc Vernon Bharat, DO - 12/15/2024 2:07 PM EDT HPI Chief Complaint Patient presents with Fall 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 History provided by: Patient feeder driver used: No Patient History Past Medical History: [...] well as to the underside of the upperlip. These are better described on the mouth [...] of motion of the hand and can assistant professor of communication equally. 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 History provided by: Patient feeder driver used: No Patient History Past Medical History: [...] well as to the underside of the upperlip. These are better described on the mouth [...] of motion of the hand and can assistant professor of communication equally. No point tenderness over the anatomical [...] Lip laceration, initial encounter No data recorded [place] Coma Scale Score: 15 (12/15/24 1326 : [...] if worse Procedure Procedures Isacc Kam DO 12/15/241444 [facility] Work Phone: 1([phone]) 314-183901-10-2025 History of Present illness Narrative* Milind Pearson PA-C - 09/13/2024 2:15 PM EST Subjective Reason for Visit: Bere Bhatt is an 69 y.o. female here for a Medicare Wellness visit. Past Medical, Surgical, and Family History reviewed and updated in chart. Reviewed all medications by prescribing practitioner or clinical pharmacist (such as prescriptions,OTCs, herbal therapies and supplements) and documented in [...] year or sooner prn. documented in this [facility] Work Phone: 1([phone]) 498-676203-29-2024 History of Present illness Narrative* Alena Lo MD - 12/01/2023 1:30 PM EDT Subjective Patient ID: Bere Bhatt is a [...] Stool Pathogen Panel, PCR documented in this [facility] Work Phone: [phone]) 864-722001-11-2024 History of Present illness Narrative* Alena Lo MD - 09/14/2023 4:30 PM EST Subjective Reason for Visit: Bere Bhatt is an 68 y.o. female here for a Medicare Wellness visit. Past Medical, Surgical, and Family History reviewed and updated in chart. Reviewed all medications by prescribing practitioner or clinical pharmacist (such as prescriptions,OTCs, herbal therapies and supplements) and documented in [...] to weakness in hip [facility] Work Phone: 1([phone]) 109-125201-11-2024 Instructions* Patient Instructions* Alena Lo MD - 09/14/2023 4:30 PM [...] or dizzy, which could cause a fall. Askyour healthcare provider about the side effects your [...] your healthcare team if you have questions [facility], 2021 documented in this [facility] Work Phone: [phone]) [phone] History of Present illness Narrative* Loreta Bermudez, 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 - 05/29/2023 2:30 PM EDT Subjective Patient ID: Bere Bhatt is a [...] today pain has improved rates pain as 7- 8/10 however describes pain a discomfort Sitting relaxed [...] if uncontrolled vomiting occurs [facility] Work Phone: [phone]) 502-283007-26-2023 NoteAccession #: [id number] Date of Procedure: 03/29/2023 Pathologist: [facility], Cytology Date Reported: 04/07/2023 Date Received: 03/30/2023 [...] Range: Negative Slide(s) initially screened by a [place] at [facility], [address] [place] [address] Testing for high-risk (HR) type of human papilloma virus (HPV) is performed by the Sehmar morgan HPV Test. The morgan HPV Test [...] verified by the Molecular Diagnostic Laboratory at [facility]. The lab is certified under the Clinical Laboratory Amendments of 1988 (CLIA 88) as qualified to perform high complexity clinical laboratory testing. This specimen has been analyzed by the FinalCADPrep Imaging System ([employer], [employer].), an automated imaging and review system, which assists the laboratory in evaluating cells on ThinPrep Pap tests. Following automated imaging, selected de los santos from every slide were reviewed by a virtual classroom manager and/or pathologist. Electronically Signed Out By [facility], Cytology//JMD By the signature on this report, the individual or group listed as making the Final Interpretation/Diagnosis certifies that they have reviewed this case. Diagnostic interpretation performed at [facility] [address] [place] [address] Educational Note: Cervical cytology is a screening [...] Source of Specimen A: THINPREP PAP CERVICAL [facility] Department of Pathology [address] [place] [id number] Medical CenterComment on above:Performed By: #### C #### [facility] Cytology [address] [facility] [id number] History of Present illness NarrativePresents for annual exam. She voices no complaints and is doing well. Denies any bowel or bladder problems. Denies any breast problems. Denies any postmenopausal bleeding. Patient had fallen in earlyJuly and in the process hit her right breast. Denies any bruising of the breast. Denies any breast lumps.[address] Work Phone: [phone]) [phone] Chief complaint Narrative - Reported* An interactive audio and video telecommunication system which permits real time communications between the patient (at the originating site) and provider (at the distant site) was utilized to providethis telehealth service. * Verbal consent was requested and obtained from BERE BHATT on this date, 09/12/2022 04:30 PM , for a telehealth visit. * david [facility] Work Phone: [phone]) [phone] History of Present illness Narrative* Since COVID- she has had more episodes [...] and was told she breaths too shallow. * Will try incentive spirometry when she is feeling short of breath. No problem with that. Seems to reduce the sensation. This is almost every say. Worse when on the decongestant. * Still has mild cough and congestion. No chest pain but tightness in left shoulder better with chiropractor. * She is not sleeping well since. COVID-19. The first 4 days when she was sick she not able to sleep.Promethazine did help increase from 1 to 5 hours per night. She is not drinking enough water and she is having issues with constipation and concerned with the anal issues she has had. So she is more a nxious. * Has been really vigilant with the COVID-19 prevention [facility] Work Phone: 1([phone]) [phone] History of Present illness Narrative* She stopped Prozac in the spring. Noted that she was not sleeping. She did not make a decision but just stopped being compelled to take it. About 2 weeks ago started having the racing heart, pressurein the chest. She had back pain that was somewhat different than she usually gets treated by massage and day care worker. She had a good PFT. She was told she does not take deep breaths. Sats have been above 95. Pulse has run in 60s-80s. Finds as she relaxes her BP and pulse do drop again. No swelling in ankles. She has been now on Prozac 40 mg for about 10 days. * PHQ-9 score is 8. So seems more anxiety. She is staying active at home as is gone for the summer. He is under stress as their children are having marital issues and he is staying with them tocare for a grandchild. So he is not home to walk with in the evenings and she is not out also due to the heat. Should be home in a few weeks. * She is still wearing a mask and now anxious as she did not wear a mask at an event. She has the home test for COVID-19. She has been having a bit of drainage * Massage therapist felt nodule on spine. [facility] Work Phone: [phone] Chief complaint Narrative - Reported* An interactive audio and video telecommunication system which permits real time communications between the patient (at the originating site) and provider (at the distant site) was utilized to providethis telehealth service. * Verbal consent was requested and obtained from BERE HUAN on this date, 09/08/2021 11:00 AM , for a telehealth visit. * david [facility] Work Phone: consult note Author Toney Parker [facility] Note Date/Time April 02, 2025 11:4 8am [facility] Medical Records Department [address] [place] [address] Anesthesia Postop Eval I 04/02/25 1147 MR#: [id number] Acct: [id number] Name: BERE BHATT Rep #:[id number] : 1955 70 From: Toney Parker PCP: CHELSEA Marin Status:REG SDC Y Race: C Location: [place] [address] Anesthesia: Postop Eval I Current Vital Signs Temperature: 98.3 F Pulse Rate: 70 Blood Pressure: 110/74 Respiratory Rate: 16 Pulse Ox: 97 Oxygen Delivery Method: Room Air Assessment Airway patent: Yes Spontaneous unlabored respirations: Yes Mental status: Awake and Calm nausea: No Vomiting: No Anesthesia Complication: No Fluid Hydration Crystalloid volume administer (ml): 400 Total IV fluid infused: 400 Progress Note Anesthesia document: Postop Eval 1 completed: Yes 04/02/25 1148 <Electronically signed by Toney Parker > Date _ Toney Parker Cosigntory Signature: Date CC: ~ Signed [facility] Work Phone: Evaluation note* Diagnosis Epigastric abdominal pain- Primary Abdominal pain, epigastric Abdominal bloating Flatulence, eructation, and gas pain Epigastric abdominal pain Abdominal pain, epigastric Abdominal bloating Flatulence, eructation, and gas pain documented in this encounter [facility] Work Phone: Evaluation note* Diagnosis Routine general [...] Acute non-recurrent pansinusitis documented in this encounter [facility] Work Phone: Evaluation note* Diagnosis Menopause Symptomatic menopausal or female climacteric states documented in this encounter [facility] Work Phone: Evaluation note* Diagnosis Menopause Symptomatic menopausal or female climacteric states documented in this encounter [facility] Work Phone: Evaluation note* Diagnosis Diarrhea of presumed infectious origin- Primary documented in this encounter [facility] Work Phone: Evaluation note* Diagnosis Routine general [...] or maintaining sleep documented in this encounter [facility] Work Phone: Evaluation note* Diagnosis Fall, initial encounter- Primary Injury of head, initial encounter Dental injury, initial encounter Contusion of right hand, initial encounter Facial laceration, initial encounter Lip laceration, initial encounter documented in this encounter [facility] Work Phone: Evaluation note* Diagnosis Anxiety- Primary Anxiety state, unspecified Primary insomnia Persistent disorder of initiating or maintaining sleep Accident due to mechanical fall without injury, subsequent encounter documented in this encounter [facility] Work Phone: Evaluation note* Diagnosis Screening mammogram for breast cancer documented in this encounter [facility] Work Phone: Evaluation note* Diagnosis Onset Date Resolution Status Admit Date Abdominal bloating acute February 032024 10:30am Constipation acute February 03 10:30am Diarrhea noneactive February 03, 2025 10:30am [facility] Work Phone: Evaluation note* Diagnosis Chronic constipation- Primary Unspecified constipation Anxiety Anxiety state, unspecified Pain of right hand documented in this encounter [facility] Work Phone: History and physical note Author Marin Thomas [facility] Note Date/Time April 02, 2025 10:5 2am [facility] Medical Records Department [address] [place] [address] History & Physical Exam 04/02/25 1050 MR#: [id number] Acct: [id number] Name: FREDJoselineBERE WADE Rep #:[id number] : 1955 70 From: Marin Thomas DO PCP: CHELSEA Marin Status:REG [facility] [place] Location: [place] [address] HPI - General General Date of Admission: 04/02/25 Date of Service: 04/02/25 Chief Complaint: Screening colonoscopy HPI Narrative BERE BHATT, is a 70 F who presents today for screening colonoscopy. She states that she's been dealing with [...] and difficult recovery. Her last colonoscopy was 10years ago with no incidental findings and she has been having screening colonoscopies every 10yrs. Her last bowel prep was done with Gavilyte. She denies difficulty chewing and swallowing, cough, throat clearing, sinus drainage, heartburn, reflux, nausea, emesis, excess gas, hematochezia, and melena. 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 [facility] Medical History Wears glasses Post-menopausal Rash DVT (deep venous thrombosis) Back pain Injury of head and neck Heartburn Non-smoker Shortness of breath on exertion Leg cramps History of stress test History of anal fissures Anxiety Home Medications ?Medication ?Instructions ?Recorded ?Last Taken ?Type fluoxetine 20 mg capsule 20 mg PO QDAY 02/03/25 Unkno wn History docusate sodium 100 mg capsule 100 mg PO DAILY PRN con stipation 03/28/25 Unknown History (Colace) ibuprofen-diphenhydramine citrate 2 cap PO QHS 5 04/01/25 History 200 mg-38 mg tablet (Advil PM) polyethylene glycol 3350 17 17 g PO QHS 03/28/25 Unkno wn History gram/dose oral powder (Miralax) psyllium husk 3.4 gram/5.4 gram 1 tbsp PO DAILY Unknown History oral powder (Metamucil) Allergy/AdvReac Type Severity Reaction Status Date / Time bee venom protein (honey Allergy Intermediate Swelling Verified 04/02/25 10:34 bee) (bee sting) Family History Mother Hypertension HLD (hyperlipidemia) Skin cancer Father HLD (hyperlipidemia) Hypertension Surgical History Hx of oral surgery Hx of colonoscopy Hx of tonsillectomy Hx of hemorrhoidectomy H/O hernia repair Social History Smoking Status: Never smoker alcohol intake: never substance use type: does not use ROS Constitutional Constitutional: Denies fatigue, fever(s), poor appetite, weight gain or weight loss Gastrointestinal Gastrointestinal: Denies belching, bloating, change in bowel habits, change in stool character, chewing difficulty, coffee ground emesis, constipation, cramping, diarrhea, dyspepsia, dysphagia, early satiety, excessive flatus, fecalincontinence, heartburn, hematemesis, hematochezia, hemorrhoids, loose stools, melena, nausea, odynophagia, rectal bleeding, tenesmus, vomiting or weight changes Vital Signs Vital Signs Vital Signs: 04/02/25 10:35 04/02/25 10:35 04/02/25 10:38 Temperature 97.7 F L Temperature Source Temporal Pulse Rate 82 Respiratory Rate 16 Respiratory Pattern Normal Blood Pressure 136/85 H Blood Pressure Mean 102 Blood Pressure Source Monitor Blood Pressure Position Semi-Fowlers Blood Pressure Location Left Arm Pulse Ox 97 Oxygen Delivery Method Room Air Room Air Weight Weight: 181 lb Body Mass Index (BMI) 29.2 Physical Exam Const alert, oriented x3, no apparent distress and healthy appearing General Appearance: cooperative GI normal to inspection, nondistended, normoactive bowel sounds, soft to palpation,non-tender and non-distended Percussion: normal to percussion Rectal Exam: deferred Assessment & Plan Assessment/Plan (1) Constipation: QUALIFIERS: Constipation type: unspecified constipation type Qualified Code(s): K59.00 - Constipation, unspecified (2) Abdominal bloating: (3) Screening for colon cancer: PLAN: Assessment and Plan Assessment and Plan (1) Diarrhea: Qualifiers: Diarrhea type: unspecified type Qualified Code(s): R19.7 - Diarrhea, unspecified Plan: High suspicion for overflow diarrhea. (2) Abdominal bloating: Status: Acute (3) Constipation: Status: Acute Qualifiers: Constipation type: unspecified constipation type Qualified Code(s): K59.00 - Constipation, unspecified Orders: Orders Sitzmarkers Today K59.00 - Constipation, unspecified, R14.0 - Abdominal distension (gaseous) Abdomen Single View 02/06/25 K59.00 - Constipation, unspecified, R14.0 - Abdominal distension (gaseous) Abdomen Single View 02/08/25 K59.00 - Constipation, unspecified, R14.0 - Abdominal distension (gaseous) Plan BERE BHATT, is a 70 F who presents to the office today for establishment withI regarding concerns of chronic constipation. She states that she's been dealing with constipation for over 30yrs. She reports intermittent episodes of diarrhea and associated indigestion. * sitz markers today, KUB 6.5.25 and 6.7.25 * schedule screening colonoscopy * office FU 1wk after colonoscopy 04/02/25 1052 <Electronically signed by Marin Thomas DO> Cosigner Signature (if applicable): CC: CHELSEA Marin; Marin Thomas, ~ Signed [facility] Work Phone: History of Present illness Narrative* [...] Scope 05/18/15 * Mammogram needs to see Retort Condenser Attendant, Dr Garcia. -[facility] Work Phone: [...] and DEXA ordered but needs to see Retort Condenser Attendant, Dr Garcia. [facility] Work Phone: Hospital Discharge instructions* Attachments The following attachments cannot be sent through Care Everywhere. * Mouth and dental injuries in adults ([place]) * Minor Contusion ED ([place]) * Taking care of bruises ([place]) * Minor Head Injury, Adult ED ([place]) * Laceration Repair With Glue Discharge Instructions ([place]) * Laceration Repair With Stitches Discharge Instructions ([place]) documented [facility] [place] Work Phone: Instructions* Name Dates Details Instructions not documented [id number] Work Phone: Reason for referral (narrative)* Consultation (Routine) - Authorized Specialty Diagnoses / Procedures Referred By Contac t Referred To Contact Primary Care Diagnoses Routine general medical examination at health care facility Procedures 1 Year Follow Up In Primary Care - Wellness Exam Alena Lo MD [address] [facility] [place] [facility] [place] [address] Referral ID Status Reason Start Date Expiration Date V isits Requested Visits Authorized [id number] Authorized 09/14/2023 09/13/2024 1 1 * Imaging (Routine) - Pending Review Specialty Diagnoses / Procedures Referred By Contac t Referred To Contact Radiology Diagnoses Menopause Procedures XR DEXA bone density Alena Lo MD [address] [facility] [place] [facility] [place], [place] [id number] Referral ID Status Reason Start Date Expiration Date Visits Requested Visits Authorized Pending Review Perform Procedure 09/14/2023 09/13/2024 1 1 [facility] [place] Work Phone: Reason for referral (narrative)* Consultation (Routine) - Authorized Specialty Diagnoses / Procedures Referred By Contac t Referred To Contact Primary Care Procedures Follow Up In Primary Care - Established Milind Pearson PA-C [address] [facility] [place] [facility] [place], [place] [address] Phone: tel: fax: Referral ID Status Reason Start Date Expiration Date V isits Requested Visits Authorized [id number] Authorized 01/07/2025 01/07/2026 1 1 [facility] [place] Work Phone: Reason for referral (narrative)No reason for referral information [facility] Work Phone: Reason for visit Narrative* Imaging (Routine) - Authorized Specialty Diagnoses / Procedures Referred By Conttc t Referred To Contact Radiology Diagnoses Screening mammogram for breast cancer Procedures BI mammo bilateral screening tomosynthesis Milind Pearson PA-C [address] [facility] [place] [facility] [place], [place] [address] Phone: tel: fax: Referral ID Status Reason Start Date Expiration Date Visits Requested Visits Authorized [id number] Authorized Perform Procedure 09/13/2024 09/13/2025 1 1 [facility] [place] Work Phone: Summary Purpose Family History No [...] diabetes m ellitus: Mother, Father(V18.0, Z83.3) Status:Active Relationship Condition Age at Onset Recorded Date/T myke mother Hypertension Unknown Hyperlipidemia Unknown Malignant neoplasm of skin Unknown father Hyperlipidemia Unknown Hypertension Unknown Advance Directives No Advanced Directives Records Found Advance Directive Response Recorded Date/ Time Do you have a Healthcare Power of Computer Publisher? Yes March 28, 2025 3:06pm Chief Complaint AnxietyPost Alex Patient is here for her yearly exam and pap test. LMP: Menopause. Patient does not do regular self breast exams and has no concerns at this time. Reason for Referral Specialty Diagnoses / Procedures Referred By Cait t Referred To Contact Radiology Diagnoses Menopause Procedures XR DEXA bone density Alena Lo MD [address] [facility], [place] [address] Referral ID Status Reason Start Date Expiration Date Visits Requested Visits Authorized Pending Review Perform Procedure 09/14/2023 09/13/2024 1 1 Chief Complaint and Reason for Visit Chief Complaint Admit Date Diarrhea February 03, 2025 10:30 am INT XRAY ORDERS February 13, 2025 10:5 4am Reason for Visit Admit Date Abdominal bloating February 03, 2025 10:30 am Constipation February 03, 2025 10:30 am Diarrhea February 03, 2025 10:30 am Chief Complaint Admit Date Diarrhea February 03, 2025 10:30 am Reason for Visit Admit Date Abdominal bloating February 03, 2025 10:30 am Constipation February 03, 2025 10:30 am Diarrhea February 03, 2025 10:30 am Abdominal bloating April 02, 2025 10:1 4am Constipation April 02, 2025 10:1 4am Screening for colon cancer April 02 10:14am Additional Source Comments INFORMATION SOURCE (unrecogn ized section and content) DATE CREATED AUTHOR 05/03/[address] [facility] DATE CREATED AUTHOR AUTHOR'S ORGANIZ ATION 09/13/2022 [employer] DATE CREATED AUTHOR AUTHOR'S ORGANIZ ATION 04/08/2023 [facility] DATE CREATED AUTHOR AUTHOR'S ORGANIZ ATION 06/06/2023 [facility] DATE CREATED AUTHOR AUTHOR'S ORGANIZ ATION 12/09/2023 [facility] DATE CREATED AUTHOR AUTHOR'S ORGANIZ ATION 01/18/2025 [facility] DATE CREATED AUTHOR AUTHOR'S ORGANIZ ATION 01/20/2025 [facility] DATE CREATED AUTHOR AUTHOR'S ORGANIZ ATION 01/23/2025 [facility] DATE CREATED AUTHOR AUTHOR'S ORGANIZ ATION 03/17/2025 [facility] DATE CREATED AUTHOR AUTHOR'S ORGANIZ ATION 04/02/2025 [facility] Reason for Visit (unrecogniz ed section and content) Reason Comments stomach issues Started yesterday - Has had this before Reason Comments Medicare Annual Wellness Visit Initial Specialty Diagnoses / Procedures Referred By Contac t Referred To Contact Radiology Diagnoses Menopause Procedures XR DEXA bone density Alena Lo MD [address] [facility] [place] [facility] [place], [place] [address] Referral ID Status Reason Start Date Expiration Date Visits Requested Visits Authorized Pending Review Perform Procedure 09/14/2023 09/13/2024 1 1 Reason Comments Diarrhea X 5-7 days Reason Comments Medicare Annual Wellness Visit Tereza headley Due for Trinity and colonoscopy Specialty Diagnoses / Procedures Referred By Cait headley Referred To Contact Primary Care Diagnoses Routine general medical examination at health care facility Procedures 1 Year Follow Up In Primary Care - Wellness Exam Alena Lo MD [address] [facility] [place] [facility] [place], [address] [place] [address] Phone: tel: fax: Referral ID Status Reason Start Date Expiration Date V isits Requested Visits Authorized [id number] Authorized 09/14/2023 09/13/2024 1 1 Reason Comments Fall 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 she was walking outside the library when [...] MILLER, chest pressure, SOB, bp elevated 169/132 Reason Comments pt here for follow up apt Pt still havin g sleep issues , would like referral for pelvic floor rehab , pt c/o right hand pain and swelling due to fall in December, area right eye close to nose has a scaly patch Specialty Diagnoses / Procedures Referred By Cait headley Referred To Contact Primary Care Procedures Follow Up In Primary Care - Established Milind Pearson PA-C [address] [facility] [place] [facility] [place], [facility] [address] [place] [address] Phone: tel: fax: Referral ID Status Reason Start Date Expiration Date V isits Requested Visits Authorized [id number] Authorized 01/07/2025 01/07/2026 1 1 Care Teams (unrecognized sec tion and content) Structured Cabling Technician Relationship Specialty Start Date End Date Alena Lo MD [address] [facility] [place] [facility] [place], [facility] [address] [place] [phone] PCP - General 06/04/19 Alena Lo MD [address] [facility] [place] [facility] [place], [address] [place] [address] PCP - [employer] Medicare Advantage PCP 01/02/22 Structured Cabling Technician Relationship Specialty Start Date End Date Alena Lo MD [address] [facility] [place] [facility] [place], [place] [place] [address] PCP - General 06/04/19 Alena Lo MD [address] [facility] [place] [facility] [place], [place] [place] [address] PCP - [employer] Medicare Advantage PCP 01/02/22 Structured Cabling Technician Relationship Specialty Start Date End Date Alena Lo MD [address] [facility] [place] [facility] [place], [place] [place] [address] PCP - General 06/04/19 Alena Lo MD [address] [facility] [place] [facility] [place], [place] [place] [address] PCP - [employer] Medicare Advantage PCP 01/02/22 Structured Cabling Technician Relationship Specialty Start Date End Date Alena Lo MD [address] [facility] [place] [facility] [place], [address] [place] [address] PCP - General 06/04/19 Alena Lo MD [address] [facility] [place] [facility] [place], [place] [place] [address] PCP - [employer] Medicare Advantage PCP 01/02/22 Structured Cabling Technician Relationship Specialty Start Date End Date Alena Lo MD [address] [facility] [place] [facility] [place], [place] [place] [address] PCP - General 06/04/19 Alena Lo MD [address] [facility] [place] [facility] [place], [address] [place] [address] PCP - [employer] Medicare Advantage PCP 01/02/22 Structured Cabling Technician Relationship Specialty Start Date End Date lAena Lo MD [address] [facility] [place] [place] [place] [address] PCP - [employer] Medicare Advantage PCP 01/02/22 Milind Pearson PA-C [address] [facility] [place], [place] [place] [address] PCP - General Family Medicine 09/13/24 Structured Cabling Technician Relationship Specialty Start Date End Date Alena Lo MD [address] [facility] [place] [facility] [place], [address] [place] [address] PCP - [employer] Medicare Advantage PCP 01/02/22 Milind Pearson PA-C [address] [facility] [place] [facility] [place], [address] [place] [address] PCP - General Family Medicine 09/13/24 Structured Cabling Technician Relationship Specialty Start Date End Date Alena Lo MD [address] [facility] [place] [facility] [place], [address] [place] [address] PCP - [employer] Medicare Advantage PCP 01/02/22 Milind Pearson PA-C [address] [facility] [place] [facility] [place], [address] [place] [address] PCP - General Family Medicine 09/13/24 Structured Cabling Technician Relationship Specialty Start Date End Date Alena Lo MD [address] [facility] [place] [facility] [place], [place] [place] [address] PCP - Aetjadiel Medicare Advantage PCP 01/02/22 Milind Pearson PA-C [address] [facility] [place] [facility] [place], [address] [place] [address] PCP - General Family Medicine 09/13/24 Team [...] February 03, 2025 End: February 03, 2025 Team Status: Active Member Role Status Dates CHELSEA Marin Primary Care Provider Active Team Status: Inactive Member Role Status Dates Dr. Alena Lo MD Primary Care Provider Active Start: February 13, 2025 End: February 13, 2025 JAGJIT Chapman Attending Provider Active S tart: February 13, 2025 End: February 13, 2025 JAGJIT Chapman Referring Provider Active S tart: February 13, 2025 End: February 13, 2025 Team Status: Active Member Role Status Dates CHELSEA Marin Primary Care Provider Active Start: February 15, 2025 JAGJIT Chapman Attending Provider Active S tart: February 15, 2025 JAGJIT Chapman Referring Provider Active S tart: February 15, 2025 Team Status: Inactive Member Role Status Dates CHELSEA Marin Primary Care Provider Active Start: February 15, 2025 End: February 15, 2025 JAGJIT Chapman Attending Provider Active S tart: February 15, 2025 End: February 15, 2025 JAGJIT Chapman Referring Provider Active S tart: February 15, 2025 End: February 15, 2025 Structured Cabling Technician Relationship Specialty Start Date End Date Alena Lo MD [address] [facility] [place] [place] [address] PCP - Aet Medicare Advantage PCP 01/02/22 Milind Pearson PA-C [address] [facility] [place], [address] [address] PCP - General Family Medicine 09/13/24 Team Status: Active Member Role/Relationship Status Dates CHELSEA Marin Primary Care Provider Active Team Status: Inactive Member Role/Relationship Status Dates Dr. Alena Lo MD Primary Care Provider Active Start: February 03, 2025 End: February 03, 2025 Dr. Alena Lo MD Referring Provider Active Start: February 03, 2025 End: February 03, 2025 JAGJIT Chapman Attending Provider Active S tart: February 03, 2025 End: February 03, 2025 Team Status: Inactive Member Role/Relationship Status Dates Dr. Alena Lo MD Primary Care Provider Active Start: February 13, 2025 End: February 13, 2025 JAGJIT Chapman Attending Provider Active S tart: February 13, 2025 End: February 13, 2025 JAGJIT Chapman Referring Provider Active S tart: February 13, 2025 End: February 13, 2025 Team Status: Inactive Member Role/Relationship Status Dates CHELSEA Marin Primary Care Provider Active Start: February 15, 2025 End: February 15, 2025 JAGJIT Chapman Attending Provider Active S tart: February 15, 2025 End: February 15, 2025 JAGJIT Chapman Referring Provider Active S tart: February 15, 2025 End: February 15, 2025 Team Status: Inactive Member Role/Relationship Status Dates Dr. Marin Thomas DO Attending Provider Active Start: April 02, 2025 End: April 02, 2025 CHELSEA Marin Primary Care Provider Active Start: April 02, 2025 End: April 02, 2025 CHELSEA Marin Referring Provider Active Sta rt: April 02, 2025 End: April 02, 2025 Team Status: Active Member Role/Relationship Status Dates Dr. Marin Thomas DO Attending Provider Active Start: April 02, 2025 Dr. Marin Thomas DO Other Provider Active St art: April 02, 2025 CHELSEA Marin Primary Care Provider Active Start: April 02, 2025 CHELSEA Marin Referring Provider Active Sta rt: April 02, 2025 Scheduled Active and Recently Administ ered [...] may be documented in a n alternate sectionGoals may be documented in an alternate sectionGoals may be documented in an alternate section FOR RECORDS PERTAINING TO PATIENTS [...] BE BASED ON THE PRIMARY CLINICAL RECORDS. [facility] provides no warranty or guarantee of the accuracy or completeness of information in this document.
== END 2025-04-02 12:46 | disposition home or self-care (01) ==
LOC: EN 10:15 → AC 10:16
PROVIDERS: PCP Physician Assistant; Referring Provider Physician Assistant; Visit Provider Internal Medicine Gastroenterology
PROC: 0DJD8ZZ Inspection of Lower Intestinal Tract, Via Natural or Artificial Opening Endoscopic (ICD-10-PCS; CPT 45378; principal; 2025-04-02 11:10)
DX: Z12.11 Encounter for screening for malignant neoplasm of colon (principal); K59.09 Other constipation; R19.7 Diarrhea, unspecified
CPT/HCPCS: G0121; J2405